=== PATIENT | female | born 1960 | race Two or more races ===

== ENCOUNTER 2020-08-26 19:12 | Emergency (ER) | payer OTHER, SELFPAY ==
--- NOTE | ~2020-08-26 | XR_ITS ---
EXAMINATION: XR SHOULDER, LEFT CLINICAL INFORMATION: Increasing shoulder pain with history of arthritis COMPARISON: Left shoulder radiographs 04/29/2013 TECHNIQUE: Three views of the left shoulder. FINDINGS: Again seen are degenerative changes present with subchondral cyst and sclerosis around the greater tuberosity. Findings are not significantly different when compared to the 2013 study. No tendinous calcification is seen. No fractures are seen. The glenohumeral joint appears unremarkable. XR/XR shoulder LT min 2V IMPRESSION: No acute abnormality. Findings are unchanged when compared to the 2013 study described above.
[2020-08-26 19:32] VITALS: BP 158/74; PULSE 76; RESP 16; TEMP 36.8; O2SAT 95; BMI 42.3
[2020-08-26] MEDS: Ketorolac Tromethamine 15 MG/ML VIAL IM (21:24)
[2020-08-26] MEDS: Acetaminophen 325 MG TABLET 975 MG PO (21:25)
--- NOTE | 2020-08-26 21:28 | ED_ITS ---
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 Although patient states that she is unable to lift her arm she was noted to be able to perform this function by both nursing staff on documentation as well observed by myself. She denies any numbness/tingling/weakness into the distal extremity. Otherwise, she denies any shortness of breath, trauma, or chest pain/palpitations. Related Data Home Medications Medication Instructions Recorded Confirmed albuterol sulfate 90 mcg/actuation 2 puff PO Q6H PRN 03/27/20 03/27/20 aerosol inhaler cholecalciferol (vitamin D3) 50 50 mcg PO DAILY 03/27/20 03/27/20 mcg (2,000 unit) tablet ibuprofen 800 mg tablet mg PO 03/27/20 03/27/20 Previous Rx's Medication Instructions Recorded fluoxetine 40 mg capsule 40 mg PO DAILY 90 Days #90 cap 03/08/20 hydroxyzine HCl 25 mg tablet 25 mg PO Q8H PRN 30 Days #90 tab 03/30/20 lisinopril 10 mg tablet 10 mg PO DAILY #90 tab 04/02/20 trazodone 150 mg tablet 300 mg PO DAILY #180 tab 04/29/20 naproxen 500 mg tablet 500 mg PO BID PRN 30 Days #60 tab 06/20/20 omeprazole 40 mg capsule,delayed 40 mg PO DAILY #30 cap 07/04/20 release hydroxyzine HCl 25 mg PO TID PRN 2 Days #6 tab 08/26/20 Allergies Allergy/AdvReac Type Severity Reaction Status Date / Time No Known Allergies Allergy Mild NKA Verified 03/27/20 17:37 Review of Systems Review of Systems: Pertinent positives and negatives as stated in HPI 10 point review of systems is otherwise negative. PMFSH Past Medical History Source: nursing notes reviewed Medical History Depression Essential hypertension GERD (gastroesophageal reflux disease) Hypovitaminosis D Insomnia Mild asthma Surgical History History of tubal ligation Family History Family History Father Kidney failure, acute Asthma Mother Heart disease Cancer Sister Kidney disease Brother Kidney failure, acute Son Bipolar 1 disorder Family/Other FH: mental illness Social History Social History Alcohol intake: never Smoking Status: Never smoker Smoked in Last 30 Days: No Use of substances other than those prescribed or required for medical reasons: No Advance Directives: No Advance Directives Information Provided: Yes Physical Exam Vital Signs: Vital Signs: Last Vital Signs Temp 98.2 F 08/26/20 19:32 Pulse 76 08/26/20 19:32 Resp 16 08/26/20 19:32 BP 158/74 H 08/26/20 19:32 Pulse Ox 95 08/26/20 19:32 Body Mass Index 42.3 VITAL SIGNS: Reviewed. GENERAL: Well developed, well nourished, in no acute distress. HEAD: Normocephalic/atraumatic OROPHARYNX: no oral lesions noted, posterior pharynx clear NECK: Supple, no adenopathy LUNGS: Normal breath sounds. No adventitious sounds or accessory muscle use. SpO2<95> CARDIOVASCULAR: Regular rate and rhythm without noted murmurs ABDOMEN: Soft, non-tender, non-distended with bowel sounds. No rigidity. No guarding. 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 Course Course Course Narrative: This is a 59-year-old female with history and clinical presentation consistent with acute on chronic exacerbation of underlying left shoulder arthritis, no evidence to suggest cardiopulmonary etiologies or infection. X-ray negative for acute findings other than degenerative changes and physical exam is otherwise benign. Patient received combination analgesics with good results on re-evaluation and she was discharged in stable condition with instructions to follow-up with her primary care provider. Discharge Plan Discharge Clinical Impression: Acute pain of left shoulder Patient Disposition: Home, Self-Care Instructions: Arthralgia (ED), Shoulder Pain (ED) Additional Instructions: 1. Please resume all home medications as prescribed. 2. Tylenol 1000 mg, orally, every 6 hours as needed for pain control. Do not exceed 4000 mg within 24 hours. 3. Please follow-up with your primary care provider in the next 2-3 days for re- evaluation. Do not hesitate to return to the emergency department for any acute worsening of symptoms. Prescriptions: New hydroxyzine HCl 25 mg tablet 25 mg PO TID PRN (Reason: itching) 2 Days Qty: 6 RF: 0 No Action fluoxetine 40 mg capsule 40 mg PO DAILY 90 Days Qty: 90 RF: 3 hydroxyzine HCl 25 mg tablet 25 mg PO Q8H PRN (Reason: itching) 30 Days Qty: 90 RF: 6 lisinopril 10 mg tablet 10 mg PO DAILY Qty: 90 RF: 2 trazodone 150 mg tablet 300 mg PO DAILY Qty: 180 RF: 1 naproxen 500 mg tablet 500 mg PO BID PRN (Reason: pain) 30 Days Qty: 60 RF: 2 omeprazole 40 mg capsule,delayed release(DR/EC) 40 mg PO DAILY Qty: 30 RF: 11 ibuprofen 800 mg tablet PO RF: 0 cholecalciferol (vitamin D3) 50 mcg (2,000 unit) tablet 50 mcg PO DAILY RF: 0 albuterol sulfate 90 mcg/actuation HFA aerosol inhaler 2 puff PO Q6H PRNRF: 0 Referrals: Selene Kirkland MD [Primary Care Provider] - 2 days (Re-evaluation of left shoulder pain)
== END 2020-08-26 22:05 | disposition home or self-care (01) ==
PROVIDERS: Emergency Provider Student in an Organized Health Care Education/Training Program; PCP Internal Medicine
DX: M25.512 Pain in left shoulder (principal); Z79.899 Other long term (current) drug therapy
CPT/HCPCS: 73030; 96372; 99284; J1885

== ENCOUNTER 2020-09-18 19:42 | Inpatient (IN) | payer OTHER, SELFPAY ==
--- NOTE | ~2020-09-18 | XR_ITS ---
EXAMINATION: XR CHEST CLINICAL INFORMATION: Shortness of breath. Evaluate for pneumonia. COMPARISON: 05/05/2018 TECHNIQUE: Frontal view of the chest was obtained. FINDINGS: Multifocal airspace opacities extensively throughout bilateral lung. Possible small left pleural effusion. No pulmonary edema. No pneumothorax. XR/XR chest 1V IMPRESSION: Multifocal airspace opacities extensively throughout bilateral hemithoraces, suspicious for multifocal pneumonia. Recommendation is for a follow up chest series to be obtained following treatment and/or resolution of symptoms to assure resolution of this appearance.
--- NOTE | ~2020-09-18 | XR_ITS ---
EXAMINATION: XR CHEST CLINICAL INFORMATION: Right IJ placement COMPARISON: 09/26/2020 TECHNIQUE: Frontal view of the chest was obtained. FINDINGS: Right internal jugular central venous catheter terminates over the right atrium. This is approximately 4 cm beyond the cavoatrial junction. Cardiac leads overlie the chest. Lung volumes are low. Multifocal airspace opacities are seen throughout both lungs. No pleural effusion or pneumothorax. The cardiomediastinal silhouette is unchanged. XR/XR chest 1V IMPRESSION: Right internal jugular central venous catheter terminates over the right atrium, approximately 4 cm beyond the cavoatrial junction. Diffuse bilateral airspace opacities are again noted.
--- NOTE | ~2020-09-18 | XR_ITS ---
EXAMINATION: XR CHEST CLINICAL INFORMATION: Hypoxic respiratory failure COMPARISON: Chest 09/28/2020 TECHNIQUE: Frontal view of the chest was obtained. FINDINGS: The lungs are hypoexpanded with bilateral airspace opacities. No consolidation. No pleural effusion. Heart size and pulmonary vascularity is normal. There is a right central catheter with its tip in the right atrium. No gross bony abnormality seen. XR/XR chest 1V IMPRESSION: Diffuse bilateral patchy airspace opacities, stable. Right central catheter is stable.
--- NOTE | ~2020-09-18 | XR_ITS ---
EXAMINATION: XR CHEST CLINICAL INFORMATION: Follow-up pneumonia COMPARISON: Previous chest x-ray 09/18/2020 TECHNIQUE: Frontal view of the chest was obtained. FINDINGS: The cardiac and mediastinal contours are normal. The lung volumes are low. There is bilateral airspace disease suggestive of a bilateral multilobar pneumonia. This does not appear appreciably changed from 09/18/2020 exam. There is no pleural effusion or pneumothorax. There are degenerative changes of the spine. XR/XR chest 1V IMPRESSION: No significant change in bilateral airspace disease suggestive of pneumonia.
[2020-09-18 20:03] VITALS: BP 139/74; PULSE 101; RESP 22; TEMP 37.3; O2SAT 70; BMI 37.8
[2020-09-18 20:24] VITALS: BP 132/81; PULSE 89; RESP 20; TEMP 36.3
--- NOTE | 2020-09-18 20:28 | ECG_ITS ---
Test Reason : DYSPNEA Blood Pressure : / mmHG Vent. Rate : 089 BPM Atrial Rate : 089 BPM P-R Int : 142 ms QRS Dur : 086 ms QT Int : 396 ms P-R-T Axes : 057 010 057 degrees QTc Int : 481 ms Normal sinus rhythm Minimal voltage criteria for LVH, may be normal variant Prolonged QT Abnormal ECG When compared to the previous EKG of No significant changes seen Referred By: Samantha Soto Electronically Signed By:Jace Guzmán
[2020-09-18] MEDS: Albuterol Sulfate (0.083%) 2.5 MG/3 ML VIAL.NEB 5 MG INHALE (20:35)
--- NOTE | 2020-09-18 20:35 | ED.SOB ---
HPI - SOB/Dyspnea General Chief Complaint: Dyspnea Stated Complaint: DIFF BREATHING Time Seen by Provider: 09/18/20 20:28 Source: patient Mode of arrival: ambulatory Limitations: no limitations History of Present Illness HPI Narrative: 59 yo female with asthma, HTN, depression here with 1 week of fatigue, weakness, dyspnea not responding to home nebs, no exposures to COVID and did NOT receive her vaccines yet, found to be in 70s on RA on arrival up to 90s with NRB MD elicited complaint: shortness of breath and cough Pertinent past history: asthma Onset (ago): week(s) (1) Timing: constant Severity: severe Exacerbating factors: exertion, movement and coughing Relieving factors: oxygen, rest and bronchodilators Known history of: asthma Associated symptoms: fever, cough, wheezing and sputum production Treatment prior to arrival: none Related Data Home Medications Medication Instructions Recorded Confirmed albuterol sulfate 90 mcg/actuation 2 puff PO Q6H PRN 03/27/20 03/27/20 aerosol inhaler cholecalciferol (vitamin D3) 50 50 mcg PO DAILY 03/27/20 03/27/20 mcg (2,000 unit) tablet ibuprofen 800 mg tablet mg PO 03/27/20 03/27/20 Previous Rx's Medication Instructions Recorded fluoxetine 40 mg capsule 40 mg PO DAILY 90 Days #90 cap 03/08/20 hydroxyzine HCl 25 mg tablet 25 mg PO Q8H PRN 30 Days #90 tab 03/30/20 lisinopril 10 mg tablet 10 mg PO DAILY #90 tab 04/02/20 trazodone 150 mg tablet 300 mg PO DAILY #180 tab 04/29/20 naproxen 500 mg tablet 500 mg PO BID PRN 30 Days #60 tab 06/20/20 omeprazole 40 mg capsule,delayed 40 mg PO DAILY #30 cap 07/04/20 release hydroxyzine HCl 25 mg PO TID PRN 2 Days #6 tab 08/26/20 Allergies Allergy/AdvReac Type Severity Reaction Status Date / Time No Known Allergies Allergy Mild NKA Verified 09/18/20 20:07 Review of Systems Review of Systems: Constitutional : pos Fever, pos Chills ENT/Mouth : No Hoarseness, No sore throat, No Rhinorrhea Eyes: No Redness, No Discharge, No Vision Changes Cardiovascular : No Chest Pain, positive SOB, positive Dyspnea on Exertion, No Edema Respiratory : positive Cough, No Sputum, positive Wheezing, Gastrointestinal : No Nausea, No Vomiting, No Diarrhea, No abdominal Pain Genitourinary : No Dysuria, No Hematuria Musculoskeletal : No joint pain, No Myalgias Skin : No rash Neuro : pos Weakness, No Numbness, No Headache Psych : No anxiety, depression Heme/Lymph: No Bruising, No Bleeding Endocrine : No Polyuria, No Polydipsia All other systems reviewed and are negative [facility] Past Medical History Attestation statement: The following information was validated with the patient. Medical History Depression Essential hypertension GERD (gastroesophageal reflux disease) Hypovitaminosis D Insomnia Mild asthma Surgical History History of tubal ligation Family History Family History Father Kidney failure, acute Asthma Mother Heart disease Cancer Sister Kidney disease Brother Kidney failure, acute Son Bipolar 1 disorder Family/Other FH: mental illness Social History Social History Alcohol intake: never Smoking Status: Never smoker Advance Directives: No Advance Directives Information Provided: Yes Physical Exam Vital Signs: Vital Signs: Last Vital Signs Temp 97.4 F 09/18/20 20:24 Pulse 91 09/18/20 21:04 Resp 20 09/18/20 21:04 BP 112/82 09/18/20 21:04 Pulse Ox 97 09/18/20 21:04 Body Mass Index 37.8 Appearance: Alert. Oriented X3. Mild acute distress. Eyes: Pupils equal, round and reactive to light. ENT: Pharynx normal. Neck: Normal inspection. Neck supple. CVS: Normal heart rate and rhythm. Pulses normal. Respiratory: Mild respiratory distress. Breath sounds rhonchi with rales noted at bases Abdomen: Soft and nontender. Skin: Skin warm and dry. Normal skin color. Normal skin turgor. Extremities: No lower extremity edema. No calf ttp Neuro: Oriented X 3. No motor deficit. No sensory deficit. Course Course Course Narrative: presentation, xray, labs seem consistent wtih COVID - swab negative, will add on ceftriaxone and azithromycin will admit for further management MDM - SOB/Dyspnea MDM Narrative Medical decision making narrative: 59 yo female with asthma here with 1 week of viral like illness no CP found to be hypoxic at this time labs, xray, cultures, COVID swab, IV dexamethasone, 5mg neb of albuterol, anticipate admission for further workup and management Lab Data Result diagrams: 09/18/20 21:03 09/18/20 21:03 Labs: Lab Results 09/18/20 09/18/20 09/18/20 Range/Units 21:03 21:03 21:03 WBC 5.5 (4.8-10.8) X10*3/uL RBC 4.43 (4.20-5.50) X10*6/uL Hgb 12.5 (12.0-16.0) g/dl Hct 37.5 (37-47) % MCV 84.7 (80-98) fL MCH 28.2 (27.0-33.0) pg MCHC 33.3 (31.0-35.0) g/dl RDW 13.0 (11.0-16.0) % Plt Count 302 (160-400) X10*3/uL MPV 9.9 (9.4-12.3) fL Immature Gran % (Auto) 0.4 (0.0-0.4) % Neut % (Auto) 78.3 H (45-73) % Lymph % (Auto) 12.2 L (20-40) % [place] % (Auto) 8.5 (2-11) % Eos % (Auto) 0.2 (0-4) % Baso % (Auto) 0.4 (0-2) % Lymph # (Auto) 0.7 L (1.2-4.9) X10*3/uL [place] # (Auto) 0.5 (0.1-1.2) X10*3/uL Eos # (Auto) 0.0 (0.0-0.4) X10*3/uL Baso # (Auto) 0.0 (0.0-0.2) X10*3/uL Abs Immat Gran (auto) 0.02 (0.00-0.03) X10*3/uL Absolute Neuts (auto) 4.3 (2.0-8.3) X10*3/uL Absolute Nucleated RBC 0.000 (0.0-0.012) X10*3/uL Nucleated RBC % (auto) 0.0 (0.0-0.2) /100WBC Smear Tech's Comments VERIFIED PT 14.1 H (10.8-13.0) SEC INR 1.2 H (0.9-1.1) D-Dimer 512 NG/ML Sodium 139 (135-145) mmol/L Potassium 3.7 (3.3-5.1) mmol/L Chloride 100 (96-108) mmol/L Carbon Dioxide 30 H (22-29) mmol/L Anion Gap 13 (12-20) BUN 9 (9-16) mg/dL Creatinine 0.69 (0.5-1.4) mg/dL Estim Creat Clear Calc 91.1 Estimated GFR > 60 Random Glucose 140 H (60-115) mg/dL Lactic Acid (0.5-2.0) mmol/L Calcium 8.9 (8.4-10.2) mg/dL Magnesium 1.9 (1.6-2.6) mg/dL Ferritin 376 H (10-250) ng/mL Total Bilirubin 1.1 H (0.0-1.0) mg/dL Direct Bilirubin 0.5 (0.0-0.5) mg/dL AST 21 (5-31) U/L ALT 17 (0-31) U/L Alkaline Phosphatase 57 (39-117) U/L Lactate Dehydrogenase 348 H (122-220) U/L Total Creatine Kinase 34 (26-140) U/L Troponin I High Sens (<3.5-17.0) ng/L C-Reactive Protein 20.98 H (< or = 0.50) mg/dL B-Natriuretic Peptide (<100) pg/mL Total Protein 6.7 (6.5-8.0) g/dL Albumin 3.5 (3.5-5.0) g/dL Procalcitonin ng/mL Urine Color Urine Appearance Urine pH (5.0-8.0) Ur Specific [place] (1.005-1.025) Urine Protein (NEG-TRACE) MG/DL Urine Glucose (UA) (NEG) MG/DL Urine Ketones (NEG) MG/DL Urine Blood (NEG) Urine Nitrite (NEG) Ur Leukocyte Esterase (NEG) Urine RBC (0) /HPF Urine WBC (0-4) /HPF Ur Squamous Epith Cells /LPF Urine Bacteria /LPF Coronavirus (PCR) (Negative) COVID-19 (JAMAR) (Negative) COVID-19 Clin Com Influenza Type A (PCR) (Negative) Influenza Type B (PCR) (Negative) RSV RNA Qual (PCR) (Negative) 09/18/20 09/18/20 09/18/20 Range/Units 21:03 21:03 21:03 WBC (4.8-10.8) X10*3/uL RBC (4.20-5.50) X10*6/uL Hgb (12.0-16.0) g/dl Hct (37-47) % MCV (80-98) fL MCH (27.0-33.0) pg MCHC (31.0-35.0) g/dl RDW (11.0-16.0) % Plt Count (160-400) X10*3/uL MPV (9.4-12.3) fL Immature Gran % (Auto) (0.0-0.4) % Neut % (Auto) (45-73) % Lymph % (Auto) (20-40) % [place] % (Auto) (2-11) % Eos % (Auto) (0-4) % Baso % (Auto) (0-2) % Lymph # (Auto) (1.2-4.9) X10*3/uL [place] # (Auto) (0.1-1.2) X10*3/uL Eos # (Auto) (0.0-0.4) X10*3/uL Baso # (Auto) (0.0-0.2) X10*3/uL Abs Immat Gran (auto) (0.00-0.03) X10*3/uL Absolute Neuts (auto) (2.0-8.3) X10*3/uL Absolute Nucleated RBC (0.0-0.012) X10*3/uL Nucleated RBC % (auto) (0.0-0.2) /100WBC Smear Tech's Comments PT (10.8-13.0) SEC INR (0.9-1.1) D-Dimer NG/ML Sodium (135-145) mmol/L Potassium (3.3-5.1) mmol/L Chloride (96-108) mmol/L Carbon Dioxide (22-29) mmol/L Anion Gap (12-20) BUN (9-16) mg/dL Creatinine (0.5-1.4) mg/dL Estim Creat Clear Calc Estimated GFR Random Glucose (60-115) mg/dL Lactic Acid 0.9 (0.5-2.0) mmol/L Calcium (8.4-10.2) mg/dL Magnesium (1.6-2.6) mg/dL Ferritin (10-250) ng/mL Total Bilirubin (0.0-1.0) mg/dL Direct Bilirubin (0.0-0.5) mg/dL AST (5-31) U/L ALT (0-31) U/L Alkaline Phosphatase (39-117) U/L Lactate Dehydrogenase (122-220) U/L Total Creatine Kinase (26-140) U/L Troponin I High Sens < 3.5 (<3.5-17.0) ng/L C-Reactive Protein (< or = 0.50) mg/dL B-Natriuretic Peptide 11 (<100) pg/mL Total Protein (6.5-8.0) g/dL Albumin (3.5-5.0) g/dL Procalcitonin 0.06 ng/mL Urine Color Urine Appearance Urine pH (5.0-8.0) Ur Specific [place] (1.005-1.025) Urine Protein (NEG-TRACE) MG/DL Urine Glucose (UA) (NEG) MG/DL Urine Ketones (NEG) MG/DL Urine Blood (NEG) Urine Nitrite (NEG) Ur Leukocyte Esterase (NEG) Urine RBC (0) /HPF Urine WBC (0-4) /HPF Ur Squamous Epith Cells /LPF Urine Bacteria /LPF Coronavirus (PCR) (Negative) COVID-19 (JAMAR) (Negative) COVID-19 Clin Com Influenza Type A (PCR) (Negative) Influenza Type B (PCR) (Negative) RSV RNA Qual (PCR) (Negative) 09/18/20 09/18/20 09/18/20 Range/Units 21:03 22:27 22:32 WBC (4.8-10.8) X10*3/uL RBC (4.20-5.50) X10*6/uL Hgb (12.0-16.0) g/dl Hct (37-47) % MCV (80-98) fL MCH (27.0-33.0) pg MCHC (31.0-35.0) g/dl RDW (11.0-16.0) % Plt Count (160-400) X10*3/uL MPV (9.4-12.3) fL Immature Gran % (Auto) (0.0-0.4) % Neut % (Auto) (45-73) % Lymph % (Auto) (20-40) % [place] % (Auto) (2-11) % Eos % (Auto) (0-4) % Baso % (Auto) (0-2) % Lymph # (Auto) (1.2-4.9) X10*3/uL [place] # (Auto) (0.1-1.2) X10*3/uL Eos # (Auto) (0.0-0.4) X10*3/uL Baso # (Auto) (0.0-0.2) X10*3/uL Abs Immat Gran (auto) (0.00-0.03) X10*3/uL Absolute Neuts (auto) (2.0-8.3) X10*3/uL Absolute Nucleated RBC (0.0-0.012) X10*3/uL Nucleated RBC % (auto) (0.0-0.2) /100WBC Smear Tech's Comments PT (10.8-13.0) SEC INR (0.9-1.1) D-Dimer NG/ML Sodium (135-145) mmol/L Potassium (3.3-5.1) mmol/L Chloride (96-108) mmol/L Carbon Dioxide (22-29) mmol/L Anion Gap (12-20) BUN (9-16) mg/dL Creatinine (0.5-1.4) mg/dL Estim Creat Clear Calc Estimated GFR Random Glucose (60-115) mg/dL Lactic Acid (0.5-2.0) mmol/L Calcium (8.4-10.2) mg/dL Magnesium (1.6-2.6) mg/dL Ferritin (10-250) ng/mL Total Bilirubin (0.0-1.0) mg/dL Direct Bilirubin (0.0-0.5) mg/dL AST (5-31) U/L ALT (0-31) U/L Alkaline Phosphatase (39-117) U/L Lactate Dehydrogenase (122-220) U/L Total Creatine Kinase (26-140) U/L Troponin I High Sens (<3.5-17.0) ng/L C-Reactive Protein (< or = 0.50) mg/dL B-Natriuretic Peptide (<100) pg/mL Total Protein (6.5-8.0) g/dL Albumin (3.5-5.0) g/dL Procalcitonin ng/mL Urine Color YELLOW Urine Appearance CLEAR Urine pH 7.0 (5.0-8.0) Ur Specific [place] 1.020 (1.005-1.025) Urine Protein 2+ H (NEG-TRACE) MG/DL Urine Glucose (UA) NEG (NEG) MG/DL Urine Ketones NEG (NEG) MG/DL Urine Blood NEG (NEG) Urine Nitrite NEG (NEG) Ur Leukocyte Esterase NEG (NEG) Urine RBC 0 (0) /HPF Urine WBC 0 (0-4) /HPF Ur Squamous Epith Cells 3+ /LPF Urine Bacteria NONE /LPF Coronavirus (PCR) NEGATIVE (Negative) COVID-19 (JAMAR) Negative (Negative) COVID-19 Clin Com See Note Influenza Type A (PCR) NEGATIVE (Negative) Influenza Type B (PCR) NEGATIVE (Negative) RSV RNA Qual (PCR) NEGATIVE (Negative) ECG Data Attestation: I personally reviewed and interpreted this ECG as follows: ECG interpretation date: 09/18/20 ECG interpretation time: 22:25 Interpretation: Rate: 82 Rhythm: NSR [place]: normal, LVH Normal P waves. Normal JOSE. Normal QRS complex. ST T wave : no BELLA, normal qTC: prolonged prior studies: no acute ischemia The study has been interpreted contemporaneously by me. . Critical Care Time Critical Care Time Critical Care Time: Yes Total Critical Care Time: 30 Attestation: 5mg neb, NRB O2 supplementation I attest to this time spent taking care of the patient Discharge Plan Discharge Clinical Impression: Hypoxia, Multifocal pneumonia Asthma with exacerbation Qualifiers: Asthma severity: mild Asthma persistence: persistent Qualified Code(s): J45.31 - Mild persistent asthma with (acute) exacerbation Patient Disposition: Admitted As Inpatient
[2020-09-18 20:46] VITALS: PULSE 97; O2SAT 88
[2020-09-18 21:04] VITALS: BP 112/82; PULSE 91; RESP 20; O2SAT 97
[2020-09-18] MEDS: dexAMETHasone sod phosphate 4 MG/ML VIAL 6 MG IVPUSH (21:13)
[2020-09-18 21:17] LABS: Basophils Percent Auto 0.4 % (0-2); Eosinophils Percent Auto 0.2 % (0-4); Hematocrit 37.5 % (37-47); Hemoglobin 12.5 g/dl (12.0-16.0); Imm Gran Abs Auto 0.02 X10*3/uL (0.00-0.03); Imm Gran Pct Auto 0.4 % (0.0-0.4); Lymphocytes Absolute Auto 0.7 X10*3/uL (1.2-4.9); Lymphocytes Percent Auto 12.2 % (20-40); MANUAL DIFF FLAG SCAN; Mean Corpuscular HGB Conc 33.3 g/dl (31.0-35.0); Mean Corpuscular Hemoglobin 28.2 pg (27.0-33.0); Mean Corpuscular Volume 84.7 fL (80-98); Mean Platelet Volume 9.9 fL (9.4-12.3); Monocytes Absolute Auto 0.5 X10*3/uL (0.1-1.2); Monocytes Percent Auto 8.5 % (2-11); Neutrophils Absolute Auto 4.3 X10*3/uL (2.0-8.3); Neutrophils Percent Auto 78.3 % (45-73); Platelet Count 302 X10*3/uL (160-400); Red Blood Count 4.43 X10*6/uL (4.20-5.50); SCAN SMEAR FLAG 1; White Blood Count 5.5 X10*3/uL (4.8-10.8)
[2020-09-18 21:25] LABS: INTERNATIONAL NORM RATIO 1.2 (0.9-1.1); Prothrombin Time 14.1 SEC (10.8-13.0)
[2020-09-18 21:29] LABS: D Dimer 512 NG/ML
[2020-09-18 21:35] LABS: SLIDE REVIEW VERIFIED
[2020-09-18 21:37] LABS: Lactic Acid 0.9 mmol/L (0.5-2.0)
[2020-09-18 21:47] LABS: B Type Natriuretic Peptide 11 pg/mL (<100); Troponin-I High Sensitivity < 3.5 ng/L (<3.5-17.0)
[2020-09-18 21:53] LABS: Alanine Aminotransferase 17 U/L (0-31); Albumin Level 3.5 g/dL (3.5-5.0); Alkaline Phosphatase 57 U/L (39-117); Anion Gap 13 (12-20); Aspartate Amino Transferase 21 U/L (5-31); Bilirubin Direct 0.5 mg/dL (0.0-0.5); Bilirubin Total 1.1 mg/dL (0.0-1.0); Blood Urea Nitrogen 9 mg/dL (9-16); C Reactive Protein 20.98 mg/dL (< or = 0.50); Calcium 8.9 mg/dL (8.4-10.2); Carbon Dioxide 30 mmol/L (22-29); Chloride 100 mmol/L (96-108); Creatinine Clr Calc Pharmacy 91.1; Estimated Glomerular Filt Rate > 60; Glucose Random 140 mg/dL (60-115); Magnesium 1.9 mg/dL (1.6-2.6); Potassium 3.7 mmol/L (3.3-5.1); Sodium 139 mmol/L (135-145); Total Protein 6.7 g/dL (6.5-8.0)
[2020-09-18 21:54] LABS: Influenza A PCR NEGATIVE (Negative); Influenza B PCR NEGATIVE (Negative); Resp Syncy Virus RNA Qual PCR NEGATIVE (Negative); SARS COV2 PCR INHOUSE NEGATIVE (Negative)
[2020-09-18 21:58] LABS: Procalcitonin 0.06 ng/mL
[2020-09-18 22:00] LABS: Lactate Dehydrogenase 348 U/L (122-220)
[2020-09-18 22:01] LABS: Ferritin 376 ng/mL (10-250)
[2020-09-18 22:40] LABS: Glucose Urine UA NEG (NEG); Leukocyte Esterase Urine NEG (NEG); Nitrite Urine NEG (NEG); Urine Blood NEG (NEG); Urine Ketones NEG (NEG); Urine Protein 2+ MG/DL (NEG-TRACE)
[2020-09-18 22:41] LABS: Appearance Urine CLEAR; Color Urine YELLOW
[2020-09-18 22:49] LABS: RBC Urine 0 /HPF (0); Squamous Epithelial Cell Urine 3+ /LPF; WBC Urine 0 /HPF (0-4)
[2020-09-18] MEDS: cefTRIAXone sodium 1 GM in 0.9 % Sodium Chloride 50 ML IV (22:52)
[2020-09-18] MEDS: Acetaminophen 325 MG TABLET 650 MG PO (22:52)
[2020-09-18 22:58] LABS: COVID-19 Test Negative (Negative)
--- NOTE | 2020-09-18 23:38 | P.HPHOSP_ITS ---
History of Present Illness Date of Service: 09/18/20 Chief Complaint: Shortness of breath 59-year-old female with past medical history of asthma, hypertension, GERD, depression, who presents to the hospital with complaints of shortness of breath cough, fever, chills as well as nausea and vomiting. Patient reports that her symptoms started one week ago, worsened by the day, denies any recent sick contacts or travel. Patient reports her cough is productive of white sputum. Had a fever last night does not know how high, denies any chest pain, no palpitations, no abdominal pain, no diarrhea constipation, no urinary symptoms and no lower extremity edema. On arrival to the ED patient was found to be hypoxic at 70% on room air, currently on non-rebreather satting 96%. Other labs are significant for PT of 14, INR of 1.2, ferritin 376, LDH of 348, trop negative, CRP of 20.98, BNP 11, procalcitonin of 0.06, urine negative, COVID-19 x2 negative, influenza A/B and RSV negative. Chest x-ray shows multifocal airspace opacities extensively throughout bilateral juany thoracis. Suspicious for multifocal pneumonia. Patient will be admitted for further management Review of Systems Review of Systems: Yes all other systems are reviewed and are negative [facility] Medical History Depression Essential hypertension GERD (gastroesophageal reflux disease) Hypovitaminosis D Insomnia Mild asthma Family History Father Kidney failure, acute Asthma Mother Heart disease Cancer Sister Kidney disease Brother Kidney failure, acute Son Bipolar 1 disorder Family/Other FH: mental illness Family history: reviewed and not pertinent Surgical History History of tubal ligation Social History Alcohol intake: never Smoking Status: Never smoker Advance Directives: No Advance Directives Information Provided: Yes Meds Allergies Allergy/AdvReac Type Severity Reaction Status Date / Time No Known Allergies Allergy Mild NKA Verified 09/18/20 20:07 Active Medications: Current Medications Generic Name Dose Route Start Last Admin Trade Name Freq PRN Reason Stop Dose Admin Azithromycin 500 mg/ Sodium 250 mls @ 125 mls/hr 09/18/20 21:59 Chloride IV 09/18/20 23:58 ONCE ONE Home Medications Medication Instructions Recorded Confirmed Last Taken Type albuterol sulfate 90 mcg/actuation 2 puff PO Q6H PRN 03/27/20 03/27/20 09/18/20 09:00 History aerosol inhaler cholecalciferol (vitamin D3) 50 50 mcg PO DAILY 03/27/20 03/27/20 09/18/20 09:00 History mcg (2,000 unit) tablet ibuprofen 800 mg tablet mg PO 03/27/20 03/27/20 09/18/20 09:00 History Physical Exam Vital Signs and Narrative: Vital Signs: Last Vital Signs Temp 97.4 F 09/18/20 20:24 Pulse 91 09/18/20 21:04 Resp 20 09/18/20 21:04 BP 112/82 09/18/20 21:04 Pulse Ox 97 09/18/20 21:04 Body Mass Index 37.8 Const: General: cooperative and no acute distress Orientation/consciousness: patient oriented x3 Eyes: General: appearance normal, both eyes and all related structures Resp: Effort & Inspection: normal respiratory effort and able to speak in complete sentences Cardio: Rate: regular rate Rhythm: regular rhythm GI: Palpation (GI): Soft to palpation Auscultation: normal bowel sounds Skin: General skin exam: no rashes or lesions noted Neuro: General: patient oriented x3 Cognition (Neuro): normal cognition Extrem: General: Yes normal to inspection and Yes no pedal edema Results Labs CBC and Chem 7: 09/19/20 04:18 09/19/20 04:18 Labs: Laboratory Results - last 24 hr 09/18/20 09/18/20 09/18/20 21:03 21:03 21:03 MCV 84.7 MCH 28.2 MCHC 33.3 RDW 13.0 Plt Count 302 MPV 9.9 Immature Gran % (Auto) 0.4 Neut % (Auto) 78.3 H Lymph % (Auto) 12.2 L [place] % (Auto) 8.5 Eos % (Auto) 0.2 Baso % (Auto) 0.4 Lymph # (Auto) 0.7 L [place] # (Auto) 0.5 Eos # (Auto) 0.0 Baso # (Auto) 0.0 Abs Immat Gran (auto) 0.02 Absolute Neuts (auto) 4.3 Absolute Nucleated RBC 0.000 Nucleated RBC % (auto) 0.0 Smear Tech's Comments VERIFIED PT 14.1 H INR 1.2 H D-Dimer 512 Anion Gap 13 Estim Creat Clear Calc 91.1 Estimated GFR > 60 Random Glucose 140 H Lactic Acid Calcium 8.9 Magnesium 1.9 Ferritin 376 H Total Bilirubin 1.1 H Direct Bilirubin 0.5 AST 21 ALT 17 Alkaline Phosphatase 57 Lactate Dehydrogenase 348 H Total Creatine Kinase 34 Troponin I High Sens C-Reactive Protein 20.98 H B-Natriuretic Peptide Total Protein 6.7 Albumin 3.5 Procalcitonin Urine Color Urine Appearance Urine pH Ur Specific [place] Urine Protein Urine Glucose (UA) Urine Ketones Urine Blood Urine Nitrite Ur Leukocyte Esterase Urine RBC Urine WBC Ur Squamous Epith Cells Urine Bacteria Coronavirus (PCR) COVID-19 (JAMAR) COVID-19 Clin Com Influenza Type A (PCR) Influenza Type B (PCR) RSV RNA Qual (PCR) 09/18/20 09/18/20 09/18/20 21:03 21:03 21:03 MCV MCH MCHC RDW Plt Count MPV Immature Gran % (Auto) Neut % (Auto) Lymph % (Auto) [place] % (Auto) Eos % (Auto) Baso % (Auto) Lymph # (Auto) [place] # (Auto) Eos # (Auto) Baso # (Auto) Abs Immat Gran (auto) Absolute Neuts (auto) Absolute Nucleated RBC Nucleated RBC % (auto) Smear Tech's Comments PT INR D-Dimer Anion Gap Estim Creat Clear Calc Estimated GFR Random Glucose Lactic Acid 0.9 Calcium Magnesium Ferritin Total Bilirubin Direct Bilirubin AST ALT Alkaline Phosphatase Lactate Dehydrogenase Total Creatine Kinase Troponin I High Sens < 3.5 C-Reactive Protein B-Natriuretic Peptide 11 Total Protein Albumin Procalcitonin 0.06 Urine Color Urine Appearance Urine pH Ur Specific [place] Urine Protein Urine Glucose (UA) Urine Ketones Urine Blood Urine Nitrite Ur Leukocyte Esterase Urine RBC Urine WBC Ur Squamous Epith Cells Urine Bacteria Coronavirus (PCR) COVID-19 (JAMAR) COVID-19 Clin Com Influenza Type A (PCR) Influenza Type B (PCR) RSV RNA Qual (PCR) 09/18/20 09/18/20 09/18/20 21:03 22:27 22:32 MCV MCH MCHC RDW Plt Count MPV Immature Gran % (Auto) Neut % (Auto) Lymph % (Auto) [place] % (Auto) Eos % (Auto) Baso % (Auto) Lymph # (Auto) [place] # (Auto) Eos # (Auto) Baso # (Auto) Abs Immat Gran (auto) Absolute Neuts (auto) Absolute Nucleated RBC Nucleated RBC % (auto) Smear Tech's Comments PT INR D-Dimer Anion Gap Estim Creat Clear Calc Estimated GFR Random Glucose Lactic Acid Calcium Magnesium Ferritin Total Bilirubin Direct Bilirubin AST ALT Alkaline Phosphatase Lactate Dehydrogenase Total Creatine Kinase Troponin I High Sens C-Reactive Protein B-Natriuretic Peptide Total Protein Albumin Procalcitonin Urine Color YELLOW Urine Appearance CLEAR Urine pH 7.0 Ur Specific [place] 1.020 Urine Protein 2+ H Urine Glucose (UA) NEG Urine Ketones NEG Urine Blood NEG Urine Nitrite NEG Ur Leukocyte Esterase NEG Urine RBC 0 Urine WBC 0 Ur Squamous Epith Cells 3+ Urine Bacteria NONE Coronavirus (PCR) NEGATIVE COVID-19 (JAMAR) Negative COVID-19 Clin Com See Note Influenza Type A (PCR) NEGATIVE Influenza Type B (PCR) NEGATIVE RSV RNA Qual (PCR) NEGATIVE Imaging Radiologist's Impressions: Impressions Chest X-Ray 09/18/20 20:28 IMPRESSION: Multifocal airspace opacities extensively throughout bilateral hemithoraces, suspicious for multifocal pneumonia. Recommendation is for a follow up chest series to be obtained following treatment and/or resolution of symptoms to assure resolution of this appearance. Assessment and Plan (1) Asthma with exacerbation: Qualifiers: Asthma persistence: persistent Asthma severity: mild Qualified Code(s ): J45.31 - Mild persistent asthma with (acute) exacerbation Status: Acute (2) Acute respiratory failure with hypoxia: Status: Acute (3) Multifocal pneumonia: Status: Acute 59-year-old female past medical history of asthma presents to the hospital with shortness of breath. # acute hypoxic respiratory failure - secondary to multifocal pneumonia, COVID-19 and Na and PCR negative although chest x-ray showing multifocal infiltrates - currently requiring non-rebreather satting in the mid 90s - procalcitonin 0.06 - will start patient on IV antibiotics - follow blood cultures - monitor respiratory status # multifocal pneumonia - COVID-19 negative - Possible bacterial infection although procalcitonin low - will start on IV antibiotics - follow blood cultures # asthma exacerbation - will start on IV Decadron, DuoNeb p.r.n. and scheduled # hypertension - continue home medications DVT prophylaxis: Heparin subQ
[2020-09-19] VITALS (13 sets, daily range): BP systolic 115–142; BP diastolic 58–96; PULSE 66–86; RESP 16–24; TEMP 36.6–36.7; O2SAT 89–97
[2020-09-19] MEDS: Azithromycin 500 MG in 0.9 % Sodium Chloride 250 ML 125 MG IV (00:11)
[2020-09-19] MEDS: 0.9 % Sodium Chloride Flush 3 ML SYRINGE IVFLUSH ×3 (03:41→16:18)
[2020-09-19 05:00] LABS: Basophils Percent Auto 0.2 % (0-2); Hematocrit 37.5 % (37-47); Hemoglobin 12.3 g/dl (12.0-16.0); Imm Gran Abs Auto 0.03 X10*3/uL (0.00-0.03); Imm Gran Pct Auto 0.7 % (0.0-0.4); Lymphocytes Absolute Auto 0.6 X10*3/uL (1.2-4.9); Lymphocytes Percent Auto 12.6 % (20-40); MANUAL DIFF FLAG SCAN; Mean Corpuscular HGB Conc 32.8 g/dl (31.0-35.0); Mean Corpuscular Volume 85.2 fL (80-98); Mean Platelet Volume 10.1 fL (9.4-12.3); Monocytes Absolute Auto 0.1 X10*3/uL (0.1-1.2); Monocytes Percent Auto 2.6 % (2-11); Neutrophils Absolute Auto 3.9 X10*3/uL (2.0-8.3); Neutrophils Percent Auto 83.9 % (45-73); Platelet Count 333 X10*3/uL (160-400); Red Cell Distribution Width 12.9 % (11.0-16.0); SCAN SMEAR FLAG 1; White Blood Count 4.6 X10*3/uL (4.8-10.8)
[2020-09-19 05:31] LABS: Sodium 142 mmol/L (135-145)
[2020-09-19 05:32] LABS: Anion Gap 17 (12-20); Blood Urea Nitrogen 10 mg/dL (9-16); Carbon Dioxide 28 mmol/L (22-29); Chloride 102 mmol/L (96-108); Creatinine Clr Calc Pharmacy 83.8; Estimated Glomerular Filt Rate > 60; Glucose Random 160 mg/dL (60-115); Potassium 4.6 mmol/L (3.3-5.1)
[2020-09-19] MEDS: Heparin Sodium,Porcine 5,000 UNIT/ML VIAL 5000 UNIT SUBCUT ×2 (05:56→14:47)
[2020-09-19] MEDS: dexAMETHasone sod phosphate 4 MG/ML VIAL 6 MG IVPUSH (08:20)
--- NOTE | 2020-09-19 08:37 | PC.NURSE ---
Pt alert and oriented, skin pink, warm, dry. LS crackles in RUL, wheezing LLL. Pt unable to tolerate 9L non-rebreather O2 sat dropped to 88-90%. Pt remains on 15L non-rebreather. Normal sinus on monitor. Awaiting bed assignment.
--- NOTE | 2020-09-19 10:00 | PC.NURSE ---
Pt placed on high flow, tolerating well. 92%. NAD, awaiting bed assgn. RR normal, normal effort
--- NOTE | 2020-09-19 10:01 | HO.PM.IMPN ---
Subjective Subjective Date of Service: 09/19/20 Interval History: sob Cardiovascular Cardiovascular: Reports no additional cardiovascular complaints Gastrointestinal Gastrointestinal: Reports no additional gastrointestinal complaints Physical Exam Vital Signs: Vital Signs: Last Vital Signs Temp 97.4 F 09/18/20 20:24 Pulse 77 09/19/20 08:27 Resp 20 09/19/20 09:38 BP 132/77 09/19/20 08:27 Pulse Ox 95 09/19/20 08:27 Body Mass Index 37.8 General: AO X 3, short of breath, tachypneic, accessory muscles, diaphoretic Resp: rhonchi CVS: S1,S2,RRR GI: soft, non tender, non distended Neuro: motor grossly intact Psych: appropriate affect Objective Data Current Medications Generic Name Dose Route Start Last Admin Trade Name Freq PRN Reason Stop Dose Admin Acetaminophen 650 mg 09/19/20 03:11 Acetaminophen 325 Mg Tablet PO Q6H PRN Pain, Mild (Pain Scale 1-3) Albuterol/Ipratropium 3 ml 09/19/20 08:00 09/19/20 08:03 Albuterol/Iprat 2.5/0.5mg 3 Ml Ampul.Neb INHALE Not Given RQ4H WHILE AWAKE KERLINE Albuterol/Ipratropium 3 ml 09/19/20 03:11 Albuterol/Iprat 2.5/0.5mg 3 Ml Ampul.Neb INHALE RQ4H PRN Shortness of Breath/Wheezing Dexamethasone Sodium Phosphate 6 mg 09/19/20 09:00 09/19/20 08:20 Dexamethasone Sod Phosphate 4 Mg/Ml Vial IVPUSH 6 mg DAILY KERLINE Administration Docusate Sodium 100 mg 09/19/20 03:11 Docusate Sodium 100 Mg Capsule PO DAILY PRN Constipation Heparin Sodium (Porcine) 5,000 unit 09/19/20 03:11 09/19/20 05:56 Heparin Sodium,Porcine 5,000 Unit/Ml Vial SUBCUT 5,000 unit Q12H KERLINE Administration Ceftriaxone Sodium 1 gm/ 50 mls @ 100 mls/hr 09/19/20 22:00 Sodium Chloride IV Q24H KERLINE Azithromycin 500 mg/ Sodium 250 mls @ 125 mls/hr 09/19/20 21:00 Chloride IV Q24H KERLINE Ondansetron HCl 4 mg 09/19/20 03:11 Ondansetron Hcl 4 Mg/2 Ml Vial IVPUSH Q8H PRN Nausea and Vomiting Pharmacy Consult 1 each 09/19/20 09:20 Consult Rx Perform Med Rec MISCELLANE ONCE PRN Consult order Sodium Chloride 3 ml 09/19/20 03:11 09/19/20 08:34 0.9 % Sodium Chloride Flush 3 Ml Syringe IVFLUSH 3 ml QSHIFT KERLINE Administration Labs CBC & Chem 7: 09/19/20 04:18 09/19/20 04:18 Assessment and Plan (1) Acute respiratory failure with hypoxia: Status: Acute Assessment and Plan: 59-year-old female past medical history of asthma presents to the hospital with shortness of breath. acute hypoxic respiratory failure complicated by asthma exacerbation Multifocal pneumonia on chest x-ray COVID has been negative, flu negative RSV 9 Questionable bacterial pneumonia Continue IV antibiotics Check respiratory viral panel Follow-up blood cultures ID evaluation IV steroids DuoNebs HTN lisinpril
[2020-09-19 10:23] LABS: Adenovirus PCR Not Detected (Not Detect.); Bordetella parapertussis PCR Not Detected (Not Detect.); Bordetella pertussis PCR Not Detected (Not Detect.); Chlamydia pneumoniae PCR Not Detected (Not Detect.); Coronavirus 229E PCR Not Detected (Not Detect.); Coronavirus HKU1 PCR Not Detected (Not Detect.); Coronavirus NL63 PCR Not Detected (Not Detect.); Coronavirus OC43 PCR Not Detected (Not Detect.); Human metapneumovirus PCR Not Detected (Not Detect.); Influenza A PCR Not Detected (Not Detect.); Influenza B PCR Not Detected (Not Detect.); Mycoplasma pneumoniae PCR Not Detected (Not Detect.); Parainfluenza 1 PCR Not Detected (Not Detect.); Parainfluenza 2 PCR Not Detected (Not Detect.); Parainfluenza 3 PCR Not Detected (Not Detect.); Parainfluenza 4 PCR Not Detected (Not Detect.); RSV PCR Not Detected (Not Detect.); Rhino/Enterovirus PCR Not Detected (Not Detect.)
--- NOTE | 2020-09-19 10:56 | PC.NURSE ---
pt ambulatory stand pivot to bedside commode for bm , denies dyspnea. has dry nonproductive cough. rr remains 19-22 throughout transition. 95% on highflow NC
[2020-09-19] MEDS: FLUoxetine HCl 20 MG CAPSULE 40 MG PO (11:42)
[2020-09-19] MEDS: traZODone HCL 50 MG TABLET 300 MG PO (11:42)
[2020-09-19] MEDS: Omeprazole 40 MG CAPSULE.DR PO (11:42)
[2020-09-19] MEDS: lisinopriL 10 MG TABLET PO (11:43)
[2020-09-19 11:55] LABS: SARS-CoV-2 PCR Detected (Not Detect.)
--- NOTE | 2020-09-19 13:57 | MHC.CM.PN ---
Attempted to meet with patient in regards to discharge planning. Nursing care currently being provided. Attempted to reach patient's daughter Lisa via telephone at [phone]. Left message requesting return telephone call. Continue to monitor for d/c needs.
--- NOTE | 2020-09-19 14:57 | PC.NURSE ---
Pt on high flow o2 sat down to 88%, Pt switched over to non-rebreather O2 sat 95%. Alert and oriented.o respiratory distress, speaking in full sentences.
--- NOTE | 2020-09-19 16:17 | MHC.CM.PN ---
Attempted to meet with patient in regards to discharge planning. Patient is currently on Bipap. Spoke with patient's daughter, Lisa via telephone at [phone]. Patient was living alone, until about 5 months ago when she moved in with her daughter. Patient uses a cane or walks independently and has a nebulizer. Patient had no services prior to coming to the hospital. PCP verified. Daughter does not believe patient has a HCP. T/W explained patient is positive for SARS. Also explained patient is requiring a higher level of oxygen at this time. Lisa verbalizes understanding. Unsure if patient will need to have home oxygen eval prior to discharging home. Continue to monitor for d/c needs.
--- NOTE | 2020-09-19 19:44 | PC.NURSE ---
PT ALERT AND SITTING UP IN STRETCHER WITH HIGH AYO AND NRB. PT ON MONITOR IN NAD. WITH ASSISTANCE PT UP TO COMMODE WITHOUT DIFF. PT AWAITING FOR ROOM ASSIGNMENT. WILL CONTINUE TO MONITOR PT.
--- NOTE | 2020-09-19 22:17 | MHC.CM.PN ---
CM met with pt with guard sergeant. Pt [place] speaking. Does speak some Icelandic. Explained HCP. Pt wishes to complete a HCP and would like her daughter, Lisa Monique to be her proxy. Explained that she needs to discuss her wishes for medical decisions with her daughter. HCP completed. Uploaded into [employer] and [employer]. CM to follow for d/c needs.
--- NOTE | 2020-09-19 22:27 | PC.NURSE ---
pt sleeping, wakes to voice. pt in nad. pt awaiting for room assignment.,
[2020-09-20] VITALS (15 sets, daily range): BP systolic 122–163; BP diastolic 54–95; PULSE 55–82; RESP 16–92; TEMP 36–36.1; O2SAT 22–98
[2020-09-20] MEDS: 0.9 % Sodium Chloride Flush 3 ML SYRINGE IVFLUSH ×3 (02:21→23:06)
[2020-09-20 05:01] LABS: MANUAL DIFF FLAG NO
[2020-09-20 05:07] LABS: Basophils Percent Auto 0.1 % (0-2); Hematocrit 37.4 % (37-47); Hemoglobin 12.1 g/dl (12.0-16.0); Imm Gran Abs Auto 0.06 X10*3/uL (0.00-0.03); Imm Gran Pct Auto 0.7 % (0.0-0.4); Lymphocytes Absolute Auto 1.1 X10*3/uL (1.2-4.9); Lymphocytes Percent Auto 13.1 % (20-40); Mean Corpuscular HGB Conc 32.4 g/dl (31.0-35.0); Mean Corpuscular Hemoglobin 27.6 pg (27.0-33.0); Mean Corpuscular Volume 85.2 fL (80-98); Mean Platelet Volume 9.8 fL (9.4-12.3); Monocytes Absolute Auto 0.8 X10*3/uL (0.1-1.2); Monocytes Percent Auto 9.1 % (2-11); Neutrophils Absolute Auto 6.7 X10*3/uL (2.0-8.3); Platelet Count 454 X10*3/uL (160-400); Red Blood Count 4.39 X10*6/uL (4.20-5.50); Red Cell Distribution Width 12.8 % (11.0-16.0); White Blood Count 8.7 X10*3/uL (4.8-10.8)
[2020-09-20 05:18] LABS: D Dimer 381 NG/ML
[2020-09-20 05:51] LABS: Anion Gap 12 (12-20); Blood Urea Nitrogen 17 mg/dL (9-16); C Reactive Protein 9.36 mg/dL (< or = 0.50); Calcium 9.4 mg/dL (8.4-10.2); Carbon Dioxide 29 mmol/L (22-29); Chloride 102 mmol/L (96-108); Creatinine Clr Calc Pharmacy 82.7; Estimated Glomerular Filt Rate > 60; Glucose Fasting 128 mg/dL (60-99); Potassium 3.9 mmol/L (3.3-5.1); Sodium 139 mmol/L (135-145)
[2020-09-20 06:02] LABS: Lactate Dehydrogenase 277 U/L (122-220)
[2020-09-20] MEDS: lisinopriL 10 MG TABLET PO (08:44)
[2020-09-20] MEDS: FLUoxetine HCl 20 MG CAPSULE 40 MG PO (08:44)
[2020-09-20] MEDS: traZODone HCL 50 MG TABLET 300 MG PO (08:45)
[2020-09-20] MEDS: dexAMETHasone sod phosphate 4 MG/ML VIAL 6 MG IVPUSH (08:50)
[2020-09-20] MEDS: Omeprazole 40 MG CAPSULE.DR PO (08:51)
--- NOTE | 2020-09-20 11:28 | PC.NURSE ---
INTRODUCED SELF TO PT, CURRENTLY ON HI AYO AND NRB SPO2 94%. UNABLE TO TOLERATE REMOVAL OF NRB. HOSPITALIST AT BEDSIDE. LS DIM THROUGHOUT.
--- NOTE | 2020-09-20 12:20 | PC.NURSE ---
PT NO LONGER PRONED, TOLERATING WELL, RT AT BEDSIDE
--- NOTE | 2020-09-20 15:15 | PC.NURSE ---
REPORT GIVEN TO [facility] RN
--- NOTE | 2020-09-20 15:29 | HO.PM.IMPN ---
Subjective Subjective Date of Service: 09/20/20 Interval History: the patient was seen and evaluated this morning Laying in bed, feels tired and short of breath On non-rebreather and high-flow oxygen up to the max Denies any fever, chills or chest pain h No reported other overnight events. Systemic review: No fever, chills but has generalized weakness No chest pain, palpitation Complaining shortness of breath or coughing No abdominal pain, nausea or vomiting No urinary symptoms No any rash or wounds Physical Exam Vital Signs: Vital Signs: Last Vital Signs Temp 97 F 09/20/20 10:33 Pulse 55 09/20/20 15:00 Resp 20 09/20/20 15:00 BP 122/54 L 09/20/20 15:00 Pulse Ox 98 09/20/20 13:00 Body Mass Index 37.8 Const: Other: Constitutional : Alert, oriented, not in distress Neck : Normal inspection, Supple Cardiovascular : RRR, S1 S2, no lower extremity edema Respiratory : Decreased bilateral air entry, no crackles, wheezes or rhonchi, on high-flow a non-rebreather oxygen Gastrointestinal: soft, lax, Normal bowel sounds, Non tender Skin : Warm/Dry, No rash Neurological : Alert & oriented x3, No focal deficit Objective Data Current Medications Generic Name Dose Route Start Last Admin Trade Name Lewisq PRN Reason Stop Dose Admin Acetaminophen 650 mg 09/19/20 03:11 Acetaminophen 325 Mg Tablet PO Q6H PRN Pain, Mild (Pain Scale 1-3) Albuterol/Ipratropium 3 ml 09/19/20 08:00 09/20/20 15:10 Albuterol/Iprat 2.5/0.5mg 3 Ml Ampul.Neb INHALE Not Given RQ4H WHILE AWAKE KERLINE Albuterol/Ipratropium 3 ml 09/19/20 03:11 Albuterol/Iprat 2.5/0.5mg 3 Ml Ampul.Neb INHALE RQ4H PRN Shortness of Breath/Wheezing Dexamethasone Sodium Phosphate 6 mg 09/19/20 09:00 09/20/20 08:50 Dexamethasone Sod Phosphate 4 Mg/Ml Vial IVPUSH 6 mg DAILY KERLINE Administration Docusate Sodium 100 mg 09/19/20 03:11 Docusate Sodium 100 Mg Capsule PO DAILY PRN Constipation Fluoxetine HCl 40 mg 09/19/20 10:15 09/20/20 08:44 Fluoxetine Hcl 20 Mg Capsule PO 40 mg DAILY KERLINE Administration Heparin Sodium (Porcine) 5,000 unit 09/19/20 03:11 09/20/20 06:10 Heparin Sodium,Porcine 5,000 Unit/Ml Vial SUBCUT Not Given Q12H KERLINE Remdesivir 200 mg/ Sodium 210 mls @ 105 mls/hr 09/20/20 17:00 Chloride IV 09/20/20 18:59 ONCE ONE Remdesivir 100 mg/ Sodium 230 mls @ 115 mls/hr 09/21/20 17:00 Chloride IV 09/24/20 18:59 Q24H KERLINE Lisinopril 10 mg 09/19/20 11:00 09/20/20 08:44 Lisinopril 10 Mg Tablet PO 10 mg DAILY [facility] Administration Protocol Omeprazole 40 mg 09/19/20 10:15 09/20/20 08:51 Omeprazole 40 Mg Capsule.Dr PO 40 mg DAILY KERLINE Administration Ondansetron HCl 4 mg 09/19/20 03:11 Ondansetron Hcl 4 Mg/2 Ml Vial IVPUSH Q8H PRN Nausea and Vomiting Pharmacy Consult 1 each 09/19/20 09:20 Consult Rx Perform Med Rec MISCELLANE ONCE PRN Consult order Sodium Chloride 3 ml 09/19/20 03:11 09/20/20 08:53 0.9 % Sodium Chloride Flush 3 Ml Syringe IVFLUSH 3 ml QSHIFT KERLINE Administration Trazodone HCl 300 mg 09/19/20 10:15 09/20/20 08:45 Trazodone Hcl 50 Mg Tablet PO 300 mg DAILY KERLINE Administration Labs CBC & Chem 7: 09/20/20 04:53 09/20/20 04:53 Microbiology Microbiology Results: Microbiology 09/18/20 21:03 Blood - Venous Blood Culture - Preliminary No growth after 24 hours. 09/18/20 21:03 Blood - Venous Blood Culture - Preliminary No growth after 24 hours. Assessment and Plan (1) Acute respiratory failure with hypoxia: Status: Acute Assessment and Plan: 59-year-old female past medical history of asthma presents to the hospital with shortness of breath. acute hypoxic respiratory failure due to COVID-19 infection Increased oxygen requirement to NRB and the high-flow ID evaluation for remdesivir IV steroids Wean O2 down as tolerated Will try proning Asthma exacerbation Pending blood cultures DC IV antibiotics Bronchodilators ATC and p.r.n. HTN lisinpril DVT PPX Heparin
[2020-09-20] MEDS: Heparin Sodium,Porcine 5,000 UNIT/ML VIAL 5000 UNIT SUBCUT (16:27)
[2020-09-20] MEDS: Remdesivir 200 MG in 0.9 % Sodium Chloride 210 ML 105 MG IV (16:30)
[2020-09-20] MEDS: Acetaminophen 325 MG TABLET 650 MG PO (22:55)
[2020-09-21] VITALS (16 sets, daily range): BP systolic 124–152; BP diastolic 58–77; PULSE 58–87; RESP 18–22; TEMP 35.8–37; O2SAT 86–96
[2020-09-21] MEDS: Heparin Sodium,Porcine 5,000 UNIT/ML VIAL 5000 UNIT SUBCUT ×2 (03:56→16:28)
[2020-09-21 06:58] LABS: Hematocrit 38.2 % (37-47); Hemoglobin 12.2 g/dl (12.0-16.0); Mean Corpuscular HGB Conc 31.9 g/dl (31.0-35.0); Mean Corpuscular Hemoglobin 27.6 pg (27.0-33.0); Mean Corpuscular Volume 86.4 fL (80-98); Mean Platelet Volume 10.1 fL (9.4-12.3); Platelet Count 488 X10*3/uL (160-400); Red Blood Count 4.42 X10*6/uL (4.20-5.50); Red Cell Distribution Width 12.8 % (11.0-16.0); White Blood Count 7.6 X10*3/uL (4.8-10.8)
[2020-09-21 07:17] LABS: Anion Gap 13 (12-20); Blood Urea Nitrogen 20 mg/dL (9-16); Calcium 9.2 mg/dL (8.4-10.2); Carbon Dioxide 30 mmol/L (22-29); Chloride 102 mmol/L (96-108); Creatinine Clr Calc Pharmacy 89.8; Estimated Glomerular Filt Rate > 60; Glucose Random 82 mg/dL (60-115); Potassium 4.1 mmol/L (3.3-5.1); Sodium 141 mmol/L (135-145)
[2020-09-21] MEDS: Albuterol Sulfate 90 MCG 8 GM INHALER 2 PUFF INHALE (07:21)
[2020-09-21] MEDS: Albuterol Sulfate 90 MCG 8 GM INHALER 4 PUFF INHALE ×2 (07:26→20:28)
[2020-09-21] MEDS: traZODone HCL 50 MG TABLET 300 MG PO (08:37)
[2020-09-21] MEDS: lisinopriL 10 MG TABLET PO (08:38)
[2020-09-21] MEDS: Omeprazole 40 MG CAPSULE.DR PO (08:38)
[2020-09-21] MEDS: FLUoxetine HCl 20 MG CAPSULE 40 MG PO (08:38)
[2020-09-21] MEDS: 0.9 % Sodium Chloride Flush 3 ML SYRINGE IVFLUSH ×2 (08:38→16:28)
[2020-09-21] MEDS: dexAMETHasone sod phosphate 4 MG/ML VIAL 6 MG IVPUSH (08:38)
--- NOTE | 2020-09-21 09:00 | PC.NURSE ---
Dr Swain notified of aptients sat 84-86 % on NRB and 55L 100% high flow. Patient palced in prone position and sat increased to 94%. patient agreeable to stay in this position for as long as possible
--- NOTE | 2020-09-21 12:53 | PC.NURSE ---
pt tolerating being in prone position for a second time this shift. o2 sats 97% 100%60Lhigh flow and NRB.
[2020-09-21 15:36] LABS: ABG Base Excess 5.7 mmol/L; ABG HCO3 31 mmol/L (22-26); ABG pCO2 47 mmHg (32-45); ABG pCO2 TC 45 mmHg (32-45); ABG pH 7.42 (7.35-7.45); ABG pH TC 7.43 (7.35-7.45); ABG pO2 86 mmHg (83-108); ABG pO2 TC 81 (83-108)
--- NOTE | 2020-09-21 15:36 | HO.PM.IMPN ---
Subjective Subjective Date of Service: 09/21/20 Interval History: the patient was seen and evaluated this morning Laying in bed, feels tired and short of breath On non-rebreather and high-flow oxygen up to the max, oxygen saturation improved with moaning Denies any fever, chills or chest pain h No reported other overnight events. Systemic review: No fever, chills but has generalized weakness No chest pain, palpitation Complaining shortness of breath or coughing No abdominal pain, nausea or vomiting No urinary symptoms No any rash or wounds Physical Exam Vital Signs: Vital Signs: Last Vital Signs Temp 96.8 F 09/21/20 15:11 Pulse 65 09/21/20 15:11 Resp 20 09/21/20 15:11 BP 126/60 09/21/20 15:11 Pulse Ox 92 09/21/20 15:11 Body Mass Index 37.8 Const: Other: Constitutional : Alert, oriented, not in distress Neck : Normal inspection, Supple Cardiovascular : RRR, S1 S2, no lower extremity edema Respiratory : Decreased bilateral air entry, no crackles, wheezes or rhonchi, on high-flow a non-rebreather oxygen Gastrointestinal: soft, lax, Normal bowel sounds, Non tender Skin : Warm/Dry, No rash Neurological : Alert & oriented x3, No focal deficit Objective Data Current Medications Generic Name Dose Route Start Last Admin Trade Name Freq PRN Reason Stop Dose Admin Acetaminophen 650 mg 09/19/20 03:11 09/20/20 22:55 Acetaminophen 325 Mg Tablet PO 650 mg Q6H PRN Administration Pain, Mild (Pain Scale 1-3) Albuterol Sulfate 4 puff 09/20/20 16:00 09/21/20 12:10 Albuterol Sulfate 90 Mcg 8 Gm Inhaler INHALE Not Given RQ4H WHILE AWAKE KERLINE Albuterol Sulfate 2 puff 09/20/20 15:43 09/21/20 07:21 Albuterol Sulfate 90 Mcg 8 Gm Inhaler INHALE 2 puff RQ4H PRN Administration Wheezing Dexamethasone Sodium Phosphate 6 mg 09/19/20 09:00 09/21/20 08:38 Dexamethasone Sod Phosphate 4 Mg/Ml Vial IVPUSH 6 mg DAILY KERLINE Administration Docusate Sodium 100 mg 09/19/20 03:11 Docusate Sodium 100 Mg Capsule PO DAILY PRN Constipation Fluoxetine HCl 40 mg 09/19/20 10:15 09/21/20 08:38 Fluoxetine Hcl 20 Mg Capsule PO 40 mg DAILY KERLINE Administration Heparin Sodium (Porcine) 5,000 unit 09/19/20 03:11 09/21/20 03:56 Heparin Sodium,Porcine 5,000 Unit/Ml Vial SUBCUT 5,000 unit Q12H KERLINE Administration Remdesivir 100 mg/ Sodium 230 mls @ 115 mls/hr 09/21/20 17:00 Chloride IV 09/24/20 18:59 Q24H KERLINE Lisinopril 10 mg 09/19/20 11:00 09/21/20 08:38 Lisinopril 10 Mg Tablet PO 10 mg DAILY KERLINE Administration Protocol Naproxen 500 mg 09/20/20 15:47 Naproxen 500 Mg Tablet PO BID PRN pain Omeprazole 40 mg 09/19/20 10:15 09/21/20 08:38 Omeprazole 40 Mg Capsule.Dr PO 40 mg DAILY KERLINE Administration Ondansetron HCl 4 mg 09/19/20 03:11 Ondansetron Hcl 4 Mg/2 Ml Vial IVPUSH Q8H PRN Nausea and Vomiting Pharmacy Consult 1 each 09/19/20 09:20 Consult Rx Perform Med Rec MISCELLANE ONCE PRN Consult order Sodium Chloride 3 ml 09/19/20 03:11 09/21/20 08:38 0.9 % Sodium Chloride Flush 3 Ml Syringe IVFLUSH 3 ml QSHIFT KERLINE Administration Trazodone HCl 300 mg 09/19/20 10:15 09/21/20 08:37 Trazodone Hcl 50 Mg Tablet PO 300 mg DAILY KERLINE Administration Labs CBC & Chem 7: 09/21/20 06:03 09/21/20 06:03 Microbiology Microbiology Results: Microbiology 09/18/20 21:03 Blood - Venous Blood Culture - Preliminary No growth after 48 hours. 09/18/20 21:03 Blood - Venous Blood Culture - Preliminary No growth after 48 hours. Assessment and Plan (1) Acute respiratory failure with hypoxia: Status: Acute Assessment and Plan: 59-year-old female past medical history of asthma presents to the hospital with shortness of breath. acute hypoxic respiratory failure due to COVID-19 infection Increased oxygen requirement to NRB and the high-flow to the max Oxygen saturation improved with proning to 90s, still drops to 80s upon sitting up as she cannot tolerate proning too long Started on remdesivir D2 IV steroids D3/10 Wean O2 down as tolerated To check ABG Pulmonary after evaluation, possible need to ICU transfer Asthma exacerbation Pending blood cultures DC IV antibiotics Bronchodilators ATC and p.r.n. HTN lisinpril DVT PPX Heparin
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
[2020-09-21] MEDS: Remdesivir 100 MG in 0.9 % Sodium Chloride 230 ML 115 MG IV (16:28)
[2020-09-22] VITALS (15 sets, daily range): BP systolic 112–137; BP diastolic 60–75; PULSE 64–82; RESP 18–24; TEMP 35.6–37.6; O2SAT 88–98
[2020-09-22] MEDS: traZODone HCL 50 MG TABLET 300 MG PO ×2 (00:48→21:01)
[2020-09-22] MEDS: 0.9 % Sodium Chloride Flush 3 ML SYRINGE IVFLUSH ×3 (00:52→17:07)
[2020-09-22 07:03] LABS: Hematocrit 37.7 % (37-47); Hemoglobin 12.3 g/dl (12.0-16.0); Mean Corpuscular HGB Conc 32.6 g/dl (31.0-35.0); Mean Corpuscular Hemoglobin 27.8 pg (27.0-33.0); Mean Corpuscular Volume 85.3 fL (80-98); Mean Platelet Volume 9.9 fL (9.4-12.3); Platelet Count 480 X10*3/uL (160-400); Red Blood Count 4.42 X10*6/uL (4.20-5.50); Red Cell Distribution Width 12.8 % (11.0-16.0); White Blood Count 8.6 X10*3/uL (4.8-10.8)
[2020-09-22 07:11] LABS: Anion Gap 15 (12-20); Blood Urea Nitrogen 16 mg/dL (9-16); C Reactive Protein 5.18 mg/dL (< or = 0.50); Calcium 9.1 mg/dL (8.4-10.2); Carbon Dioxide 25 mmol/L (22-29); Chloride 103 mmol/L (96-108); Creatinine Clr Calc Pharmacy 96.7; Estimated Glomerular Filt Rate > 60; Glucose Random 79 mg/dL (60-115); Lactate Dehydrogenase 299 U/L (122-220); Potassium 3.8 mmol/L (3.3-5.1); Sodium 139 mmol/L (135-145)
[2020-09-22 07:33] LABS: D Dimer 234 NG/ML
[2020-09-22] MEDS: Albuterol Sulfate 90 MCG 8 GM INHALER 2 PUFF INHALE ×2 (08:00→13:05)
[2020-09-22] MEDS: dexAMETHasone sod phosphate 4 MG/ML VIAL 6 MG IVPUSH (08:19)
[2020-09-22] MEDS: FLUoxetine HCl 20 MG CAPSULE 40 MG PO (08:19)
[2020-09-22] MEDS: Albuterol Sulfate 90 MCG 8 GM INHALER 4 PUFF INHALE ×2 (08:20→20:51)
[2020-09-22] MEDS: lisinopriL 10 MG TABLET PO (08:20)
[2020-09-22] MEDS: Omeprazole 40 MG CAPSULE.DR PO (08:20)
--- NOTE | 2020-09-22 11:08 | MHC.CM.PN ---
Per ROUNDS discussion, Patient is not yet medically cleared for dc (IV Remdesivir, IV Decadron, High Flow O2). Home is the goal for dc and CM will follow for possible need to adjust the dc plan.
[2020-09-22] MEDS: Heparin Sodium,Porcine 5,000 UNIT/ML VIAL 5000 UNIT SUBCUT (17:06)
--- NOTE | 2020-09-22 17:10 | HO.PM.IMPN ---
Subjective Subjective Date of Service: 09/22/20 Interval History: the patient was seen and evaluated this morning Laying in bed, feels tired and short of breath On non-rebreather and high-flow oxygen, oxygen saturation improved with proning Denies any fever, chills or chest pain No reported other overnight events. Systemic review: No fever, chills but has generalized weakness No chest pain, palpitation Complaining shortness of breath or coughing No abdominal pain, nausea or vomiting No urinary symptoms No any rash or wounds Physical Exam Vital Signs: Vital Signs: Last Vital Signs Temp 96.0 F L 09/22/20 15:15 Pulse 65 09/22/20 15:15 Resp 20 09/22/20 15:58 BP 112/63 09/22/20 15:15 Pulse Ox 94 09/22/20 15:15 Oxygen Flow Rate 15 09/21/20 12:08 Body Mass Index 37.8 Const: Other: Constitutional : Alert, oriented, not in distress Neck : Normal inspection, Supple Cardiovascular : RRR, S1 S2, no lower extremity edema Respiratory : Decreased bilateral air entry, no crackles, wheezes or rhonchi, on high-flow a non-rebreather oxygen Gastrointestinal: soft, lax, Normal bowel sounds, Non tender Skin : Warm/Dry, No rash Neurological : Alert & oriented x3, No focal deficit Objective Data Current Medications Generic Name Dose Route Start Last Admin Trade Name Freq PRN Reason Stop Dose Admin Acetaminophen 650 mg 09/19/20 03:11 09/20/20 22:55 Acetaminophen 325 Mg Tablet PO 650 mg Q6H PRN Administration Pain, Mild (Pain Scale 1-3) Albuterol Sulfate 4 puff 09/20/20 16:00 09/22/20 16:00 Albuterol Sulfate 90 Mcg 8 Gm Inhaler INHALE Not Given RQ4H WHILE AWAKE KERLINE Albuterol Sulfate 2 puff 09/20/20 15:43 09/22/20 13:05 Albuterol Sulfate 90 Mcg 8 Gm Inhaler INHALE 2 puff RQ4H PRN Administration Wheezing Dexamethasone Sodium Phosphate 6 mg 09/19/20 09:00 09/22/20 08:19 Dexamethasone Sod Phosphate 4 Mg/Ml Vial IVPUSH 6 mg DAILY KERLINE Administration Docusate Sodium 100 mg 09/19/20 03:11 Docusate Sodium 100 Mg Capsule PO DAILY PRN Constipation Fluoxetine HCl 40 mg 09/19/20 10:15 09/22/20 08:19 Fluoxetine Hcl 20 Mg Capsule PO 40 mg DAILY KERLINE Administration Heparin Sodium (Porcine) 5,000 unit 09/19/20 03:11 09/22/20 17:06 Heparin Sodium,Porcine 5,000 Unit/Ml Vial SUBCUT 5,000 unit Q12H KERLINE Administration Remdesivir 100 mg/ Sodium 230 mls @ 115 mls/hr 09/21/20 17:00 09/21/20 18:50 Chloride IV 09/24/20 18:59 Infused Q24H KERLINE Infusion Lisinopril 10 mg 09/19/20 11:00 09/22/20 08:20 Lisinopril 10 Mg Tablet PO 10 mg DAILY KERLINE Administration Protocol Naproxen 500 mg 09/20/20 15:47 Naproxen 500 Mg Tablet PO BID PRN pain Omeprazole 40 mg 09/19/20 10:15 09/22/20 08:20 Omeprazole 40 Mg Capsule.Dr PO 40 mg DAILY KERLINE Administration Ondansetron HCl 4 mg 09/19/20 03:11 Ondansetron Hcl 4 Mg/2 Ml Vial IVPUSH Q8H PRN Nausea and Vomiting Pharmacy Consult 1 each 09/19/20 09:20 Consult Rx Perform Med Rec MISCELLANE ONCE PRN Consult order Sodium Chloride 3 ml 09/19/20 03:11 09/22/20 17:07 0.9 % Sodium Chloride Flush 3 Ml Syringe IVFLUSH 3 ml QSHIFT KERLINE Administration Trazodone HCl 300 mg 09/21/20 23:55 09/22/20 00:48 Trazodone Hcl 50 Mg Tablet PO 300 mg BEDTIME KERLINE Administration Labs CBC & Chem 7: 09/22/20 05:44 09/22/20 05:44 Microbiology Microbiology Results: Microbiology 09/18/20 21:03 Blood - Venous Blood Culture - Preliminary No growth after 48 hours. 09/18/20 21:03 Blood - Venous Blood Culture - Preliminary No growth after 48 hours. Assessment and Plan (1) Acute respiratory failure with hypoxia: Status: Acute Assessment and Plan: 59-year-old female past medical history of asthma presents to the hospital with shortness of breath. acute hypoxic respiratory failure due to COVID-19 infection Increased oxygen requirement to NRB and the high-flow Improves with prone position In mild respiratory distress Started on remdesivir D3 IV steroids D4/10 Wean O2 down as tolerated Acceptable ABG Pulmonary after evaluation, possible need to ICU transfer Asthma exacerbation Pending blood cultures DC IV antibiotics Bronchodilators ATC and p.r.n. HTN lisinpril DVT PPX Heparin
[2020-09-22] MEDS: Remdesivir 100 MG in 0.9 % Sodium Chloride 230 ML 115 MG IV (18:32)
[2020-09-23] VITALS (12 sets, daily range): BP systolic 102–135; BP diastolic 53–72; PULSE 69–84; RESP 18–24; TEMP 36.2–36.7; O2SAT 87–95
[2020-09-23] MEDS: 0.9 % Sodium Chloride Flush 3 ML SYRINGE IVFLUSH ×3 (00:08→17:15)
[2020-09-23] MEDS: Heparin Sodium,Porcine 5,000 UNIT/ML VIAL 5000 UNIT SUBCUT ×2 (02:52→16:27)
[2020-09-23 06:55] LABS: Hematocrit 38.6 % (37-47); Hemoglobin 12.7 g/dl (12.0-16.0); Mean Corpuscular HGB Conc 32.9 g/dl (31.0-35.0); Mean Corpuscular Hemoglobin 27.9 pg (27.0-33.0); Mean Corpuscular Volume 84.6 fL (80-98); Mean Platelet Volume 9.8 fL (9.4-12.3); Platelet Count 524 X10*3/uL (160-400); Red Blood Count 4.56 X10*6/uL (4.20-5.50); Red Cell Distribution Width 12.9 % (11.0-16.0); White Blood Count 10.6 X10*3/uL (4.8-10.8)
[2020-09-23 07:04] LABS: Anion Gap 14 (12-20); Blood Urea Nitrogen 14 mg/dL (9-16); C Reactive Protein 10.12 mg/dL (< or = 0.50); Calcium 9.3 mg/dL (8.4-10.2); Carbon Dioxide 30 mmol/L (22-29); Chloride 99 mmol/L (96-108); Creatinine Clr Calc Pharmacy 96.7; Estimated Glomerular Filt Rate > 60; Glucose Random 84 mg/dL (60-115); Lactate Dehydrogenase 254 U/L (122-220); Potassium 4.1 mmol/L (3.3-5.1); Sodium 139 mmol/L (135-145)
[2020-09-23 07:05] LABS: B Type Natriuretic Peptide 15 pg/mL (<100)
[2020-09-23] MEDS: dexAMETHasone sod phosphate 4 MG/ML VIAL 6 MG IVPUSH (09:15)
[2020-09-23] MEDS: lisinopriL 10 MG TABLET PO (09:16)
[2020-09-23] MEDS: Omeprazole 40 MG CAPSULE.DR PO (09:16)
[2020-09-23] MEDS: FLUoxetine HCl 20 MG CAPSULE 40 MG PO (09:17)
--- NOTE | 2020-09-23 14:43 | HO.PM.IMPN ---
Subjective Subjective Date of Service: 09/23/20 Interval History: the patient was seen and evaluated this morning Laying in bed, feels tired and short of breath On non-rebreather and high-flow oxygen, oxygen saturation improved with proning but she does not feel comfortable with that position Reporting eating well No reported other overnight events. Systemic review: No fever, chills but has generalized weakness No chest pain, palpitation Complaining shortness of breath or coughing No abdominal pain, nausea or vomiting No urinary symptoms No any rash or wounds Physical Exam Vital Signs: Vital Signs: Last Vital Signs Temp 98.0 F 09/23/20 11:58 Pulse 82 09/23/20 11:58 Resp 24 H 09/23/20 11:58 BP 102/53 L 09/23/20 11:58 Pulse Ox 88 L 09/23/20 11:58 Oxygen Flow Rate 15 09/21/20 12:08 Body Mass Index 37.8 Const: Other: Constitutional : Alert, oriented, not in distress Neck : Normal inspection, Supple Cardiovascular : RRR, S1 S2, no lower extremity edema Respiratory : Decreased bilateral air entry, no crackles, wheezes or rhonchi, on high-flow a non-rebreather oxygen Gastrointestinal: soft, lax, Normal bowel sounds, Non tender Skin : Warm/Dry, No rash Neurological : Alert & oriented x3, No focal deficit Objective Data Current Medications Generic Name Dose Route Start Last Admin Trade Name Freq PRN Reason Stop Dose Admin Acetaminophen 650 mg 09/19/20 03:11 09/20/20 22:55 Acetaminophen 325 Mg Tablet PO 650 mg Q6H PRN Administration Pain, Mild (Pain Scale 1-3) Albuterol Sulfate 4 puff 09/20/20 16:00 09/23/20 11:18 Albuterol Sulfate 90 Mcg 8 Gm Inhaler INHALE Not Given RQ4H WHILE AWAKE KERLINE Albuterol Sulfate 2 puff 09/20/20 15:43 09/22/20 13:05 Albuterol Sulfate 90 Mcg 8 Gm Inhaler INHALE 2 puff RQ4H PRN Administration Wheezing Dexamethasone Sodium Phosphate 6 mg 09/19/20 09:00 09/23/20 09:15 Dexamethasone Sod Phosphate 4 Mg/Ml Vial IVPUSH 6 mg DAILY KERLINE Administration Docusate Sodium 100 mg 09/19/20 03:11 Docusate Sodium 100 Mg Capsule PO DAILY PRN Constipation Fluoxetine HCl 40 mg 09/19/20 10:15 09/23/20 09:17 Fluoxetine Hcl 20 Mg Capsule PO 40 mg DAILY KERLINE Administration Heparin Sodium (Porcine) 5,000 unit 09/19/20 03:11 09/23/20 02:52 Heparin Sodium,Porcine 5,000 Unit/Ml Vial SUBCUT 5,000 unit Q12H KERLINE Administration Remdesivir 100 mg/ Sodium 230 mls @ 115 mls/hr 09/21/20 17:00 09/22/20 20:52 Chloride IV 09/24/20 18:59 Infused Q24H KERLINE Infusion Lisinopril 10 mg 09/19/20 11:00 09/23/20 09:16 Lisinopril 10 Mg Tablet PO 10 mg DAILY KERLINE Administration Protocol Naproxen 500 mg 09/20/20 15:47 Naproxen 500 Mg Tablet PO BID PRN pain Omeprazole 40 mg 09/19/20 10:15 09/23/20 09:16 Omeprazole 40 Mg Capsule.Dr PO 40 mg DAILY KERLINE Administration Ondansetron HCl 4 mg 09/19/20 03:11 Ondansetron Hcl 4 Mg/2 Ml Vial IVPUSH Q8H PRN Nausea and Vomiting Pharmacy Consult 1 each 09/19/20 09:20 Consult Rx Perform Med Rec MISCELLANE ONCE PRN Consult order Sodium Chloride 3 ml 09/19/20 03:11 09/23/20 09:17 0.9 % Sodium Chloride Flush 3 Ml Syringe IVFLUSH 3 ml QSHIFT KERLINE Administration Trazodone HCl 300 mg 09/21/20 23:55 09/22/20 21:01 Trazodone Hcl 50 Mg Tablet PO 300 mg BEDTIME KERLINE Administration Labs CBC & Chem 7: 09/23/20 05:58 09/23/20 05:58 Microbiology Microbiology Results: Microbiology 09/18/20 21:03 Blood - Venous Blood Culture - Preliminary No growth after 48 hours. 09/18/20 21:03 Blood - Venous Blood Culture - Preliminary No growth after 48 hours. Assessment and Plan (1) Acute respiratory failure with hypoxia: Status: Acute Assessment and Plan: 59-year-old female past medical history of asthma presents to the hospital with shortness of breath. acute hypoxic respiratory failure due to COVID-19 infection At this point she is on stable oxygen requirement to NRB and the high-flow Improves with prone position In mild respiratory distress Started on remdesivir D4 IV steroids D5/10 Wean O2 down as tolerated Acceptable ABG Pulmonary after evaluation, possible need to ICU transfer Asthma exacerbation DC IV antibiotics Bronchodilators ATC and p.r.n. HTN lisinpril DVT PPX Heparin
[2020-09-23] MEDS: Remdesivir 100 MG in 0.9 % Sodium Chloride 230 ML 115 MG IV (17:15)
[2020-09-23] MEDS: Albuterol Sulfate 90 MCG 8 GM INHALER 2 PUFF INHALE (20:04)
[2020-09-23] MEDS: traZODone HCL 50 MG TABLET 300 MG PO (20:51)
[2020-09-23] MEDS: Acetaminophen 325 MG TABLET 650 MG PO (21:04)
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
[2020-09-24] VITALS (15 sets, daily range): BP systolic 103–126; BP diastolic 51–78; PULSE 64–93; RESP 18–35; TEMP 35.6–36.7; O2SAT 88–97
[2020-09-24] MEDS: 0.9 % Sodium Chloride Flush 3 ML SYRINGE IVFLUSH ×3 (00:04→15:00)
[2020-09-24] MEDS: Heparin Sodium,Porcine 5,000 UNIT/ML VIAL 5000 UNIT SUBCUT ×2 (02:56→15:00)
[2020-09-24 08:49] LABS: ABG Refer to POC result
[2020-09-24 08:50] LABS: ABG Base Excess 6.4 mmol/L; ABG HCO3 30 mmol/L (22-26); ABG pCO2 41 mmHg (32-45); ABG pCO2 TC 42 mmHg (32-45); ABG pH 7.47 (7.35-7.45); ABG pH TC 7.46 (7.35-7.45); ABG pO2 65 mmHg (83-108); ABG pO2 TC 66 (83-108)
[2020-09-24] MEDS: dexAMETHasone sod phosphate 4 MG/ML VIAL 6 MG IVPUSH (09:19)
[2020-09-24] MEDS: Omeprazole 40 MG CAPSULE.DR PO (09:19)
[2020-09-24] MEDS: lisinopriL 10 MG TABLET PO (09:19)
[2020-09-24] MEDS: FLUoxetine HCl 20 MG CAPSULE 40 MG PO (09:19)
--- NOTE | 2020-09-24 14:57 | HO.PM.IMPN ---
Subjective Subjective Date of Service: 09/24/20 Interval History: the patient was seen and evaluated this morning Laying in bed, feels tired and short of breath but overall stable with oxygen requirements On non-rebreather and high-flow oxygen, oxygen saturation improved with proning but she does not feel comfortable with that position Reporting eating well No reported other overnight events. Systemic review: No fever, chills but has generalized weakness No chest pain, palpitation Complaining shortness of breath or coughing No abdominal pain, nausea or vomiting No urinary symptoms No any rash or wounds Physical Exam Vital Signs: Vital Signs: Last Vital Signs Temp 96.0 F L 09/24/20 11:08 Pulse 77 09/24/20 11:08 Resp 35 H 09/24/20 11:08 BP 107/59 L 09/24/20 11:08 Pulse Ox 89 L 09/24/20 11:08 Oxygen Flow Rate 15 09/21/20 12:08 Body Mass Index 37.8 Const: Other: Constitutional : Alert, oriented, not in distress Neck : Normal inspection, Supple Cardiovascular : RRR, S1 S2, no lower extremity edema Respiratory : Decreased bilateral air entry, no crackles, wheezes or rhonchi, on high-flow a non-rebreather oxygen Gastrointestinal: soft, lax, Normal bowel sounds, Non tender Skin : Warm/Dry, No rash Neurological : Alert & oriented x3, No focal deficit Objective Data Current Medications Generic Name Dose Route Start Last Admin Trade Name Freq PRN Reason Stop Dose Admin Acetaminophen 650 mg 09/19/20 03:11 09/23/20 21:04 Acetaminophen 325 Mg Tablet PO 650 mg Q6H PRN Administration Pain, Mild (Pain Scale 1-3) Albuterol Sulfate 4 puff 09/20/20 16:00 09/24/20 11:06 Albuterol Sulfate 90 Mcg 8 Gm Inhaler INHALE Not Given RQ4H WHILE AWAKE KERLINE Albuterol Sulfate 2 puff 09/20/20 15:43 09/23/20 20:04 Albuterol Sulfate 90 Mcg 8 Gm Inhaler INHALE 2 puff RQ4H PRN Administration Wheezing Dexamethasone Sodium Phosphate 6 mg 09/19/20 09:00 09/24/20 09:19 Dexamethasone Sod Phosphate 4 Mg/Ml Vial IVPUSH 6 mg DAILY KERLINE Administration Docusate Sodium 100 mg 09/19/20 03:11 Docusate Sodium 100 Mg Capsule PO DAILY PRN Constipation Fluoxetine HCl 40 mg 09/19/20 10:15 09/24/20 09:19 Fluoxetine Hcl 20 Mg Capsule PO 40 mg DAILY KERLINE Administration Heparin Sodium (Porcine) 5,000 unit 09/19/20 03:11 09/24/20 02:56 Heparin Sodium,Porcine 5,000 Unit/Ml Vial SUBCUT 5,000 unit Q12H KERLINE Administration Remdesivir 100 mg/ Sodium 230 mls @ 115 mls/hr 09/21/20 17:00 09/23/20 19:28 Chloride IV 09/24/20 18:59 Infused Q24H KERLINE Infusion Lisinopril 10 mg 09/19/20 11:00 09/24/20 09:19 Lisinopril 10 Mg Tablet PO 10 mg DAILY [facility] Administration Protocol Naproxen 500 mg 09/20/20 15:47 Naproxen 500 Mg Tablet PO BID PRN pain Omeprazole 40 mg 09/19/20 10:15 09/24/20 09:19 Omeprazole 40 Mg Capsule.Dr PO 40 mg DAILY KERLINE Administration Ondansetron HCl 4 mg 09/19/20 03:11 Ondansetron Hcl 4 Mg/2 Ml Vial IVPUSH Q8H PRN Nausea and Vomiting Pharmacy Consult 1 each 09/19/20 09:20 Consult Rx Perform Med Rec MISCELLANE ONCE PRN Consult order Sodium Chloride 3 ml 09/19/20 03:11 09/24/20 09:19 0.9 % Sodium Chloride Flush 3 Ml Syringe IVFLUSH 3 ml QSHIFT KERLINE Administration Trazodone HCl 300 mg 09/21/20 23:55 09/23/20 20:51 Trazodone Hcl 50 Mg Tablet PO 300 mg BEDTIME KERLINE Administration Labs CBC & Chem 7: 09/23/20 05:58 09/23/20 05:58 Microbiology Microbiology Results: Microbiology 09/18/20 21:03 Blood - Venous Blood Culture - Final No growth after 5 days. 09/18/20 21:03 Blood - Venous Blood Culture - Final No growth after 5 days. Assessment and Plan (1) Acute respiratory failure with hypoxia: Status: Acute Assessment and Plan: 59-year-old female past medical history of asthma presents to the hospital with shortness of breath. acute hypoxic respiratory failure due to COVID-19 infection At this point she is on stable oxygen requirement to NRB and the high-flow Improves with prone position In mild respiratory distress Started on remdesivir D5 IV steroids D6/10 Wean O2 down as tolerated Repeated ABG this morning showing hypoxia but otherwise compensated Pulmonary after evaluation, possible need to ICU transfer Asthma exacerbation DC IV antibiotics Bronchodilators ATC and p.r.n. HTN lisinpril DVT PPX Heparin
--- NOTE | 2020-09-24 15:41 | PC.NURSE ---
Patients oxygen saturation 92% on 55L High Flow and 100% on NRB. Patient placed in prone position. Oxygen saturation increased to 97%. Patient tolerated prone position for a total of five minutes. Patient has no complaints at this time.
[2020-09-24] MEDS: Remdesivir 100 MG in 0.9 % Sodium Chloride 230 ML 115 MG IV (17:18)
[2020-09-24] MEDS: traZODone HCL 50 MG TABLET 300 MG PO (20:54)
[2020-09-25] VITALS (15 sets, daily range): BP systolic 106–129; BP diastolic 53–74; PULSE 63–87; RESP 18–36; TEMP 36.4–37; O2SAT 90–97
[2020-09-25] MEDS: 0.9 % Sodium Chloride Flush 3 ML SYRINGE IVFLUSH ×4 (00:14→22:12)
[2020-09-25] MEDS: Heparin Sodium,Porcine 5,000 UNIT/ML VIAL 5000 UNIT SUBCUT ×2 (03:02→14:51)
[2020-09-25 07:28] LABS: Anion Gap 16 (12-20); Blood Urea Nitrogen 16 mg/dL (9-16); Calcium 9.2 mg/dL (8.4-10.2); Carbon Dioxide 24 mmol/L (22-29); Chloride 100 mmol/L (96-108); Creatinine Clr Calc Pharmacy 99.8; Estimated Glomerular Filt Rate > 60; Glucose Random 102 mg/dL (60-115); Potassium 3.8 mmol/L (3.3-5.1); Sodium 136 mmol/L (135-145)
[2020-09-25] MEDS: Albuterol Sulfate 90 MCG 8 GM INHALER 4 PUFF INHALE ×2 (08:53→11:15)
[2020-09-25] MEDS: dexAMETHasone sod phosphate 4 MG/ML VIAL 6 MG IVPUSH (09:36)
[2020-09-25] MEDS: FLUoxetine HCl 20 MG CAPSULE 40 MG PO (09:36)
[2020-09-25] MEDS: lisinopriL 10 MG TABLET PO (09:36)
[2020-09-25] MEDS: Omeprazole 40 MG CAPSULE.DR PO (09:36)
--- NOTE | 2020-09-25 11:38 | MHC.CM.PN ---
Per ROUNDS discussion, Patient is not yet medically cleared for dc (IV Decadron, High flow O2 and NRB).Home is the goal for dc and CM will continue to follow for possible need to adjust the dc plan.
--- NOTE | 2020-09-25 14:06 | HO.PM.IMPN ---
Subjective Subjective Date of Service: 09/25/20 Interval History: the patient was seen and evaluated this morning Laying in bed, feels tired and short of breath but overall stable with oxygen requirements maxed out on high-flow and non-rebreather mask oxygen saturation improves with proning but she does not feel comfortable with that position Reporting eating well No reported other overnight events. Systemic review: No fever, chills but has generalized weakness No chest pain, palpitation Complaining shortness of breath or coughing No abdominal pain, nausea or vomiting No urinary symptoms No any rash or wounds Physical Exam Vital Signs: Vital Signs: Last Vital Signs Temp 98 F 09/25/20 10:59 Pulse 85 09/25/20 11:17 Resp 20 09/25/20 11:16 BP 125/68 09/25/20 10:59 Pulse Ox 92 09/25/20 10:59 Oxygen Flow Rate 15 09/21/20 12:08 Body Mass Index 37.8 Const: Other: Constitutional : Alert, oriented, not in distress Neck : Normal inspection, Supple Cardiovascular : RRR, S1 S2, no lower extremity edema Respiratory : Decreased bilateral air entry, no crackles, wheezes or rhonchi, on high-flow a non-rebreather oxygen Gastrointestinal: soft, lax, Normal bowel sounds, Non tender Skin : Warm/Dry, No rash Neurological : Alert & oriented x3, No focal deficit Objective Data Current Medications Generic Name Dose Route Start Last Admin Trade Name Freq PRN Reason Stop Dose Admin Acetaminophen 650 mg 09/19/20 03:11 09/23/20 21:04 Acetaminophen 325 Mg Tablet PO 650 mg Q6H PRN Administration Pain, Mild (Pain Scale 1-3) Albuterol Sulfate 4 puff 09/20/20 16:00 09/25/20 11:15 Albuterol Sulfate 90 Mcg 8 Gm Inhaler INHALE 4 puff RQ4H WHILE AWAKE KERLINE Administration Albuterol Sulfate 2 puff 09/20/20 15:43 09/23/20 20:04 Albuterol Sulfate 90 Mcg 8 Gm Inhaler INHALE 2 puff RQ4H PRN Administration Wheezing Dexamethasone Sodium Phosphate 6 mg 09/19/20 09:00 09/25/20 09:36 Dexamethasone Sod Phosphate 4 Mg/Ml Vial IVPUSH 6 mg DAILY KERLINE Administration Docusate Sodium 100 mg 09/19/20 03:11 Docusate Sodium 100 Mg Capsule PO DAILY PRN Constipation Fluoxetine HCl 40 mg 09/19/20 10:15 09/25/20 09:36 Fluoxetine Hcl 20 Mg Capsule PO 40 mg DAILY KERLINE Administration Heparin Sodium (Porcine) 5,000 unit 09/19/20 03:11 09/25/20 03:02 Heparin Sodium,Porcine 5,000 Unit/Ml Vial SUBCUT 5,000 unit Q12H KERLINE Administration Lisinopril 10 mg 09/19/20 11:00 09/25/20 09:36 Lisinopril 10 Mg Tablet PO 10 mg DAILY KERLINE Administration Protocol Naproxen 500 mg 09/20/20 15:47 Naproxen 500 Mg Tablet PO BID PRN pain Omeprazole 40 mg 09/19/20 10:15 09/25/20 09:36 Omeprazole 40 Mg Capsule.Dr PO 40 mg DAILY KERLINE Administration Ondansetron HCl 4 mg 09/19/20 03:11 Ondansetron Hcl 4 Mg/2 Ml Vial IVPUSH Q8H PRN Nausea and Vomiting Pharmacy Consult 1 each 09/19/20 09:20 Consult Rx Perform Med Rec MISCELLANE ONCE PRN Consult order Sodium Chloride 3 ml 09/19/20 03:11 09/25/20 09:36 0.9 % Sodium Chloride Flush 3 Ml Syringe IVFLUSH 3 ml QSHIFT KERLINE Administration Trazodone HCl 300 mg 09/21/20 23:55 09/24/20 20:54 Trazodone Hcl 50 Mg Tablet PO 300 mg BEDTIME KERLINE Administration Labs CBC & Chem 7: 09/23/20 05:58 09/25/20 06:12 Microbiology Microbiology Results: Microbiology 09/18/20 21:03 Blood - Venous Blood Culture - Final No growth after 5 days. 09/18/20 21:03 Blood - Venous Blood Culture - Final No growth after 5 days. Assessment and Plan (1) Acute respiratory failure with hypoxia: Status: Acute Assessment and Plan: 59-year-old female past medical history of asthma presents to the hospital with shortness of breath. acute hypoxic respiratory failure due to COVID-19 infection At this point she is on stable oxygen requirement to NRB and the high-flow Improves with prone position In mild respiratory distress Started on remdesivir D5 IV steroids D7/10 Wean O2 down as tolerated Repeated ABG this morning showing hypoxia but otherwise compensated Pulmonary evaluated the patient Asthma exacerbation DC IV antibiotics Bronchodilators ATC and p.r.n. HTN lisinpril DVT PPX Heparin
[2020-09-25] MEDS: traZODone HCL 50 MG TABLET 300 MG PO (22:11)
[2020-09-26] VITALS (11 sets, daily range): BP systolic 101–133; BP diastolic 52–69; PULSE 80–107; RESP 19–24; TEMP 35.7–36.6; O2SAT 88–93
[2020-09-26] MEDS: Heparin Sodium,Porcine 5,000 UNIT/ML VIAL 5000 UNIT SUBCUT ×2 (03:55→15:20)
[2020-09-26 06:17] LABS: Hematocrit 38.7 % (37-47); Hemoglobin 12.4 g/dl (12.0-16.0); Mean Corpuscular Hemoglobin 27.4 pg (27.0-33.0); Mean Corpuscular Volume 85.4 fL (80-98); Mean Platelet Volume 10.2 fL (9.4-12.3); Platelet Count 540 X10*3/uL (160-400); Red Blood Count 4.53 X10*6/uL (4.20-5.50); Red Cell Distribution Width 13.1 % (11.0-16.0); White Blood Count 15.3 X10*3/uL (4.8-10.8)
[2020-09-26 06:51] LABS: Anion Gap 15 (12-20); Blood Urea Nitrogen 17 mg/dL (9-16); C Reactive Protein 23.44 mg/dL (< or = 0.50); Calcium 9.3 mg/dL (8.4-10.2); Carbon Dioxide 28 mmol/L (22-29); Chloride 97 mmol/L (96-108); Creatinine Clr Calc Pharmacy 91.1; Estimated Glomerular Filt Rate > 60; Glucose Random 93 mg/dL (60-115); Potassium 4.7 mmol/L (3.3-5.1); Sodium 135 mmol/L (135-145)
[2020-09-26] MEDS: Albuterol Sulfate 90 MCG 8 GM INHALER 4 PUFF INHALE ×3 (08:16→20:11)
[2020-09-26] MEDS: dexAMETHasone sod phosphate 4 MG/ML VIAL 6 MG IVPUSH (08:45)
[2020-09-26] MEDS: FLUoxetine HCl 20 MG CAPSULE 40 MG PO (08:45)
[2020-09-26] MEDS: lisinopriL 10 MG TABLET PO (08:45)
[2020-09-26] MEDS: Omeprazole 40 MG CAPSULE.DR PO (08:45)
[2020-09-26 08:54] LABS: Lactate Dehydrogenase 327 U/L (122-220)
--- NOTE | 2020-09-26 09:47 | P.PNPL_ITS ---
Subjective Subjective Date of Service: 09/26/20 Principal diagnosis: COVID-19 PNEUMONIA/ARDS Interval history: PULMONARY CONSULT THIS 59 YEARS OLD FEMALE HAS BEEN ADMITTED TO THE HOSPITAL SINCE WITH 1 WEEKS HISTORY OF COUGH SHORTNESS OF BREATH LOW-GRADE FEVER SOME CHILLS. ON PRESENTATION TO THE EMERGENCY ROOM SHE HAD O2 SAT OF 70% ON ROOM AIR AND REQUIRED NON-REBREATHER MASK. CHEST X-RAY ON ADMISSION REVEALED TO BILATERAL MULTIFOCAL OPACITIES, CONSISTENT WITH COVID PNEUMONIA RESPIRATORY PANEL FOR VIRAL INFECTIONS WAS NEGATIVE. INITIAL SCREENING FOR COVID NEGATIVE BUT PCR TEST CAME BACK POSITIVE. PATIENT HAS BEEN TREATED FOR ACTIVE COVID INFECTION WITH THE DEXAMETHASONE AND REMDESIVIR PROTOCOL. SHE IS STILL REQUIRING OXYGEN BY HIGH-FLOW AND NON REBREATHER MASK. PRONE POSITIONING HAS BEEN TRIED WHICH IMPROVES HER OXYGENATION BUT SHE DOES NOT TOLERATE THAT POSITION. PAST MEDICAL HISTORY: INCLUDES TO BRONCHIAL ASTHMA, HYPERTENSION, GERD SYMPTO MS, DEPRESSION AND BIPOLAR DISORDER. PATIENT DENIES SMOKING, ALCOHOL ABUSE OR USE OF ANY ILLICIT DRUGS. Objective Data Labs CBC & Chem 7: 09/26/20 05:51 09/26/20 05:51 Labs: Laboratory Results - last 24 hr 09/26/20 09/26/20 05:51 05:51 WBC 15.3 H RBC 4.53 Hgb 12.4 Hct 38.7 MCV 85.4 MCH 27.4 MCHC 32.0 RDW 13.1 Plt Count 540 H MPV 10.2 Absolute Nucleated RBC 0.000 Nucleated RBC % (auto) 0.0 Sodium 135 Potassium 4.7 D Chloride 97 Carbon Dioxide 28 Anion Gap 15 BUN 17 H Creatinine 0.69 Estim Creat Clear Calc 91.1 Estimated GFR > 60 Random Glucose 93 Calcium 9.3 Lactate Dehydrogenase 327 H C-Reactive Protein 23.44 H Microbiology Microbiology Results: Microbiology 09/18/20 21:03 Blood - Venous Blood Culture - Final No growth after 5 days. 09/18/20 21:03 Blood - Venous Blood Culture - Final No growth after 5 days. Review of Systems Review of Systems Yes all other systems are reviewed and are negative and Unobtainable due to mental status (PATIENT IS NOT ABLE TO CONVERSE MUCH.) Physical Exam Vital Signs: Vital Signs: Last Vital Signs Temp 97.0 F 09/26/20 07:20 Pulse 88 09/26/20 08:45 Resp 22 H 09/26/20 08:21 BP 133/62 09/26/20 08:45 Pulse Ox 91 L 09/26/20 07:20 Oxygen Flow Rate 15 09/21/20 12:08 Body Mass Index 37.8 Const: Other: Sick looking, moderately short of breath, on high-flow O2 and non-rebreather mask. General: alert and awake HENMT: Other: Could not examine. Eyes: General: appearance normal, both eyes and all related structures Neck: Neck: Yes normal visual inspection, Yes no lymphadenopathy and Yes no JVD Chest: Other: Chest wall is thick, percussion note not perceptible. Resp: Other: Breath sounds are distant, inspiratory crepitations heard over both lower lobes. No wheezes Cardio: Other: PMI is not palpable heart sounds are distant, no murmurs or gallops GI: Other: Had abdomen is obese and protuberant but soft and nontender Back/Spine/Pelvis: Other: Could not examine Assessment and Plan Assessment and plan (1) Acute respiratory distress syndrome (ARDS) due to COVID-19 virus: Problem details: Continued respiratory distress, secondary to COVID-19 infection. Requires high flow O2 and non-rebreather mask. At this point I think we should continue with the same, oxygenation is controlled and stable at this time. If she starts getting any worse then we will need to provide noninvasive ventilatory support, with 100% O2, and she will require transfer to intensive care unit. Status: Acute (2) Multifocal pneumonia: Problem details: Patient has active bilateral COVID-19 in pneumonia . Continue to treat with dexamethasone and REM test where protocol. Repeat chest x-ray for follow-up progress. Status: Acute Time Spent With Patient Time: Total time spent is greater than 50% in coordination of care (as documented) at patient's floor/unit and/or counseling patient: Time with patient: Greater than 35 minutes
[2020-09-26] MEDS: 0.9 % Sodium Chloride Flush 3 ML SYRINGE IVFLUSH ×3 (11:34→20:11)
--- NOTE | 2020-09-26 13:43 | HO.PM.IMPN ---
Subjective Subjective Date of Service: 09/26/20 Interval History: the patient was seen and evaluated this morning Laying in bed, feels tired and short of breath but overall stable with oxygen requirements maxed out on high-flow and non-rebreather mask oxygen saturation improves with proning but she does not feel comfortable with that position Reporting eating well No reported other overnight events. Systemic review: No fever, chills but has generalized weakness No chest pain, palpitation Complaining shortness of breath or coughing No abdominal pain, nausea or vomiting No urinary symptoms No any rash or wounds Physical Exam Vital Signs: Vital Signs: Last Vital Signs Temp 97.2 F 09/26/20 11:30 Pulse 88 09/26/20 11:30 Resp 24 H 09/26/20 11:41 BP 108/63 09/26/20 11:30 Pulse Ox 90 L 09/26/20 11:30 Oxygen Flow Rate 15 09/21/20 12:08 Body Mass Index 37.8 Const: Other: Constitutional : Alert, oriented, not in distress Neck : Normal inspection, Supple Cardiovascular : RRR, S1 S2, no lower extremity edema Respiratory : Decreased bilateral air entry, no crackles, wheezes or rhonchi, in mild respiratory distress, on high-flow a non-rebreather oxygen Gastrointestinal: soft, lax, Normal bowel sounds, Non tender Skin : Warm/Dry, No rash Neurological : Alert & oriented x3, No focal deficit Objective Data Current Medications Generic Name Dose Route Start Last Admin Trade Name Freq PRN Reason Stop Dose Admin Acetaminophen 650 mg 09/19/20 03:11 09/23/20 21:04 Acetaminophen 325 Mg Tablet PO 650 mg Q6H PRN Administration Pain, Mild (Pain Scale 1-3) Albuterol Sulfate 4 puff 09/20/20 16:00 09/26/20 11:39 Albuterol Sulfate 90 Mcg 8 Gm Inhaler INHALE 4 puff RQ4H WHILE AWAKE KERLINE Administration Albuterol Sulfate 2 puff 09/20/20 15:43 09/23/20 20:04 Albuterol Sulfate 90 Mcg 8 Gm Inhaler INHALE 2 puff RQ4H PRN Administration Wheezing Dexamethasone Sodium Phosphate 6 mg 09/19/20 09:00 09/26/20 08:45 Dexamethasone Sod Phosphate 4 Mg/Ml Vial IVPUSH 6 mg DAILY KERLINE Administration Docusate Sodium 100 mg 09/19/20 03:11 Docusate Sodium 100 Mg Capsule PO DAILY PRN Constipation Fluoxetine HCl 40 mg 09/19/20 10:15 09/26/20 08:45 Fluoxetine Hcl 20 Mg Capsule PO 40 mg DAILY KERLINE Administration Heparin Sodium (Porcine) 5,000 unit 09/19/20 03:11 09/26/20 03:55 Heparin Sodium,Porcine 5,000 Unit/Ml Vial SUBCUT 5,000 unit Q12H KERLINE Administration Lisinopril 10 mg 09/19/20 11:00 09/26/20 08:45 Lisinopril 10 Mg Tablet PO 10 mg DAILY KERLINE Administration Protocol Naproxen 500 mg 09/20/20 15:47 Naproxen 500 Mg Tablet PO BID PRN pain Omeprazole 40 mg 09/19/20 10:15 09/26/20 08:45 Omeprazole 40 Mg Capsule.Dr PO 40 mg DAILY KERLINE Administration Ondansetron HCl 4 mg 09/19/20 03:11 Ondansetron Hcl 4 Mg/2 Ml Vial IVPUSH Q8H PRN Nausea and Vomiting Pharmacy Consult 1 each 09/19/20 09:20 Consult Rx Perform Med Rec MISCELLANE ONCE PRN Consult order Sodium Chloride 3 ml 09/19/20 03:11 09/26/20 11:34 0.9 % Sodium Chloride Flush 3 Ml Syringe IVFLUSH 3 ml QSHIFT KERLINE Administration Trazodone HCl 300 mg 09/21/20 23:55 09/25/20 22:11 Trazodone Hcl 50 Mg Tablet PO 300 mg BEDTIME KERLINE Administration Labs CBC & Chem 7: 09/26/20 05:51 09/26/20 05:51 Microbiology Microbiology Results: Microbiology 09/18/20 21:03 Blood - Venous Blood Culture - Final No growth after 5 days. 09/18/20 21:03 Blood - Venous Blood Culture - Final No growth after 5 days. Assessment and Plan (1) Acute respiratory failure with hypoxia: Status: Acute Assessment and Plan: 59-year-old female past medical history of asthma presents to the hospital with shortness of breath. acute hypoxic respiratory failure due to COVID-19 infection At this point she is on stable oxygen requirement to NRB and the high-flow Improves with prone position In mild respiratory distress Repeated chest x-ray showing no significant changes, stable disease Finished remdesivir D5 IV steroids D8/10 Wean O2 down as tolerated Pulmonary input appreciated, if worsens consider noninvasive ventilation and ICU transfer Leukocytosis Likely secondary to steroids continue to monitor Asthma exacerbation DC IV antibiotics Bronchodilators ATC and p.r.n. HTN lisinpril DVT PPX Heparin
[2020-09-26] MEDS: Albuterol Sulfate 90 MCG 8 GM INHALER 2 PUFF INHALE (16:46)
--- NOTE | 2020-09-26 19:45 | PC.NURSE ---
Patient regular O2 saturation is 88%, this nurse asked TEST BORE HELPER to set alarm to go off when at 85% or lower. This nurse will keep a close eye on patient.
[2020-09-26] MEDS: traZODone HCL 50 MG TABLET 300 MG PO (20:11)
[2020-09-27] VITALS (19 sets, daily range): BP systolic 96–135; BP diastolic 52–74; PULSE 67–104; RESP 18–31; TEMP 36.1–37.1; O2SAT 85–97
[2020-09-27] MEDS: Heparin Sodium,Porcine 5,000 UNIT/ML VIAL 5000 UNIT SUBCUT ×2 (02:49→16:03)
[2020-09-27 06:51] LABS: Anion Gap 15 (12-20); Blood Urea Nitrogen 17 mg/dL (9-16); Calcium 8.7 mg/dL (8.4-10.2); Carbon Dioxide 23 mmol/L (22-29); Chloride 99 mmol/L (96-108); Creatinine Clr Calc Pharmacy 95.3; Estimated Glomerular Filt Rate > 60; Glucose Random 97 mg/dL (60-115); Potassium 4.2 mmol/L (3.3-5.1); Sodium 133 mmol/L (135-145)
[2020-09-27] MEDS: FLUoxetine HCl 20 MG CAPSULE 40 MG PO (08:18)
[2020-09-27] MEDS: dexAMETHasone sod phosphate 4 MG/ML VIAL 6 MG IVPUSH (08:18)
[2020-09-27] MEDS: Omeprazole 40 MG CAPSULE.DR PO (08:18)
[2020-09-27] MEDS: Dextrose 5 % and 0.9 % NaCl 1,000 ML 75 ML IVCONT (09:24)
[2020-09-27] MEDS: 0.9 % Sodium Chloride Flush 3 ML SYRINGE IVFLUSH (09:24)
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
--- NOTE | 2020-09-27 13:02 | PM.EVENT ---
Event Note Date of Service: 09/27/20 Event Note: I went up to IMC to see the patient again. Breathing is maybe a little slower, RR high 30's-40. Sat now up to 93% on the 100% HFNC plus NRBFM. (Again, the NRBFM is half off her face, not sure how much it's contributing to her oxygenation.) OK to stay on IMC for now.
[2020-09-27] MEDS: Cholecalciferol (Vitamin D3) 25 MCG TABLET PO (13:11)
[2020-09-27] MEDS: methylPREDNISolone Sod Succ 125 MG/2 ML VIAL 80 MG IVPUSH (13:11)
[2020-09-27] MEDS: Ascorbic Acid 500 MG TABLET 1000 MG PO (13:11)
--- NOTE | 2020-09-27 13:14 | MHC.CM.PN ---
DP Female 59 DX Covid + Per MD rounds Pt may transfer to ICU today. The discharge plan was home no services. When Pt improves, a P.T. eval will be ordered. The eval will assist with Dispo. DP pending PT eval STR vs HOME with services. CM will follow.
--- NOTE | 2020-09-27 14:47 | HO.PM.IMPN ---
Subjective Subjective Date of Service: 09/27/20 Interval History: the patient was seen and evaluated this morning Laying in bed, looks more withdrawn and tired as it is the 5th day with oxygen requirements maxed out on high-flow and non-rebreather mask oxygen saturation improves with proning but she does not feel comfortable with that position all the time Decreased oral intake to almost 30% of the meals Looks weaker today No reported other overnight events. Systemic review: No fever, chills but has generalized weakness No chest pain, palpitation Complaining shortness of breath or coughing No abdominal pain, nausea or vomiting No urinary symptoms No any rash or wounds Physical Exam Vital Signs: Vital Signs: Last Vital Signs Temp 97.6 F 09/27/20 11:22 Pulse 93 09/27/20 11:22 Resp 18 09/27/20 11:22 BP 103/53 L 09/27/20 11:22 Pulse Ox 92 09/27/20 11:22 Oxygen Flow Rate 15 09/21/20 12:08 Body Mass Index 37.8 Const: Other: Constitutional : Alert, oriented, not in distress Neck : Normal inspection, Supple Cardiovascular : RRR, S1 S2, no lower extremity edema Respiratory : Decreased bilateral air entry, no crackles, wheezes or rhonchi, in mild respiratory distress, on high-flow and non-rebreather oxygen Gastrointestinal: soft, lax, Normal bowel sounds, Non tender Skin : Warm/Dry, No rash Neurological : Alert & oriented x3, No focal deficit Objective Data Current Medications Generic Name Dose Route Start Last Admin Trade Name Freq PRN Reason Stop Dose Admin Acetaminophen 650 mg 09/19/20 03:11 09/23/20 21:04 Acetaminophen 325 Mg Tablet PO 650 mg Q6H PRN Administration Pain, Mild (Pain Scale 1-3) Albuterol Sulfate 4 puff 09/20/20 16:00 09/27/20 11:08 Albuterol Sulfate 90 Mcg 8 Gm Inhaler INHALE Not Given RQ4H WHILE AWAKE KERLINE Albuterol Sulfate 2 puff 09/20/20 15:43 09/26/20 16:46 Albuterol Sulfate 90 Mcg 8 Gm Inhaler INHALE 2 puff RQ4H PRN Administration Wheezing Ascorbic Acid 1,000 mg 09/27/20 11:50 09/27/20 13:11 Ascorbic Acid 500 Mg Tablet PO 1,000 mg DAILY KERLINE Administration Dexamethasone Sodium Phosphate 6 mg 09/19/20 09:00 09/27/20 08:18 Dexamethasone Sod Phosphate 4 Mg/Ml Vial IVPUSH 6 mg DAILY KERLINE Administration Fluoxetine HCl 40 mg 09/19/20 10:15 09/27/20 08:18 Fluoxetine Hcl 20 Mg Capsule PO 40 mg DAILY KERLINE Administration Heparin Sodium (Porcine) 5,000 unit 09/19/20 03:11 09/27/20 02:49 Heparin Sodium,Porcine 5,000 Unit/Ml Vial SUBCUT 5,000 unit Q12H KERLINE Administration Dextrose/Sodium Chloride 1,000 mls @ 75 mls/hr 09/27/20 08:30 09/27/20 12:26 D5ns IVCONT 09/27/20 21:49 75 mls/hr .[id number] KERLINE Infusion Lisinopril 10 mg 09/19/20 11:00 09/27/20 08:24 Lisinopril 10 Mg Tablet PO Not Given DAILY [facility] Protocol Methylprednisolone Sodium Succinate 80 mg 09/27/20 12:00 09/27/20 13:11 Methylprednisolone Sod Succ 125 Mg/2 Ml Vial IVPUSH 80 mg Q12H KERLINE Administration Naproxen 500 mg 09/20/20 15:47 Naproxen 500 Mg Tablet PO BID PRN pain Omeprazole 40 mg 09/19/20 10:15 09/27/20 08:18 Omeprazole 40 Mg Capsule.Dr PO 40 mg DAILY KERLINE Administration Ondansetron HCl 4 mg 09/19/20 03:11 Ondansetron Hcl 4 Mg/2 Ml Vial IVPUSH Q8H PRN Nausea and Vomiting Pharmacy Consult 1 each 09/19/20 09:20 Consult Rx Perform Med Rec MISCELLANE ONCE PRN Consult order Sodium Chloride 3 ml 09/19/20 03:11 09/27/20 09:24 0.9 % Sodium Chloride Flush 3 Ml Syringe IVFLUSH 3 ml QSHIFT KERLINE Administration Trazodone HCl 300 mg 09/21/20 23:55 09/26/20 20:11 Trazodone Hcl 50 Mg Tablet PO 300 mg BEDTIME KERLINE Administration Vitamin D 25 mcg 09/27/20 11:55 09/27/20 13:11 Cholecalciferol (Vitamin D3) 25 Mcg Tablet PO 25 mcg DAILY KERLINE Administration Labs CBC & Chem 7: 09/26/20 05:51 09/27/20 05:34 Microbiology Microbiology Results: Microbiology 09/18/20 21:03 Blood - Venous Blood Culture - Final No growth after 5 days. 09/18/20 21:03 Blood - Venous Blood Culture - Final No growth after 5 days. Assessment and Plan (1) Acute respiratory failure with hypoxia: Status: Acute Assessment and Plan: 59-year-old female past medical history of asthma presents to the hospital with shortness of breath. acute hypoxic respiratory failure due to COVID-19 infection At this point she is on stable oxygen requirement to NRB and the high-flow Improves with prone position In mild respiratory distress but increased weakness and lethargy Repeated chest x-ray showing no significant changes, stable disease Infection markers LDH and CRP increasing Finished remdesivir D5 IV steroids D9/10 Change from dexamethasone to Solu-Medrol 80 b.i.d. To add vitamin-C and vitamin-D Pulmonary input appreciated, if worsens consider noninvasive ventilation and ICU transfer Discussed with director foundation, appreciate input, change steroids and will continue to monitor for need of ICU transfer Hyponatremia Secondary to decreased oral intake To start gentle hydration for decreased p.o. intake and to prevent further hyponatremia To give total of 1 L only Leukocytosis Likely secondary to steroids continue to monitor Asthma exacerbation DC IV antibiotics Bronchodilators ATC and p.r.n. HTN lisinpril DVT PPX Heparin
[2020-09-27] MEDS: Albuterol Sulfate 90 MCG 8 GM INHALER 4 PUFF INHALE (19:13)
--- NOTE | 2020-09-27 21:51 | MHC.PIE ---
late entry- 1900 P -during report, pt noted at rest to desat to 78% on 100% NRB and 55L & good respiratory pleth on monitor & oxygen in place upon entry to room pt tired, responds to verbal stim RR 20. I - placed pt on L side & call to [place], kashif ruvalcaba & Dr. Sales e - R.T. over & mdi inhaler given by R.T. sat improved to 89%. Orders received for transfer to ICU rm 262 for advanced care. Son phoned in and updated regarding pt's impending transfer. Pt updated on transfer to ICU and educated that care plan would be reviewed in ICU. Kashif Guevara RN, R.T., gifty RN and TEAM PRIMARY CARE PHYSICIAN transfered pt on portable o2 high flow & NRB. Transfer occurred in bed without incident & transferred to ICU bed in rm 262 after report given to Mayelin RODRIGUES. personal belongings also transferred, including cell phone and clothing. pt with eyes open alert upon transfer..
[2020-09-27] MEDS: HYDROmorphone HCl 0.5 MG/0.5 ML SYRINGE IVPUSH (22:15)
[2020-09-27 22:23] LABS: ABG Base Excess 5.8 mmol/L; ABG HCO3 31 mmol/L (22-26); ABG pCO2 50 mmHg (32-45); ABG pCO2 TC 49 mmHg (32-45); ABG pH TC 7.41 (7.35-7.45); ABG pO2 63 mmHg (83-108); ABG pO2 TC 60 (83-108)
[2020-09-27 23:16] LABS: ABG Refer to POC result
[2020-09-28] VITALS (33 sets, daily range): BP systolic 104–140; BP diastolic 53–82; PULSE 56–84; RESP 12–38; TEMP 35.9–36.4; O2SAT 89–97
[2020-09-28] MEDS: methylPREDNISolone Sod Succ 125 MG/2 ML VIAL 80 MG IVPUSH ×2 (00:02→11:13)
[2020-09-28] MEDS: 0.9 % Sodium Chloride Flush 3 ML SYRINGE IVFLUSH ×3 (00:02→16:13)
--- NOTE | 2020-09-28 01:39 | P.PCNCC_ITS ---
Procedures Central Line Placement A quick time-out was made for clarification and proper patient identification, patient was positioned, landmarks were identified, US used to locate a large compressible IJ. The right neck was widely prepped and draped in a full sterile fashion. Ultrasound was used to locate again the right IJ, the vein was cannul ated on the 1st pass with an 18 gauge thin needle, dark nonpulsatile blood return was obtained. The wire was threaded, a small incision was made at its base and dilator inserted. A triple-lumen central venous catheter was advanced into the vein up to the hub without problems, wired was removed. Ports had good blood return and flushed x3. The catheter was secured with 3 sutures at 3 sites, a Biopatch and dry sterile dressing were applied.Post procedure chest x- ray showed the line to be in good position without pneumothorax. No bleeding or complications noted.: Consent for Procedure: Elective - informed consent obtained Time out performed: Yes Sterile Technique Used: Yes Patient placed on monitor/pulse ox: Yes MD prep: mask, gown and gloves Central line prep: Chlorhexidine scrub Local anesthesia used: lidocaine 1% Ultrasound used for placement: Yes Central line lumen inserted: triple Post procedure: sutured in place, good blood return, all ports aspirated, flushed, capped and sterile dressing applied Post procedure x-ray: tip of catheter in good position and no pneumothorax seen Patient tolerated procedure: well Complications: none
[2020-09-28] MEDS: Heparin Sodium,Porcine 5,000 UNIT/ML VIAL 5000 UNIT SUBCUT (04:20)
[2020-09-28 05:35] LABS: VBG Base Excess 7.1 mmol/L; VBG HCO3 33 mmol/L (22-26); VBG pCO2 54 mmHg; VBG pH 7.39 (7.32-7.43); VBG pO2 49 mmHg
[2020-09-28 05:46] LABS: Hematocrit 35.3 % (37-47); Hemoglobin 11.4 g/dl (12.0-16.0); Mean Corpuscular HGB Conc 32.3 g/dl (31.0-35.0); Mean Corpuscular Hemoglobin 27.7 pg (27.0-33.0); Mean Corpuscular Volume 85.9 fL (80-98); Mean Platelet Volume 10.2 fL (9.4-12.3); Platelet Count 467 X10*3/uL (160-400); Red Blood Count 4.11 X10*6/uL (4.20-5.50); Red Cell Distribution Width 13.2 % (11.0-16.0)
[2020-09-28 05:56] LABS: D Dimer 997 NG/ML
[2020-09-28 06:25] LABS: Venous Blood Gas Refer to POC result
[2020-09-28 06:29] LABS: Anion Gap 9 (12-20); Blood Urea Nitrogen 18 mg/dL (9-16); C Reactive Protein 26.64 mg/dL (< or = 0.50); Calcium 9.3 mg/dL (8.4-10.2); Carbon Dioxide 29 mmol/L (22-29); Chloride 103 mmol/L (96-108); Creatinine Clr Calc Pharmacy 101.4; Estimated Glomerular Filt Rate > 60; Glucose Random 173 mg/dL (60-115); Potassium 4.4 mmol/L (3.3-5.1); Sodium 137 mmol/L (135-145)
[2020-09-28] MEDS: FLUoxetine HCl 20 MG CAPSULE 40 MG PO (07:00)
[2020-09-28] MEDS: Omeprazole 40 MG CAPSULE.DR PO (07:39)
[2020-09-28] MEDS: Ascorbic Acid 500 MG TABLET 1000 MG PO ×3 (07:40→21:25)
[2020-09-28] MEDS: lisinopriL 10 MG TABLET PO (07:40)
[2020-09-28] MEDS: Cholecalciferol (Vitamin D3) 25 MCG TABLET PO (07:42)
[2020-09-28 09:38] LABS: Lactate Dehydrogenase 277 U/L (122-220)
--- NOTE | 2020-09-28 09:54 | PM.CCPN ---
Subjective Subjective Date of Service: 09/28/20 Interval History: Mrs.Moreno Vigil was transferred down to ICU last night with hypoxemic respiratory failure 2? COVID pneumonia. The patient is a 59 yo F with PMHx of obesity, asthma, hypertension, GERD, and depression. She presented ambulatory to the hospital on September 18 with 1 week symptoms including fatigue, weakness, dyspnea, cough, and fever, and nausea and vomiting. SpO2 on presentation was 70% on room air, which mira to 96% on a NRBFM. Chest x-ray was classic for bilateral COVID pneumonia. Two initial COVID tests were negative in the ED. She was admitted to the hospital and treated with antibiotics, Decadron, and steroids. A follow-up full respiratory panel PCR the next day came back positive for COVID-19. Abx were discontinued and she continued tx with decadron. By 09/19, she was on HFNC plus NRBFM. She was given a five-day course of remdesivir, She?s been followed by pulmonary and ID. Up until yesterday, she was Sat?ing in the low 90?s on the HFNC plus NRBFM. According to the vital signs documentation in [facility], she?d never been significantly tachypneic. I was asked to see her yesterday bec of a drop in her SpO2 into the 80?s. On my exam, the patient was sleeping. She was tachypneic, with a RR in the 40 range, but looked quite comfortable, with no increased work of breathing, other than that attributable to her respiratory rate. No accessory muscle use. She was wearing the high-flow nasal cannula 60 L/100%, plus the non-rebreather face mask was about half on (it doesn?t fit well on top of the HFNC frame), with the flow turned to full flush. Sat was 86%. She denied any difficulty. I saw her later in the afternoon and Sat was 93%. But at 7pm last night, the Sat dropped into the 70?s, without real change in WOB. We transferred her to ICU and put her on BiPAP. We also placed a CVL. This morning she?s fully A&O and very pleasant. I explained the seriousness of the situation. She?s breathing easy on BiPAP 14/5/100%. I upped her EPAP to 10. On that setting, RR is 35, Vt 330cc, Ve 10.5L, SpO2 92%. Central venous blood gas this morning showed a pCO2 of 54. HR 60?s, BP 120/60. She has been afebrile throughout her hospitalization here. No jugular venous distention with the head of the bed at about 30 degrees. Chest is clear to auscultation, with a normal expiratory phase. Heart rate and rhythm are regular, with normal-sounding S1 and S2, with no murmur or gallops. The abdomen is benign. She has very slight pretibial edema. LABORATORY DATA: Below. Notably, white count bumped yesterday and today to the 14-15 range. BUN and creatinine are 18/0.6. D-dimer is bumped to 997, ferritin is up to 824, CRP is up to 26. IMAGING: I reviewed her chest x-rays. They are, indeed, classic for COVID pneumonia. The 2nd film on September 26 looks worse and more confluent than the film on September 18. The chest x-ray from this morning's central venous line looks worse than the film from September 26. IMPRESSION: 1. Underlying obesity, asthma, and hypertension. 2. Bilateral COVID pneumonia. The patient had been on Decadron, and has received a full course of remdesivir. We changed her yesterday to Solumedrol 80 mg bid. Today, I added the full [facility]IL COVID protocol, including ivermectin x 2 doses. 3. ARDS. 4. Acute hypoxemic respiratory failure. 2? to above. Prognosis is guarded. Right now, she?s not a candidate for ECMO, but she might very well come to be. Critical care time: 70 min. Physical Exam Vital Signs: Vital Signs: Last Vital Signs Temp 97.4 F 09/28/20 05:04 Pulse 66 09/28/20 08:47 Resp 20 09/28/20 08:47 BP 138/76 09/28/20 08:47 Pulse Ox 92 09/28/20 08:47 Oxygen Flow Rate 15 09/21/20 12:08 Body Mass Index 37.8 Objective Data Labs CBC & Chem 7: 09/28/20 05:26 09/28/20 05:26 Labs: Laboratory Results - last 24 hr 04/09/28/20 09/28/20 22:17 05:26 05:26 WBC 14.0 H RBC 4.11 L Hgb 11.4 L Hct 35.3 L MCV 85.9 MCH 27.7 MCHC 32.3 RDW 13.2 Plt Count 467 H MPV 10.2 Absolute Nucleated RBC 0.000 Nucleated RBC % (auto) 0.0 D-Dimer O2 Saturation 89.0 ABG pH at Pt Temp 7.40 ABG pH (Temp Correct) 7.41 ABG pCO2 at Pt Temp 50 H ABG pCO2 (Temp Corrct 49 H ABG pO2 at Pt Temp 63 L ABG pO2 (Temp Correct 60 L ABG HCO3 31 H ABG Base Excess (Actual) 5.8 VBG pH VBG pCO2 VBG pO2 VBG HCO3 VBG O2 Saturation VBG Base Excess Sodium 137 Potassium 4.4 Chloride 103 Carbon Dioxide 29 Anion Gap 9 L BUN 18 H Creatinine 0.62 Estim Creat Clear Calc 101.4 Estimated GFR > 60 Random Glucose 173 H D Calcium 9.3 D Lactate Dehydrogenase 277 H C-Reactive Protein 26.64 H 09/28/20 09/28/20 05:26 05:30 WBC RBC Hgb Hct MCV MCH MCHC RDW Plt Count MPV Absolute Nucleated RBC Nucleated RBC % (auto) D-Dimer 997 O2 Saturation ABG pH at Pt Temp ABG pH (Temp Correct) ABG pCO2 at Pt Temp ABG pCO2 (Temp Corrct ABG pO2 at Pt Temp ABG pO2 (Temp Correct ABG HCO3 ABG Base Excess (Actual) VBG pH 7.39 VBG pCO2 54 VBG pO2 49 VBG HCO3 33 H VBG O2 Saturation 77.0 VBG Base Excess 7.1 Sodium Potassium Chloride Carbon Dioxide Anion Gap BUN Creatinine Estim Creat Clear Calc Estimated GFR Random Glucose Calcium Lactate Dehydrogenase C-Reactive Protein Microbiology Microbiology Results: Microbiology 09/18/20 21:03 Blood - Venous Blood Culture - Final No growth after 5 days. 09/18/20 21:03 Blood - Venous Blood Culture - Final No growth after 5 days. Critical Care Time Critical Care Time (minutes): 60
[2020-09-28 10:05] LABS: Ferritin 824 ng/mL (10-250)
[2020-09-28] MEDS: Zinc Sulfate 220 MG CAPSULE PO (11:12)
[2020-09-28] MEDS: Furosemide 20 MG/2 ML VIAL IVPUSH (11:12)
[2020-09-28] MEDS: Famotidine/PF 20 MG/2 ML VIAL 40 MG IVPUSH ×2 (11:20→21:26)
[2020-09-28] MEDS: Aspirin 81 MG TAB.CHEW PO (11:20)
[2020-09-28] MEDS: Enoxaparin Sodium 40 MG/0.4 ML SYRINGE SUBCUT (11:21)
[2020-09-28] MEDS: Thiamine HCL 200 MG in 0.9 % Sodium Chloride 100 ML 204 MG IV ×2 (11:49→21:29)
[2020-09-28] MEDS: Furosemide 200 MG in 0.9 % Sodium Chloride 80 ML IVCONT (11:51)
--- NOTE | 2020-09-28 12:24 | PC.NURSE ---
trying to take patient off of Bipap for a bit. Successful proning with High flow and NRB. 93% o2 sat at present. Attempted just the high flow without NRB and patient wa unable to maintain sats above 85% at this time. high flow and NRB remain on. Stemp aware
--- NOTE | 2020-09-28 14:16 | MHC.CM.PN ---
Pt transferred to ICU d/t worsening respiratory function: considering transfer to [facility] for ECMO but no plans have been arranged at this time. Call placed to pt's dtr/HCP iLsa to update her on pt's status. Original d/c plan was for a return to home with Lisa - no services anticipated. CM to follow.
[2020-09-28] MEDS: HYDROmorphone HCl 0.5 MG/0.5 ML SYRINGE IVPUSH (19:49)
[2020-09-28] MEDS: traZODone HCL 50 MG TABLET 300 MG PO (21:25)
[2020-09-28] MEDS: Atorvastatin Calcium 80 MG TABLET PO (21:25)
[2020-09-28] MEDS: Melatonin 3 MG TABLET 6 MG PO (21:25)
--- NOTE | 2020-09-28 23:01 | PC.NURSE ---
PT ALERT AND ORIENTED X3. DENIES PAIN. ON O2 HIGH FLOW NASAL CANULLA AT 60L AND 100% WITH NRB MASK OVER THAT. INITIALLY AT 1900, O2 SATS WERE 88-90. PT REPOSITIONED, ENCOURAGED TO C&DB AND THEN GIVEN DILAUDID 0.5 MG IV. O2 SAT IMPROVED ABOVE 90% TO 93-95%. LUNGS DIM THROUGHT. MONITOR SHOWS NSR, HR 60'S. BP STABLE. ON LASIX AT 2 MG/HR. PUREWICK IN PLACE COLLECTING EFFECTIVELY COLLECTING URINE.
[2020-09-29] VITALS (33 sets, daily range): BP systolic 91–132; BP diastolic 43–69; PULSE 53–97; RESP 14–37; TEMP 35.9–38.1; O2SAT 86–98; BMI 33.3
[2020-09-29] MEDS: methylPREDNISolone Sod Succ 125 MG/2 ML VIAL 80 MG IVPUSH ×3 (00:02→23:19)
[2020-09-29] MEDS: 0.9 % Sodium Chloride Flush 3 ML SYRINGE IVFLUSH ×3 (00:02→15:43)
[2020-09-29] MEDS: Ascorbic Acid 500 MG TABLET 1000 MG PO ×4 (03:18→23:19)
[2020-09-29 05:39] LABS: VBG Base Excess 7.6 mmol/L; VBG HCO3 32 mmol/L (22-26); VBG pCO2 44 mmHg; VBG pH 7.46 (7.32-7.43); VBG pO2 89 mmHg
[2020-09-29 05:50] LABS: MANUAL DIFF FLAG NO
[2020-09-29 05:55] LABS: Basophils Percent Auto 0.1 % (0-2); Hematocrit 36.9 % (37-47); Hemoglobin 11.8 g/dl (12.0-16.0); Imm Gran Abs Auto 0.23 X10*3/uL (0.00-0.03); Imm Gran Pct Auto 1.4 % (0.0-0.4); Lymphocytes Absolute Auto 1.1 X10*3/uL (1.2-4.9); Lymphocytes Percent Auto 6.3 % (20-40); Mean Corpuscular Hemoglobin 27.4 pg (27.0-33.0); Mean Corpuscular Volume 85.8 fL (80-98); Mean Platelet Volume 10.5 fL (9.4-12.3); Monocytes Absolute Auto 0.6 X10*3/uL (0.1-1.2); Monocytes Percent Auto 3.3 % (2-11); Neutrophils Percent Auto 88.9 % (45-73); Platelet Count 486 X10*3/uL (160-400); Red Cell Distribution Width 13.2 % (11.0-16.0); White Blood Count 16.9 X10*3/uL (4.8-10.8)
[2020-09-29 05:56] LABS: Venous Blood Gas Refer to POC result
[2020-09-29 06:21] LABS: Alanine Aminotransferase 34 U/L (0-31); Albumin Level 2.9 g/dL (3.5-5.0); Alkaline Phosphatase 76 U/L (39-117); Anion Gap 14 (12-20); Aspartate Amino Transferase 29 U/L (5-31); Bilirubin Total 0.6 mg/dL (0.0-1.0); Blood Urea Nitrogen 23 mg/dL (9-16); Calcium 9.2 mg/dL (8.4-10.2); Carbon Dioxide 27 mmol/L (22-29); Chloride 99 mmol/L (96-108); Creatinine Clr Calc Pharmacy 81.5; Estimated Glomerular Filt Rate > 60; Glucose Random 157 mg/dL (60-115); Potassium 4.4 mmol/L (3.3-5.1); Sodium 136 mmol/L (135-145); Total Protein 6.3 g/dL (6.5-8.0)
--- NOTE | 2020-09-29 06:34 | PC.NURSE ---
SLEPT FAIRLY WELL.MAINTAINED ON HI AYO 60L/100% AND NRB 100% UNTIL 2 AM.SATS STAYING AT 84-85%.TRANSITIONED TO BIPAP 15/03/100% PER BEV ROJAS.MAINTAINING SATS 94-95%.LISY WELL.LUNGS DIM.DENIES PAIN.MONITOR SR,HR 60'S.
[2020-09-29] MEDS: Aspirin 81 MG TAB.CHEW PO (08:34)
[2020-09-29] MEDS: FLUoxetine HCl 20 MG CAPSULE 40 MG PO (08:35)
[2020-09-29] MEDS: Cholecalciferol (Vitamin D3) 25 MCG TABLET 50 MCG PO (08:35)
[2020-09-29] MEDS: lisinopriL 10 MG TABLET PO (08:36)
[2020-09-29] MEDS: Zinc Sulfate 220 MG CAPSULE PO (08:36)
[2020-09-29] MEDS: Famotidine/PF 20 MG/2 ML VIAL 40 MG IVPUSH (08:37)
[2020-09-29] MEDS: Thiamine HCL 200 MG in 0.9 % Sodium Chloride 100 ML IV ×2 (08:43→23:18)
[2020-09-29] MEDS: acetaZOLAMIDE sodium 500 MG VIAL 250 MG IVPUSH ×3 (08:51→19:33)
--- NOTE | 2020-09-29 08:57 | P.PNCC_ITS ---
Subjective Subjective Date of Service: 09/29/20 Interval History: Mrs.Moreno Vigil was transferred down to ICU on September 27 with hypoxemic respiratory failure 2? COVID pneumonia. The patient is a 59 yo F with PMHx of obesity, asthma, hypertension, GERD, and depression. She presented ambulatory to the hospital on September 18 with 1 week symptoms including fatigue, weakness, dyspnea, cough, and fever, and nausea and vomiting. SpO2 on presentation was 70% on room air, which mira to 96% on a NRBFM. Chest x-ray was classic for bilateral COVID pneumonia. Two initial COVID tests were negative in the ED. She was admitted to the hospital and treated with antibiotics, Decadron, and steroids. A follow-up full respiratory panel PCR the next day came back positive for COVID-19. Abx were discontinued and she continued tx with decadron. By 09/19, she was on HFNC plus NRBFM. She was given a five-day course of remdesivir, She?s been followed by pulmonary and ID. Up until 09/27, she was Sat?ing in the low 90?s on the HFNC plus NRBFM. According to the vital signs documentation in [facility], she?d never been significantly tachypneic. I was asked to see her on 09/27 bec of a drop in her SpO2 into the 80?s. On my exam, the patient was sleeping. She was tachypneic, with a RR in the 40 range, but looked quite comfortable, with no increased work of breathing, other than that attributable to her respiratory rate. No accessory muscle use. She was wearing the high-flow nasal cannula 60 L/100%, plus the non-rebreather face mask was about half on (it doesn?t fit well on top of the HFNC frame), with the flow turned to full flush. Sat was 86%. She denied any difficulties. I saw her later that afternoon and Sat was 93%. Her steroids were increased to Solumedrol 80 mg bid. That evening, her Sat dropped into the 70?s, abeit without change in WOB. She was transferred to ICU and put on BiPAP. A CVL was placed. The next morning on BiPAP 14/5/100%, sat was low 90?s w Ve 10-11L. We upped her EPAP to 10cm and started her on the full EVMS COVID protocol, including iverm ectin, along with a Lasix drip. Over the day yesterday, her RR came down into the teens! We had her lying on her side, and she was able to come off BiPAP onto only the HFNC. This morning she looks great, and is more animated. She says she feels good. She talks easily. Sitting up in bed, breathing easy on HFNC 60L/100%, with Sat 86-91%. RR is 18. HR 61, BP 112/57. She has been afebrile for her entire hospital stay. No JVD. Normal expiratory phase. LABORATORY DATA: Below. Notably, white count up to 16 today. BUN and creatinine up slightly on the Lasix drip. IMPRESSION: 1. Underlying obesity, asthma, and hypertension. 2. Bilateral COVID pneumonia. She was initially treated with decadron and remdesivir. In the ICU, we upped her treatment to the full EVMS protocol, including ivermectin. For whatever reason, since then she?s had a dramatic improvement in her clinical condition. 3. ARDS. Her last CXR looks horrible. 4. Acute hypoxemic respiratory failure. 2? to above. 5. ID: Leukocytosis likely 2? steroids. I see no indication for abx (yet). 6. Metabolic alkalosis. 2? diuresis. Started Diamox. Prognosis is guarded, but looking up. Time: [id number] Physical Exam Vital Signs: Vital Signs: Last Vital Signs Temp 97.4 F 09/29/20 04:00 Pulse 56 09/29/20 08:36 Resp 19 09/29/20 08:03 BP 112/57 L 09/29/20 08:36 Pulse Ox 93 09/29/20 06:00 Oxygen Flow Rate 15 09/21/20 12:08 Body Mass Index 33.3 Objective Data Labs CBC & Chem 7: 09/29/20 05:32 09/29/20 05:32 Labs: Laboratory Results - last 24 hr 09/28/20 09/28/20 09/29/20 05:26 05:26 05:32 WBC 16.9 H RBC 4.30 Hgb 11.8 L Hct 36.9 L MCV 85.8 MCH 27.4 MCHC 32.0 RDW 13.2 Plt Count 486 H MPV 10.5 Immature Gran % (Auto) 1.4 H Neut % (Auto) 88.9 H Lymph % (Auto) 6.3 L [place] % (Auto) 3.3 Eos % (Auto) 0.0 Baso % (Auto) 0.1 Lymph # (Auto) 1.1 L [place] # (Auto) 0.6 Eos # (Auto) 0.0 Baso # (Auto) 0.0 Abs Immat Gran (auto) 0.23 H Absolute Neuts (auto) 15.0 H Absolute Nucleated RBC 0.000 Nucleated RBC % (auto) 0.0 VBG pH VBG pCO2 VBG pO2 VBG HCO3 VBG O2 Saturation VBG Base Excess Sodium Potassium Chloride Carbon Dioxide Anion Gap BUN Creatinine Estim Creat Clear Calc Estimated GFR Random Glucose Calcium Ferritin 824 H Total Bilirubin AST ALT Alkaline Phosphatase Lactate Dehydrogenase 277 H Total Protein Albumin 09/29/20 09/29/20 05:32 05:32 WBC RBC Hgb Hct MCV MCH MCHC RDW Plt Count MPV Immature Gran % (Auto) Neut % (Auto) Lymph % (Auto) [place] % (Auto) Eos % (Auto) Baso % (Auto) Lymph # (Auto) [place] # (Auto) Eos # (Auto) Baso # (Auto) Abs Immat Gran (auto) Absolute Neuts (auto) Absolute Nucleated RBC Nucleated RBC % (auto) VBG pH 7.46 H VBG pCO2 44 VBG pO2 89 VBG HCO3 32 H VBG O2 Saturation 96.0 VBG Base Excess 7.6 Sodium 136 Potassium 4.4 Chloride 99 Carbon Dioxide 27 Anion Gap 14 BUN 23 H Creatinine 0.72 Estim Creat Clear Calc 81.5 Estimated GFR > 60 Random Glucose 157 H Calcium 9.2 Ferritin Total Bilirubin 0.6 AST 29 ALT 34 H Alkaline Phosphatase 76 D Lactate Dehydrogenase Total Protein 6.3 L Albumin 2.9 L Microbiology Microbiology Results: Microbiology 09/18/20 21:03 Blood - Venous Blood Culture - Final No growth after 5 days. 09/18/20 21:03 Blood - Venous Blood Culture - Final No growth after 5 days.
[2020-09-29 09:07] LABS: Magnesium 2.2 mg/dL (1.6-2.6); Phosphorus 3.9 mg/dL (2.7-4.5)
[2020-09-29] MEDS: Enoxaparin Sodium 40 MG/0.4 ML SYRINGE SUBCUT (11:51)
--- NOTE | 2020-09-29 14:46 | MHC.CM.PN ---
Pt continues care in ICU but is fortunately making upward progress. She is now on Hi Flow O2 and is more alert and conversant. Original d/c plans are for a return to home with her dtr Lisa - RICARDO will follow for changes - pt may require skilled RN visits and/or home O2.
[2020-09-29] MEDS: Melatonin 3 MG TABLET 6 MG PO (19:33)
[2020-09-29] MEDS: traZODone HCL 50 MG TABLET 300 MG PO (19:34)
[2020-09-30] VITALS (25 sets, daily range): BP systolic 88–146; BP diastolic 49–79; PULSE 53–78; RESP 13–29; TEMP 36–36.8; O2SAT 87–97
[2020-09-30] MEDS: 0.9 % Sodium Chloride Flush 3 ML SYRINGE IVFLUSH ×4 (01:30→21:01)
[2020-09-30] MEDS: Ascorbic Acid 500 MG TABLET 1000 MG PO ×4 (03:46→22:31)
[2020-09-30] MEDS: acetaZOLAMIDE sodium 500 MG VIAL 250 MG IVPUSH ×2 (03:46→09:12)
[2020-09-30 05:27] LABS: VBG HCO3 30 mmol/L (22-26); VBG pCO2 49 mmHg; VBG pH 7.38 (7.32-7.43); VBG pO2 44 mmHg
[2020-09-30 05:40] LABS: MANUAL DIFF FLAG NO
[2020-09-30 05:43] LABS: Basophils Percent Auto 0.1 % (0-2); Hematocrit 38.7 % (37-47); Hemoglobin 12.2 g/dl (12.0-16.0); Imm Gran Abs Auto 0.21 X10*3/uL (0.00-0.03); Imm Gran Pct Auto 1.4 % (0.0-0.4); Lymphocytes Absolute Auto 0.8 X10*3/uL (1.2-4.9); Lymphocytes Percent Auto 5.3 % (20-40); Mean Corpuscular HGB Conc 31.5 g/dl (31.0-35.0); Mean Corpuscular Hemoglobin 27.8 pg (27.0-33.0); Mean Corpuscular Volume 88.2 fL (80-98); Mean Platelet Volume 10.6 fL (9.4-12.3); Monocytes Absolute Auto 0.5 X10*3/uL (0.1-1.2); Monocytes Percent Auto 3.7 % (2-11); Neutrophils Absolute Auto 13.2 X10*3/uL (2.0-8.3); Neutrophils Percent Auto 89.5 % (45-73); Platelet Count 472 X10*3/uL (160-400); Red Blood Count 4.39 X10*6/uL (4.20-5.50); Red Cell Distribution Width 13.2 % (11.0-16.0); White Blood Count 14.7 X10*3/uL (4.8-10.8)
[2020-09-30 05:50] LABS: Venous Blood Gas Refer to POC result
[2020-09-30 05:55] LABS: D Dimer 848 NG/ML
[2020-09-30 06:13] LABS: Alanine Aminotransferase 39 U/L (0-31); Alkaline Phosphatase 68 U/L (39-117); Anion Gap 12 (12-20); Aspartate Amino Transferase 26 U/L (5-31); Bilirubin Total 0.5 mg/dL (0.0-1.0); Blood Urea Nitrogen 25 mg/dL (9-16); C Reactive Protein 4.96 mg/dL (< or = 0.50); Calcium 9.4 mg/dL (8.4-10.2); Carbon Dioxide 26 mmol/L (22-29); Chloride 102 mmol/L (96-108); Creatinine Clr Calc Pharmacy 78.3; Estimated Glomerular Filt Rate > 60; Glucose Random 194 mg/dL (60-115); Magnesium 2.4 mg/dL (1.6-2.6); Phosphorus 3.9 mg/dL (2.7-4.5); Potassium 4.1 mmol/L (3.3-5.1); Sodium 136 mmol/L (135-145); Total Protein 6.3 g/dL (6.5-8.0)
[2020-09-30 06:34] LABS: Ferritin 473 ng/mL (10-250)
[2020-09-30] MEDS: Zinc Sulfate 220 MG CAPSULE PO (09:13)
[2020-09-30] MEDS: FLUoxetine HCl 20 MG CAPSULE 40 MG PO (09:13)
[2020-09-30] MEDS: Cholecalciferol (Vitamin D3) 25 MCG TABLET 50 MCG PO (09:13)
[2020-09-30] MEDS: Aspirin 81 MG TAB.CHEW PO (09:14)
[2020-09-30] MEDS: Thiamine HCL 200 MG in 0.9 % Sodium Chloride 100 ML IV ×2 (09:14→22:31)
--- NOTE | 2020-09-30 10:06 | P.PNCC_ITS ---
Subjective Subjective Date of Service: 09/30/20 Interval History: Mrs.Moreno Vigil was transferred to ICU on September 27 with hypoxemic respiratory failure 2? COVID pneumonia. The patient is a 59 yo F with PMHx of obesity, asthma, hypertension, GERD, and depression. She presented ambulatory to the hospital on September 18 with 1 week symptoms including fatigue, weakness, dyspnea, cough, and fever, and nausea and vomiting. SpO2 on presentation was 70% on room air, which mira to 96% on a NRBFM. Chest x-ray was classic for bilateral COVID pneumonia. Two initial COVID tests were negative in the ED. She was admitted to the hospital and treated with antibiotics, Decadron, and steroids. A follow-up full respiratory panel PCR the next day came back positive for COVID-19. Abx were discontinued and she continued tx with decadron. By 09/19, she was on HFNC plus NRBFM. She was given a five-day course of remdesivir, Up until 09/27, she was Sat?ing in the low 90?s on the HFNC plus NRBFM. She was followed by pulmonary and ID. On September 27, her Sat dropped into the 80s and then 70?s, and she was tachypneic into the 40?s. She was transferred to ICU for BiPAP. A CVL was placed and we put her on the full EVMS protocol, including ivermectin. She improved rapidly. Hasn?t really needed BiPAP since that first night, and her resp rate has come down such that she?s in the teens for a good part of the day yesterday and today. She still requires the 100% HFNC, with or without NRBFM or venti mask. She also has a dramatic improvement in her Sat, up to 99%, when she lies on her side or prones. She looks good this morning, fully animated, working on her cell phone. On the 100% HFNC plus 55% venti mask, Sat is low 90?s. Without the venti mask she drops into the low-mid 80?s. She?s eating breakfast. Breathing easy with no WOB. RR is 18-22. CVBG this morning shows 7.38/49/ +4. Heart rate 77, blood pressure is 110/56. She has been afebrile for her entire hospital stay except for a single temperature 100.6 degrees last night. Currently afebrile. No JVD. Normal expiratory phase. No significant edema. LABORATORY DATA: Below. Notably, white count down slightly, BUN and creatinine steady, D-dimer and ferritin levels down slightly, CRP way down. IMPRESSION: 1. Underlying obesity, asthma, and hypertension. 2. Bilateral COVID pneumonia. She was initially treated with decadron and remdesivir. In the ICU, we upped her treatment to the full EVMS protocol, including ivermectin. For whatever reason, since then she?s had a dramatic improvement in her clinical condition. Oxygenation is slightly improved, ventilation is significantly improved. CRP is way down today. 3. ARDS. Her last CXR looks horrible. 4. Acute hypoxemic respiratory failure. 2? to above. 5. ID: Leukocytosis likely 2? steroids. I see no indication for abx at this time. 6. Metabolic alkalosis. 2? diuresis. Improved. Stop the Diamox. Prognosis is guarded, but looking up. Stable for transfer to [facility]. I will sign out to hospitalists. Time: [id number] Physical Exam Vital Signs: Vital Signs: Last Vital Signs Temp 97.1 F 09/30/20 08:00 Pulse 60 09/30/20 09:00 Resp 14 09/30/20 09:00 BP 98/65 09/30/20 09:00 Pulse Ox 91 L 09/30/20 09:00 Oxygen Flow Rate 15 09/21/20 12:08 Body Mass Index 33.3 Objective Data Labs CBC & Chem 7: 09/30/20 05:20 09/30/20 05:20 Labs: Laboratory Results - last 24 hr 09/30/20 09/30/20 09/30/20 05:20 05:20 05:20 WBC 14.7 H RBC 4.39 Hgb 12.2 Hct 38.7 MCV 88.2 MCH 27.8 MCHC 31.5 RDW 13.2 Plt Count 472 H MPV 10.6 Immature Gran % (Auto) 1.4 H Neut % (Auto) 89.5 H Lymph % (Auto) 5.3 L [place] % (Auto) 3.7 Eos % (Auto) 0.0 Baso % (Auto) 0.1 Lymph # (Auto) 0.8 L [place] # (Auto) 0.5 Eos # (Auto) 0.0 Baso # (Auto) 0.0 Abs Immat Gran (auto) 0.21 H Absolute Neuts (auto) 13.2 H Absolute Nucleated RBC 0.000 Nucleated RBC % (auto) 0.0 D-Dimer 848 VBG pH VBG pCO2 VBG pO2 VBG HCO3 VBG O2 Saturation VBG Base Excess Sodium 136 Potassium 4.1 Chloride 102 Carbon Dioxide 26 Anion Gap 12 BUN 25 H Creatinine 0.75 Estim Creat Clear Calc 78.3 Estimated GFR > 60 Random Glucose 194 H Calcium 9.4 Phosphorus 3.9 Magnesium 2.4 Ferritin Total Bilirubin 0.5 AST 26 ALT 39 H Alkaline Phosphatase 68 C-Reactive Protein 4.96 H Total Protein 6.3 L Albumin 3.0 L 09/30/20 09/30/20 05:20 05:22 WBC RBC Hgb Hct MCV MCH MCHC RDW Plt Count MPV Immature Gran % (Auto) Neut % (Auto) Lymph % (Auto) [place] % (Auto) Eos % (Auto) Baso % (Auto) Lymph # (Auto) [place] # (Auto) Eos # (Auto) Baso # (Auto) Abs Immat Gran (auto) Absolute Neuts (auto) Absolute Nucleated RBC Nucleated RBC % (auto) D-Dimer VBG pH 7.38 VBG pCO2 49 VBG pO2 44 VBG HCO3 30 H VBG O2 Saturation 72.0 VBG Base Excess 4.0 Sodium Potassium Chloride Carbon Dioxide Anion Gap BUN Creatinine Estim Creat Clear Calc Estimated GFR Random Glucose Calcium Phosphorus Magnesium Ferritin 473 H Total Bilirubin AST ALT Alkaline Phosphatase C-Reactive Protein Total Protein Albumin Microbiology Microbiology Results: Microbiology 09/18/20 21:03 Blood - Venous Blood Culture - Final No growth after 5 days. 09/18/20 21:03 Blood - Venous Blood Culture - Final No growth after 5 days.
[2020-09-30] MEDS: Enoxaparin Sodium 40 MG/0.4 ML SYRINGE SUBCUT (11:28)
[2020-09-30] MEDS: methylPREDNISolone Sod Succ 125 MG/2 ML VIAL 80 MG IVPUSH ×2 (11:28→23:10)
--- NOTE | 2020-09-30 14:33 | PC.NURSE ---
Pt A&Ox3, denies pain, on highflow FiO2 100% and venti mask FiO2 55%, SaO2 90-94%, when venti mask is off, SaO2 will drop to 82%, pt states breathing feels improved compared to yesterday. Is able to eat 20% of breakfast/lunch with alternating on/off venti mask with highflow continuously on. Given 250mg diamox IV, output 475ml this shift through purewick. RR 18, lungs short inspiratory phase with exp wheeze bilat lower lobes. Pt able to turn repo self. Bed locked and in lowest position, call ramos in reach.
[2020-09-30] MEDS: Melatonin 3 MG TABLET 6 MG PO (21:01)
[2020-09-30] MEDS: traZODone HCL 50 MG TABLET 300 MG PO (21:01)
[2020-10-01] VITALS (12 sets, daily range): BP systolic 102–134; BP diastolic 63–83; PULSE 60–79; RESP 18–22; TEMP 35.6–37.1; O2SAT 89–96
[2020-10-01] MEDS: Ascorbic Acid 500 MG TABLET 1000 MG PO ×3 (04:43→20:27)
[2020-10-01] MEDS: Zinc Sulfate 220 MG CAPSULE PO (08:38)
[2020-10-01] MEDS: Cholecalciferol (Vitamin D3) 25 MCG TABLET 50 MCG PO (08:38)
[2020-10-01] MEDS: Aspirin 81 MG TAB.CHEW PO (08:38)
[2020-10-01] MEDS: FLUoxetine HCl 20 MG CAPSULE 40 MG PO (08:38)
[2020-10-01] MEDS: 0.9 % Sodium Chloride Flush 3 ML SYRINGE IVFLUSH ×3 (08:38→20:24)
[2020-10-01] MEDS: lisinopriL 10 MG TABLET PO (08:46)
--- NOTE | 2020-10-01 09:18 | HO.PM.IMPN ---
Subjective Subjective Date of Service: 10/01/20 Interval History: feeling better Cardiovascular Cardiovascular: Reports no additional cardiovascular complaints Gastrointestinal Gastrointestinal: Reports no additional gastrointestinal complaints Physical Exam Vital Signs: Vital Signs: Last Vital Signs Temp 98.7 F 10/01/20 07:48 Pulse 63 10/01/20 07:48 Resp 20 10/01/20 08:04 BP 134/83 10/01/20 08:46 Pulse Ox 96 10/01/20 07:48 Oxygen Flow Rate 15 09/21/20 12:08 Body Mass Index 33.3 General: AO X 3, no acute distress Resp: crackles CVS: S1,S2,RRR GI: soft, non tender, non distended Neuro: motor grossly intact Psych: appropriate affect Objective Data Current Medications Generic Name Dose Route Start Last Admin Trade Name Freq PRN Reason Stop Dose Admin Ascorbic Acid 1,000 mg 09/28/20 10:30 10/01/20 04:43 Ascorbic Acid 500 Mg Tablet PO 1,000 mg Q6H KERLINE Administration Aspirin 81 mg 09/28/20 10:30 10/01/20 08:38 Aspirin 81 Mg Tab.Chew PO 81 mg DAILY KERLINE Administration Enoxaparin Sodium 40 mg 09/28/20 12:00 09/30/20 11:28 Enoxaparin Sodium 40 Mg/0.4 Ml Syringe SUBCUT 40 mg Q24H KERLINE Administration Fluoxetine HCl 40 mg 09/19/20 10:15 10/01/20 08:38 Fluoxetine Hcl 20 Mg Capsule PO 40 mg DAILY KERLINE Administration Hydromorphone HCl 0.5 mg 09/27/20 22:10 09/28/20 19:49 Hydromorphone Hcl 0.5 Mg/0.5 Ml Syringe IVPUSH 0.5 mg Q2H PRN Administration distress Thiamine HCl 200 mg/ Sodium 102 mls @ 204 mls/hr 09/28/20 10:30 09/30/20 23:17 Chloride IV Infused Q12H KERLINE Infusion Lisinopril 10 mg 09/19/20 11:00 10/01/20 08:46 Lisinopril 10 Mg Tablet PO 10 mg DAILY KERLINE Administration Protocol Melatonin 6 mg 09/28/20 21:00 09/30/20 21:01 Melatonin 3 Mg Tablet PO 6 mg BEDTIME KERLINE Administration Methylprednisolone Sodium Succinate 80 mg 09/27/20 12:00 09/30/20 23:10 Methylprednisolone Sod Succ 125 Mg/2 Ml Vial IVPUSH 80 mg Q12H KERLINE Administration Multivitamins 1 tab 09/28/20 10:30 10/01/20 08:38 B-Complex With Vitamin C Tablet PO 1 tab DAILY KERLINE Administration Ondansetron HCl 4 mg 09/19/20 03:11 Ondansetron Hcl 4 Mg/2 Ml Vial IVPUSH Q8H PRN Nausea and Vomiting Pharmacy Consult 1 each 09/19/20 09:20 Consult Rx Perform Med Rec MISCELLANE ONCE PRN Consult order Sodium Chloride 3 ml 09/19/20 03:11 10/01/20 08:38 0.9 % Sodium Chloride Flush 3 Ml Syringe IVFLUSH 3 ml QSHIFT KERLINE Administration Trazodone HCl 300 mg 09/21/20 23:55 09/30/20 21:01 Trazodone Hcl 50 Mg Tablet PO 300 mg BEDTIME KERLINE Administration Vitamin D 50 mcg 09/29/20 09:00 10/01/20 08:38 Cholecalciferol (Vitamin D3) 25 Mcg Tablet PO 50 mcg DAILY KERLINE Administration Zinc Sulfate 220 mg 09/28/20 10:30 10/01/20 08:38 Zinc Sulfate 220 Mg Capsule PO 220 mg DAILY KERLINE Administration Labs CBC & Chem 7: 09/30/20 05:20 09/30/20 05:20 Microbiology Microbiology Results: Microbiology 09/18/20 21:03 Blood - Venous Blood Culture - Final No growth after 5 days. 09/18/20 21:03 Blood - Venous Blood Culture - Final No growth after 5 days. Assessment and Plan (1) Acute respiratory distress syndrome (ARDS) due to COVID-19 virus: Problem details: Continued respiratory distress, secondary to COVID-19 infection. Requires high flow O2 and non-rebreather mask. At this point I think we should continue with the same, oxygenation is controlled and stable at this time. If she starts getting any worse then we will need to provide noninvasive ventilatory support, with 100% O2, and she will require transfer to intensive care unit. Status: Acute Assessment and Plan: 59-year-old female past medical history of asthma presented to the hospital with shortness of breath. found to have covid 19, course complicated by ARDS requiring ICU transfer for BIPAP. patient then slowly improved, on 09/30/2020 was comfortable on high flow and venti and downgraded to medical floor acute hypoxic respiratory failure due to covid 19 complicated by asthma exacerbation improving wean o2 as tolerated continue solumedrol HTN lisinpril
[2020-10-01] MEDS: Thiamine HCL 200 MG in 0.9 % Sodium Chloride 100 ML IV ×2 (11:35→20:24)
[2020-10-01] MEDS: methylPREDNISolone Sod Succ 125 MG/2 ML VIAL 80 MG IVPUSH ×2 (12:24→20:23)
[2020-10-01] MEDS: Enoxaparin Sodium 40 MG/0.4 ML SYRINGE SUBCUT (12:24)
[2020-10-01] MEDS: traZODone HCL 50 MG TABLET 300 MG PO (20:22)
[2020-10-01] MEDS: Melatonin 3 MG TABLET 6 MG PO (20:26)
[2020-10-02] VITALS (13 sets, daily range): BP systolic 109–132; BP diastolic 53–81; PULSE 52–97; RESP 18–20; TEMP 36.1–37.1; O2SAT 88–98; BMI 36.8
[2020-10-02] MEDS: Ascorbic Acid 500 MG TABLET 1000 MG PO ×4 (03:52→19:54)
--- NOTE | 2020-10-02 08:55 | HO.PM.IMPN ---
Subjective Subjective Date of Service: 10/02/20 Interval History: continues to feel better Cardiovascular Cardiovascular: Reports no additional cardiovascular complaints Gastrointestinal Gastrointestinal: Reports no additional gastrointestinal complaints Physical Exam Vital Signs: Vital Signs: Last Vital Signs Temp 97.8 F 10/02/20 07:50 Pulse 73 10/02/20 07:50 Resp 20 10/02/20 07:50 BP 113/55 L 10/02/20 07:50 Pulse Ox 88 L 10/02/20 07:50 Oxygen Flow Rate 15 09/21/20 12:08 Body Mass Index 36.8 General: AO X 3, no acute distress Resp: crackles CVS: S1,S2,RRR GI: soft, non tender, non distended Neuro: motor grossly intact Psych: appropriate affect Objective Data Current Medications Generic Name Dose Route Start Last Admin Trade Name Freq PRN Reason Stop Dose Admin Ascorbic Acid 1,000 mg 09/28/20 10:30 10/02/20 03:52 Ascorbic Acid 500 Mg Tablet PO 1,000 mg Q6H KERLINE Administration Aspirin 81 mg 09/28/20 10:30 10/01/20 08:38 Aspirin 81 Mg Tab.Chew PO 81 mg DAILY KERLINE Administration Enoxaparin Sodium 40 mg 09/28/20 12:00 10/01/20 12:24 Enoxaparin Sodium 40 Mg/0.4 Ml Syringe SUBCUT 40 mg Q24H KERLINE Administration Fluoxetine HCl 40 mg 09/19/20 10:15 10/01/20 08:38 Fluoxetine Hcl 20 Mg Capsule PO 40 mg DAILY KERLINE Administration Thiamine HCl 200 mg/ Sodium 102 mls @ 204 mls/hr 09/28/20 10:30 10/01/20 20:57 Chloride IV Infused Q12H KERLINE Infusion Lisinopril 10 mg 09/19/20 11:00 10/01/20 08:46 Lisinopril 10 Mg Tablet PO 10 mg DAILY KERLINE Administration Protocol Melatonin 6 mg 09/28/20 21:00 10/01/20 20:26 Melatonin 3 Mg Tablet PO 6 mg BEDTIME KERLINE Administration Methylprednisolone Sodium Succinate 80 mg 09/27/20 12:00 10/01/20 20:23 Methylprednisolone Sod Succ 125 Mg/2 Ml Vial IVPUSH 80 mg Q12H KERLINE Administration Multivitamins 1 tab 09/28/20 10:30 10/01/20 08:38 B-Complex With Vitamin C Tablet PO 1 tab DAILY KERLINE Administration Ondansetron HCl 4 mg 09/19/20 03:11 Ondansetron Hcl 4 Mg/2 Ml Vial IVPUSH Q8H PRN Nausea and Vomiting Pharmacy Consult 1 each 09/19/20 09:20 Consult Rx Perform Med Rec MISCELLANE ONCE PRN Consult order Sodium Chloride 3 ml 09/19/20 03:11 10/01/20 20:24 0.9 % Sodium Chloride Flush 3 Ml Syringe IVFLUSH 3 ml QSHIFT KERLINE Administration Trazodone HCl 300 mg 09/21/20 23:55 10/01/20 20:22 Trazodone Hcl 50 Mg Tablet PO 300 mg BEDTIME KERLINE Administration Vitamin D 50 mcg 09/29/20 09:00 10/01/20 08:38 Cholecalciferol (Vitamin D3) 25 Mcg Tablet PO 50 mcg DAILY KERLINE Administration Zinc Sulfate 220 mg 09/28/20 10:30 10/01/20 08:38 Zinc Sulfate 220 Mg Capsule PO 220 mg DAILY KERLINE Administration Labs CBC & Chem 7: 09/30/20 05:20 09/30/20 05:20 Microbiology Microbiology Results: Microbiology 09/18/20 21:03 Blood - Venous Blood Culture - Final No growth after 5 days. 09/18/20 21:03 Blood - Venous Blood Culture - Final No growth after 5 days. Assessment and Plan (1) Acute respiratory distress syndrome (ARDS) due to COVID-19 virus: Problem details: Continued respiratory distress, secondary to COVID-19 infection. Requires high flow O2 and non-rebreather mask. At this point I think we should continue with the same, oxygenation is controlled and stable at this time. If she starts getting any worse then we will need to provide noninvasive ventilatory support, with 100% O2, and she will require transfer to intensive care unit. Status: Acute Assessment and Plan: 59-year-old female past medical history of asthma presented to the hospital with shortness of breath. found to have covid 19, course complicated by ARDS requiring ICU transfer for BIPAP. patient then slowly improved, on 09/30/2020 was comfortable on high flow and venti and downgraded to medical floor acute hypoxic respiratory failure due to covid 19 complicated by asthma exacerbation continues to require high levels of o2, but is feeling better and inflammatory markers decreasing wean o2 as tolerated continue solumedrol HTN lisinopril
[2020-10-02] MEDS: Aspirin 81 MG TAB.CHEW PO (09:33)
[2020-10-02] MEDS: Zinc Sulfate 220 MG CAPSULE PO (09:33)
[2020-10-02] MEDS: lisinopriL 10 MG TABLET PO (09:33)
[2020-10-02] MEDS: FLUoxetine HCl 20 MG CAPSULE 40 MG PO (09:33)
[2020-10-02] MEDS: Thiamine HCL 200 MG in 0.9 % Sodium Chloride 100 ML 204 MG IV (09:39)
[2020-10-02] MEDS: 0.9 % Sodium Chloride Flush 3 ML SYRINGE IVFLUSH ×3 (09:43→19:55)
[2020-10-02] MEDS: Cholecalciferol (Vitamin D3) 25 MCG TABLET 50 MCG PO (09:43)
[2020-10-02] MEDS: methylPREDNISolone Sod Succ 125 MG/2 ML VIAL 80 MG IVPUSH ×2 (12:34→19:52)
[2020-10-02] MEDS: Enoxaparin Sodium 40 MG/0.4 ML SYRINGE SUBCUT (12:34)
--- NOTE | 2020-10-02 13:25 | MHC.CM.PN ---
DP Female 59 DX Covid+ DP will be determined by the Pts recovery. AT admit DP was home no services family transport. CM will follow to assess for a change in DC needs.
[2020-10-02] MEDS: traZODone HCL 50 MG TABLET 300 MG PO (19:52)
[2020-10-02] MEDS: Melatonin 3 MG TABLET 6 MG PO (19:53)
[2020-10-02] MEDS: Thiamine HCL 200 MG in 0.9 % Sodium Chloride 100 ML IV (19:56)
[2020-10-03] VITALS (13 sets, daily range): BP systolic 101–122; BP diastolic 58–77; PULSE 54–96; RESP 18–22; TEMP 36–36.8; O2SAT 90–97
[2020-10-03] MEDS: Ascorbic Acid 500 MG TABLET 1000 MG PO ×4 (02:56→21:16)
[2020-10-03 05:45] LABS: MANUAL DIFF FLAG NO
[2020-10-03 05:53] LABS: Basophils Percent Auto 0.1 % (0-2); Hematocrit 38.9 % (37-47); Imm Gran Abs Auto 0.32 X10*3/uL (0.00-0.03); Lymphocytes Absolute Auto 1.4 X10*3/uL (1.2-4.9); Lymphocytes Percent Auto 9.2 % (20-40); Mean Corpuscular HGB Conc 33.4 g/dl (31.0-35.0); Mean Corpuscular Hemoglobin 28.4 pg (27.0-33.0); Mean Corpuscular Volume 84.9 fL (80-98); Mean Platelet Volume 10.6 fL (9.4-12.3); Monocytes Absolute Auto 0.7 X10*3/uL (0.1-1.2); Monocytes Percent Auto 4.2 % (2-11); Neutrophils Absolute Auto 13.2 X10*3/uL (2.0-8.3); Neutrophils Percent Auto 84.5 % (45-73); Platelet Count 405 X10*3/uL (160-400); Red Blood Count 4.58 X10*6/uL (4.20-5.50); Red Cell Distribution Width 13.1 % (11.0-16.0); White Blood Count 15.7 X10*3/uL (4.8-10.8)
[2020-10-03 05:59] LABS: D Dimer 531 NG/ML
[2020-10-03 06:31] LABS: Anion Gap 11 (12-20); Blood Urea Nitrogen 19 mg/dL (9-16); C Reactive Protein 1.03 mg/dL (< or = 0.50); Calcium 9.5 mg/dL (8.4-10.2); Carbon Dioxide 31 mmol/L (22-29); Chloride 99 mmol/L (96-108); Creatinine Clr Calc Pharmacy 101.5; Estimated Glomerular Filt Rate > 60; Glucose Fasting 142 mg/dL (60-99); Lactate Dehydrogenase 239 U/L (122-220); Potassium 4.3 mmol/L (3.3-5.1); Sodium 137 mmol/L (135-145)
[2020-10-03] MEDS: Zinc Sulfate 220 MG CAPSULE PO (07:38)
[2020-10-03] MEDS: FLUoxetine HCl 20 MG CAPSULE 40 MG PO (07:38)
[2020-10-03] MEDS: Cholecalciferol (Vitamin D3) 25 MCG TABLET 50 MCG PO (07:38)
[2020-10-03] MEDS: Aspirin 81 MG TAB.CHEW PO (07:39)
[2020-10-03] MEDS: 0.9 % Sodium Chloride Flush 3 ML SYRINGE IVFLUSH ×3 (07:39→21:16)
[2020-10-03] MEDS: lisinopriL 10 MG TABLET PO (07:40)
[2020-10-03] MEDS: Thiamine HCL 200 MG in 0.9 % Sodium Chloride 100 ML 204 MG IV ×2 (10:28→21:13)
[2020-10-03] MEDS: methylPREDNISolone Sod Succ 125 MG/2 ML VIAL 80 MG IVPUSH ×2 (12:27→23:52)
[2020-10-03] MEDS: Enoxaparin Sodium 40 MG/0.4 ML SYRINGE SUBCUT (12:28)
--- NOTE | 2020-10-03 13:59 | HO.PM.IMPN ---
Subjective Subjective Date of Service: 10/03/20 Interval History: improved Cardiovascular Cardiovascular: Reports no additional cardiovascular complaints Genitourinary Genitourinary: Reports no additional female genitourinary complaints Physical Exam Vital Signs: Vital Signs: Last Vital Signs Temp 97.2 F 10/03/20 11:07 Pulse 72 10/03/20 11:07 Resp 18 10/03/20 11:13 BP 101/69 10/03/20 11:07 Pulse Ox 96 10/03/20 11:07 Oxygen Flow Rate 15 09/21/20 12:08 Body Mass Index 36.8 General: AO X 3, no acute distress Resp: crackles CVS: S1,S2,RRR GI: soft, non tender, non distended Neuro: motor grossly intact Psych: appropriate affect Objective Data Current Medications Generic Name Dose Route Start Last Admin Trade Name Freq PRN Reason Stop Dose Admin Ascorbic Acid 1,000 mg 09/28/20 10:30 10/03/20 10:28 Ascorbic Acid 500 Mg Tablet PO 1,000 mg Q6H KERLINE Administration Aspirin 81 mg 09/28/20 10:30 10/03/20 07:39 Aspirin 81 Mg Tab.Chew PO 81 mg DAILY KERLINE Administration Enoxaparin Sodium 40 mg 09/28/20 12:00 10/03/20 12:28 Enoxaparin Sodium 40 Mg/0.4 Ml Syringe SUBCUT 40 mg Q24H KERLINE Administration Fluoxetine HCl 40 mg 09/19/20 10:15 10/03/20 07:38 Fluoxetine Hcl 20 Mg Capsule PO 40 mg DAILY KERLINE Administration Thiamine HCl 200 mg/ Sodium 102 mls @ 204 mls/hr 09/28/20 10:30 10/03/20 11:01 Chloride IV Infused Q12H KERLINE Infusion Lisinopril 10 mg 09/19/20 11:00 10/03/20 07:40 Lisinopril 10 Mg Tablet PO 10 mg DAILY KERLINE Administration Protocol Melatonin 6 mg 09/28/20 21:00 10/02/20 19:53 Melatonin 3 Mg Tablet PO 6 mg BEDTIME KERLINE Administration Methylprednisolone Sodium Succinate 80 mg 09/27/20 12:00 10/03/20 12:27 Methylprednisolone Sod Succ 125 Mg/2 Ml Vial IVPUSH 80 mg Q12H KERLINE Administration Multivitamins 1 tab 09/28/20 10:30 10/03/20 07:38 B-Complex With Vitamin C Tablet PO 1 tab DAILY KERLINE Administration Ondansetron HCl 4 mg 09/19/20 03:11 Ondansetron Hcl 4 Mg/2 Ml Vial IVPUSH Q8H PRN Nausea and Vomiting Pharmacy Consult 1 each 09/19/20 09:20 Consult Rx Perform Med Rec MISCELLANE ONCE PRN Consult order Sodium Chloride 3 ml 09/19/20 03:11 10/03/20 07:39 0.9 % Sodium Chloride Flush 3 Ml Syringe IVFLUSH 3 ml QSHIFT KERLINE Administration Trazodone HCl 300 mg 09/21/20 23:55 10/02/20 19:52 Trazodone Hcl 50 Mg Tablet PO 300 mg BEDTIME KERLINE Administration Vitamin D 50 mcg 09/29/20 09:00 10/03/20 07:38 Cholecalciferol (Vitamin D3) 25 Mcg Tablet PO 50 mcg DAILY KERLINE Administration Zinc Sulfate 220 mg 09/28/20 10:30 10/03/20 07:38 Zinc Sulfate 220 Mg Capsule PO 220 mg DAILY KERLINE Administration Labs CBC & Chem 7: 10/03/20 05:14 10/03/20 05:14 Microbiology Microbiology Results: Microbiology 09/18/20 21:03 Blood - Venous Blood Culture - Final No growth after 5 days. 09/18/20 21:03 Blood - Venous Blood Culture - Final No growth after 5 days. Assessment and Plan (1) Acute respiratory distress syndrome (ARDS) due to COVID-19 virus: Problem details: Continued respiratory distress, secondary to COVID-19 infection. Requires high flow O2 and non-rebreather mask. At this point I think we should continue with the same, oxygenation is controlled and stable at this time. If she starts getting any worse then we will need to provide noninvasive ventilatory support, with 100% O2, and she will require transfer to intensive care unit. Status: Acute Assessment and Plan: 59-year-old female past medical history of asthma presented to the hospital with shortness of breath. found to have covid 19, course complicated by ARDS requiring ICU transfer for BIPAP. patient then slowly improved, on 09/30/2020 was comfortable on high flow and venti and downgraded to medical floor acute hypoxic respiratory failure due to covid 19 complicated by asthma exacerbation continues to require high levels of o2, but is feeling better and inflammatory markers decreasing as is o2 requirements wean o2 as tolerated continue solumedrol HTN lisinopril
--- NOTE | 2020-10-03 18:40 | PC.NURSE ---
Patient weaned from 35L at 60% to 30L at 50%; unable to wean any further due to patient de-satting into the 80s. Patient not agreeable to sitting in the recliner. While transferring to [facility], patient de-sats into the 80s as well. Will pass to oncoming nurse to continue to wean as tolerated.
[2020-10-03] MEDS: traZODone HCL 50 MG TABLET 300 MG PO (21:16)
[2020-10-03] MEDS: Melatonin 3 MG TABLET 6 MG PO (21:16)
[2020-10-04] VITALS (12 sets, daily range): BP systolic 115–160; BP diastolic 65–84; PULSE 54–95; RESP 18–24; TEMP 35.9–36.6; O2SAT 90–97
[2020-10-04] MEDS: Ascorbic Acid 500 MG TABLET 1000 MG PO ×4 (04:00→22:13)
[2020-10-04] MEDS: 0.9 % Sodium Chloride Flush 3 ML SYRINGE IVFLUSH ×2 (08:54→15:24)
[2020-10-04] MEDS: lisinopriL 10 MG TABLET PO (08:54)
[2020-10-04] MEDS: FLUoxetine HCl 20 MG CAPSULE 40 MG PO (08:55)
[2020-10-04] MEDS: Zinc Sulfate 220 MG CAPSULE PO (08:55)
[2020-10-04] MEDS: Aspirin 81 MG TAB.CHEW PO (08:55)
[2020-10-04] MEDS: Cholecalciferol (Vitamin D3) 25 MCG TABLET 50 MCG PO (08:55)
[2020-10-04] MEDS: Thiamine HCL 200 MG in 0.9 % Sodium Chloride 100 ML 204 MG IV (11:25)
[2020-10-04] MEDS: Enoxaparin Sodium 40 MG/0.4 ML SYRINGE SUBCUT (11:25)
[2020-10-04] MEDS: methylPREDNISolone Sod Succ 125 MG/2 ML VIAL 80 MG IVPUSH (11:26)
--- NOTE | 2020-10-04 12:59 | HO.PM.IMPN ---
Subjective Subjective Date of Service: 10/04/20 Interval History: the patient was seen and evaluated this morning Laying in bed, looks more comfortable today on high flow oxygen with sats in 90s Denies any fever, chills or chest pain No reported other overnight events. Systemic review: No fever, chills but has generalized weakness No chest pain, palpitation Breathing has improved, no more coughing No abdominal pain, nausea or vomiting No urinary symptoms No any rash or wounds Physical Exam Vital Signs: Vital Signs: Last Vital Signs Temp 97.3 F 10/04/20 11:13 Pulse 66 10/04/20 11:13 Resp 20 10/04/20 11:13 BP 115/70 10/04/20 11:13 Pulse Ox 97 10/04/20 11:13 Oxygen Flow Rate 15 09/21/20 12:08 Body Mass Index 36.8 Const: Other: Constitutional : Alert, oriented, not in distress Neck : Normal inspection, Supple Cardiovascular : RRR, S1 S2, no lower extremity edema Respiratory : Decreased bilateral air entry, no crackles, wheezes or rhonchi, in mild respiratory distress, on high-flow oxygen with sats around 97 Gastrointestinal: soft, lax, Normal bowel sounds, Non tender Skin : Warm/Dry, No rash Neurological : Alert & oriented x3, No focal deficit Objective Data Current Medications Generic Name Dose Route Start Last Admin Trade Name Lewisq PRN Reason Stop Dose Admin Ascorbic Acid 1,000 mg 09/28/20 10:30 10/04/20 08:55 Ascorbic Acid 500 Mg Tablet PO 1,000 mg Q6H KERLINE Administration Aspirin 81 mg 09/28/20 10:30 10/04/20 08:55 Aspirin 81 Mg Tab.Chew PO 81 mg DAILY KERLINE Administration Enoxaparin Sodium 40 mg 09/28/20 12:00 10/04/20 11:25 Enoxaparin Sodium 40 Mg/0.4 Ml Syringe SUBCUT 40 mg Q24H KERLINE Administration Fluoxetine HCl 40 mg 09/19/20 10:15 10/04/20 08:55 Fluoxetine Hcl 20 Mg Capsule PO 40 mg DAILY KERLINE Administration Thiamine HCl 200 mg/ Sodium 102 mls @ 204 mls/hr 10/04/20 12:00 10/04/20 11:59 Chloride IV Infused Q12H KERLINE Infusion Lisinopril 10 mg 09/19/20 11:00 10/04/20 08:54 Lisinopril 10 Mg Tablet PO 10 mg DAILY KERLINE Administration Protocol Melatonin 6 mg 09/28/20 21:00 10/03/20 21:16 Melatonin 3 Mg Tablet PO 6 mg BEDTIME KERLINE Administration Methylprednisolone Sodium Succinate 80 mg 09/27/20 12:00 10/04/20 11:26 Methylprednisolone Sod Succ 125 Mg/2 Ml Vial IVPUSH 80 mg Q12H KERLINE Administration Multivitamins 1 tab 09/28/20 10:30 10/04/20 08:54 B-Complex With Vitamin C Tablet PO 1 tab DAILY KERLINE Administration Ondansetron HCl 4 mg 09/19/20 03:11 Ondansetron Hcl 4 Mg/2 Ml Vial IVPUSH Q8H PRN Nausea and Vomiting Pharmacy Consult 1 each 09/19/20 09:20 Consult Rx Perform Med Rec MISCELLANE ONCE PRN Consult order Sodium Chloride 3 ml 09/19/20 03:11 10/04/20 08:54 0.9 % Sodium Chloride Flush 3 Ml Syringe IVFLUSH 3 ml QSHIFT KERLINE Administration Trazodone HCl 300 mg 09/21/20 23:55 10/03/20 21:16 Trazodone Hcl 50 Mg Tablet PO 300 mg BEDTIME KERLINE Administration Vitamin D 50 mcg 09/29/20 09:00 10/04/20 08:55 Cholecalciferol (Vitamin D3) 25 Mcg Tablet PO 50 mcg DAILY KERLINE Administration Zinc Sulfate 220 mg 09/28/20 10:30 10/04/20 08:55 Zinc Sulfate 220 Mg Capsule PO 220 mg DAILY KERLINE Administration Labs CBC & Chem 7: 10/03/20 05:14 10/03/20 05:14 Microbiology Microbiology Results: Microbiology 09/18/20 21:03 Blood - Venous Blood Culture - Final No growth after 5 days. 09/18/20 21:03 Blood - Venous Blood Culture - Final No growth after 5 days. Assessment and Plan (1) Acute respiratory failure with hypoxia: Status: Acute (2) Acute respiratory distress syndrome (ARDS) due to COVID-19 virus: Status: Acute Assessment and Plan: 59-year-old female past medical history of asthma presented to the hospital with shortness of breath. found to have covid 19, course complicated by ARDS requiring ICU transfer for BIPAP. patient then slowly improved, on 09/30/2020 was comfortable on high flow and venti and downgraded to medical floor acute hypoxic respiratory failure due to covid 19 complicated by asthma exacerbation continues to require high levels of o2 feeling better and inflammatory markers decreasing as is o2 requirements wean o2 as tolerated continue solumedrol Continue Bit C, D3, Thamin and Zinc supplement HTN lisinopril DVT PPx Lovenox
--- NOTE | 2020-10-04 14:12 | MHC.CM.PN ---
Female 59 DX Covid+ DP to be determined by recovery. She has not been out of bed. She continues to require High Flow oxygen. Pt eval to be performed when Pt stable. CM will follow.
[2020-10-04] MEDS: traZODone HCL 50 MG TABLET 300 MG PO (20:18)
[2020-10-04] MEDS: Melatonin 3 MG TABLET 6 MG PO (20:18)
[2020-10-05] VITALS (10 sets, daily range): BP systolic 102–142; BP diastolic 58–73; PULSE 56–94; RESP 18–20; TEMP 35.8–36.6; O2SAT 92–96; BMI 35.9
[2020-10-05] MEDS: methylPREDNISolone Sod Succ 125 MG/2 ML VIAL 80 MG IVPUSH ×2 (00:06→11:11)
[2020-10-05] MEDS: 0.9 % Sodium Chloride Flush 3 ML SYRINGE IVFLUSH ×3 (00:06→16:51)
[2020-10-05] MEDS: Thiamine HCL 200 MG in 0.9 % Sodium Chloride 100 ML 204 MG IV ×2 (00:07→11:12)
[2020-10-05] MEDS: Ascorbic Acid 500 MG TABLET 1000 MG PO ×4 (03:41→21:59)
[2020-10-05 07:54] LABS: Hematocrit 38.8 % (37-47); Hemoglobin 12.8 g/dl (12.0-16.0); Mean Corpuscular Hemoglobin 28.1 pg (27.0-33.0); Mean Corpuscular Volume 85.1 fL (80-98); Mean Platelet Volume 10.5 fL (9.4-12.3); Platelet Count 368 X10*3/uL (160-400); Red Blood Count 4.56 X10*6/uL (4.20-5.50); Red Cell Distribution Width 13.3 % (11.0-16.0)
[2020-10-05 08:19] LABS: Anion Gap 12 (12-20); Blood Urea Nitrogen 18 mg/dL (9-16); Calcium 9.3 mg/dL (8.4-10.2); Carbon Dioxide 30 mmol/L (22-29); Chloride 97 mmol/L (96-108); Estimated Glomerular Filt Rate > 60; Glucose Random 234 mg/dL (60-115); Potassium 4.7 mmol/L (3.3-5.1); Sodium 134 mmol/L (135-145)
[2020-10-05] MEDS: FLUoxetine HCl 20 MG CAPSULE 40 MG PO (09:48)
[2020-10-05] MEDS: Aspirin 81 MG TAB.CHEW PO (09:48)
[2020-10-05] MEDS: Cholecalciferol (Vitamin D3) 25 MCG TABLET 50 MCG PO (09:48)
[2020-10-05] MEDS: lisinopriL 10 MG TABLET PO (09:50)
[2020-10-05] MEDS: Zinc Sulfate 220 MG CAPSULE PO (09:50)
[2020-10-05] MEDS: Enoxaparin Sodium 40 MG/0.4 ML SYRINGE SUBCUT (11:10)
--- NOTE | 2020-10-05 15:05 | HO.PM.IMPN ---
Subjective Subjective Date of Service: 10/05/20 Interval History: the patient was seen and evaluated this morning Laying in bed, looks more comfortable today on high flow oxygen with sats in 90s Eating drinking, has good spirit Denies any fever, chills or chest pain No reported other overnight events. Systemic review: No fever, chills but has generalized weakness No chest pain, palpitation Breathing has improved, no more coughing No abdominal pain, nausea or vomiting No urinary symptoms No any rash or wounds Physical Exam Vital Signs: Vital Signs: Last Vital Signs Temp 96.5 F L 10/05/20 11:17 Pulse 68 10/05/20 11:17 Resp 20 10/05/20 11:17 BP 115/73 10/05/20 11:17 Pulse Ox 94 10/05/20 11:17 Oxygen Flow Rate 15 09/21/20 12:08 Body Mass Index 35.9 Const: Other: Constitutional : Alert, oriented, not in distress Neck : Normal inspection, Supple Cardiovascular : RRR, S1 S2, no lower extremity edema Respiratory : Decreased bilateral air entry, no crackles, wheezes or rhonchi, in mild respiratory distress, on high-flow oxygen with sats around 97 Gastrointestinal: soft, lax, Normal bowel sounds, Non tender Skin : Warm/Dry, No rash Neurological : Alert & oriented x3, No focal deficit Objective Data Current Medications Generic Name Dose Route Start Last Admin Trade Name Freq PRN Reason Stop Dose Admin Ascorbic Acid 1,000 mg 09/28/20 10:30 10/05/20 09:48 Ascorbic Acid 500 Mg Tablet PO 1,000 mg Q6H KERLINE Administration Aspirin 81 mg 09/28/20 10:30 10/05/20 09:48 Aspirin 81 Mg Tab.Chew PO 81 mg DAILY KERLINE Administration Enoxaparin Sodium 40 mg 09/28/20 12:00 10/05/20 11:10 Enoxaparin Sodium 40 Mg/0.4 Ml Syringe SUBCUT 40 mg Q24H KERLINE Administration Fluoxetine HCl 40 mg 09/19/20 10:15 10/05/20 09:48 Fluoxetine Hcl 20 Mg Capsule PO 40 mg DAILY KERLINE Administration Thiamine HCl 200 mg/ Sodium 102 mls @ 204 mls/hr 10/04/20 12:00 10/05/20 11:48 Chloride IV Infused Q12H KERLINE Infusion Lisinopril 10 mg 09/19/20 11:00 10/05/20 09:50 Lisinopril 10 Mg Tablet PO 10 mg DAILY KERLINE Administration Protocol Melatonin 6 mg 09/28/20 21:00 10/04/20 20:18 Melatonin 3 Mg Tablet PO 6 mg BEDTIME KERLINE Administration Methylprednisolone Sodium Succinate 80 mg 09/27/20 12:00 10/05/20 11:11 Methylprednisolone Sod Succ 125 Mg/2 Ml Vial IVPUSH 80 mg Q12H KERLINE Administration Multivitamins 1 tab 09/28/20 10:30 10/05/20 09:50 B-Complex With Vitamin C Tablet PO 1 tab DAILY KERLINE Administration Ondansetron HCl 4 mg 09/19/20 03:11 Ondansetron Hcl 4 Mg/2 Ml Vial IVPUSH Q8H PRN Nausea and Vomiting Pharmacy Consult 1 each 09/19/20 09:20 Consult Rx Perform Med Rec MISCELLANE ONCE PRN Consult order Sodium Chloride 3 ml 09/19/20 03:11 10/05/20 09:50 0.9 % Sodium Chloride Flush 3 Ml Syringe IVFLUSH 3 ml QSHIFT KERLINE Administration Trazodone HCl 300 mg 09/21/20 23:55 10/04/20 20:18 Trazodone Hcl 50 Mg Tablet PO 300 mg BEDTIME KERLINE Administration Vitamin D 50 mcg 09/29/20 09:00 10/05/20 09:48 Cholecalciferol (Vitamin D3) 25 Mcg Tablet PO 50 mcg DAILY KERLINE Administration Zinc Sulfate 220 mg 09/28/20 10:30 10/05/20 09:50 Zinc Sulfate 220 Mg Capsule PO 220 mg DAILY KERLINE Administration Labs CBC & Chem 7: 10/05/20 07:18 10/05/20 07:18 Microbiology Microbiology Results: Microbiology 09/18/20 21:03 Blood - Venous Blood Culture - Final No growth after 5 days. 09/18/20 21:03 Blood - Venous Blood Culture - Final No growth after 5 days. Assessment and Plan (1) Acute respiratory failure with hypoxia: Status: Acute (2) Acute respiratory distress syndrome (ARDS) due to COVID-19 virus: Status: Acute Assessment and Plan: 59-year-old female past medical history of asthma presented to the hospital with shortness of breath. found to have covid 19, course complicated by ARDS requiring ICU transfer for BIPAP. patient then slowly improved, on 09/30/2020 was comfortable on high flow and venti and downgraded to medical floor acute hypoxic respiratory failure due to covid 19 complicated by asthma exacerbation continues to require high levels of o2 feeling better and inflammatory markers decreasing as is o2 requirements wean o2 as tolerated Decrease the dose of solumedrol, to wean steroids Continue Bit C, D3, Thamin and Zinc supplement HTN lisinopril DVT PPx Lovenox
[2020-10-05] MEDS: methylPREDNISolone Sod Succ 40 MG/ML VIAL IVPUSH (16:50)
[2020-10-05] MEDS: Melatonin 3 MG TABLET 6 MG PO (21:59)
[2020-10-05] MEDS: traZODone HCL 50 MG TABLET 300 MG PO (21:59)
[2020-10-06] VITALS (7 sets, daily range): BP systolic 92–138; BP diastolic 52–72; PULSE 56–75; RESP 18–20; TEMP 36.1–36.6; O2SAT 92–99
[2020-10-06] MEDS: Thiamine HCL 200 MG in 0.9 % Sodium Chloride 100 ML 204 MG IV ×2 (00:23→11:16)
[2020-10-06] MEDS: 0.9 % Sodium Chloride Flush 3 ML SYRINGE IVFLUSH ×4 (00:24→21:36)
[2020-10-06] MEDS: methylPREDNISolone Sod Succ 40 MG/ML VIAL IVPUSH ×2 (04:12→14:51)
[2020-10-06] MEDS: Ascorbic Acid 500 MG TABLET 1000 MG PO ×4 (04:13→21:36)
[2020-10-06 06:10] LABS: Hematocrit 38.5 % (37-47); Hemoglobin 12.6 g/dl (12.0-16.0); Mean Corpuscular HGB Conc 32.7 g/dl (31.0-35.0); Mean Corpuscular Hemoglobin 27.6 pg (27.0-33.0); Mean Corpuscular Volume 84.4 fL (80-98); Mean Platelet Volume 10.7 fL (9.4-12.3); Platelet Count 354 X10*3/uL (160-400); Red Blood Count 4.56 X10*6/uL (4.20-5.50); Red Cell Distribution Width 13.3 % (11.0-16.0); White Blood Count 13.3 X10*3/uL (4.8-10.8)
[2020-10-06 06:33] LABS: Anion Gap 12 (12-20); Blood Urea Nitrogen 21 mg/dL (9-16); Calcium 9.6 mg/dL (8.4-10.2); Carbon Dioxide 29 mmol/L (22-29); Chloride 99 mmol/L (96-108); Creatinine Clr Calc Pharmacy 92.6; Estimated Glomerular Filt Rate > 60; Glucose Random 169 mg/dL (60-115); Potassium 4.6 mmol/L (3.3-5.1); Sodium 135 mmol/L (135-145)
[2020-10-06] MEDS: Aspirin 81 MG TAB.CHEW PO (07:55)
[2020-10-06] MEDS: Zinc Sulfate 220 MG CAPSULE PO (07:55)
[2020-10-06] MEDS: lisinopriL 10 MG TABLET PO (07:55)
[2020-10-06] MEDS: Cholecalciferol (Vitamin D3) 25 MCG TABLET 50 MCG PO (07:55)
[2020-10-06] MEDS: FLUoxetine HCl 20 MG CAPSULE 40 MG PO (07:55)
[2020-10-06] MEDS: Enoxaparin Sodium 40 MG/0.4 ML SYRINGE SUBCUT (11:15)
--- NOTE | 2020-10-06 11:29 | MHC.CM.PN ---
Per ROUNDS discussion, Patient is not yet medically cleared for dc (IV Solu Medrol, IV Thiamine, High Flow O2). Home is the goal for dc and CM will continue to follow for possible need to adjust the dc plan.
--- NOTE | 2020-10-06 12:46 | PC.NURSE ---
1245 TLC removed without diff. Tip intact. Xerofoam dsg C&D
--- NOTE | 2020-10-06 15:16 | HO.PM.IMPN ---
Subjective Subjective Date of Service: 10/06/20 Interval History: the patient was seen and evaluated this morning Laying in bed, looks more comfortable today on 7 L nasal cannula with sats in 90s Eating drinking, has good spirit Denies any fever, chills or chest pain No reported other overnight events. Systemic review: No fever, chills but has generalized weakness No chest pain, palpitation Breathing has improved, no more coughing No abdominal pain, nausea or vomiting No urinary symptoms No any rash or wounds Physical Exam Vital Signs: Vital Signs: Last Vital Signs Temp 97 F 10/06/20 11:23 Pulse 68 10/06/20 11:23 Resp 18 10/06/20 11:23 BP 103/63 10/06/20 11:23 Pulse Ox 93 10/06/20 11:23 Oxygen Flow Rate 15 09/21/20 12:08 Body Mass Index 35.9 Const: Other: Constitutional : Alert, oriented, not in distress Neck : Normal inspection, Supple Cardiovascular : RRR, S1 S2, no lower extremity edema Respiratory : Decreased bilateral air entry, no crackles, wheezes or rhonchi, in mild respiratory distress, on nasal cannula Gastrointestinal: soft, lax, Normal bowel sounds, Non tender Skin : Warm/Dry, No rash Neurological : Alert & oriented x3, No focal deficit Objective Data Current Medications Generic Name Dose Route Start Last Admin Trade Name Lewisq PRN Reason Stop Dose Admin Ascorbic Acid 1,000 mg 09/28/20 10:30 10/06/20 10:39 Ascorbic Acid 500 Mg Tablet PO 1,000 mg Q6H KERLINE Administration Aspirin 81 mg 09/28/20 10:30 10/06/20 07:55 Aspirin 81 Mg Tab.Chew PO 81 mg DAILY KERLINE Administration Enoxaparin Sodium 40 mg 09/28/20 12:00 10/06/20 11:15 Enoxaparin Sodium 40 Mg/0.4 Ml Syringe SUBCUT 40 mg Q24H KERLINE Administration Fluoxetine HCl 40 mg 09/19/20 10:15 10/06/20 07:55 Fluoxetine Hcl 20 Mg Capsule PO 40 mg DAILY KERLINE Administration Thiamine HCl 200 mg/ Sodium 102 mls @ 204 mls/hr 10/04/20 12:00 10/06/20 13:07 Chloride IV Infused Q12H KERLINE Infusion Lisinopril 10 mg 09/19/20 11:00 10/06/20 07:55 Lisinopril 10 Mg Tablet PO 10 mg DAILY KERLINE Administration Protocol Melatonin 6 mg 09/28/20 21:00 10/05/20 21:59 Melatonin 3 Mg Tablet PO 6 mg BEDTIME KERLINE Administration Methylprednisolone Sodium Succinate 40 mg 10/05/20 15:15 10/06/20 14:51 Methylprednisolone Sod Succ 40 Mg/Ml Vial IVPUSH 40 mg Q12H KERLINE Administration Multivitamins 1 tab 09/28/20 10:30 10/06/20 07:56 B-Complex With Vitamin C Tablet PO 1 tab DAILY KERLINE Administration Ondansetron HCl 4 mg 09/19/20 03:11 Ondansetron Hcl 4 Mg/2 Ml Vial IVPUSH Q8H PRN Nausea and Vomiting Pharmacy Consult 1 each 09/19/20 09:20 Consult Rx Perform Med Rec MISCELLANE ONCE PRN Consult order Sodium Chloride 3 ml 09/19/20 03:11 10/06/20 07:56 0.9 % Sodium Chloride Flush 3 Ml Syringe IVFLUSH 3 ml QSHIFT KERLINE Administration Trazodone HCl 300 mg 09/21/20 23:55 10/05/20 21:59 Trazodone Hcl 50 Mg Tablet PO 300 mg BEDTIME KERLINE Administration Vitamin D 50 mcg 09/29/20 09:00 10/06/20 07:55 Cholecalciferol (Vitamin D3) 25 Mcg Tablet PO 50 mcg DAILY KERLINE Administration Zinc Sulfate 220 mg 09/28/20 10:30 10/06/20 07:55 Zinc Sulfate 220 Mg Capsule PO 220 mg DAILY KERLINE Administration Labs CBC & Chem 7: 10/06/20 05:39 10/06/20 05:39 Microbiology Microbiology Results: Microbiology 09/18/20 21:03 Blood - Venous Blood Culture - Final No growth after 5 days. 09/18/20 21:03 Blood - Venous Blood Culture - Final No growth after 5 days. Assessment and Plan (1) Acute respiratory failure with hypoxia: Status: Acute (2) Acute respiratory distress syndrome (ARDS) due to COVID-19 virus: Status: Acute Assessment and Plan: 59-year-old female past medical history of asthma presented to the hospital with shortness of breath. found to have covid 19, course complicated by ARDS requiring ICU transfer for BIPAP. patient then slowly improved, on 09/30/2020 was comfortable on high flow and venti and downgraded to medical floor acute hypoxic respiratory failure due to covid 19 complicated by asthma exacerbation Weaned down to 7 L of oxygen feeling better and inflammatory markers decreasing as is o2 requirements wean o2 as tolerated Decrease the dose of solumedrol, to wean steroids Continue Bit C, D3, Thamin and Zinc supplement HTN lisinopril DVT PPx Lovenox
[2020-10-06] MEDS: Melatonin 3 MG TABLET 6 MG PO (21:35)
[2020-10-06] MEDS: traZODone HCL 50 MG TABLET 300 MG PO (21:36)
[2020-10-07] MEDS: Ascorbic Acid 500 MG TABLET 1000 MG PO ×4 (03:14→20:13)
[2020-10-07 03:44] VITALS: BP 117/63; PULSE 68; RESP 17; TEMP 36.2; O2SAT 93
[2020-10-07 07:15] VITALS: BP 96/60; PULSE 70; RESP 20; TEMP 36; O2SAT 98
[2020-10-07] MEDS: Zinc Sulfate 220 MG CAPSULE PO (09:38)
[2020-10-07] MEDS: Cholecalciferol (Vitamin D3) 25 MCG TABLET 50 MCG PO (09:38)
[2020-10-07] MEDS: 0.9 % Sodium Chloride Flush 3 ML SYRINGE IVFLUSH ×3 (09:38→20:14)
[2020-10-07] MEDS: FLUoxetine HCl 20 MG CAPSULE 40 MG PO (09:38)
[2020-10-07] MEDS: predniSONE 20 MG TABLET 40 MG PO (09:39)
[2020-10-07] MEDS: lisinopriL 10 MG TABLET PO (09:39)
[2020-10-07] MEDS: Aspirin 81 MG TAB.CHEW PO (09:39)
[2020-10-07] MEDS: Thiamine HCL 100 MG TABLET PO (09:39)
[2020-10-07 11:16] VITALS: BP 111/58; PULSE 87; RESP 20; TEMP 36.1; O2SAT 94
[2020-10-07] MEDS: Enoxaparin Sodium 40 MG/0.4 ML SYRINGE SUBCUT (13:08)
--- NOTE | 2020-10-07 14:10 | P.PNIM_ITS ---
Subjective Subjective Date of Service: 10/07/20 Interval History: the patient was seen and evaluated this morning Laying in bed, looks more comfortable today on 7 L nasal cannula with sats in 90s Oxygen saturation dropped with ambulation to 80s requiring around 8 L to bring her back to 90 Denies any fever, chills or chest pain No reported other overnight events. Systemic review: No fever, chills but has generalized weakness No chest pain, palpitation Breathing has improved, no more coughing No abdominal pain, nausea or vomiting No urinary symptoms No any rash or wounds Physical Exam Vital Signs: Vital Signs: Last Vital Signs Temp 96.9 F 10/07/20 11:16 Pulse 87 10/07/20 11:16 Resp 20 10/07/20 11:16 BP 111/58 L 10/07/20 11:16 Pulse Ox 94 10/07/20 11:16 Oxygen Flow Rate 15 09/21/20 12:08 Body Mass Index 35.9 Const: Other: Constitutional : Alert, oriented, not in distress Neck : Normal inspection, Supple Cardiovascular : RRR, S1 S2, no lower extremity edema Respiratory : Decreased bilateral air entry, no crackles, wheezes or rhonchi, in mild respiratory distress, on nasal cannula Gastrointestinal: soft, lax, Normal bowel sounds, Non tender Skin : Warm/Dry, No rash Neurological : Alert & oriented x3, No focal deficit Objective Data Current Medications Generic Name Dose Route Start Last Admin Trade Name Freq PRN Reason Stop Dose Admin Ascorbic Acid 1,000 mg 09/28/20 10:30 10/07/20 09:39 Ascorbic Acid 500 Mg Tablet PO 1,000 mg Q6H KERLINE Administration Aspirin 81 mg 09/28/20 10:30 10/07/20 09:39 Aspirin 81 Mg Tab.Chew PO 81 mg DAILY KERLINE Administration Enoxaparin Sodium 40 mg 09/28/20 12:00 10/07/20 13:08 Enoxaparin Sodium 40 Mg/0.4 Ml Syringe SUBCUT 40 mg Q24H KERLINE Administration Fluoxetine HCl 40 mg 09/19/20 10:15 10/07/20 09:38 Fluoxetine Hcl 20 Mg Capsule PO 40 mg DAILY KERLINE Administration Lisinopril 10 mg 09/19/20 11:00 10/07/20 09:39 Lisinopril 10 Mg Tablet PO 10 mg DAILY KERLINE Administration Protocol Melatonin 6 mg 09/28/20 21:00 10/06/20 21:35 Melatonin 3 Mg Tablet PO 6 mg BEDTIME KERLINE Administration Multivitamins 1 tab 09/28/20 10:30 10/07/20 09:38 B-Complex With Vitamin C Tablet PO 1 tab DAILY KERLINE Administration Ondansetron HCl 4 mg 09/19/20 03:11 Ondansetron Hcl 4 Mg/2 Ml Vial IVPUSH Q8H PRN Nausea and Vomiting Pharmacy Consult 1 each 09/19/20 09:20 Consult Rx Perform Med Rec MISCELLANE ONCE PRN Consult order Prednisone 40 mg 10/07/20 09:00 10/07/20 09:39 Prednisone 20 Mg Tablet PO 40 mg DAILY KERLINE Administration Sodium Chloride 3 ml 09/19/20 03:11 10/07/20 09:38 0.9 % Sodium Chloride Flush 3 Ml Syringe IVFLUSH 3 ml QSHIFT KERLINE Administration Thiamine HCl 100 mg 10/07/20 09:00 10/07/20 09:39 Thiamine Hcl 100 Mg Tablet PO 100 mg DAILY KERLINE Administration Trazodone HCl 300 mg 09/21/20 23:55 10/06/20 21:36 Trazodone Hcl 50 Mg Tablet PO 300 mg BEDTIME KERLINE Administration Vitamin D 50 mcg 09/29/20 09:00 10/07/20 09:38 Cholecalciferol (Vitamin D3) 25 Mcg Tablet PO 50 mcg DAILY EKRLINE Administration Zinc Sulfate 220 mg 09/28/20 10:30 10/07/20 09:38 Zinc Sulfate 220 Mg Capsule PO 220 mg DAILY KERLINE Administration Labs CBC & Chem 7: 10/06/20 05:39 10/06/20 05:39 Microbiology Microbiology Results: Microbiology 09/18/20 21:03 Blood - Venous Blood Culture - Final No growth after 5 days. 09/18/20 21:03 Blood - Venous Blood Culture - Final No growth after 5 days. Assessment and Plan (1) Acute respiratory failure with hypoxia: Status: Acute (2) Acute respiratory distress syndrome (ARDS) due to COVID-19 virus: Status: Acute Assessment and Plan: 59-year-old female past medical history of asthma presented to the hospital with shortness of breath. found to have covid 19, course complicated by ARDS requiri ng ICU transfer for BIPAP. patient then slowly improved, on 09/30/2020 was comfortable on high flow and venti and downgraded to medical floor acute hypoxic respiratory failure due to covid 19 complicated by asthma exacerbation Weaned down to 7 L of oxygen, Home oxygen test was done, O2 levels dropped to 80s with ambulation wean o2 as tolerated Decrease the dose of solumedrol, to wean steroids Continue Bit C, D3, Thamin and Zinc supplement HTN lisinopril DVT PPx Lovenox
[2020-10-07 15:18] VITALS: BP 92/45; PULSE 82; RESP 20; TEMP 36; O2SAT 95
[2020-10-07 19:11] VITALS: BP 106/49; PULSE 80; RESP 20; TEMP 36; O2SAT 96
[2020-10-07] MEDS: traZODone HCL 50 MG TABLET 300 MG PO (20:12)
[2020-10-07] MEDS: Melatonin 3 MG TABLET 6 MG PO (20:13)
[2020-10-07 22:45] VITALS: O2SAT 87
[2020-10-08] VITALS (10 sets, daily range): BP systolic 90–145; BP diastolic 50–70; PULSE 63–128; RESP 18–20; TEMP 35.8–36.9; O2SAT 88–99; BMI 35.4
[2020-10-08] MEDS: Ascorbic Acid 500 MG TABLET 1000 MG PO ×4 (03:42→20:37)
[2020-10-08] MEDS: Thiamine HCL 100 MG TABLET PO (07:30)
[2020-10-08] MEDS: Cholecalciferol (Vitamin D3) 25 MCG TABLET 50 MCG PO (07:30)
[2020-10-08] MEDS: FLUoxetine HCl 20 MG CAPSULE 40 MG PO (07:30)
[2020-10-08] MEDS: predniSONE 20 MG TABLET 40 MG PO (07:30)
[2020-10-08] MEDS: Aspirin 81 MG TAB.CHEW PO (07:31)
[2020-10-08] MEDS: 0.9 % Sodium Chloride Flush 3 ML SYRINGE IVFLUSH ×3 (07:32→20:39)
[2020-10-08] MEDS: Zinc Sulfate 220 MG CAPSULE PO (07:58)
[2020-10-08] MEDS: lisinopriL 10 MG TABLET PO (08:29)
[2020-10-08] MEDS: Enoxaparin Sodium 40 MG/0.4 ML SYRINGE SUBCUT (11:05)
--- NOTE | 2020-10-08 13:01 | PC.NURSE ---
Oxygen Sat Assessment pt ambulated in the hallway connected to 8L of O2 which was nicely tolerated, was then decreased to 6L O2 which allowed saturation to drop to 93%, remained stable. pt was tested on 4L 0f O2 which rapidly declined to 87%, was put back on 6L which remained stable. During disconnection pt briefly dropped to 87% but bounce back quickly during reconnection. Pt was assessed for any dizziness or related feelings during walk; pt denied the above and stated that I feel great, no dizziness or anything . was made aware.
--- NOTE | 2020-10-08 15:00 | HO.PM.IMPN ---
Subjective Subjective Date of Service: 10/08/20 Interval History: the patient was seen and evaluated this morning Laying in bed, looks more comfortable today on 3 L nasal cannula with sats in 90s Oxygen saturation dropped with ambulation to 80s requiring around 8 L to bring her back to 90 in 15 minutes Denies any fever, chills or chest pain No reported other overnight events. Systemic review: No fever, chills but has generalized weakness No chest pain, palpitation Breathing has improved, no more coughing No abdominal pain, nausea or vomiting No urinary symptoms No any rash or wounds Physical Exam Vital Signs: Vital Signs: Last Vital Signs Temp 96.8 F 10/08/20 11:05 Pulse 80 10/08/20 11:05 Resp 20 10/08/20 11:05 BP 122/68 10/08/20 11:05 Pulse Ox 95 10/08/20 11:05 Oxygen Flow Rate 15 09/21/20 12:08 Body Mass Index 35.4 Const: Other: Constitutional : Alert, oriented, not in distress Neck : Normal inspection, Supple Cardiovascular : RRR, S1 S2, no lower extremity edema Respiratory : Decreased bilateral air entry, no crackles, wheezes or rhonchi, in mild respiratory distress, on nasal cannula Gastrointestinal: soft, lax, Normal bowel sounds, Non tender Skin : Warm/Dry, No rash Neurological : Alert & oriented x3, No focal deficit Objective Data Current Medications Generic Name Dose Route Start Last Admin Trade Name Freq PRN Reason Stop Dose Admin Ascorbic Acid 1,000 mg 09/28/20 10:30 10/08/20 09:43 Ascorbic Acid 500 Mg Tablet PO 1,000 mg Q6H KERLINE Administration Aspirin 81 mg 09/28/20 10:30 10/08/20 07:31 Aspirin 81 Mg Tab.Chew PO 81 mg DAILY KERLINE Administration Enoxaparin Sodium 40 mg 09/28/20 12:00 10/08/20 11:05 Enoxaparin Sodium 40 Mg/0.4 Ml Syringe SUBCUT 40 mg Q24H KERLINE Administration Fluoxetine HCl 40 mg 09/19/20 10:15 10/08/20 07:30 Fluoxetine Hcl 20 Mg Capsule PO 40 mg DAILY KERLINE Administration Lisinopril 10 mg 09/19/20 11:00 10/08/20 08:29 Lisinopril 10 Mg Tablet PO 10 mg DAILY KERLINE Administration Protocol Melatonin 6 mg 09/28/20 21:00 10/07/20 20:13 Melatonin 3 Mg Tablet PO 6 mg BEDTIME KERLINE Administration Multivitamins 1 tab 09/28/20 10:30 10/08/20 07:30 B-Complex With Vitamin C Tablet PO 1 tab DAILY KERLINE Administration Ondansetron HCl 4 mg 09/19/20 03:11 Ondansetron Hcl 4 Mg/2 Ml Vial IVPUSH Q8H PRN Nausea and Vomiting Pharmacy Consult 1 each 09/19/20 09:20 Consult Rx Perform Med Rec MISCELLANE ONCE PRN Consult order Prednisone 40 mg 10/07/20 09:00 10/08/20 07:30 Prednisone 20 Mg Tablet PO 40 mg DAILY KERLINE Administration Sodium Chloride 3 ml 09/19/20 03:11 10/08/20 07:32 0.9 % Sodium Chloride Flush 3 Ml Syringe IVFLUSH 3 ml QSHIFT KERLINE Administration Thiamine HCl 100 mg 10/07/20 09:00 10/08/20 07:30 Thiamine Hcl 100 Mg Tablet PO 100 mg DAILY KERLINE Administration Trazodone HCl 300 mg 09/21/20 23:55 10/07/20 20:12 Trazodone Hcl 50 Mg Tablet PO 300 mg BEDTIME KERLINE Administration Vitamin D 50 mcg 09/29/20 09:00 10/08/20 07:30 Cholecalciferol (Vitamin D3) 25 Mcg Tablet PO 50 mcg DAILY KERLINE Administration Zinc Sulfate 220 mg 09/28/20 10:30 10/08/20 07:58 Zinc Sulfate 220 Mg Capsule PO 220 mg DAILY KERLINE Administration Labs CBC & Chem 7: 10/06/20 05:39 10/06/20 05:39 Microbiology Microbiology Results: Microbiology 09/18/20 21:03 Blood - Venous Blood Culture - Final No growth after 5 days. 09/18/20 21:03 Blood - Venous Blood Culture - Final No growth after 5 days. Assessment and Plan (1) Acute respiratory failure with hypoxia: Status: Acute (2) Acute respiratory distress syndrome (ARDS) due to COVID-19 virus: Status: Acute Assessment and Plan: 59-year-old female past medical history of asthma presented to the hospital with shortness of breath. found to have covid 19, course complicated by ARDS requiring ICU transfer for BIPAP. patient then slowly improved, on 09/30/2020 was comfortable on high flow and venti and downgraded to medical floor acute hypoxic respiratory failure due to covid 19 complicated by asthma exacerbation Weaned down to 3 L of oxygen, Home oxygen test was done, O2 levels dropped to 80s with ambulation requiring 8 L and 50 minutes to bring her back to 90s wean o2 as tolerated Changed to prednisone Continue Bit C, D3, Thamin and Zinc supplement HTN lisinopril DVT PPx Lovenox
[2020-10-08] MEDS: Melatonin 3 MG TABLET 6 MG PO (20:36)
[2020-10-08] MEDS: traZODone HCL 50 MG TABLET 300 MG PO (20:37)
[2020-10-09 03:13] VITALS: BP 103/51; PULSE 57; RESP 18; TEMP 36.8; O2SAT 98
[2020-10-09] MEDS: Ascorbic Acid 500 MG TABLET 1000 MG PO ×2 (04:27→09:55)
[2020-10-09 07:04] VITALS: BP 92/58; PULSE 64; RESP 20; TEMP 35.5; O2SAT 95
[2020-10-09] MEDS: 0.9 % Sodium Chloride Flush 3 ML SYRINGE IVFLUSH (09:55)
[2020-10-09] MEDS: Cholecalciferol (Vitamin D3) 25 MCG TABLET 50 MCG PO (09:55)
[2020-10-09] MEDS: FLUoxetine HCl 20 MG CAPSULE 40 MG PO (09:56)
[2020-10-09] MEDS: Aspirin 81 MG TAB.CHEW PO (09:56)
[2020-10-09] MEDS: Zinc Sulfate 220 MG CAPSULE PO (09:56)
[2020-10-09] MEDS: Thiamine HCL 100 MG TABLET PO (09:56)
[2020-10-09] MEDS: predniSONE 10 MG TABLET 30 MG PO (09:56)
[2020-10-09 11:08] VITALS: BP 112/61; PULSE 62; RESP 18; TEMP 35.5; O2SAT 98
[2020-10-09 11:10] VITALS: BP 112/61
--- NOTE | 2020-10-09 11:12 | P.DS_ITS ---
DS: Providers Provider Date of Service: 10/09/20 Date of admission: 09/18/20 23:37 Primary care physician: Selene Hernández MD Consults: 09/19/20 08:17 Consult to Infectious Diseases Routine Consulting Provider: Cassie Hillman Reason for consultation: multifocal pneumonia 09/21/20 08:27 Consult to Pulmonology Routine Consulting Provider: Keaton Reardon Reason for consultation: Covid19 w Hypoxia on HF+NRB for eval and rec. 09/26/20 08:28 Consult to Pulmonology Routine Consulting Provider: Dex Fowler Reason for consultation: Covid19 w high o2 demands for your kind eval. 09/27/20 07:46 Consult to Critical Care Routine Consulting Provider: Paxton Khan Reason for consultation: Maxed O2 requirement w frequent desate and increase weakness DS: Diagnosis Discharge Diagnosis (1) Acute respiratory failure with hypoxia: Status: Acute (2) Acute respiratory distress syndrome (ARDS) due to COVID-19 virus: Status: Acute (3) Asthma with exacerbation: Status: Acute (4) Hypoxia: Status: Acute (5) Multifocal pneumonia: Status: Acute DS: Medications Discharge Medications Home Medications: Home Medications Medication Instructions Recorded Confirmed albuterol sulfate 90 mcg/actuation 2 puff PO Q6H PRN 03/27/20 09/19/20 aerosol inhaler cholecalciferol (vitamin D3) 50 50 mcg PO DAILY 03/27/20 09/19/20 mcg (2,000 unit) tablet ibuprofen 800 mg tablet 800 mg PO DAILY 03/27/20 09/19/20 Previous Rx's Medication Instructions Recorded fluoxetine 40 mg capsule 40 mg PO DAILY 90 Days #90 cap 03/08/20 hydroxyzine HCl 25 mg tablet 25 mg PO Q8H PRN 30 Days #90 tab 03/30/20 lisinopril 10 mg tablet 10 mg PO DAILY #90 tab 04/02/20 trazodone 150 mg tablet 300 mg PO DAILY #180 tab 04/29/20 naproxen 500 mg tablet 500 mg PO BID PRN 30 Days #60 tab 06/20/20 omeprazole 40 mg capsule,delayed 40 mg PO DAILY #30 cap 07/04/20 release aspirin 81 mg PO DAILY #30 tab 10/09/20 prednisone See Taper PO DAILY #12 tab 10/09/20 DS: Summary Hospital Course Hospital Course: Admission note HPI 59-year-old female with past medical history of asthma, hypertension, GERD, depression, who presents to the hospital with complaints of shortness of breath cough, fever, chills as well as nausea and vomiting. Patient reports that her symptoms started one week ago, worsened by the day, denies any recent sick contacts or travel. Patient reports her cough is productive of white sputum. Had a fever last night does not know how high, denies any chest pain, no palpitations, no abdominal pain, no diarrhea constipation, no urinary symptoms and no lower extremity edema. On arrival to the ED patient was found to be hypoxic at 70% on room air, curren tly on non-rebreather satting 96%. Other labs are significant for PT of 14, INR of 1.2, ferritin 376, LDH of 348, trop negative, CRP of 20.98, BNP 11, procalcitonin of 0.06, urine negative, COVID-19 x2 negative, influenza A/B and RSV negative. Chest x-ray shows multifocal airspace opacities extensively throughout bilateral juany thoracis. Suspicious for multifocal pneumonia. Patient will be admitted for further management Hospital course The patient has a prolonged hospital stay, for full details please returned to EMR. , 59 years old lady with history of asthma presented to the hospital with shortness of breath on 09/18/2020. Found to COVID-19 infection with associated acute hypoxic respiratory failure requiring high oxygen requirement since the beginning with non-rebreather and high-flow oxygen at the same time. She was evaluated by infectious disease specialist and started on IV remdesivir along with IV dexamethasone. Her condition remained overall stable increased weakness. Transferred to ICU on 09/28/2020 with addition of Ivermectin and changing steroid type. The patient started to improve in the unit and was transferred back to the medical floor which she continued to require both non- rebreather and high-flow oxygen. Started to wean down the oxygen until today as she is on 3 L at rest. She was able to ambulate this morning with the nurses on room air with drop of her saturation to 87%. Plan to discharge her home to continue tapering steroid therapy. Time Spent with Patient Time attestation: Total time spent providing and/or coordinating discharge services: Discharge coordination time: Greater than 30 minutes Physical Exam Vital Signs: Vital Signs: Last Vital Signs Temp 96 F L 10/09/20 11:08 Pulse 62 10/09/20 11:08 Resp 18 10/09/20 11:08 BP 112/61 10/09/20 11:10 Pulse Ox 98 10/09/20 11:08 Oxygen Flow Rate 15 09/21/20 12:08 Body Mass Index 35.4 Const: Other: Constitutional : Alert, oriented, not in distress Neck : Normal inspection, Supple Cardiovascular : RRR, S1 S2, no lower extremity edema Respiratory : Good bilateral air entry, no crackles, wheezes or rhonchi Gastrointestinal: soft, lax, Normal bowel sounds, Non tender Skin : Warm/Dry, No rash Neurological : Alert & oriented x3, No focal deficit Discharge Plan Discharge Patient Disposition: Home Health Service Discharge Diagnosis: Covid19 infection Referrals: Selene Kirkland MD [Primary Care Provider] - 1 Week Discharge Medications: New aspirin 81 mg Tablet,Chewable 81 mg PO DAILY Qty: 30 RF: 0 prednisone 10 mg tablet See Taper mg PO DAILY Qty: 12 RF: 0 Continued fluoxetine 40 mg capsule 40 mg PO DAILY 90 Days Qty: 90 RF: 3 hydroxyzine HCl 25 mg tablet 25 mg PO Q8H PRN (Reason: itching) 30 Days Qty: 90 RF: 6 lisinopril 10 mg tablet 10 mg PO DAILY Qty: 90 RF: 2 trazodone 150 mg tablet 300 mg PO DAILY Qty: 180 RF: 1 naproxen 500 mg tablet 500 mg PO BID PRN (Reason: pain) 30 Days Qty: 60 RF: 2 omeprazole 40 mg capsule,delayed release(DR/EC) 40 mg PO DAILY Qty: 30 RF: 11 ibuprofen 800 mg tablet 800 mg PO DAILY RF: 0 cholecalciferol (vitamin D3) 50 mcg (2,000 unit) tablet 50 mcg PO DAILY RF: 0 albuterol sulfate 90 mcg/actuation HFA aerosol inhaler 2 puff PO Q6H PRN (Reason: Dyspnea) RF: 0 Discharge Orders: Discharge Order (Routine); Ordered 10/09/20 Ordered By: Natasha Chan Diet: advance to usual diet Activity on Discharge: As tolerated Stand Alone Forms: Patient Portal Discharge page Care Plan Goals: Read below Health Concerns: Read below Plan of Treatment: You were admitted to the hospital for treatment of COVID-19 infection. Your oxygen supplement were significantly high as you were treated with steroids, antiviral medication, vitamin supplements. You were monitored in the ICU unit for few days. Your oxygen requirement start to wean down and you were evaluated for home oxygen therapy. To be followed by visiting nurses to assess the need of oxygen supplement. Assessment: continue with baby aspirin and to follow-up with her primary care Continue prednisone as prescribed Continue to use the incentive spirometry at home
--- NOTE | 2020-10-09 11:46 | MHC.CM.PN ---
DP FEMALE 59 DX COVID. Patient will discharge today to home. New oxygen and new HVNA ordered. Patient has arranged for her Dtr to provide transportation to home.
[2020-10-09] MEDS: Enoxaparin Sodium 40 MG/0.4 ML SYRINGE SUBCUT (11:51)
[2020-10-09 12:00] VITALS: O2SAT 84; O2SAT 97
== END 2020-10-09 15:55 | disposition home health service (06) | DRG 137 ==
LOC: HO.ED 23:07 → HO.EDOVER 23:53 → HO.IMC 09-20 14:56 → HO.ICU 09-27 19:28 → HO.IMC 09-30 18:01
PROVIDERS: Anesthesiology; Internal Medicine; Nurse Practitioner Family; Physician Assistant Medical; Admitting Provider Internal Medicine; Emergency Provider Emergency Medicine; PCP Internal Medicine; Visit Provider Student in an Organized Health Care Education/Training Program
DX: U07.1 COVID-19 (principal); J12.82 Pneumonia due to coronavirus disease 2019; J80 Acute respiratory distress syndrome; J45.31 Mild persistent asthma with (acute) exacerbation; Z99.81 Dependence on supplemental oxygen; E87.1 Hypo-osmolality and hyponatremia; K21.9 Gastro-esophageal reflux disease without esophagitis; Z68.35 Body mass index [BMI] 35.0-35.9, adult; D72.829 Elevated white blood cell count, unspecified; E66.9 Obesity, unspecified; F32.9 Major depressive disorder, single episode, unspecified; I10 Essential (primary) hypertension; Z86.16 Personal history of COVID-19; Z79.1 Long term (current) use of non-steroidal anti-inflammatories (NSAID); Z79.82 Long term (current) use of aspirin; Z79.899 Other long term (current) drug therapy
CPT/HCPCS: 0241U; 36415; 36600; 71045; 80048; 80053; 80076; 81001; 82550; 82728; 83605; 83615; 83735; 83880; 84100; 84145; 84484; 85025; 85027; 85379; 85610; 86140; 87040; 87633; 87635; 93005; 94640; 94660; 94799; 96365; 96366; 96368; 97162; 99285; 99291; J0456; J0696; J1100; J1170; J1650; J1940; J2920; J2930; J3411; J3490

== ENCOUNTER 2020-11-03 13:24 | Outpatient (REF) | payer OTHER, SELFPAY ==
--- NOTE | 2020-11-06 12:39 | MHC.AU.AHA ---
Adult Audiological Evaluation Date of Visit: 11/03/20 Reason for Appointment: History of hearing loss. Patient suspects there has been a decrease in hearing. Patient was hospitalized from 09/18/2020-10/09/2020 for COVID-19 and associated hypoxic respiratory failure and pneumonia. The hospitalization included a brief stay in the ICU. Since discharge, patient is now oxygen dependent. Patient reports it is uncertain how long she will need oxygen support, but that her team is hopeful it will not be permanent. Previous Hearing Test Results: At this clinic on 12/16/2018- Mild sloping to moderately-severe, rising to mild and sloping to moderate sensorineural hearing loss bilaterally. Ear History: Ear Deformity: None Reported Recent Ear Drainage: None Reported Recent Ear Pain: None Reported Recent Ear Infections: None Reported Ear Infections in Childhood: None Reported History of Ear Wax Buildup: None Reported Previous Ear Surgery: None Reported History of occupational noise exposure?: Yes History: No Medical History: Medical History: Oxygen-dependent since COVID-19 infection in August 2018. Hypertension, GERD, Asthma Hearing Instrument History- Right Ear: Business Mgr: Siemens Model: Pure CESAR Dispensed By: Clinic in [place] (Name not specified) Date of Fitting: Per [facility] history, 03/18/2016 Hearing Instrument History- Left Ear: Business Mgr: Siemens Model: Pure CESAR Dispensed By: [facility] in [place] (Name not specified) Date of Fitting: Per [facility] history, 03/18/2016 Otoscopy: Right Ear: Unremarkable Left Ear: Unremarkable Tympanometry: Tympanometry performed due to: To assess integrity of the middle ear system Right Ear: Normal Middle Ear System (Type A) Left Ear: Normal Middle Ear System (Type A) Hearing Evaluation: Transducer(s) Used: Insert Earphones Method: Conventional Audiometry Stimuli Used: Pure Tones Right Ear: Description of Hearing: Moderate sloping to severe, rising to moderate, and sloping to severe sensorineural hearing loss Left Ear: Description of Hearing: Moderate sloping to severe, rising to moderate, and sloping to severe sensorineural hearing loss Speech Recognition Threshold (SRT): Method Used: Recorded Lists Stimuli Used: Spondee Words Right Ear: 50 dBHL Left Ear: 45 dBHL Word Discrimination: Method: Recorded Lists Word Lists Used: NU-6 Right Ear: 96% at 80 dBHL Left Ear: 96% at 80 dBHL Most Comfortable Level (MCL): Right Ear: 80 dBHL Left Ear: 80 dBHL Comparison: Compared to the most recent evaluation: Thresholds have decreased bilaterally. Interpretation of Results: Patient's hearing has decreased since 2019, by an average of 10-15 dB worse overall. With her current hearing levels, it is expected that she would have significant difficulty following along in conversation without amplification. Recommendations: Audiological re-evaluation in one year. Patient's current Siemens hearing aids are not meeting her needs. Hearing aid options were discussed. An in-the-ear style would be preferable now that the patient is oxygen dependent, as she would likely have difficulty wearing her current hearing aids on the back of ears along with the oxygen tubing. A prior authorization will be submitted to her insurance to request new hearing aids given the decrease in her hearing, as well as the need to change styles due to her newly oxygen-dependent status. Diagnosis: Primary Diagnosis: H90.3 Bilateral Sensorineural Hearing Loss Services Performed: Comprehensive Audiological Evaluation (CPT 18506), Tympanometry (CPT 39052) Signature: Provider: Sanju Mota, [facility]
--- NOTE | 2020-11-06 12:40 | MHC.AU.HFU ---
Hearing Instrument Note- Binaural Date of Visit: 11/03/20 Right Ear: Director Traffic And Planning: Siemens Model: Pure CESAR Dispensed By: [facility] in [place] (Name not specified) [facility]: [facility]2016 Left Ear: Director Traffic And Planning: Siemens Model: Pure CEASR Dispensed By: [facility] in [place] (Name not specified) Date of Fitting: Per [facility] history, 03/18/2016 Follow-Up Summary: Patient was seen for audiological re-evaluation post-COVID 19 infection that required lengthy hospitalization (see separate report for details). Patient is now oxygen dependent. Her hearing has also decreased overall by an average of 10-15 dB. Her current hearing aids (Siemens Pure RICs, obtained in 03/2016) go behind her ears, which would interfere with the oxygen tubing. We also do not have the capability of reprogramming them to reflect her decreased hearing levels. An in-the-ear style would be preferable. Impressions were taken bilaterally without incident. Recommendations: A prior authorization will be submitted to her insurance to request new hearing aids given the decrease in her hearing, as well as the need to change styles due to her newly oxygen-dependent status. Diagnosis Code(s): Primary Diagnosis: H90.3 Bilateral Sensorineural Hearing Loss Signature: Provider: Sanju Mota, [facility]
--- NOTE | 2020-11-06 12:41 | MHC.AU.MED ---
Medical Clearance for Hearing Instrumentation Date: 11/06/20 Patient Name: Lisa Vigil Date of : 1960 Primary Care Provider: Referring Provider: Selene Hernández MD We have seen your patient on 11/03/20 and have determined that they are a candidate for amplification (See accompanying report). Specifically, they would benefit from: Hearing aid use in both ears There is a statute that addresses Medical Evaluation Requirements prior to fitting a patient with a hearing aid. According to [place] statute 265 CMR:6.03(1), (a) General. Except as provided in 265 CMR 6.03(1)(b), a manager java shall not sell a hearing aid unless the prospective user has presented to the manager java a written statement signed by a licensed physician that states that the patient's hearing loss has been medically evaluated and the patient may be considered a candidate for a hearing aid. The medical evaluation must have taken place within the preceding six months. Please note: Due to the [place] Statute referenced above, we cannot accept a signature other than that of a licensed physician. SENIOR TAX ACCOUNTANT and PA signatures cannot be accepted. I am in agreement with the above recommendation. There is no medical contraindication for hearing instrumentation. Physician Signature Date Physician Name (Printed)
== END 2020-11-03 13:25 | disposition home or self-care (01) ==
LOC: HO.SH 13:24
PROVIDERS: Visit Provider Internal Medicine
DX: H91.90 Unspecified hearing loss, unspecified ear (principal)
CPT/HCPCS: 92557; 92567; V5275

== ENCOUNTER → 2020-11-30 11:10 | Outpatient (BNVA) | payer OTHER, SELFPAY | PROVIDERS: PCP Internal Medicine; Visit Provider Internal Medicine Pulmonary Disease | DX: J96.11 Chronic respiratory failure with hypoxia (principal); J45.909 Unspecified asthma, uncomplicated; B94.8 Sequelae of other specified infectious and parasitic diseases; Z99.81 Dependence on supplemental oxygen | CPT/HCPCS: 99202; 99212 ==

== ENCOUNTER 2020-12-13 15:15 | Outpatient (REF) | payer OTHER, SELFPAY ==
--- NOTE | 2020-12-15 08:23 | MHC.AU.HFA ---
Hearing Instrument Fitting- Adult- Binaural Date of Visit: 12/13/20 Hearing Instruments Dispensed: Right Ear: Sales Exhibitor: Phonak Model: Virto M70-312 Serial Number: [id number] Repair Warranty: 12/20/2023 Loss and Damage Warranty: 12/20/2023 Service Plan: 12/13/2021 Battery Size: 312 Color: Le Shell, Le Faceplate Chemist Organic: SP Type of Wax Guard: CeruStop Left Ear: Sales Exhibitor: Phonak Model: Virto M70-312 Serial Number: [id number] Repair Warranty: 12/20/2023 Loss and Damage Warranty: 12/20/2023 Service Plan: 12/13/2021 Battery Size: 312 Color: Le Shell, Le Faceplate Chemist Organic: SP Type of Wax Guard: CeruStop Summary of Fitting: Feedback manager of financial was run. Verifit performed and levels adjusted to better reach targets. Patient was pleased with the sound of the instruments. She reports she could hear clearly and comfortably. Button is set for volume control (right Up, left Down). Hearing aid care and maintenance were discussed and practiced. Patient does not want the hearing aids paired to her phone at this time. Recommendations: Patient will call if follow-up is needed. Diagnosis Code(s): Primary Diagnosis: H90.3 Bilateral Sensorineural Hearing Loss Signature: Provider: Sanju Mota, [facility]
== END 2020-12-13 15:16 | disposition home or self-care (01) ==
LOC: HO.HAP 15:15
PROVIDERS: Visit Provider Internal Medicine
DX: Z46.1 Encounter for fitting and adjustment of hearing aid (principal); H90.3 Sensorineural hearing loss, bilateral
CPT/HCPCS: V5011; V5020; V5160; V5260; V5266

== ENCOUNTER 2020-12-14 14:10 | Outpatient (REF) | payer OTHER, SELFPAY ==
--- NOTE | 2020-12-14 17:32 | PFT_ITS ---
FLOWS: FEV1 of 51% of predicted at 1.12 L. FVC 41% of predicted at 1.15 L. FEV1 to FVC ratio of 0.97. No bronchodilator response. LUNG VOLUMES: Total lung capacity 68% of predicted at 3.07 L. Residual volume 83% of predicted at 1.48 L. Slow vital capacity 59% of predicted at 1.59 L. Expiratory reserve volume 36% of predicted at 0.27 L. Diffusion capacity is moderately decreased, diffusion capacity adjust to normal after correction for alveolar ventilation. IMPRESSION: Moderate restrictive ventilatory defect with no bronchodilator response. Decreased expiratory reserve volume suggests extrathoracic restriction likely secondary to abdominal obesity. Keaton Reardon MD AP/MODL / [id number]
== END 2020-12-14 14:11 | disposition home or self-care (01) ==
LOC: HO.RESP 14:10
PROVIDERS: PCP Internal Medicine; Visit Provider Internal Medicine Pulmonary Disease
DX: J45.909 Unspecified asthma, uncomplicated (principal)
CPT/HCPCS: 94060; 94727; 94729

== ENCOUNTER 2021-01-31 13:21 | Outpatient (REF) | payer OTHER, SELFPAY ==
[2021-01-31 13:49] LABS: MANUAL DIFF FLAG NO
[2021-01-31 14:12] LABS: Basophils Percent Auto 0.6 % (0-2); Eosinophils Absolute Auto 0.1 X10*3/uL (0.0-0.4); Eosinophils Percent Auto 1.9 % (0-4); Hematocrit 40.1 % (37-47); Hemoglobin 12.9 g/dl (12.0-16.0); Imm Gran Abs Auto 0.02 X10*3/uL (0.00-0.03); Imm Gran Pct Auto 0.3 % (0.0-0.4); Lymphocytes Absolute Auto 2.7 X10*3/uL (1.2-4.9); Lymphocytes Percent Auto 41.8 % (20-40); Mean Corpuscular HGB Conc 32.2 g/dl (31.0-35.0); Mean Corpuscular Hemoglobin 27.6 pg (27.0-33.0); Mean Corpuscular Volume 85.7 fL (80-98); Mean Platelet Volume 9.9 fL (9.4-12.3); Monocytes Absolute Auto 0.4 X10*3/uL (0.1-1.2); Monocytes Percent Auto 6.6 % (2-11); Neutrophils Absolute Auto 3.1 X10*3/uL (2.0-8.3); Neutrophils Percent Auto 48.8 % (45-73); Platelet Count 291 X10*3/uL (160-400); Red Blood Count 4.68 X10*6/uL (4.20-5.50); White Blood Count 6.3 X10*3/uL (4.8-10.8)
[2021-01-31 14:47] LABS: Alanine Aminotransferase 10 U/L (0-31); Albumin Level 4.1 g/dL (3.5-5.0); Alkaline Phosphatase 45 U/L (39-117); Anion Gap 12 (12-20); Aspartate Amino Transferase 14 U/L (5-31); Bilirubin Total 0.2 mg/dL (0.0-1.0); Blood Urea Nitrogen 14 mg/dL (9-16); Calcium 10.3 mg/dL (8.4-10.2); Carbon Dioxide 30 mmol/L (22-29); Chloride 103 mmol/L (96-108); Cholesterol 240 mg/dL; Estimated Glomerular Filt Rate > 60; Glucose Fasting 93 mg/dL (60-99); HDL Cholesterol 67 mg/dL; LDL Cholesterol Calculated 153 mg/dl; Potassium 4.6 mmol/L (3.3-5.1); Sodium 140 mmol/L (135-145); Total Protein 6.6 g/dL (6.5-8.0); Triglycerides 104 mg/dL
[2021-02-05 04:41] LABS: Vitamin D 25-OH, D2 <4 ng/mL; Vitamin D 25-OH, D3 33 ng/mL; Vitamin D 25-OH, Total 33 ng/mL (30-100)
== END 2021-01-31 13:22 | disposition home or self-care (01) ==
LOC: HO.LAB 13:21
PROVIDERS: PCP Internal Medicine; Visit Provider Internal Medicine
DX: D64.9 Anemia, unspecified (principal); E78.5 Hyperlipidemia, unspecified; E55.9 Vitamin D deficiency, unspecified; K21.9 Gastro-esophageal reflux disease without esophagitis; B94.8 Sequelae of other specified infectious and parasitic diseases; R06.00 Dyspnea, unspecified
CPT/HCPCS: 36415; 80053; 80061; 82306; 85025; 99212

== ENCOUNTER → 2021-03-06 14:53 | Outpatient (REF) | payer OTHER, SELFPAY ==
--- NOTE | 2021-03-06 14:56 | CA_ITS ---
Transthoracic Echocardiogram Amended Patient (Last, First, Middle): Lisa Sales D Gender: Female Date of : 1960 Age: 60 Procedure Date: 03/06/2021 Procedure Type: Transthoracic Echocardiogram Location: OP Height: 154.94 cm Weight: 86.18 kg BSA: 1.85 m2 Heart Rate: bpm BP: 135 / 80 mmHg Production Engineer: Referring MD: Keaton Reardon MD Symptoms: R06.00 - Dyspnea, unspecified Study Quality: Fair ECG Rhythm: Sinus Conclusions: - The left ventricular systolic function is normal. The visually estimated ejection fraction is between 55-60%. - Suspect inferior wall motion abnormality. - There is mildly decreased right ventricular systolic function. TAPSE 1.69cm. - There is mild calcification of the aortic valve. - There is mild mitral annular calcification. - The pulmonary artery systolic pressure is normal. - Consider repeating with contrast. Findings Left Ventricle Normal left ventricular cavity size. There is normal left ventricular wall thickness. The left ventricular systolic function is normal. The visually estimated ejection fraction is between 55-60%. E/E prime ratio is between 8 and 15 consistent with indeterminate filling pressures. Evidence suggests grade I (mild) diastolic dysfunction. Suspect inferior wall motion abnormality. Right Ventricle Normal right ventricular cavity size. There is mildly decreased right ventricular systolic function. TAPSE 1.69cm. Atria Both atria are normal in size. Aortic Valve There is a normal trileaflet aortic valve. There is mild calcification of the aortic valve. There is no aortic valve stenosis. There is no aortic valve regurgitation. Mitral Valve There is mild mitral annular calcification. There is trace mitral valve regurgitation. There is no mitral valve stenosis. Pulmonic Valve The pulmonic valve was not well visualized. Tricuspid Valve Normal tricuspid valve structure. There is trace tricuspid valve regurgitation. The pulmonary artery systolic pressure is normal. Great Vessels The aortic annulus, sinuses of valsalva, and asc aorta are normal in size. Venous The inferior vena cava is normal in size and collapses greater than 50% with inspiration. Pericardium/Pleural There is no evidence of pericardial effusion. Prior Study Comparison No prior study available for comparison. Measurements 2D Linear Measurements IVSd: 0.89 0.6-0.9/0.6-1.0 cm LVIDd: 5.08 3.9-5.3/4.2-5.9 cm LVIDd Index: 2.75 2.4-3.2/2.2-3.1 cm/m2 LVIDs: 3.62 2.0-3.6 cm LVPWd: 0.80 0.7-1.1 cm Ao Root: 3.00 2.1-3.5 cm LA Diam: 3.80 2.7-3.8/3.0-4.0 cm LAIDs Index: 2.05 1.5-2.3 cm/m2 LV Mass: 186.36 67-162/88-224 g LV Mass Index: 100.74 43-95/49-115 g/m2 LVOT Diam: 2.00 3.0+(-)1.3 cm Mitral Valve MV Pk E: 0.86 MV PK A: 1.02 MV Decel Time: 208.00 E/A: 0.80 E'Lateral: 7.29 E'Medial: 5.00 E/E' Med: 17.20 E/E' Lat: 11.80 PHT: 61.00 MVA PHT: 3.61 Decel Stafford: 4.15 Aortic Valve AoV Pk Trace: 1.58 AoV Mn Trace: 1.19 AoV VTI: 0.32 AoV Pk Grad: 10.00 Aov Mn Grad: 6.00 BECKY Cont.VTI: 2.54 LVOT LVOT Pk Trace: 1.09 LVOT Mn Trace: 0.77 LVOT VTI: 0.26 LVOT Pk Grad: 5.00 LVOT Mn Grad: 3.00 LVOT Diam: 2.00 LVOT Area: 3.14 Diastolic Function MV Pk E: 0.86 MV Pk A: 1.02 E/A: 0.80 E'Medial: 5.00 E/E' Med: 17.20 E' Laterial: 7.29 E/E' Lat: 11.80 Tricuspid Valve TR Pk Trace: 0.99 TR Pk Grad: 4.00 Great Vessels Aorta Ao Root-2D: 3.00 2.0-3.7 cm Ao Asc: 3.40 2.1-3.4 cm Updated in Other Vendor System with Status of Final Jeff Mojica MD electronically signed on 03/06/2021 5:01:59 PM with status of Final
== END ==
LOC: HO.CARD 14:53
PROVIDERS: PCP Internal Medicine; Visit Provider Internal Medicine Pulmonary Disease
DX: R06.00 Dyspnea, unspecified (principal)
CPT/HCPCS: 93306

== ENCOUNTER → 2021-03-16 10:59 | Outpatient (BNVA) | payer OTHER, SELFPAY | PROVIDERS: PCP Internal Medicine; Visit Provider Internal Medicine Pulmonary Disease | DX: J45.909 Unspecified asthma, uncomplicated (principal); R06.00 Dyspnea, unspecified; B94.8 Sequelae of other specified infectious and parasitic diseases | CPT/HCPCS: 99212 ==

== ENCOUNTER 2021-09-04 20:28 | Emergency (ER) | payer MEDICAID, SELFPAY ==
[2021-09-04 20:42] VITALS: BP 185/94; PULSE 81; RESP 24; TEMP 36.6; O2SAT 97; BMI 38.3
--- NOTE | 2021-09-04 21:28 | ED.PSYCH ---
HPI - Psych General Chief Complaint: Psychiatric Symptoms Stated Complaint: trouble breathing, body aches and depression Time Seen by Provider: 09/04/21 21:27 Source: patient and family History of Present Illness HPI Narrative: Patient history of depression used to live in [place] does not have her medication for last 1 month feeling more depressed and suicidal crying while examining tearful says she wants to does not do any plan feel more depressed because her son diagnosed with cancer and her grandson was killed last year Related Data Home Medications Medication Instructions Recorded Confirmed amitriptyline 25 mg tablet 1 tab PO BEDTIME 09/04/21 09/04/21 docusate calcium 240 mg capsule 1 cap PO BID 09/04/21 09/04/21 furosemide 20 mg tablet 1 tab PO DAILY 09/04/21 09/04/21 lisinopril 10 mg tablet 1 tab PO DAILY 09/04/21 09/04/21 melatonin 3 mg tablet 1 tab PO BEDTIME 09/04/21 09/04/21 naproxen 500 mg tablet 1 tab PO BID PRN 09/04/21 09/04/21 omeprazole 40 mg capsule,delayed 1 cap PO QAM 09/04/21 09/04/21 release Previous Rx's Medication Instructions Recorded nebulizers (AeroEclipse II #1 ea 11/22/20 Nebulizer) Allergies Allergy/AdvReac Type Severity Reaction Status Date / Time No Known Allergies Allergy Mild NKA Verified 03/16/21 11:03 Review of Systems Review of Systems: Yes all other systems are reviewed and are negative PMFSH Past Medical History Medical History Deformity of left forearm, excluding fingers Depression Essential hypertension GERD (gastroesophageal reflux disease) Hearing loss History of respiratory failure Hypovitaminosis D Insomnia Mass Mild asthma 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 Surgical History History of tubal ligation Family History Family History Father Kidney failure, acute Asthma Mother Heart disease Cancer Sister Kidney disease Brother Kidney failure, acute Son Bipolar 1 disorder Mental health disorder Family/Other FH: mental illness Social History Social History Household Members: Children Housing: House Do you presently have visiting nurse or other home services: No Alcohol intake: never Patient Tobacco Use Status: Never used Tobacco e-Cigarette/Vaping Use: Never Used Second Hand Smoke Exposure: Yes Advance Directives: No Advance Directives Information Provided: Yes Patient : No service: No Current occupational status: disabled Physical Exam Vital Signs: Vital Signs: Last Vital Signs Temp 97.8 F 09/04/21 23:25 Pulse 76 09/04/21 23:25 Resp 19 09/04/21 23:25 BP 184/97 H 09/04/21 23:25 Pulse Ox 96 09/04/21 23:25 BMI result Body Mass Index 38.3 Appearance: Alert. Oriented X3. No acute distress. Eyes: PERRLA, No Nystagmus ENT: Pharynx normal. Oral Mucosa moist Neck: Normal inspection. Neck supple. CVS: Normal heart rate and rhythm. Pulses normal. Respiratory: No respiratory distress. Equal air entry bilateral, no wheezing/rales/rhonchi Abdomen: Soft and nontender. Bowel sounds are present, no mass palpable, no CVA tenderness Skin: Skin warm and dry. Normal skin color. Normal skin turgor. Extremities: No lower extremity edema. No calf tenderness psych; depressed tearful SI with no plan, no hallucination or delusion Neuro: Oriented X 3. No motor deficit. No sensory deficit.No cerebellar signs , cranial nerves II-XII intact MDM - Psych MDM Narrative Medical decision making narrative: Patient has significant depression with suicidal ideation medically cleared for crisis evaluation Lab Data Attestation: I reviewed the patient's lab results. Result diagrams: 09/04/21 21:55 09/04/21 21:55 Labs: Lab Results 09/04/21 09/04/21 09/04/21 Range/Units 21:55 21:55 21:55 WBC 6.8 (4.8-10.8) X10*3/uL RBC 4.49 (4.20-5.50) X10*6/uL Hgb 13.1 (12.0-16.0) g/dl Hct 38.6 (37.0-47.0) % MCV 86.0 (80.0-98.0) fL MCH 29.2 (27.0-33.0) pg MCHC 33.9 (31.0-35.0) g/dl RDW 13.1 (11.0-16.0) % Plt Count 312 (160-400) X10*3/uL MPV 10.0 (9.4-12.3) fL Immature Gran % (Auto) 0.4 (0.0-0.4) % Neut % (Auto) 34.3 L (45-73) % Lymph % (Auto) 57.5 H (20-40) % Andrew % (Auto) 7.1 (2-11) % Eos % (Auto) 0.4 (0-4) % Baso % (Auto) 0.3 (0-2) % Lymph # (Auto) 3.9 (1.2-4.9) X10*3/uL Andrew # (Auto) 0.5 (0.1-1.2) X10*3/uL Eos # (Auto) 0.0 (0.0-0.4) X10*3/uL Baso # (Auto) 0.0 (0.0-0.2) X10*3/uL Abs Immat Gran (auto) 0.03 (0.00-0.03) X10*3/uL Absolute Neuts (auto) 2.3 (2.0-8.3) x10*3/uL Absolute Nucleated RBC 0.000 (0.0-0.012) X10*3/uL Nucleated RBC % (auto) 0.0 (0.0-0.2) /100WBC Smear Tech's Comments VERIFIED Sodium 141 (135-145) mmol/L Potassium 3.7 (3.3-5.1) mmol/L Chloride 102 (96-108) mmol/L Carbon Dioxide 30 H (22-29) mmol/L Anion Gap 13 (12-20) BUN 12 (9-16) mg/dL Creatinine 0.75 (0.5-1.4) mg/dL Estim Creat Clear Calc 83.5 Estimated GFR > 60 Random Glucose 112 (60-115) mg/dL Calcium 9.7 (8.4-10.2) mg/dL Total Bilirubin 0.3 (0.0-1.0) mg/dL AST 18 (5-31) U/L ALT 19 (0-31) U/L Alkaline Phosphatase 51 (39-117) U/L Total Protein 7.0 (6.5-8.0) g/dL Albumin 4.2 (3.5-5.0) g/dL Urine Color Urine Appearance Urine pH (5.0-8.0) Ur Specific [place] (1.005-1.025) Urine Protein (NEG-TRACE) MG/DL Urine Glucose (UA) (NEG) MG/DL Urine Ketones (NEG) MG/DL Urine Blood (NEG) Urine Nitrite (NEG) Ur Leukocyte Esterase (NEG) Urine RBC (0) /HPF Urine WBC (0-4) /HPF Ur Squamous Epith Cells /LPF Urine Bacteria /LPF Urine Mucus /LPF Urine Opiates Screen (Not Detect) Urine Fentanyl Screen (Not Detect) Ur Barbiturates Screen (Not Detect) Ur Phencyclidine Scrn (Not Detect) Ur Amphetamines Screen (Not Detect) U Benzodiazepines Scrn (Not Detect) Urine Cocaine Screen (Not Detect) U Marijuana (THC) Screen (Not Detect) COVID-19 (JAMAR) Negative (Negative) COVID-19 Clin Com See Note 09/04/21 09/04/21 Range/Units 21:55 23:45 WBC (4.8-10.8) X10*3/uL RBC (4.20-5.50) X10*6/uL Hgb (12.0-16.0) g/dl Hct (37.0-47.0) % MCV (80.0-98.0) fL MCH (27.0-33.0) pg MCHC (31.0-35.0) g/dl RDW (11.0-16.0) % Plt Count (160-400) X10*3/uL MPV (9.4-12.3) fL Immature Gran % (Auto) (0.0-0.4) % Neut % (Auto) (45-73) % Lymph % (Auto) (20-40) % Andrew % (Auto) (2-11) % Eos % (Auto) (0-4) % Baso % (Auto) (0-2) % Lymph # (Auto) (1.2-4.9) X10*3/uL Andrew # (Auto) (0.1-1.2) X10*3/uL Eos # (Auto) (0.0-0.4) X10*3/uL Baso # (Auto) (0.0-0.2) X10*3/uL Abs Immat Gran (auto) (0.00-0.03) X10*3/uL Absolute Neuts (auto) (2.0-8.3) x10*3/uL Absolute Nucleated RBC (0.0-0.012) X10*3/uL Nucleated RBC % (auto) (0.0-0.2) /100WBC Smear Tech's Comments Sodium (135-145) mmol/L Potassium (3.3-5.1) mmol/L Chloride (96-108) mmol/L Carbon Dioxide (22-29) mmol/L Anion Gap (12-20) BUN (9-16) mg/dL Creatinine (0.5-1.4) mg/dL Estim Creat Clear Calc Estimated GFR Random Glucose (60-115) mg/dL Calcium (8.4-10.2) mg/dL Total Bilirubin (0.0-1.0) mg/dL AST (5-31) U/L ALT (0-31) U/L Alkaline Phosphatase (39-117) U/L Total Protein (6.5-8.0) g/dL Albumin (3.5-5.0) g/dL Urine Color YELLOW Urine Appearance CLEAR Urine pH 6.5 (5.0-8.0) Ur Specific [place] 1.015 (1.005-1.025) Urine Protein 1+ H (NEG-TRACE) MG/DL Urine Glucose (UA) NEG (NEG) MG/DL Urine Ketones NEG (NEG) MG/DL Urine Blood NEG (NEG) Urine Nitrite NEG (NEG) Ur Leukocyte Esterase NEG (NEG) Urine RBC 0-2 (0) /HPF Urine WBC 0 (0-4) /HPF Ur Squamous Epith Cells 3+ /LPF Urine Bacteria NONE /LPF Urine Mucus 1+ /LPF Urine Opiates Screen Not Detected (Not Detect) Urine Fentanyl Screen Not Detected (Not Detect) Ur Barbiturates Screen Not Detected (Not Detect) Ur Phencyclidine Scrn Not Detected (Not Detect) Ur Amphetamines Screen Not Detected (Not Detect) U Benzodiazepines Scrn Not Detected (Not Detect) Urine Cocaine Screen Not Detected (Not Detect) U Marijuana (THC) Screen Not Detected (Not Detect) COVID-19 (JAMAR) (Negative) COVID-19 Clin Com ECG Data Attestation: I personally reviewed and interpreted this ECG as follows: Interpretation: Normal sinus rhythm heart rate 66 beats per minute normal intervals normal axis normal QT interval no acute ST wave changes no acute ischemia Discharge Plan Discharge Clinical Impression: Depression, Suicidal ideation Patient Disposition: Still a Patient Prescriptions: No Action (DME) AeroEclipse II Nebulizer Misc See Rx Instructions .ROUTE .MEDSUPPLY Qty: 1 0RF Rx Instructions: As directed docusate calcium 240 mg capsule 1 cap PO BID 0RF amitriptyline 25 mg tablet 1 tab PO BEDTIME 0RF lisinopril 10 mg tablet 1 tab PO DAILY 0RF furosemide 20 mg tablet 1 tab PO DAILY 0RF naproxen 500 mg tablet 1 tab PO BID PRN (Reason: pain) 0RF melatonin 3 mg tablet 1 tab PO BEDTIME 0RF omeprazole 40 mg capsule,delayed release(DR/EC) 1 cap PO QAM 0RF
--- NOTE | 2021-09-04 21:35 | ECG_ITS ---
Test Reason : CHEST PAIN Blood Pressure : / mmHG Vent. Rate : 066 BPM Atrial Rate : 066 BPM P-R Int : 152 ms QRS Dur : 092 ms QT Int : 414 ms P-R-T Axes : 092 019 045 degrees QTc Int : 434 ms Normal sinus rhythm Normal ECG When compared with ECG of 18-SEP-2020 21:45, QT has shortened Referred By: Eric Sandhu Electronically Signed By:NANCY WALLIS MD
[2021-09-04] MEDS: lisinopriL 10 MG TABLET PO (21:44)
[2021-09-04] MEDS: hydrOXYzine HCL 25 MG TABLET PO (21:44)
[2021-09-04 22:04] LABS: Basophils Percent Auto 0.3 % (0-2); Eosinophils Percent Auto 0.4 % (0-4); Hematocrit 38.6 % (37.0-47.0); Hemoglobin 13.1 g/dl (12.0-16.0); Imm Gran Abs Auto 0.03 X10*3/uL (0.00-0.03); Imm Gran Pct Auto 0.4 % (0.0-0.4); Lymphocytes Absolute Auto 3.9 X10*3/uL (1.2-4.9); Lymphocytes Percent Auto 57.5 % (20-40); MANUAL DIFF FLAG SCAN; Mean Corpuscular HGB Conc 33.9 g/dl (31.0-35.0); Mean Corpuscular Hemoglobin 29.2 pg (27.0-33.0); Monocytes Absolute Auto 0.5 X10*3/uL (0.1-1.2); Monocytes Percent Auto 7.1 % (2-11); Neutrophils Absolute Auto 2.3 x10*3/uL (2.0-8.3); Neutrophils Percent Auto 34.3 % (45-73); Platelet Count 312 X10*3/uL (160-400); Red Blood Count 4.49 X10*6/uL (4.20-5.50); Red Cell Distribution Width 13.1 % (11.0-16.0); SCAN SMEAR FLAG 1; White Blood Count 6.8 X10*3/uL (4.8-10.8)
[2021-09-04 22:06] LABS: Appearance Urine CLEAR; Color Urine YELLOW; Glucose Urine UA NEG (NEG); Leukocyte Esterase Urine NEG (NEG); Nitrite Urine NEG (NEG); PH 6.5 (5.0-8.0); Specific Gravity - Urine 1.015 (1.005-1.025); UACC Culture Trigger NO; Urine Blood NEG (NEG); Urine Ketones NEG (NEG); Urine Protein 1+ MG/DL (NEG-TRACE)
[2021-09-04 22:12] VITALS: BP 187/91; PULSE 67; RESP 20; TEMP 36.6; O2SAT 97
[2021-09-04 22:15] LABS: Mucus Urine 1+ /LPF; RBC Urine 0-2 /HPF (0); Squamous Epithelial Cell Urine 3+ /LPF; WBC Urine 0 /HPF (0-4)
[2021-09-04 22:21] LABS: Alanine Aminotransferase 19 U/L (0-31); Albumin Level 4.2 g/dL (3.5-5.0); Alkaline Phosphatase 51 U/L (39-117); Anion Gap 13 (12-20); Aspartate Amino Transferase 18 U/L (5-31); Bilirubin Total 0.3 mg/dL (0.0-1.0); Blood Urea Nitrogen 12 mg/dL (9-16); COVID-19 Test Negative (Negative); Calcium 9.7 mg/dL (8.4-10.2); Carbon Dioxide 30 mmol/L (22-29); Chloride 102 mmol/L (96-108); Creatinine Clr Calc Pharmacy 83.5; Estimated Glomerular Filt Rate > 60; Glucose Random 112 mg/dL (60-115); IDNOW Serial# 55D5AD1C; Potassium 3.7 mmol/L (3.3-5.1); Sodium 141 mmol/L (135-145)
[2021-09-04 22:25] LABS: SLIDE REVIEW VERIFIED
[2021-09-04 23:25] VITALS: BP 184/97; PULSE 76; RESP 19; TEMP 36.6; O2SAT 96
[2021-09-05 00:12] LABS: Amphetamine Screen Urine Not Detected (Not Detect); Barbiturates, Urine Not Detected (Not Detect); Benzodiazepines Screen Urine Not Detected (Not Detect); Cannabinoid Screen Urine Not Detected (Not Detect); Cocaine Screen Urine Not Detected (Not Detect); Fentanyl, urine Not Detected (Not Detect); Opiate Screen Urine Not Detected (Not Detect); Phencyclidine Screen Urine Not Detected (Not Detect)
--- NOTE | 2021-09-05 06:45 | PC.NURSE ---
Patient slept through the night, no distress observed/reported, Awaiting BHN evaluation, VSS, behavior appropriate, will continue to monitor.
--- NOTE | 2021-09-05 07:02 | PC.NURSE ---
Report received. PT currently resting, denies complaints, in no apparent distress. PT is waiting to be seen by N.
[2021-09-05] MEDS: Omeprazole 40 MG CAPSULE.DR PO (09:58)
[2021-09-05] MEDS: lisinopriL 10 MG TABLET PO (09:58)
[2021-09-05] MEDS: Furosemide 20 MG TABLET PO (09:58)
[2021-09-05 10:38] VITALS: BP 156/80; PULSE 75; TEMP 36.8
--- NOTE | 2021-09-05 16:05 | MHC.CARE ---
Pt is a 60 y/o , [place] speaking, female who is previously unknown to the CARE Team.? Yesterday, pt self-presented to the ED with a complaint of depression, SI, and being off her medications for approximately one month.? Pt reports having moved to [place] from [place] as her son recently received a diagnosis of Kidney disease. Pt reports her family is in this area.? Since her move to this area, pt has been off her medications as her provider is in [place].? Pt has been medically cleared and is being assessed by the CARE Team to determine appropriate treatment recommendations. Pt reports no hx of inpt hospitalizations, purposeful medication noncompliance, substance use, or suicide attempts.? Pt is alert and oriented x4 and is assessed in her room in the behavioral health pod of the ED. ?Pt is neat and well groomed, dressed in Hospital attire, and appears her stated age. She is engaged in the assessment and is help seeking though she does express a desire to be discharged.? Her eye contact and speech are unremarkable.? She reports fair sleep, stating her blood pressure feels high because she has been off her medications and this has caused sleep interruptions. She reports a good appetite.? She is tearful at times, specifically when speaking about the loss of her grandson last March who was shot and killed in [place] at the age of 18, and her son?s recent kidney disease dx. ?She demonstrates a full range of affect.? She reports her mood as ?sad? and ?depressed? citing the loss of the grandson, her son?s dx, and her being off her medications as the reasons.? Pt denies SI, HI, , and self-harm urges.? She stated that last night she ?said something dumb?, referring to her statements regarding not wanting to live.? Plan is for pt to be discharged home to follow up with her provider in [place] who does do telehealth appointments.? The goal is to get a prescription sent to her pharmacy in this area.? ED provider will provide a ?Bridge? prescription to carry pt over until her telehealth and PHP appointment.? CARE Team will refer pt to [facility] and PHP.? Pt is in agreement with this plan.? This disposition was discussed with and agreed upon by [employer] Operator of Behavior Health Pablito Salguero, ED provider Isaias Soto, and pt?s nurse RN Sabrina.
== END 2021-09-05 15:58 | disposition home or self-care (01) ==
PROVIDERS: Emergency Provider Internal Medicine
DX: F32.A Depression, unspecified (principal); R45.851 Suicidal ideations; Z20.822 Contact with and (suspected) exposure to COVID-19; Z99.81 Dependence on supplemental oxygen; Z79.899 Other long term (current) drug therapy
CPT/HCPCS: 80053; 80307; 81001; 85025; 87635; 93005; 99285

== ENCOUNTER 2021-10-16 13:28 | Outpatient (REF) | payer OTHER, SELFPAY ==
[2021-10-16 14:57] LABS: TSH reflex Free T4 2.85 uIU/mL (0.32-4.0); Vitamin D 25-OH Total 19.6 ng/mL (>30)
== END 2021-10-16 13:29 | disposition home or self-care (01) ==
LOC: HO.LAB 13:28
PROVIDERS: Absent Provider Nurse Practitioner Family; PCP Internal Medicine; Visit Provider Internal Medicine Pulmonary Disease
DX: Z13.29 Encounter for screening for other suspected endocrine disorder (principal); F32.9 Major depressive disorder, single episode, unspecified; J45.909 Unspecified asthma, uncomplicated; R06.00 Dyspnea, unspecified
CPT/HCPCS: 36415; 82306; 84443; 99212

== ENCOUNTER → 2022-01-17 14:03 | Outpatient (BNVA) | payer OTHER, SELFPAY | PROVIDERS: PCP Internal Medicine; Visit Provider Nurse Practitioner | DX: Z01.818 Encounter for other preprocedural examination (principal); Z55.0 Illiteracy and low-level literacy; J96.11 Chronic respiratory failure with hypoxia; Z99.81 Dependence on supplemental oxygen | CPT/HCPCS: 99202; 99212 ==

== ENCOUNTER → 2022-02-22 13:22 | Outpatient (BNVA) | payer OTHER, SELFPAY | PROVIDERS: PCP Internal Medicine; Visit Provider Internal Medicine Pulmonary Disease | DX: I10 Essential (primary) hypertension (principal); J45.909 Unspecified asthma, uncomplicated; R06.00 Dyspnea, unspecified; R60.0 Localized edema | CPT/HCPCS: 99212 ==

== ENCOUNTER → 2022-07-26 15:40 | Outpatient (BNVA) | payer OTHER, SELFPAY | PROVIDERS: PCP Internal Medicine; Visit Provider Nurse Practitioner | DX: Z71.2 Person consulting for explanation of examination or test findings (principal) | CPT/HCPCS: 99212 ==

== ENCOUNTER 2022-08-05 15:44 | Outpatient (REF) | payer OTHER, SELFPAY ==
--- NOTE | ~2022-08-05 | US_ITS ---
EXAMINATION: US SOFT TISSUE EXTREMITY, NONVASCULAR CLINICAL INFORMATION: 61-year-old female with localized swelling/mass lateral left wrist. COMPARISON: None TECHNIQUE: Real-time linear imaging of the left wrist is targeted to the area of clinical concern, lateral aspect. Grayscale imaging and color Doppler are performed. Comparison imaging of the contralateral right wrist is also performed. FINDINGS: The submitted images demonstrate a nonspecific isoechoic soft tissue mass in the area of clinical concern lateral aspect left wrist with overall dimensions approximately 3.2 cm in length by 2.2 x 2.0 cm. There is no skin thickening or edema tracking in soft tissue planes. No cystic lesion is demonstrated. There is no hyperemia. US/US extremity nonvascular IMPRESSION: -Nonspecific soft tissue mass in area of clinical concern lateral left wrist measuring 2.2 x 2.0 x 3.2 cm in length. Lesion may be further characterized with MRI without and with gadolinium contrast.
== END 2022-08-05 15:45 | disposition home or self-care (01) ==
LOC: HO.US 15:44
PROVIDERS: PCP Internal Medicine; Visit Provider Nurse Practitioner Family
DX: R22.32 Localized swelling, mass and lump, left upper limb (principal)
CPT/HCPCS: 76882

== ENCOUNTER → 2022-09-10 11:18 | Outpatient (BNVA) | payer OTHER, SELFPAY | PROVIDERS: PCP Internal Medicine; Referring Provider Nurse Practitioner Family; Visit Provider Surgery | DX: R22.32 Localized swelling, mass and lump, left upper limb (principal) | CPT/HCPCS: 99202 ==

== ENCOUNTER 2022-10-04 19:18 | Emergency (ER) | payer OTHER, SELFPAY ==
--- NOTE | 2022-10-04 19:20 | ED_ITS ---
HPI - General Adult General Chief complaint: General Medical Stated complaint: body aches Time Seen by Provider: 10/04/22 21:27 Related Data Home Medications Medication Instructions Recorded Confirmed docusate calcium 240 mg capsule 1 cap PO BID 09/04/21 09/12/22 melatonin 3 mg tablet 1 tab PO BEDTIME 09/04/21 09/12/22 diclofenac sodium 1 % topical gel 4 g topical 01/17/22 09/12/22 diclofenac potassium 50 mg tablet 50 mg PO BID PRN pain 09/10/22 09/12/22 Previous Rx's Medication Instructions Recorded nebulizers (AeroEclipse II #1 ea 11/22/20 Nebulizer) budesonide-formoterol HFA 160 2 puff inhalation BID 30 days #1 ea 10/16/21 mcg-4.5 mcg/actuation aerosol inhaler (Symbicort) cholecalciferol (vitamin D3) 50 50 mcg PO DAILY #90 tabs 10/16/21 mcg (2,000 unit) tablet furosemide 20 mg tablet 20 mg PO DAILY 30 days #30 tabs 02/22/22 omeprazole 40 mg capsule,delayed 40 mg PO DAILY #90 caps 06/11/22 release acetaminophen 500 mg tablet 1,000 mg PO Q6H PRN fever or pain 07/17/22 30 days #240 tabs albuterol sulfate 1.25 mg/3 mL 1.25 mg (3 mL) inhalation Q4-6H 07/17/22 solution for nebulization PRN shortness of breath or wheezing #75 mL albuterol sulfate 90 mcg/actuation 2 puff inhalation Q4-6H PRN 09/21/22 aerosol inhaler (Ventolin HFA) shortness of breath or wheezing #18 ea amitriptyline 25 mg tablet 25 mg PO BEDTIME #30 tabs 09/26/22 lisinopril 10 mg tablet 10 mg PO DAILY #90 tabs 09/27/22 hydroxyzine HCl 25 mg tablet 25 mg PO Q8H PRN anxiety #30 tabs 10/03/22 zolpidem 5 mg tablet 5 mg PO BEDTIME PRN sleep 30 days 10/03/22 #30 tabs Allergies Allergy/AdvReac Type Severity Reaction Status Date / Time No Known Allergies Allergy Mild NKA Verified 09/10/22 11:36 [facility] Past Medical History Medical History Deformity of left forearm, excluding fingers Depression Essential hypertension GERD (gastroesophageal reflux disease) Hearing loss History of respiratory failure Hypovitaminosis D Insomnia Mass Mild asthma Oxygen dependent [id number] condition Surgical History History of tubal ligation Family History Family History Father Kidney failure, acute Asthma Mother Heart disease Cancer Sister Kidney disease Brother Kidney failure, acute Son Bipolar 1 disorder Mental health disorder Family/Other FH: mental illness Social History Social History Household Members: Children Housing: House Do you presently have visiting nurse or other home services: No Alcohol intake: never Patient Tobacco Use Status: Never used Tobacco e-Cigarette/Vaping Use: Never Used Second Hand Smoke Exposure: Yes Use of substances other than those prescribed or required for medical reasons: No Advance Directives: No Advance Directives Information Provided: No service: No Current occupational status: disabled Cognitive needs: Yes Hearing needs: No Vision needs: Yes Physical Exam ED Vital Signs: Vital Signs - 24 hr 10/04/22 19:21 Temperature 97.4 F Pulse Rate 98 Respiratory Rate 20 Blood Pressure 147/89 H Pulse Oximetry 95 Oxygen Delivery Method Room Air BMI result Body Mass Index 42.4 Course Course Course Narrative: RME - 61 yo female with history of depression, HTN, asthma, GERD, obesity, arthr itis who presents to the ER from home c/o 5 days of diffuse body/joint aches and pains, not feeling well. Pain is reported 10/10 in the arms, knees and groin. No N/V/D, abdominal pain, chest pain, fever or chills. No known sick contacts. Went to Urgent Care on 09/29 for the same and was prescribed a medication she cannot recall the name of, completed them. Plan: basic labs, UA, viral swabs Reevaluation(s) Reevaluation #1: patient eloped from the emergency room prior to full evaluation and treatment. Medications Administered Discontinued Medications Generic Name Dose Route Start Last Admin Trade Name Freq PRN Reason Stop Dose Admin Acetaminophen 975 mg 10/04/22 19:23 10/04/22 20:47 Acetaminophen 325 Mg Tablet PO 10/04/22 19:24 975 mg ONCE ONE Administration Medical Decision Making Lab Data 10/04/22 19:38 10/04/22 19:38 Labs: Lab Results 10/04/22 10/04/22 10/04/22 Range/Units 19:38 19:38 19:38 WBC 6.2 (4.8-10.8) X10*3/uL RBC 4.62 (4.20-5.50) X10*6/uL Hgb 13.4 (12.0-16.0) g/dl Hct 40.6 (37.0-47.0) % MCV 87.9 (80.0-98.0) fL MCH 29.0 (27.0-33.0) pg MCHC 33.0 (31.0-35.0) g/dl RDW 13.3 (11.0-16.0) % Plt Count 269 (160-400) X10*3/uL MPV 10.3 (9.4-12.3) fL Immature Gran % (Auto) 0.2 (0.0-0.4) % Neut % (Auto) 44.5 L (45-73) % Lymph % (Auto) 45.9 H (20-40) % Mingo % (Auto) 6.6 (2-11) % Eos % (Auto) 1.8 (0-4) % Baso % (Auto) 1.0 (0-2) % Lymph # (Auto) 2.8 (1.2-4.9) X10*3/uL Mingo # (Auto) 0.4 (0.1-1.2) X10*3/uL Eos # (Auto) 0.1 (0.0-0.4) X10*3/uL Baso # (Auto) 0.1 (0.0-0.2) X10*3/uL Abs Immat Gran (auto) 0.01 (0.00-0.03) X10*3/uL Absolute Neuts (auto) 2.8 (2.0-8.3) x10*3/uL Absolute Nucleated RBC 0.000 (0.0-0.012) X10*3/uL Nucleated RBC % (auto) 0.0 (0.0-0.2) /100WBC Sodium 138 (135-145) mmol/L Potassium 4.0 (3.3-5.1) mmol/L Chloride 105 (96-108) mmol/L Carbon Dioxide 29 (22-29) mmol/L Anion Gap 8 L (12-20) BUN 11 (9-16) mg/dL Creatinine 0.77 (0.5-1.4) mg/dL Estim Creat Clear Calc 81.8 Estimated GFR > 60 Random Glucose 100 (60-115) mg/dL Calcium 9.6 (8.4-10.2) mg/dL Magnesium 2.2 (1.6-2.6) mg/dL Total Bilirubin 0.5 (0.0-1.0) mg/dL Direct Bilirubin 0.2 (0.0-0.5) mg/dL AST 53 H (5-31) U/L ALT 59 H (0-31) U/L Alkaline Phosphatase 81 (39-117) U/L Total Creatine Kinase 66 (26-140) U/L Total Protein 6.9 (6.5-8.0) g/dL Albumin 4.1 (3.5-5.0) g/dL COVID-19 (JAMAR) (Negative) COVID-19 Clin Com Influenza Type A (AIDEN) Cancelled Influenza Type A (PCR) (Negative) Influenza Type B (AIDEN) Cancelled Influenza Type B (PCR) (Negative) Influenza A & B Note Cancelled RSV RNA Qual (PCR) (Negative) SARS-CoV-2 RNA (RT-PCR) (Negative) 10/04/22 10/04/22 Range/Units 19:38 19:38 WBC (4.8-10.8) X10*3/uL RBC (4.20-5.50) X10*6/uL Hgb (12.0-16.0) g/dl Hct (37.0-47.0) % MCV (80.0-98.0) fL MCH (27.0-33.0) pg MCHC (31.0-35.0) g/dl RDW (11.0-16.0) % Plt Count (160-400) X10*3/uL MPV (9.4-12.3) fL Immature Gran % (Auto) (0.0-0.4) % Neut % (Auto) (45-73) % Lymph % (Auto) (20-40) % [place] % (Auto) (2-11) % Eos % (Auto) (0-4) % Baso % (Auto) (0-2) % Lymph # (Auto) (1.2-4.9) X10*3/uL Mingo # (Auto) (0.1-1.2) X10*3/uL Eos # (Auto) (0.0-0.4) X10*3/uL Baso # (Auto) (0.0-0.2) X10*3/uL Abs Immat Gran (auto) (0.00-0.03) X10*3/uL Absolute Neuts (auto) (2.0-8.3) x10*3/uL Absolute Nucleated RBC (0.0-0.012) X10*3/uL Nucleated RBC % (auto) (0.0-0.2) /100WBC Sodium (135-145) mmol/L Potassium (3.3-5.1) mmol/L Chloride (96-108) mmol/L Carbon Dioxide (22-29) mmol/L Anion Gap (12-20) BUN (9-16) mg/dL Creatinine (0.5-1.4) mg/dL Estim Creat Clear Calc Estimated GFR Random Glucose (60-115) mg/dL Calcium (8.4-10.2) mg/dL Magnesium (1.6-2.6) mg/dL Total Bilirubin (0.0-1.0) mg/dL Direct Bilirubin (0.0-0.5) mg/dL AST (5-31) U/L ALT (0-31) U/L Alkaline Phosphatase (39-117) U/L Total Creatine Kinase (26-140) U/L Total Protein (6.5-8.0) g/dL Albumin (3.5-5.0) g/dL COVID-19 (JAMAR) Negative (Negative) COVID-19 Clin Com See Note Influenza Type A (AIDEN) Influenza Type A (PCR) NEGATIVE (Negative) Influenza Type B (AIDEN) Influenza Type B (PCR) NEGATIVE (Negative) Influenza A & B Note RSV RNA Qual (PCR) NEGATIVE (Negative) SARS-CoV-2 RNA (RT-PCR) NEGATIVE (Negative) Discharge Plan Discharge Clinical Impression: Body aches Patient Disposition: Elopement Prescriptions: No Action (DME) AeroEclipse II Nebulizer Misc See Rx Instructions .ROUTE .MEDSUPPLY Qty: 1 0RF Rx Instructions: As directed cholecalciferol (vitamin D3) 50 mcg (2,000 unit) tablet 50 mcg PO DAILY Qty: 90 0RF omeprazole 40 mg capsule,delayed release(DR/EC) 40 mg PO DAILY Qty: 90 1RF albuterol sulfate [Ventolin HFA] 90 mcg/actuation HFA aerosol inhaler 2 puff inhalation Q4-6H PRN (Reason: shortness of breath or wheezing) Qty: 18 0RF amitriptyline 25 mg tablet 25 mg PO BEDTIME Qty: 30 1RF lisinopril 10 mg tablet 10 mg PO DAILY Qty: 90 3RF hydroxyzine HCl 25 mg tablet 25 mg PO Q8H PRN (Reason: anxiety) Qty: 30 0RF zolpidem 5 mg tablet 5 mg PO BEDTIME PRN (Reason: sleep) 30 Days Qty: 30 0RF docusate calcium 240 mg capsule 1 cap PO BID melatonin 3 mg tablet 1 tab PO BEDTIME acetaminophen 500 mg tablet 1,000 mg PO Q6H PRN (Reason: fever or pain) 30 Days Qty: 240 0RF albuterol sulfate 1.25 mg/3 mL solution for nebulization 1.25 mg inhalation Q4-6H PRN (Reason: shortness of breath or wheezing) Qty: 75 0RF budesonide-formoterol [Symbicort] 160-4.5 mcg/actuation HFA aerosol inhaler 2 puff inhalation BID 30 Days Qty: 1 6RF diclofenac potassium 50 mg tablet 50 mg PO BID PRN (Reason: pain) diclofenac sodium 1 % gel 4 g topical furosemide 20 mg tablet 20 mg PO DAILY 30 Days Qty: 30 6RF Interventions: ED Discharge Assessment Last Done: 10/04/22 21:50 Discharge Date/Time: 10/04/22 21:50
[2022-10-04 19:21] VITALS: BP 147/89; PULSE 98; RESP 20; TEMP 36.3; O2SAT 95; BMI 42.4
[2022-10-04 19:45] LABS: MANUAL DIFF FLAG NO
[2022-10-04 19:49] LABS: Basophils Absolute Auto 0.1 X10*3/uL (0.0-0.2); Eosinophils Absolute Auto 0.1 X10*3/uL (0.0-0.4); Eosinophils Percent Auto 1.8 % (0-4); Hematocrit 40.6 % (37.0-47.0); Hemoglobin 13.4 g/dl (12.0-16.0); Imm Gran Abs Auto 0.01 X10*3/uL (0.00-0.03); Imm Gran Pct Auto 0.2 % (0.0-0.4); Lymphocytes Absolute Auto 2.8 X10*3/uL (1.2-4.9); Lymphocytes Percent Auto 45.9 % (20-40); Mean Corpuscular Volume 87.9 fL (80.0-98.0); Mean Platelet Volume 10.3 fL (9.4-12.3); Monocytes Absolute Auto 0.4 X10*3/uL (0.1-1.2); Monocytes Percent Auto 6.6 % (2-11); Neutrophils Absolute Auto 2.8 x10*3/uL (2.0-8.3); Neutrophils Percent Auto 44.5 % (45-73); Platelet Count 269 X10*3/uL (160-400); Red Blood Count 4.62 X10*6/uL (4.20-5.50); Red Cell Distribution Width 13.3 % (11.0-16.0); White Blood Count 6.2 X10*3/uL (4.8-10.8)
[2022-10-04 20:04] LABS: COVID-19 Test Negative (Negative); IDNOW Serial# BCCEAD1C
[2022-10-04 20:24] LABS: Alanine Aminotransferase 59 U/L (0-31); Albumin Level 4.1 g/dL (3.5-5.0); Alkaline Phosphatase 81 U/L (39-117); Anion Gap 8 (12-20); Aspartate Amino Transferase 53 U/L (5-31); Bilirubin Total 0.5 mg/dL (0.0-1.0); Blood Urea Nitrogen 11 mg/dL (9-16); Calcium 9.6 mg/dL (8.4-10.2); Carbon Dioxide 29 mmol/L (22-29); Chloride 105 mmol/L (96-108); Creatinine Clr Calc Pharmacy 81.8; Estimated Glomerular Filt Rate > 60; Glucose Random 100 mg/dL (60-115); Magnesium 2.2 mg/dL (1.6-2.6); Sodium 138 mmol/L (135-145); Total Protein 6.9 g/dL (6.5-8.0)
[2022-10-04 20:29] LABS: Bilirubin Direct 0.2 mg/dL (0.0-0.5)
[2022-10-04 20:36] LABS: Influenza A PCR NEGATIVE (Negative); Influenza B PCR NEGATIVE (Negative); Resp Syncy Virus RNA Qual PCR NEGATIVE (Negative); SARS COV2 PCR INHOUSE NEGATIVE (Negative)
[2022-10-04] MEDS: Acetaminophen 325 MG TABLET 975 MG PO (20:47)
--- NOTE | 2022-10-04 20:49 | PC.NURSE ---
pt medicated per Mar, pt is resting in bed, will continue to monitor.
== END 2022-10-04 21:50 | disposition left against medical advice (07) ==
PROVIDERS: Physician Assistant; Emergency Provider Emergency Medicine Emergency Medical Services; PCP Internal Medicine
DX: M79.10 Myalgia, unspecified site (principal); Z20.822 Contact with and (suspected) exposure to COVID-19; Z20.828 Contact with and (suspected) exposure to other viral communicable diseases; Z79.899 Other long term (current) drug therapy
CPT/HCPCS: 0241U; 80048; 80076; 82550; 83735; 85025; 87635; 99283; 99284

== ENCOUNTER 2022-11-15 13:58 | Outpatient (REF) | payer OTHER, SELFPAY ==
--- NOTE | ~2022-11-15 | MR_ITS ---
EXAMINATION: MRI WRIST WITHOUT CONTRAST, LEFT CLINICAL INFORMATION: Mass left upper extremity. COMPARISON: MRI 09/04/2007. Ultrasound 08/05/2022. TECHNIQUE: MRI of the wrist without contrast is performed in a 1.5 Maile high-field scanner. 10 cc of Gadavist. FINDINGS: SOFT TISSUE/MUSCLE/TENDONS: Dorsal skin markers positioned along the dorsal/radial aspect of the distal forearm. In the area of clinical concern, is a mass in the deep subcutaneous tissues. This has signal consistent with fatty tissue, well-defined margins, thin capsule. No internal significant mass-like tissue is otherwise identified. No suspicious abnormal enhancement is seen. The deep surface abuts the underlying musculature. This measures 3.8 x 2.5 x 7.6 cm. This appears slightly larger in size as compared to the prior study. 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 The underlying musculature, and subjacent tendons appear unremarkable. The visualized tendons otherwise appear unremarkable. No appreciable tenosynovitis. BONE/JOINTS: Marrow signal in the distal radius, is within normal limits. No fracture. No suspicious marrow signal changes. Limited evaluation the wrist bones. There is a degenerative appearing cyst in the scaphoid. Small cystic focus palmar to the distal radius, measuring 5 mm transverse, could reflect a synovial recess or ganglion cyst. MEDIAN NERVE: Within normal limits. MR/MR wrist LT wo/w con IMPRESSION: 1. Mass in the deep soft tissues of the distal forearm, measuring 3.8 x 2.5 x 5 cm, has imaging characteristics consistent with a lipoma. No suspicious features or suspicious enhancement is seen. 2. Small 5 mm cystic focus palmar to the distal radius, could reflect a synovial recess or ganglion wrist cyst. 3. Additional findings and details as above.
== END 2022-11-15 13:59 | disposition home or self-care (01) ==
LOC: HO.MRI 13:58
PROVIDERS: PCP Internal Medicine; Visit Provider Surgery
DX: R22.32 Localized swelling, mass and lump, left upper limb (principal)
CPT/HCPCS: 73223; A9585

== ENCOUNTER → 2022-11-28 14:01 | Outpatient (BNVA) | payer OTHER, SELFPAY | PROVIDERS: PCP Internal Medicine; Visit Provider Surgery | DX: D17.22 Benign lipomatous neoplasm of skin and subcutaneous tissue of left arm (principal) | CPT/HCPCS: 99212 ==

== ENCOUNTER → 2023-01-02 15:30 | Outpatient (BNV) | payer OTHER, SELFPAY | PROVIDERS: PCP Internal Medicine; Visit Provider Radiology Diagnostic Radiology | DX: Z12.31 Encounter for screening mammogram for malignant neoplasm of breast (principal) | CPT/HCPCS: 77063; 77067 ==

== ENCOUNTER 2023-01-02 15:40 | Outpatient (REF) | payer OTHER, SELFPAY ==
--- NOTE | ~2023-01-02 | MM_ITS ---
EXAMINATION: MM SCREENING DIGITAL BREAST TOMOSYNTHESIS, BILATERAL CLINICAL INFORMATION: Screening. Asymptomatic. The lifetime risk of breast cancer based on the Tyrer-Cuzick Model is 5.4%. COMPARISON: Mammography: 10/21/2018, and dating back to 2012. TECHNIQUE: Digital breast tomosynthesis is performed in both the craniocaudal and mediolateral oblique views along with computer-aided detection (CAD). Synthesized 2D images are generated from the tomosynthesis. FINDINGS: The breasts are almost entirely fatty (ACR BI-RADS breast composition Category a). There are no suspicious masses, suspicious grouped calcifications, or areas of architectural distortion. The parenchymal pattern is stable from prior exams. There are benign vascular calcifications. MM/MM tomosynthesis screening BI IMPRESSION: No mammographic evidence of malignancy. ASSESSMENT: BI-RADS BI-RADS 1 - Negative RECOMMENDATION: Routine annual mammography screening. 1 year F/U This examination should not preclude the clinical evaluation of a suspicious palpable abnormality. This patient's information was entered into a reminder system with a target due date for their next mammogram.
== END 2023-01-02 15:41 | disposition home or self-care (01) ==
LOC: HO.MAMMO 15:40
PROVIDERS: PCP Internal Medicine; Visit Provider Nurse Practitioner Family
DX: Z12.31 Encounter for screening mammogram for malignant neoplasm of breast (principal)
CPT/HCPCS: 77063; 77067

== ENCOUNTER 2023-01-21 15:07 | Outpatient (AMB) | payer OTHER, SELFPAY ==
[2023-01-21 15:11] VITALS: BP 124/87; PULSE 88; O2SAT 95; BMI 41.8
--- NOTE | 2023-01-21 15:11 | A.OFFVIS_ITS ---
Intake Vital Signs 01/21/23 15:11 Height 5 ft Weight 213 lb 13.574 oz BMI 41.8 BP 124/87 Blood Pressure Location Rt brachial Position Sitting Pulse 88 Pulse Source Pulse Oximeter Pulse Oximetry (%) 95 Intake Visit Reasons: dyspnea Allergies No Known Allergies Allergy (Mild, Verified 11/29/22 09:25) NKA HPI dyspnea HPI Details 62-year-old lady, nonsmoker, with underlying history of asthma and COVID 19 requiring prolonged hospitalization in the August 2020, discharged on supplemental oxygen 3 L continuous flow.? She no longer uses supplemental oxygen.? Patient has ran out of Lasix and developed worsening lower extremity edema, orthopnea, and paroxysmal nocturnal dyspnea. She has been using Symbicort and albuterol MDI with reasonable control of her underlying asthma symptoms. Patient has also lost her CPAP machine and would like to restart his CPAP therapy. However, her sleep study is 4-5 years prior. [facility] Medical History Deformity of left forearm, excluding fingers Depression Essential hypertension GERD (gastroesophageal reflux disease) Hearing loss History of respiratory failure Hypovitaminosis D Insomnia Mass Mild asthma Oxygen dependent [id number] condition Surgical History History of tubal ligation Family History Father Kidney failure, acute Asthma Mother Heart disease Cancer Sister Kidney disease Brother Kidney failure, acute Son Bipolar 1 disorder Mental health disorder Family/Other FH: mental illness Social History (Reviewed 01/21/23 @ 15:16 by Pao Nieves [facility]) Household Members: Children Housing: House Do you presently have visiting nurse or other home services: No Alcohol intake: never Patient Tobacco Use Status: Never used Tobacco e-Cigarette/Vaping Use: Never Used Second Hand Smoke Exposure: Yes service: No Current occupational status: disabled Cognitive needs: Yes Hearing needs: No Vision needs: Yes Review of Systems Const Denies daytime sleepiness, Denies excessive sweating, Reports fatigue, Denies fever(s), Denies lethargy, Denies malaise, Denies night sweats, Reports snoring and Denies weight loss Eyes Denies blurry vision and Denies itchy eyes ENT Denies nasal congestion, Denies post nasal drip, Denies sinus pain, Denies sinus pressure and Denies other ( Thrush) Card Denies chest pain, Reports pedal edema, Denies dyspnea, Reports dyspnea on exertion, Reports orthopnea and Denies paroxysmal nocturnal dyspnea Resp Denies cough, Denies hemoptysis, Denies excessive phlegm production, Denies dyspnea, Reports dyspnea on exertion, Reports snoring and Denies wheezing GI Denies abdominal pain and Denies heartburn Musc Denies myalgias, Denies arthralgias and Denies joint swelling Skin/Breast Denies rash Neuro Denies memory loss and Denies seizure-like activity Psych Denies abnormal sleep pattern, Denies anxiety and Denies memory loss Endo Denies excessive sweating, Reports fatigue and Denies heat intolerance Roosevelt/Lymph Denies easy bruising Aller/Immun Denies itchy eyes, Denies seasonal rhinorrhea and Denies wheezing Physical Exam Vital Signs: Last Vital Signs Pulse 88 01/21/23 15:11 BP 124/87 01/21/23 15:11 Pulse Ox 95 01/21/23 15:11 BMI result Body Mass Index 41.8 Const General: no acute distress and alert Nutritional Appearance: obese Orientation/consciousness: Other orientation findings ( oriented) HEENT Head: Yes atraumatic Eyes General: appearance normal, both eyes and all related structures Sclerae: sclerae normal EOM: EOMs intact bilaterally Neck Neck: Yes supple Lymphatic: no lymphadenopathy noted Resp Effort & Inspection: normal respiratory effort and no use of accessory muscles Auscultation: clear to auscultation bilaterally Cardio Rate: regular rate Rhythm: regular rhythm Heart sounds: no gallops, no murmurs and no rubs Skin General skin exam: other ( warm) Extrem General: No clubbing, No cyanosis and No edema Assessment & Plan Assessment & Plan (1) Leg edema: Code(s): R60.0 - Localized edema Plan: Worsening leg edema in dyspnea on exertion after patient ran out of Lasix. Restart Lasix at 40 mg daily. (2) Asthma: Code(s): J45.909 - Unspecified asthma, uncomplicated Plan: Baseline controlled on Symbicort and albuterol MDI. Continue current regimen. (3) TALIB (obstructive sleep apnea): Code(s): G47.33 - Obstructive sleep apnea (adult) (pediatric) Plan: Unrestful sleep, snoring, daytime somnolence. Charlotte Sleepiness Scale score of 15. Will obtain home sleep study. Orders: Orders 2 RT home sleep study Today G47.33 - Obstructive sleep apnea (adult) (pediatric) Medications: New furosemide 40 mg PO DAILY 30 tabs 6RF 30 days Coding Level of Care Code Est Pt Level 4 (55998) Diagnoses Leg edema R60.0 Asthma J45.909 TALIB (obstructive sleep apnea) G47.33
== END 2023-01-21 15:27 | disposition home or self-care (01) ==
PROVIDERS: PCP Internal Medicine; Visit Provider Internal Medicine Pulmonary Disease
DX: R60.0 Localized edema (principal); J45.909 Unspecified asthma, uncomplicated; G47.33 Obstructive sleep apnea (adult) (pediatric)
CPT/HCPCS: 99214

== ENCOUNTER → 2023-01-21 15:07 | Outpatient (BNVA) | payer OTHER, SELFPAY | PROVIDERS: PCP Internal Medicine; Visit Provider Internal Medicine Pulmonary Disease | DX: R60.0 Localized edema (principal); J45.909 Unspecified asthma, uncomplicated; G47.33 Obstructive sleep apnea (adult) (pediatric) | CPT/HCPCS: 99212 ==

== ENCOUNTER 2023-03-04 10:00 | Outpatient (AMB) | payer OTHER, SELFPAY ==
--- NOTE | 2023-03-04 10:21 | MHC.PC.OV ---
Vital Signs 03/04/23 10:22 Height 5 ft Weight 205 lb BMI 40.0 BP 110/70 Blood Pressure Location Lt brachial Position Sitting Pulse 82 Pulse Source Pulse Oximeter Pulse Oximetry (%) 95 Oxygen Delivery Method Room Air Intake Visit Reasons: Trans care from Dr Ricks Intake Note: Pt is here today transfer care from Dr. Ricks: Pt c/o insomnia, says that the zolpidem isn't working Allergies No Known Allergies Allergy (Mild, Verified 06/23/23 15:24) NKA Medication List - Last Reconciled 03/04/23 by Mitzy Teague MD acetaminophen 1,000 mg (2 x 500 mg) PO Q6H PRN 30 days albuterol sulfate 1.25 mg (3 mL) inhalation Q4-6H PRN baclofen 10 mg PO BEDTIME PRN budesonide-formoterol 160-4.5 mcg/actuation (Symbicort) 2 puffs inhalation BID 30 days diclofenac sodium 1% 4 grams topical docusate calcium 1 cap PO BID furosemide 40 mg PO DAILY 30 days lisinopril 10 mg PO DAILY nebulizers (AeroEclipse II Nebulizer) As directed omeprazole 40 mg PO DAILY Ventolin HFA 90 mcg/actuation (albuterol sulfate) 2 puffs inhalation Q4-6H PRN 30 days NS Tobacco use date assessed: 03/04/23 Dental Screening Dental Screen Date: 03/04/23 Did you have a dental visit in the last 12 months?: Yes Did you have a dental problem in the last 6 months where you did not have access to dental care?: Yes Was dental information given to patient?: Patient has dentist HPI Trans care from Dr Ricks HPI Details 62-year-old male lady, 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 She has been prescribed zolpidem 5 mg which he takes as needed, but states that it has not been helping much. She does have obstructive sleep apnea , but lost her CPAP machine and would like to restart CPAP therapy. However, her sleep study is 4-5 years prior. [facility] Medical History (Updated 03/04/23 @ 11:16 by Mitzy Teague MD) Sleeping difficulty Generalized anxiety disorder with panic attacks Colon cancer screening History of respiratory failure [id number] condition Oxygen dependent Deformity of left forearm, excluding fingers Mass Hearing loss Hypovitaminosis D Insomnia GERD (gastroesophageal reflux disease) Mild asthma Essential hypertension Depression Surgical History History of tubal ligation Family History Father Kidney failure, acute Asthma Mother Heart disease Cancer Sister Kidney disease Brother Kidney failure, acute Son Bipolar 1 disorder Mental health disorder Family/Other FH: mental illness Social History Household Members: Children Housing: House Do you presently have visiting nurse or other home services: No Alcohol intake: never Patient Tobacco Use Status: Never used Tobacco e-Cigarette/Vaping Use: Never Used Second Hand Smoke Exposure: Yes service: No Current occupational status: disabled Cognitive needs: Yes Hearing needs: No Vision needs: Yes Questionnaire Thrive Questionnaire Date Thrive assessed: 11/29/22 AUDIT C Alcohol Use Questionnaire (AUDIT-C) 1. How often do you have a drink containing alcohol?: Never Total Score: 0 ANUSHKA-7 AMB Questionnaire ANUSHKA-7 Date ANUSHKA - 7 assessed: 11/29/22 Source: Developed by Drs. Breezy Haas, Radha Ernandez, Bobby Miller and colleagues, with an educational ernestina from [employer] ACT Questionnaire In the past 4 weeks, how much of the time did your asthma keep you from getting as much done at work, school or at home?: All of the time During the past 4 weeks, how often have you had shortness of breath?: More than once a day During the past 4 weeks, how often did your asthma symptoms wake you up at night or earlier than usual in the morning?: 2-3 nights a week During the past 4 weeks, how often have you had to use your rescue inhaler or nebulizer medication?: More than 3 times per day How would you rate your asthma control during the past 4 weeks?: Somewhat controlled Score: 8 Review of Systems Const Denies daytime sleepiness, Denies excessive sweating, Denies fatigue, Denies fever(s), Denies lethargy, Denies malaise, Denies night sweats, Denies snoring and Denies weight loss Eyes Denies blurry vision ENT Reports Normal hearing present, Denies nasal congestion, Denies post nasal drip, Denies sinus pain and Denies sinus pressure Card Denies chest pain, Reports pedal edema, Denies dyspnea, Reports dyspnea on exertion, Denies orthopnea and Denies paroxysmal nocturnal dyspnea Resp Denies cough, Denies hemoptysis, Denies excessive phlegm production, Denies dyspnea, Reports dyspnea on exertion, Denies snoring and Denies wheezing GI Denies abdominal pain and Denies heartburn Musc Denies myalgias, Denies arthralgias and Denies joint swelling Skin/Breast Denies rash Neuro Reports Normal hearing present, Denies memory loss and Denies seizure-like activity Psych Denies abnormal sleep pattern, Denies anxiety and Denies memory loss Endo Denies excessive sweating, Denies fatigue and Denies heat intolerance Roosevelt/Lymph Denies easy bruising Aller/Immun Denies seasonal rhinorrhea and Denies wheezing Physical exam (Primary Care) Vital Signs: Last Vital Signs Pulse 82 03/04/23 10:22 BP 110/70 03/04/23 10:22 Pulse Ox 95 03/04/23 10:22 Oxygen Delivery Method Room Air 03/04/23 10:22 BMI result Body Mass Index 40.0 Tobacco/Smoking Status: Tobacco use Status Tobacco use date assessed 03/04/23 03/04/23 10:27 Patient Tobacco Use Status Never used Tobacco 03/04/23 10:22 e-Cigarette/Vaping Use Never Used 03/04/23 10:22 Thrive Assessment: Date of Thrive Assessment Date Thrive assessed 11/29/22 03/04/23 10:22 Const General: comfortable, no acute distress and Physically active [facility] Head: Yes normocephalic and Yes atraumatic Ears: TM's normal bilaterally and EAC's normal General nose exam: Normal external nose present and No nasal discharge present Face and sinus: Yes face symmetric Mouth: Normal oral and palatal mucosa present, tongue normal, oropharynx normal and moist mucous membranes Eyes General: appearance normal, both eyes and all related structures Conjunctivae: conjunctivae normal Neck Neck: Yes full ROM, Yes no lymphadenopathy and Yes supple Chest Chest palpation & inspection: normal inspection of the chest Resp Effort & Inspection: normal respiratory effort Auscultation: clear to auscultation bilaterally, no crackles, no rhonchi and no wheezes Cardio Rate: regular rate Rhythm: regular rhythm Heart sounds: S1 normal heart sound present and S2 normal heart sound present Peripheral pulses: dorsalis pedis present GI Inspection: Yes normal to inspection General: Yes no CVA tenderness Back/Spine/Pelvis Back: no CVA tenderness Neuro Cranial nerves: Yes Normal hearing present Extrem General: No edema Office Procedures Flu Questionnaire Does the patient have a severe egg allergy?: No Does the patient have severe life threatening allergies?: No Does the patient have a fever or illness today?: No Has the patient ever had Guillain-Montague Syndrome?: No Has the patient ever had any past reaction to a flu shot?: No Immunizations flu vacc [id number] 6mos up(PF) 60 mcg(15 mcgx4)/0.5 mL IM syringe Performing Provider: Mitzy Teague MD Performing Location: [facility] Administered by: Rachel Crawford CMA on 03/04/23 10:47 Dose Route Admin Location Dispensed Lot Number Expiration Date NDC [employer] 0.5 mL IM Left Deltoid 0.5 mL [id number] 11/30/23 12991-424-74 [employer] VIS Given Date VIS Provided VIS Publication Date 03/04/23 Single Vaccine 21 Eligibility Eligibility Date Funding Source Not [facility] Eligible 03/04/23 Private Assessment and Plan Assessment & Plan (1) Generalized anxiety disorder with panic attacks: Code(s): F41.1 - Generalized anxiety disorder; F41.0 - Panic disorder [episodic paroxysmal anxiety] Plan: Will start on buspirone 5 mg per tablet 1 tablet twice a day and may take an extra dose Gina meal of the day as needed for acute anxiety/panic attacks. Will refer to counseling. Discussed other ways to relieve stress including : exercise or a massage, Get enough rest, Avoid alcohol, caffeine, nicotine, and illegal drugs which can increase your anxiety level and cause sleep problems. (2) Sleeping difficulty: Code(s): G47.9 - Sleep disorder, unspecified Plan: Likely stemming from her obstructive sleep apnea, Patient already being set up for sleep study by Dr. Reardon (3) TALIB (obstructive sleep apnea): Code(s): G47.33 - Obstructive sleep apnea (adult) (pediatric) Plan: Has appointment for home sleep study 03/11/2023 and follow-up with Dr. Reardon afterwards Orders: Orders Influenza [id number] Immunization 03/04/23 Z23 - Encounter for immunization Medications: New buspirone 5 mg PO TID 90 tabs 0RF F41.1 - Generalized anxiety disorder, F41.0 - Panic disorder [episodic paroxysmal anxiety] Coding Level of Care Code Est Pt Level 4 (50924) Diagnoses Generalized anxiety disorder with panic attacks F41.1; F41.0 Sleeping difficulty G47.9 TALIB (obstructive sleep apnea) G47.33
[2023-03-04 10:22] VITALS: BP 110/70; PULSE 82; O2SAT 95; BMI 40.0
== END 2023-03-04 11:17 | disposition home or self-care (01) ==
PROVIDERS: Visit Provider Internal Medicine
DX: Z23 Encounter for immunization (principal)
CPT/HCPCS: 90471; 90686; 99214

== ENCOUNTER → 2023-03-11 15:50 | Outpatient (REF) | payer OTHER, SELFPAY | LOC: HO.SL 15:50 | PROVIDERS: PCP Internal Medicine; Visit Provider Internal Medicine Pulmonary Disease | DX: G47.33 Obstructive sleep apnea (adult) (pediatric) (principal) | CPT/HCPCS: 95806 ==

== ENCOUNTER → 2023-03-11 15:57 | Outpatient (BNV) | payer OTHER, SELFPAY | PROVIDERS: PCP Internal Medicine; Visit Provider Internal Medicine | DX: G47.33 Obstructive sleep apnea (adult) (pediatric) (principal) | CPT/HCPCS: 95806 ==

== ENCOUNTER 2023-04-08 15:26 | Outpatient (AMB) | payer OTHER, SELFPAY ==
[2023-04-08 15:29] VITALS: BP 124/87; PULSE 88; O2SAT 97; BMI 40.3
--- NOTE | 2023-04-08 15:29 | MHC.OFFVIS ---
Intake Vital Signs 04/08/23 15:29 Height 5 ft Weight 206 lb 2.115 oz BMI 40.3 BP 124/87 Blood Pressure Location Rt brachial Position Sitting Pulse 88 Pulse Source Doppler Pulse Oximetry (%) 97 Oxygen Delivery Method Room Air Intake Visit Reasons: dyspnea Allergies No Known Allergies Allergy (Mild, Verified 04/08/23 15:34) NKA HPI dyspnea HPI Details 62-year-old lady, nonsmoker, with underlying history of asthma and COVID 19 requiring prolonged hospitalization in the August 2020, discharged on supplemental oxygen 3 L continuous flow.? She no longer uses supplemental oxygen.? At the last office visit she was restarted on Lasix with some, but incomplete improvement. She also received her CPAP machine to days prior and just started to use it. She denies recent exacerbations. [facility] Medical History (Updated 03/04/23 @ 11:16 by Mitzy Teague MD) Sleeping difficulty Generalized anxiety disorder with panic attacks Colon cancer screening History of respiratory failure [id number] condition Oxygen dependent Deformity of left forearm, excluding fingers Mass Hearing loss Hypovitaminosis D Insomnia GERD (gastroesophageal reflux disease) Mild asthma Essential hypertension Depression Surgical History History of tubal ligation Family History Father Kidney failure, acute Asthma Mother Heart disease Cancer Sister Kidney disease Brother Kidney failure, acute Son Bipolar 1 disorder Mental health disorder Family/Other FH: mental illness Social History Household Members: Children Housing: House Do you presently have visiting nurse or other home services: No Alcohol intake: never Patient Tobacco Use Status: Never used Tobacco e-Cigarette/Vaping Use: Never Used Second Hand Smoke Exposure: Yes service: No Current occupational status: disabled Cognitive needs: Yes Hearing needs: No Vision needs: Yes Review of Systems Const Denies daytime sleepiness, Denies excessive sweating, Denies fatigue, Denies fever(s), Denies lethargy, Denies malaise, Denies night sweats, Denies snoring and Denies weight loss Eyes Denies blurry vision and Denies itchy eyes ENT Denies nasal congestion, Denies post nasal drip, Denies sinus pain, Denies sinus pressure and Denies other ( Thrush) Card Denies chest pain, Reports pedal edema, Denies dyspnea, Reports dyspnea on exertion, Denies orthopnea and Denies paroxysmal nocturnal dyspnea Resp Denies cough, Denies hemoptysis, Denies excessive phlegm production, Denies dyspnea, Reports dyspnea on exertion, Denies snoring and Denies wheezing GI Denies abdominal pain and Denies heartburn Musc Denies myalgias, Denies arthralgias and Denies joint swelling Skin/Breast Denies rash Neuro Denies memory loss and Denies seizure-like activity Psych Denies abnormal sleep pattern, Denies anxiety and Denies memory loss Endo Denies excessive sweating, Denies fatigue and Denies heat intolerance Roosevelt/Lymph Denies easy bruising Aller/Immun Denies itchy eyes, Denies seasonal rhinorrhea and Denies wheezing Physical Exam Vital Signs: Last Vital Signs Pulse 88 04/08/23 15:29 BP 124/87 04/08/23 15:29 Pulse Ox 97 04/08/23 15:29 Oxygen Delivery Method Room Air 04/08/23 15:29 BMI result Body Mass Index 40.3 Const General: no acute distress and alert Nutritional Appearance: obese Orientation/consciousness: Other orientation findings ( oriented) HEENT Head: Yes atraumatic Eyes General: appearance normal, both eyes and all related structures Sclerae: sclerae normal EOM: EOMs intact bilaterally Neck Neck: Yes supple Lymphatic: no lymphadenopathy noted Resp Effort & Inspection: normal respiratory effort and no use of accessory muscles Auscultation: clear to auscultation bilaterally Cardio Rate: regular rate Rhythm: regular rhythm Heart sounds: no gallops, no murmurs and no rubs Skin General skin exam: other ( warm) Extrem General: No clubbing, No cyanosis and Yes edema (2+ bilateral) Assessment & Plan Assessment & Plan (1) TALIB (obstructive sleep apnea): Code(s): G47.33 - Obstructive sleep apnea (adult) (pediatric) Plan: Patient has just received her CPAP. Continue on CPAP therapy. (2) Leg edema: Code(s): R60.0 - Localized edema Plan: Some improvement on Lasix 40 mg daily. Patient was advised to limit her fluid intake to 2 L, if not improving, will up titrate Lasix at the next visit. (3) Mild asthma: Code(s): J45.909 - Unspecified asthma, uncomplicated Plan: Well controlled on current regimen of Symbicort and albuterol MDI. Continue current regimen. Coding Level of Care Code Est Pt Level 4 (12769) Diagnoses TALIB (obstructive sleep apnea) G47.33 Leg edema R60.0 Mild asthma J45.909
== END 2023-04-08 15:46 | disposition home or self-care (01) ==
PROVIDERS: PCP Internal Medicine; Visit Provider Internal Medicine Pulmonary Disease
DX: G47.33 Obstructive sleep apnea (adult) (pediatric) (principal); R60.0 Localized edema; J45.909 Unspecified asthma, uncomplicated
CPT/HCPCS: 99214

== ENCOUNTER → 2023-04-08 15:26 | Outpatient (BNVA) | payer OTHER, SELFPAY | PROVIDERS: PCP Internal Medicine; Visit Provider Internal Medicine Pulmonary Disease | DX: G47.33 Obstructive sleep apnea (adult) (pediatric) (principal); J45.909 Unspecified asthma, uncomplicated; R60.0 Localized edema | CPT/HCPCS: 99212 ==

== ENCOUNTER 2023-07-18 11:27 | Outpatient (AMB) | payer OTHER, SELFPAY ==
[2023-07-18 11:46] VITALS: BP 102/70; PULSE 89; O2SAT 95; BMI 39.8
--- NOTE | 2023-07-18 11:46 | A.OFFPC_ITS ---
Vital Signs 07/18/23 11:46 Height 5 ft Weight 204 lb BMI 39.8 BP 102/70 Blood Pressure Location Lt brachial Position Sitting Pulse 89 Pulse Source Pulse Oximeter Pulse Oximetry (%) 95 Oxygen Delivery Method Room Air Intake Visit Reasons: Followup sleep, meds Intake Note: Pt is here today discuss med for insomnia Allergies No Known Allergies Allergy (Mild, Verified 07/18/23 12:21) NKA Medication List - Last Reconciled 07/18/23 by Mitzy Teague MD acetaminophen 1,000 mg (2 x 500 mg) PO Q6H PRN 30 days albuterol sulfate 1.25 mg (3 mL) inhalation Q4-6H PRN baclofen 10 mg PO BEDTIME PRN budesonide-formoterol 160-4.5 mcg/actuation (Symbicort) 2 puffs inhalation BID 30 days buspirone 5 mg PO TID diclofenac sodium 1% 4 grams topical furosemide 40 mg PO DAILY 30 days lisinopril 10 mg PO DAILY nebulizers (AeroEclipse II Nebulizer) As directed omeprazole 40 mg PO DAILY Ventolin HFA 90 mcg/actuation (albuterol sulfate) 2 puffs inhalation Q4-6H PRN 30 days NS Tobacco use date assessed: 07/18/23 Dental Screening Dental Screen Date: 07/18/23 Did you have a dental visit in the last 12 months?: Yes Did you have a dental problem in the last 6 months where you did not have access to dental care?: No Was dental information given to patient?: Patient has dentist HPI Followup sleep, meds HPI Details 62-year-old lady here today for follow-u p on her anxiety and depression. She was started on buspirone 5 mg 1 tablet 3 times a day which she states has started helping with controlling her anxiety but still has problems shortness her min off when she is about to sleep at night. Patient's granddaughter who accompanies her today states that she constantly worries and does not want to go out of her house at all, even with doing grocery shopping. She was just started on a CPAP 2 weeks ago and has been using it regularly but has not been helping her sleep at night . She states that she usually would go to bed at 10:00 o'clock but does not get to sleep until 3 a.m. 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, excluding fingers Hearing loss Hypovitaminosis D Insomnia GERD (gastroesophageal reflux disease) Mild asthma Essential hypertension Surgical History History of tubal ligation Family History Father Kidney failure, acute Asthma Mother Heart disease Cancer Sister Kidney disease Brother Kidney failure, acute Son Bipolar 1 disorder Mental health disorder Family/Other FH: mental illness Social History Household Members: Children Housing: House Do you presently have visiting nurse or other home services: No Alcohol intake: never Patient Tobacco Use Status: Never used Tobacco e-Cigarette/Vaping Use: Never Used Second Hand Smoke Exposure: Yes service: No Current occupational status: disabled Cognitive needs: Yes Hearing needs: No Vision needs: Yes Questionnaire PHQ-9 Over the last 2 weeks, how often have you been bothered by any of the following problems? 1. Little interest or pleasure in doing things: more than half the days 2. Feeling down, depressed, or hopeless: more than half the days 3. Trouble falling or staying asleep, or sleeping too much: nearly every day 4. Feeling tired or having little energy: nearly every day 5. Poor appetite or overeating: not at all 6. Feeling bad about yourself - or that you are a failure or have let yourself or your family down: not at all 7. Trouble concentrating on things, such as reading the newspaper or watching television: several days 8. Moving or speaking so slowly that other people could have noticed. Or the opposite - being so fidgety or restless that you have been moving around a lot more than usual: not at all 9. Thoughts that you would be better off or of hurting yourself in some way: not at all Total score: 11 Depression Screening Interpretation: Positive Depression Screening Follow-up: Existing condition, In treatment and Community Mental Health Worker F/U (Still awaiting appointment for a therapist) Depression Screening Done: Yes Source: Developed by Drs. Breezy Haas, Radha Ernandez, Bboby Miller and colleagues, with an educational ernestina from [employer]. Thrive Questionnaire Date Thrive assessed: 11/29/22 I am a: Patient What is your living situation today?: I have a steady place to live Within the past 12 months, did the food you bought not last and you didn't have the money to get more?: Never true Within the past 12 months, did you worry whether your food would run out before you got money to buy more?: Never true Do you have trouble paying for medicines?: No Do you have trouble getting transportation to medical appointments?: No Do you have trouble paying your heating and electricity bill?: No Do you have trouble taking care of your child, family member or friend?: No Do you have trouble with day-to-day activities such as bathing, preparing meals, shopping, managing finances, etc.?: No Are you currently unemployed and looking for a job?: No Are you interested in more education?: No THRIVE Score: 0 AUDIT C Alcohol Use Questionnaire (AUDIT-C) 1. How often do you have a drink containing alcohol?: Monthly or less 2. How many drinks containing alcohol do you have on a typical day when you are drinking?: 1 or 2 3. How often do you have six or more drinks on one occasion?: Never Total Score: 1 ANUSHKA-7 AMB Questionnaire ANUSHKA-7 Date ANUSHKA - 7 assessed: 07/18/23 Feeling nervous, anxious, or on edge: 2 = More than half the days Not being able to stop or control worryin = Nearly every day Worrying too much about different things: 3 = Nearly every day Trouble relaxin = Nearly every day Being so restless that it is hard to sit still: 1 = Several days Becoming easily annoyed or irritable: 2 = More than half the days Feeling afraid as if something awful might happen: 3 = Nearly every day Total ANUSHKA-7 score (0-4 normal; 5-9 mild; 10-14 moderate; 15-21 severe): 17 Source: Developed by Radha Richmond.W. Awais, Bobby arana nd colleagues, with an educational ernestina from [employer]. ANUSHKA-7 Assessment Billing ANUSHKA-7 Assessment Tool: ANUSHKA-7 Assessment 59012 Review of Systems Const Denies fever(s), Denies malaise and Denies night sweats ENT Denies nasal congestion and Denies post nasal drip Card Denies chest pain, Denies dyspnea and Reports dyspnea on exertion Resp Denies cough, Denies hemoptysis, Denies excessive phlegm production, Denies dyspnea and Reports dyspnea on exertion GI Denies abdominal pain and Denies heartburn Musc Denies myalgias, Denies arthralgias and Denies joint swelling Neuro Denies memory loss and Denies seizure-like activity Psych Reports as per HPI and Denies memory loss Roosevelt/Lymph Reports no additional complaints Aller/Immun Reports no additional complaints Physical exam (Primary Care) Vital Signs: Last Vital Signs Pulse 89 07/18/23 11:46 BP 102/70 07/18/23 11:46 Pulse Ox 95 07/18/23 11:46 Oxygen Delivery Method Room Air 07/18/23 11:46 BMI result Body Mass Index 39.8 Tobacco/Smoking Status: Tobacco use Status Tobacco use date assessed 07/18/23 07/18/23 11:49 Patient Tobacco Use Status Never used Tobacco 07/18/23 11:49 e-Cigarette/Vaping Use Never Used 07/18/23 11:49 PHQ-9: PHQ-9 Score PHQ-9: Total score 13 07/18/23 12:45 Depression Screening Interpretation: Positive Depression Screening Follow-up: Existing condition, In treatment and Community Mental Health Worker F/U (Still awaiting appointment for a therapist) Thrive Assessment: Date of Thrive Assessment Date Thrive assessed 11/29/22 07/18/23 11:49 Const General: comfortable, no acute distress and Physically active Nutritional Appearance: obese Orientation/consciousness: patient oriented x3 HENMT Head: Yes normocephalic Face and sinus: Yes face symmetric Mouth: Normal oral and palatal mucosa present, tongue normal, oropharynx normal and moist mucous membranes Neck Neck: Yes full ROM, Yes no lymphadenopathy and Yes supple Resp Effort & Inspection: normal respiratory effort Auscultation: clear to auscultation bilaterally and no wheezes Cardio Rate: regular rate Rhythm: regular rhythm Heart sounds: S1 normal heart sound present and S2 normal heart sound present Peripheral pulses: dorsalis pedis present GI Inspection: Yes Abdominal panniculus present and Yes obesity Palpation (GI): Soft to palpation, nontender, no guarding and no masses Auscultation: normal bowel sounds Neuro General: patient oriented x3, gait normal, moves all extremities and no focal motor deficits Extrem General: No edema Psych Appearance: grossly normal and well kempt Mental Status: mental status grossly normal Speech and movement: Normal speech and movement present Affect: Anxious affect present Attitude: cooperative Thought process: Normal thought process present Thought content: Normal thought content present Assessment and Plan Assessment & Plan (1) Mixed anxiety and depressive disorder: Code(s): F41.8 - Other specified anxiety disorders Plan: Increased buspirone dose to 10 mg 1 tablet taken twice a day, and prescription also sent for hydroxyzine 10 mg per tablet to take 1 tablet at bedtime only as needed for acute anxiety attacks and difficulty sleeping. Referred for counseling, still waiting for appointment.. Discussed other ways to relieve stress including : exercise or a massage, Get enough rest, Avoid alcohol, caffeine, nicotine, and illegal drugs which can increase your anxiety level and cause sleep problems. Medications: New hydroxyzine HCl 10 mg PO BEDTIME PRN 30 tabs 1RF acute anxiety attack/ difficulty sleeping Changed From buspirone 5 mg PO TID 90 tabs 2RF F41.0 - Panic disorder [episodic paroxysmal anxiety], F41.1 - Generalized anxiety disorder To buspirone 10 mg PO BID 60 tabs 1RF F41.0 - Panic disorder [episodic paroxysmal anxiety], F41.1 - Generalized anxiety disorder Coding Level of Care Code Est Pt Level 3 (67886) Diagnoses Mixed anxiety and depressive disorder F41.8 Additional Codes ANUSHKA-7 Assessment Billing - ANUSHKA-7 Assessment Tool: ANUSHKA-7 Assessment 83090 ([id number])
== END 2023-07-18 12:47 | disposition home or self-care (01) ==
PROVIDERS: PCP Internal Medicine; Visit Provider Internal Medicine
DX: F41.8 Other specified anxiety disorders (principal)
CPT/HCPCS: 96127; 99213

== ENCOUNTER 2023-07-24 13:45 | Outpatient (AMB) | payer OTHER, SELFPAY ==
--- NOTE | 2023-07-24 13:50 | A.OFFVIS_ITS ---
Intake Vital Signs 07/24/23 13:52 Height 5 ft Weight 198 lb 6.656 oz BMI 38.7 BP 126/78 Blood Pressure Location Rt brachial Position Sitting Pulse 85 Pulse Source Doppler Pulse Oximetry (%) 96 Oxygen Delivery Method Room Air Intake Visit Reasons: dyspnea Allergies No Known Allergies Allergy (Mild, Verified 07/24/23 13:58) NKA HPI dyspnea HPI Details 62-year-old lady, nonsmoker, with underl natanael history of asthma and COV ID 19 requiring prolonged hospitalization in the August 2020, discharged on supplemental oxygen 3 L continuous flow.? She no longer uses supplemental oxygen.? After the last office visit patient has received her CPAP and started using it with some improvement in her TALIB symptoms. She also continues on Symbicort, albuterol MDI and nebs with reasonable control of her underlying asthma symptoms. Her Lasix was increased at the last office visit with only marginal improvement in her lower extremity edema and orthopnea. [facility] Medical History (Updated 07/24/23 @ 14:09 by Keaton Reardon MD) Mixed anxiety and depressive disorder Sleeping difficulty Generalized anxiety disorder with panic attacks Colon cancer screening History of respiratory failure [id number] condition Deformity of left forearm, excluding fingers Hearing loss Hypovitaminosis D Insomnia GERD (gastroesophageal reflux disease) Mild asthma Essential hypertension Surgical History History of tubal ligation Family History Father Kidney failure, acute Asthma Mother Heart disease Cancer Sister Kidney disease Brother Kidney failure, acute Son Bipolar 1 disorder Mental health disorder Family/Other FH: mental illness Social History Household Members: Children Housing: House Do you presently have visiting nurse or other home services: No Alcohol intake: never Patient Tobacco Use Status: Never used Tobacco e-Cigarette/Vaping Use: Never Used Second Hand Smoke Exposure: Yes service: No Current occupational status: disabled Cognitive needs: Yes Hearing needs: No Vision needs: Yes Review of Systems Const Denies daytime sleepiness, Denies excessive sweating, Denies fatigue, Denies fever(s), Denies lethargy, Denies malaise, Denies night sweats, Denies snoring and Denies weight loss Eyes Denies blurry vision and Denies itchy eyes ENT Denies nasal congestion, Denies post nasal drip, Denies sinus pain, Denies sinus pressure and Denies other ( Thrush) Card Denies chest pain, Reports pedal edema, Denies dyspnea, Reports dyspnea on exertion, Reports orthopnea and Denies paroxysmal nocturnal dyspnea Resp Denies cough, Denies hemoptysis, Denies excessive phlegm production, Denies dyspnea, Reports dyspnea on exertion, Denies snoring and Denies wheezing GI Denies abdominal pain and Denies heartburn Musc Denies myalgias, Denies arthralgias and Denies joint swelling Skin/Breast Denies rash Neuro Denies memory loss and Denies seizure-like activity Psych Denies abnormal sleep pattern, Denies anxiety and Denies memory loss Endo Denies excessive sweating, Denies fatigue and Denies heat intolerance Roosevelt/Lymph Denies easy bruising Aller/Immun Denies itchy eyes, Denies seasonal rhinorrhea and Denies wheezing Physical Exam Vital Signs: Last Vital Signs Pulse 85 07/24/23 13:52 BP 126/78 07/24/23 13:52 Pulse Ox 96 07/24/23 13:52 Oxygen Delivery Method Room Air 07/24/23 13:52 BMI result Body Mass Index 38.7 Const General: no acute distress and alert Nutritional Appearance: obese Orientation/consciousness: Other orientation findings ( oriented) HEENT Head: Yes atraumatic Eyes General: appearance normal, both eyes and all related structures Sclerae: sclerae normal EOM: EOMs intact bilaterally Neck Neck: Yes supple Lymphatic: no lymphadenopathy noted Resp Effort & Inspection: normal respiratory effort and no use of accessory muscles Auscultation: clear to auscultation bilaterally Cardio Rate: regular rate Rhythm: regular rhythm Heart sounds: no gallops, no murmurs and no rubs Skin General skin exam: other ( warm) Extrem General: No clubbing, No cyanosis and Yes edema (1+ bilateral) Assessment & Plan Assessment & Plan (1) TALIB (obstructive sleep apnea): Code(s): G47.33 - Obstructive sleep apnea (adult) (pediatric) Plan: Improving control on CPAP therapy. Continue CPAP therapy. (2) Orthopnea: Code(s): R06.01 - Orthopnea Plan: Suboptimal response to Lasix, will switch to Bumex 1 mg daily. (3) Mild asthma: Code(s): J45.909 - Unspecified asthma, uncomplicated Plan: Baseline well controlled on Symbicort, albuterol MDI/nebs. Continue current regimen. Coding Level of Care Code Est Pt Level 4 (68944) Diagnoses TALIB (obstructive sleep apnea) G47.33 Orthopnea R06.01 Mild asthma J45.909
[2023-07-24 13:52] VITALS: BP 126/78; PULSE 85; O2SAT 96; BMI 38.7
== END 2023-07-24 14:07 | disposition home or self-care (01) ==
PROVIDERS: PCP Internal Medicine; Visit Provider Internal Medicine Pulmonary Disease
DX: G47.33 Obstructive sleep apnea (adult) (pediatric) (principal); R06.01 Orthopnea; J45.909 Unspecified asthma, uncomplicated
CPT/HCPCS: 99214

== ENCOUNTER → 2023-07-24 13:45 | Outpatient (BNVA) | payer OTHER, SELFPAY | PROVIDERS: PCP Internal Medicine; Visit Provider Internal Medicine Pulmonary Disease | DX: G47.33 Obstructive sleep apnea (adult) (pediatric) (principal); J45.909 Unspecified asthma, uncomplicated; R06.01 Orthopnea | CPT/HCPCS: 99212 ==

== ENCOUNTER 2023-09-09 10:58 | Outpatient (REF) | payer OTHER, SELFPAY ==
[2023-09-09 14:09] LABS: Cholesterol 200 mg/dL (<200); HDL Cholesterol 68 mg/dL (>40); LDL Cholesterol Calculated 114 mg/dL (<100); Triglycerides 92 mg/dL (<150)
== END 2023-09-09 10:59 | disposition home or self-care (01) ==
LOC: HO.HMGCLDS 10:58
PROVIDERS: PCP Nurse Practitioner Family; Visit Provider Nurse Practitioner Family
DX: Z13.220 Encounter for screening for lipoid disorders (principal)
CPT/HCPCS: 36415; 80061

== ENCOUNTER 2023-09-11 09:06 | Outpatient (AMB) | payer OTHER, SELFPAY ==
[2023-09-11 09:45] VITALS: BP 110/76; PULSE 88; O2SAT 96; BMI 38.3
--- NOTE | 2023-09-11 09:45 | A.OFFPC_ITS ---
Vital Signs 09/11/23 09:45 Height 5 ft Weight 196 lb BMI 38.3 BP 110/76 Blood Pressure Location Lt brachial Position Sitting Pulse 88 Pulse Source Pulse Oximeter Pulse Oximetry (%) 96 Oxygen Delivery Method Room Air Intake Visit Reasons: f/u lipids Intake Note: Pt is here today for her lab results Allergies No Known Allergies Allergy (Mild, Verified 09/11/23 10:02) NKA Medication List - Last Reconciled 09/11/23 by Mitzy Teague MD acetaminophen 1,000 mg (2 x 500 mg) PO Q6H PRN 30 days albuterol sulfate 1.25 mg (3 mL) inhalation Q4-6H PRN baclofen 10 mg PO BEDTIME PRN budesonide-formoterol 160-4.5 mcg/actuation (Symbicort) 2 puffs inhalation BID 30 days bumetanide 1 mg PO DAILY buspirone 10 mg PO BID diclofenac sodium 1% 4 grams topical hydroxyzine HCl 10 mg PO BEDTIME PRN lisinopril 10 mg PO DAILY nebulizers (AeroEclipse II Nebulizer) As directed omeprazole 40 mg PO DAILY Ventolin HFA 90 mcg/actuation (albuterol sulfate) 2 puffs inhalation Q4-6H PRN 30 days NS Tobacco use date assessed: 09/11/23 Dental Screening Dental Screen Date: 09/11/23 Did you have a dental visit in the last 12 months?: Yes Did you have a dental problem in the last 6 months where you did not have access to dental care?: No Was dental information given to patient?: Patient has dentist HPI f/u lipids HPI Details 62-year-old lady with gastroesophageal r eflux disease currently on omeprazole 40 mg capsule daily. Patient states that she has been feeling better on medication, has not had any heartburn episodes, would like to see if she can go down her dose or take it only as needed.. Complains of a pruritic rash on abdomen and extremities, no relief with using [id number] calamine lotion or moisturizer. No history of any recent travel, no history of tick bites Had recent fasting labs done which showed lipids within normal [facility] Medical History (Updated 09/11/23 @ 10:15 by Mitzy Teague MD) Vitamin D deficiency Rash and nonspecific skin eruption Mixed anxiety and depressive disorder Sleeping difficulty Generalized anxiety disorder with panic attacks Colon cancer screening History of respiratory failure [id number] condition Deformity of left forearm, excluding fingers Hearing loss Hypovitaminosis D Insomnia GERD (gastroesophageal reflux disease) Mild asthma Essential hypertension Surgical History History of tubal ligation Family History Father Kidney failure, acute Asthma Mother Heart disease Cancer Sister Kidney disease Brother Kidney failure, acute Son Bipolar 1 disorder Mental health disorder Family/Other FH: mental illness Social History Household Members: Children Housing: House Do you presently have visiting nurse or other home services: No Alcohol intake: never Patient Tobacco Use Status: Never used Tobacco e-Cigarette/Vaping Use: Never Used Second Hand Smoke Exposure: Yes service: No Current occupational status: disabled Cognitive needs: Yes Hearing needs: No Vision needs: Yes Questionnaire Thrive Questionnaire Date Thrive assessed: 09/11/23 I am a: Patient What is your living situation today?: I have a steady place to live Within the past 12 months, did the food you bought not last and you didn't have the money to get more?: Never true Within the past 12 months, did you worry whether your food would run out before you got money to buy more?: Never true Do you have trouble paying for medicines?: No Do you have trouble getting transportation to medical appointments?: No Do you have trouble paying your heating and electricity bill?: No Do you have trouble taking care of your child, family member or friend?: No Do you have trouble with day-to-day activities such as bathing, preparing meals, shopping, managing finances, etc.?: No Are you currently unemployed and looking for a job?: No Are you interested in more education?: No THRIVE Score: 0 AUDIT C Alcohol Use Questionnaire (AUDIT-C) 1. How often do you have a drink containing alcohol?: Never Total Score: 0 ANUSHKA-7 AMB Questionnaire ANUSHKA-7 Date ANUSHKA - 7 assessed: 07/18/23 Source: Developed by Drs. Breezy Haas, Radha B.W. Bobby Ernandez and colleagues, with an educational ernestina from [employer]. Review of Systems Const All systems reviewed & are unremarkable except as noted in HPI and below Reports no additional complaints Physical exam (Primary Care) Vital Signs: Last Vital Signs Pulse 88 09/11/23 09:45 BP 110/76 09/11/23 09:45 Pulse Ox 96 09/11/23 09:45 Oxygen Delivery Method Room Air 09/11/23 09:45 BMI result Body Mass Index 38.3 Tobacco/Smoking Status: Tobacco use Status Tobacco use date assessed 09/11/23 09/11/23 09:54 Patient Tobacco Use Status Never used Tobacco 09/11/23 09:48 e-Cigarette/Vaping Use Never Used 09/11/23 09:48 Thrive Assessment: Date of Thrive Assessment Date Thrive assessed 09/11/23 09/11/23 09:56 Const Other: Alert oriented x3, no acute distress noted ambulatory normal gait Resp Auscultation: clear to auscultation bilaterally Cardio Other: S1-S2 present regular rate and rhythm GI Other: Normal bowel sounds, nontender to palpation, no mass palpated Skin Other: With edematous slightly raised patches trunk and extremities Results Reviewed Results Reviewed: Name: Lisa Sales Age/Sex: 62/F : 1960 Unit#: [id number] Attend Dr: Natasha Roque Re09/09/23 Status: DEP REF Location: [facility] Disch: SPEC : [id number] RHIANNA: 09/09/23 STATUS: COMP REQ : [id number] RECD: 09/09/23-[address]: Natasha Roque COMP: 09/09/23-1409 ENTERED: 09/09/23-[address]: ORDERED: Lipid Panel Test Result Flag Reference Triglyceride 92 <150 mg/dL Desirable Triglyceride: less than 150 mg/dL Borderline High Triglyceride 150-199 mg/dL High Triglyceride: 200-499 mg/dL Very High Triglyceride: greater than or equal to 5OO mg/dL Cholesterol 200 H <200 mg/dL Desirable Cholesterol: less than 200 mg/dL Borderline High Cholesterol: 200-239 mg/dL High Cholesterol: greater than 239 mg/dL LDL Calculated 114 H <100 mg/dL Desirable LDL: less than 100 mg/dL Near Optimal/Above Optimal LDL: 110-129 mg/dL Borderline High LDL: 130-159 mg/dL High LDL: 160-189 mg/dL Very High LDL: greater than or equal to 190 mg/dL HDL 68 >40 mg/dL Desirable HDL: greater than 40 mg/dL Note: This HDL assay may give artificially low results in patients with liver disease. Assessment and Plan Assessment & Plan (1) GERD (gastroesophageal reflux disease): Code(s): K21.9 - Gastro-esophageal reflux disease without esophagitis Qualifiers: Esophagitis presence: esophagitis presence not specified Qualified Code(s): K21.9 - Gastro-esophageal reflux disease without esophagitis Plan: Patient states that heartburn symptoms are controlled on omeprazole 40 mg taken daily, has been on the medication for years.. Would like to decrease her dose, prescription sent for 20 mg capsules to take 1 capsule once a day as needed for heartburn symptoms. Avoidance of food triggers for heartburn discussed with patient. Referred to GI Clinic for further evaluation (2) Rash: Code(s): R21 - Rash and other nonspecific skin eruption Plan: Prescription sent for clobetasol cream, apply to affected area sparingly no more than twice a day for 10 days. Referred to dermatology for further evaluation management (3) Vitamin D deficiency: Code(s): E55.9 - Vitamin D deficiency, unspecified Plan: As noted on last lab a year ago, her vitamin-D level was low, advised to take [id number] vitamin-D 3 at 2000 units daily Orders: Referrals Gastroenterology Referral K21.9 - Gastro-esophageal reflux disease without esophagitis Dermatology Referral R21 - Rash and other nonspecific skin eruption Medications: New clobetasol 0.05% 1 appl topical BID 10 days 30 grams 0RF R21 - Rash and other nonspecific skin eruption cholecalciferol (vitamin D3) 50 mcg PO DAILY 90 caps 1RF E55.9 - Vitamin D deficiency, unspecified Changed From omeprazole 40 mg PO DAILY 90 caps 1RF K21.9 - Gastro-esophageal reflux disease without esophagitis To omeprazole 20 mg PO DAILY 30 caps 1RF K21.9 - Gastro-esophageal reflux disease without esophagitis Coding Level of Care Code Est Pt Level 4 (65127) Diagnoses Gastroesophageal reflux disease, unspecified whether esophagitis present K21.9 Esophagitis presence: esophagitis presence not specified Rash R21 Vitamin D deficiency E55.9
== END 2023-09-11 11:58 | disposition home or self-care (01) ==
PROVIDERS: PCP Internal Medicine; Visit Provider Internal Medicine
DX: K21.9 Gastro-esophageal reflux disease without esophagitis (principal); R21 Rash and other nonspecific skin eruption; E55.9 Vitamin D deficiency, unspecified
CPT/HCPCS: 99214

== ENCOUNTER 2023-09-25 13:09 | Outpatient (AMB) | payer OTHER, SELFPAY ==
[2023-09-25 13:19] VITALS: BP 134/82; PULSE 76; O2SAT 96; BMI 38.5
--- NOTE | 2023-09-25 13:19 | A.OFFVIS_ITS ---
Vital Signs 09/25/23 13:19 Height 5 ft Weight 197 lb 5.019 oz BMI 38.5 BP 134/82 Blood Pressure Location Rt brachial Position Sitting Pulse 76 Pulse Source Doppler Pulse Oximetry (%) 96 Oxygen Delivery Method Room Air Intake Visit Reasons: dyspnea Allergies No Known Allergies Allergy (Mild, Verified 09/11/23 10:02) NKA HPI HPI dyspnea: Details: 62-year-old lady, nonsmoker, with underlying history of asthma and COVID 19 requiring prolonged hospitalization in the August 2020, discharged on [place] pplemental oxygen 3 L continuous flow.? She no longer uses supplemental oxygen.? She has been using CPAP with good control of her underlying obstructive sleep apnea. Patient also has been using Symbicort, albuterol MDI, and nebs with reasonable control of her asthma symptoms. Patient is continue to complain of dyspnea on exertion and lower extremity edema with only minimal improvement on Bumex therapy. [facility] Medical History (Updated 09/25/23 @ 13:44 by Keaton Reardon MD) Vitamin D deficiency Rash and nonspecific skin eruption Mixed anxiety and depressive disorder Sleeping difficulty Generalized anxiety disorder with panic attacks Colon cancer screening History of respiratory failure [id number] condition Deformity of left forearm, excluding fingers Hearing loss Hypovitaminosis D Insomnia GERD (gastroesophageal reflux disease) Mild asthma Essential hypertension Surgical History History of tubal ligation Family History Father Kidney failure, acute Asthma Mother Heart disease Cancer Sister Kidney disease Brother Kidney failure, acute Son Bipolar 1 disorder Mental health disorder Family/Other FH: mental illness Social History Household Members: Children Housing: House Do you presently have visiting nurse or other home services: No Alcohol intake: never Patient Tobacco Use Status: Never used Tobacco e-Cigarette/Vaping Use: Never Used Second Hand Smoke Exposure: Yes service: No Current occupational status: disabled Cognitive needs: Yes Hearing needs: No Vision needs: Yes Review of Systems Const Denies daytime sleepiness, Denies excessive sweating, Denies fatigue, Denies fever(s), Denies lethargy, Denies malaise, Denies night sweats, Denies snoring and Denies weight loss Eyes Denies blurry vision and Denies itchy eyes ENT Denies nasal congestion, Denies post nasal drip, Denies sinus pain, Denies sinus pressure and Denies other ( Thrush) Card Denies chest pain, Reports pedal edema, Denies dyspnea, Reports dyspnea on exertion, Reports orthopnea and Denies paroxysmal nocturnal dyspnea Resp Denies cough, Denies hemoptysis, Denies excessive phlegm production, Denies dyspnea, Reports dyspnea on exertion, Denies snoring and Denies wheezing GI Denies abdominal pain and Denies heartburn Musc Denies myalgias, Denies arthralgias and Denies joint swelling Skin/Breast Denies rash Neuro Denies memory loss and Denies seizure-like activity Psych Denies abnormal sleep pattern, Denies anxiety and Denies memory loss Endo Denies excessive sweating, Denies fatigue and Denies heat intolerance Roosevelt/Lymph Denies easy bruising Aller/Immun Denies itchy eyes, Denies seasonal rhinorrhea and Denies wheezing Physical Exam Vital Signs: Last Vital Signs Pulse 76 09/25/23 13:19 BP 134/82 09/25/23 13:19 Pulse Ox 96 09/25/23 13:19 Oxygen Delivery Method Room Air 09/25/23 13:19 BMI result Body Mass Index 38.5 Const General: no acute distress and alert Nutritional Appearance: obese Orientation/consciousness: Other orientation findings ( oriented) HEENT Head: Yes atraumatic Eyes General: appearance normal, both eyes and all related structures Sclerae: sclerae normal EOM: EOMs intact bilaterally Neck Neck: Yes supple Lymphatic: no lymphadenopathy noted Resp Effort & Inspection: normal respiratory effort and no use of accessory muscles Auscultation: clear to auscultation bilaterally Cardio Rate: regular rate Rhythm: regular rhythm Heart sounds: no gallops, no murmurs and no rubs Skin General skin exam: other ( warm) Extrem General: No clubbing, No cyanosis and Yes edema (1+ bilateral) Assessment & Plan Assessment & Plan (1) Dyspnea on exertion: Code(s): R06.09 - Other forms of dyspnea Category: Medical Plan: Appears to be multifactorial with contribution from pulmonary, cardiac, and deconditioning etiologies. Will obtain 2D echocardiogram to evaluate cardiac component. Continue Bumex 1 mg daily. (2) Mild asthma: Code(s): J45.909 - Unspecified asthma, uncomplicated Category: Medical Plan: Well controlled on Symbicort and albuterol MDI/nebs. Continue current regimen. Orders: Orders CA echo transthoracic complete Today R06.09 - Other forms of dyspnea Coding Level of Care Code Est Pt Level 4 (80304) Diagnoses Dyspnea on exertion R06.09 Mild asthma J45.909
== END 2023-09-25 13:43 | disposition home or self-care (01) ==
PROVIDERS: PCP Internal Medicine; Visit Provider Internal Medicine Pulmonary Disease
DX: R06.09 Other forms of dyspnea (principal); J45.909 Unspecified asthma, uncomplicated
CPT/HCPCS: 99214

== ENCOUNTER → 2023-09-25 13:09 | Outpatient (BNVA) | payer OTHER, SELFPAY | PROVIDERS: PCP Internal Medicine; Visit Provider Internal Medicine Pulmonary Disease | DX: R06.09 Other forms of dyspnea (principal); J45.909 Unspecified asthma, uncomplicated; Z79.899 Other long term (current) drug therapy | CPT/HCPCS: 99212 ==

== ENCOUNTER → 2023-11-05 10:55 | Outpatient (REF) | payer OTHER, SELFPAY ==
--- NOTE | 2023-11-05 10:58 | CA_ITS ---
Transthoracic Echocardiogram Patient (Last, First, Middle): Lisa Sales D Gender: Female Date of : 1960 Age: 62 Procedure Date: 11/05/2023 Procedure Type: Transthoracic Echocardiogram Location: OP Height: 154.94 cm Weight: 88.45 kg BSA: 1.87 m2 Heart Rate: bpm BP: 124 / 60 mmHg Bee Keeper: Referring MD: Keaton Reardon MD Safety Professional: Fredy Tierney MD Symptoms: R06.09 - Other forms of dyspnea Study Quality: Good ECG Rhythm: Sinus Conclusions: - 1. Normal LV ejection fraction 55-60% with impaired relaxation filling pattern 2. Moderately dilated left atrium 3. Normal cardiac valvular Dopplers 4. Normal RV systolic pressure 5. No gross pericardial effusion Findings Left Ventricle Normal left ventricular size, thickness, and systolic function. The visually estimated ejection fraction is between 55-60%. Spectral Doppler is indicative of an impaired relaxation filling pattern. E/E prime ratio is between 8 and 15 consistent with indeterminate filling pressures. Right Ventricle Normal right ventricular cavity size and systolic function. Atria The left atrium is moderately dilated. Interatrial shunt cannot be excluded. The right atrium is likely dilated. Aortic Valve Normal aortic valve structure and function. There is mild calcification of the aortic valve. There is no aortic valve stenosis. There is no aortic valve regurgitation. Mitral Valve There is mild posterior mitral leaflet thickening. There is mild mitral annular calcification. There is trace mitral valve regurgitation. There is no mitral valve stenosis. Pulmonic Valve The pulmonic valve is likely normal. Tricuspid Valve Normal tricuspid valve structure. There is trace tricuspid valve regurgitation. The right ventricular systolic pressure is normal. The right ventricular systolic pressure is 23 mmHg. Normal right atrial pressure. There is no evidence of pulmonary hypertension. Great Vessels The pulmonary artery was not well visualized. There is no dilatation of the ascending aorta measuring 3.20 cm. Venous The inferior vena cava is normal in size and collapses greater than 50% with inspiration. Pericardium/Pleural There is no evidence of pericardial effusion. Prior Study Comparison No significant change compared to prior study dated: 03/06/2021. RV systolic function appears normal on this study Measurements 2D Linear Measurements IVSd: 1.09 0.6-0.9/0.6-1.0 cm LVIDd: 4.33 3.9-5.3/4.2-5.9 cm LVIDd Index: 2.32 2.4-3.2/2.2-3.1 cm/m2 LVIDs: 2.88 2.0-3.6 cm LVPWd: 1.07 0.7-1.1 cm Ao Root: 2.90 2.1-3.5 cm LA Diam: 4.30 2.7-3.8/3.0-4.0 cm LAIDs Index: 2.30 1.5-2.3 cm/m2 LV Mass: 199.86 67-162/88-224 g LV Mass Index: 106.88 43-95/49-115 g/m2 LVOT Diam: 2.10 3.0+(-)1.3 cm 2D Systolic Function EF 4C: 57.20 >55% EF 2C: 58.10 >55% EF BiP: 59.10 >55% Mitral Valve MV Pk E: 1.18 MV PK A: 1.05 MV Decel Time: 145.00 E/A: 1.10 E'Lateral: 10.80 E'Medial: 6.74 E/E' Med: 17.50 E/E' Lat: 10.90 PHT: 43.00 MVA PHT: 5.12 Decel [place]: 8.14 Aortic Valve AoV Pk Trace: 1.78 AoV Mn Trace: 1.15 AoV VTI: 0.41 AoV Pk Grad: 13.00 Aov Mn Grad: 6.00 BECKY Cont.VTI: 2.16 LVOT LVOT Pk Trace: 1.07 LVOT Mn Trace: 0.72 LVOT VTI: 0.25 LVOT Pk Grad: 5.00 LVOT Mn Grad: 2.00 LVOT Diam: 2.10 LVOT Area: 3.46 Diastolic Function MV Pk E: 1.18 MV Pk A: 1.05 E/A: 1.10 E'Medial: 6.74 E/E' Med: 17.50 E' Laterial: 10.80 E/E' Lat: 10.90 Right Ventricle TAPSE (mm): 22.00 TVS' Trace: 12.00 Tricuspid Valve TR Pk Trace: 2.24 TR Pk Grad: 20.00 RA Press: 3.00 RVSP: 23.00 Great Vessels Aorta Ao Root-2D: 2.90 2.0-3.7 cm Ao Asc: 3.20 2.1-3.4 cm Pulmonary Valve PV Pk Trace: 1.10 Peak PV Grad: 5.00 Updated in Other Vendor System with Status of Final Fredy Tierney MD electronically signed on 11/05/2023 5:22:45 PM with status of Final
== END ==
LOC: HO.CARD 10:55
PROVIDERS: Visit Provider Internal Medicine Pulmonary Disease
DX: R06.00 Dyspnea, unspecified (principal)
CPT/HCPCS: 93306

== ENCOUNTER → 2023-11-05 10:58 | Outpatient (BNV) | payer OTHER, SELFPAY | PROVIDERS: Visit Provider Internal Medicine Cardiovascular Disease | DX: I35.8 Other nonrheumatic aortic valve disorders (principal); I34.81 Nonrheumatic mitral (valve) annulus calcification | CPT/HCPCS: 93306 ==

== ENCOUNTER 2023-11-06 14:31 | Outpatient (AMB) | payer OTHER, SELFPAY ==
[2023-11-06 14:34] VITALS: BP 134/72; PULSE 99; O2SAT 96; BMI 39.4
--- NOTE | 2023-11-06 14:34 | A.OFFVIS_ITS ---
Vital Signs 11/06/23 14:34 Height 5 ft Weight 202 lb BMI 39.4 BP 134/72 Blood Pressure Location Lt brachial Position Sitting Pulse 99 Pulse Source Doppler Pulse Oximetry (%) 96 Oxygen Delivery Method Room Air Intake Visit Reasons: Dyspnea Allergies No Known Allergies Allergy (Mild, Verified 11/06/23 14:38) NKA HPI HPI Dyspnea: Details: 62-year-old lady, nonsmoker, with underlying history of asthma and COVID 19 requiring prolonged hospitalization in the August 2020, discharged on supplementa l oxygen 3 L continuous flow.? She no longer uses supplemental oxygen.? She has been using CPAP with good control of her underlying obstructive sleep apnea. Patient also has been using Symbicort, albuterol MDI, and nebs with reasonable control of her asthma symptoms. Her lower extremity edema is controlled on current Bumex At 1 mg daily. She did complete her 2D echo that showed underlying diastolic dysfunction. [facility] Medical History (Updated 11/06/23 @ 14:56 by Keaton Reardon MD) Vitamin D deficiency Rash and nonspecific skin eruption Mixed anxiety and depressive disorder Sleeping difficulty Generalized anxiety disorder with panic attacks Colon cancer screening History of respiratory failure [id number] condition Deformity of left forearm, excluding fingers Hearing loss Hypovitaminosis D Insomnia GERD (gastroesophageal reflux disease) Mild asthma Essential hypertension Surgical History History of tubal ligation Family History Father Kidney failure, acute Asthma Mother Heart disease Cancer Sister Kidney disease Brother Kidney failure, acute Son Bipolar 1 disorder Mental health disorder Family/Other FH: mental illness Social History Household Members: Children Housing: House Do you presently have visiting nurse or other home services: No Alcohol intake: never Patient Tobacco Use Status: Never used Tobacco e-Cigarette/Vaping Use: Never Used Second Hand Smoke Exposure: Yes service: No Current occupational status: disabled Cognitive needs: Yes Hearing needs: No Vision needs: Yes Review of Systems Const Denies daytime sleepiness, Denies excessive sweating, Denies fatigue, Denies fever(s), Denies lethargy, Denies malaise, Denies night sweats, Denies snoring and Denies weight loss Eyes Denies blurry vision and Denies itchy eyes ENT Denies nasal congestion, Denies post nasal drip, Denies sinus pain, Denies sinus pressure and Denies other ( Thrush) Card Denies chest pain, Denies pedal edema, Denies dyspnea, Reports dyspnea on exertion, Denies orthopnea and Denies paroxysmal nocturnal dyspnea Resp Denies cough, Denies hemoptysis, Denies excessive phlegm production, Denies dyspnea, Reports dyspnea on exertion, Denies snoring and Denies wheezing GI Denies abdominal pain and Denies heartburn Musc Denies myalgias, Denies arthralgias and Denies joint swelling Skin/Breast Denies rash Neuro Denies memory loss and Denies seizure-like activity Psych Denies abnormal sleep pattern, Denies anxiety and Denies memory loss Endo Denies excessive sweating, Denies fatigue and Denies heat intolerance Roosevelt/Lymph Denies easy bruising Aller/Immun Denies itchy eyes, Denies seasonal rhinorrhea and Denies wheezing Physical Exam Vital Signs: Last Vital Signs Pulse 99 11/06/23 14:34 BP 134/72 11/06/23 14:34 Pulse Ox 96 11/06/23 14:34 Oxygen Delivery Method Room Air 11/06/23 14:34 BMI result Body Mass Index 39.4 Const General: no acute distress and alert Nutritional Appearance: obese Orientation/consciousness: Other orientation findings ( oriented) HEENT Head: Yes atraumatic Eyes General: appearance normal, both eyes and all related structures Sclerae: sclerae normal EOM: EOMs intact bilaterally Neck Neck: Yes supple Lymphatic: no lymphadenopathy noted Resp Effort & Inspection: normal respiratory effort and no use of accessory muscles Auscultation: clear to auscultation bilaterally Cardio Rate: regular rate Rhythm: regular rhythm Heart sounds: no gallops, no murmurs and no rubs Skin General skin exam: other ( warm) Extrem General: No clubbing, No cyanosis and No edema Assessment & Plan Assessment & Plan (1) Dyspnea on exertion: Code(s): R06.09 - Other forms of dyspnea Category: Medical Plan: multifactorial with contribution from underlying pulmonary, cardiac, and obesity / deconditioning etiologies. Results of 2D echocardiogram reviewed. Underlying diastolic dysfunction with left atrial enlargement and no evidence of AFib or significant mitral valve disease. Continue Bumex 1 mg daily. (2) Obesity: Code(s): E66.9 - Obesity, unspecified Category: Medical Plan: Patient has been advised on gradated exercise program. (3) Mild asthma: Code(s): J45.909 - Unspecified asthma, uncomplicated Category: Medical Plan: Well controlled on current regimen of Symbicort and albuterol MDI. Continue current regimen. Coding Level of Care Code Est Pt Level 4 (79113) Diagnoses Dyspnea on exertion R06.09 Obesity E66.9 Mild asthma J45.909
== END 2023-11-06 14:54 | disposition home or self-care (01) ==
PROVIDERS: PCP Internal Medicine; Visit Provider Internal Medicine Pulmonary Disease
DX: R06.09 Other forms of dyspnea (principal); E66.9 Obesity, unspecified; J45.909 Unspecified asthma, uncomplicated
CPT/HCPCS: 99214

== ENCOUNTER → 2023-11-06 14:31 | Outpatient (BNVA) | payer OTHER, SELFPAY | PROVIDERS: PCP Internal Medicine; Visit Provider Internal Medicine Pulmonary Disease | DX: R06.09 Other forms of dyspnea (principal); J45.909 Unspecified asthma, uncomplicated; E66.9 Obesity, unspecified | CPT/HCPCS: 99212 ==

== ENCOUNTER 2023-12-02 12:21 | Outpatient (AMB) | payer OTHER, SELFPAY ==
--- NOTE | 2023-12-02 12:33 | MHC.OFFVIS ---
Vital Signs 12/02/23 12:35 Height 5 ft Weight 205 lb 0.478 oz BMI 40.0 BP 141/66 H Blood Pressure Location Lt brachial Position Sitting Pulse 69 Intake Visit Reasons: Gastroesophageal reflux disease (GERD) Intake Note: Lisa presents in the office as a new patient for GERD. CC: She states that she is here today for acid reflux - she states omeprazole works but PCP did not want her to continue to give her to. She got OTC but it was not working like that. Claims Agent Right Of Way Required: No Allergies No Known Allergies Allergy (Mild, Verified 12/02/23 12:35) NKA HPI HPI Gastroesophageal reflux disease (GERD): Details: She is delighted to learn that the Cologuard test is negative. Given her severe comorbid respiratory disease, we will repeat this every 3 years and only consider the risk vs benefit of colonoscopy if the test is positive. I will put her on a 3 year recall list for this. ROV prn. COLOGUARD RESULTS negative TODAY'S VISIT Chinese #dtr translates per pt request It appears she is here for a new complaint of GERD. She is currently on omeprazole 20mg qd from her PCP. No abd pain, no N/V, no CIC. Will get DEXA to address any possible osteoporosis concerns although this is low if pat takes in enough ca+. Also barium swallow, EGD, HP stool. Renewing o2o 20mg qd. Given the fact that this is a very low dose in fact even available [id number] I think that generally long-term use in her case is reasonable to offset any possibility of esophageal cancer. ROV after visits. [facility] Medical History (Updated 12/02/23 @ 12:59 by MIKEY Mckay) Vitamin D deficiency Rash and nonspecific skin eruption Mixed anxiety and depressive disorder Sleeping difficulty Generalized anxiety disorder with panic attacks Colon cancer screening History of respiratory failure [id number] condition Deformity of left forearm, excluding fingers Hearing loss Hypovitaminosis D Insomnia GERD (gastroesophageal reflux disease) Mild asthma Essential hypertension Surgical History (Updated 12/02/23 @ 12:36 by GERRI Barahona) Hx of colonoscopy History of tubal ligation Family History Father Kidney failure, acute Asthma Mother Heart disease Cancer Sister Kidney disease Brother Kidney failure, acute Son Bipolar 1 disorder Mental health disorder Family/Other FH: mental illness Social History Household Members: Children Housing: House Do you presently have visiting nurse or other home services: No Alcohol intake: never Patient Tobacco Use Status: Never used Tobacco e-Cigarette/Vaping Use: Never Used Second Hand Smoke Exposure: Yes service: No Current occupational status: disabled Cognitive needs: Yes Hearing needs: No Vision needs: Yes Review of Systems Const Denies fatigue, Denies fever(s), Denies night sweats, Denies poor appetite and Denies weight loss ENT Reports Normal hearing present, Denies dental pain, Denies dysphagia, Denies hearing loss, Denies mouth pain, Denies odynophagia, Denies throat swelling, Denies tongue swelling and Reports other (Dentition adequate) Card Reports no additional complaints Resp Reports no additional complaints GI Details: Denies abdominal pain, Denies melena, Denies bloating, Denies hematochezia, Denies constipation, Denies GI cramping, Denies dysphagia, Denies excessive flatus, Denies early satiety, Reports heartburn, Denies diarrhea, Denies nausea, Denies odynophagia, Denies vomiting and Denies hematemesis Skin/Breast Denies pruritus, Denies lesions, Denies rash and Denies jaundice Neuro Reports Normal hearing present and Denies Abnormal speech present Endo Denies fatigue Aller/Immun Denies throat swelling and Denies tongue swelling Physical Exam Vital Signs: Last Vital Signs Pulse 69 12/02/23 12:35 BP 141/66 H 12/02/23 12:35 BMI result Body Mass Index 40.0 Const General: cooperative, no acute distress, well developed and well groomed Nutritional Appearance: well nourished and obese Orientation/consciousness: oriented to person, oriented to place and oriented to time Limitations: language barrier HEENT Head: Yes normocephalic and Yes atraumatic Eyes General: appearance normal, both eyes and all related structures Pupils: Equal, round and reactive pupils present Neck Neck: Yes normal visual inspection and Yes no lymphadenopathy Thyroid: Thyroid normal Resp Effort & Inspection: normal respiratory effort and able to speak in complete sentences Auscultation: clear to auscultation bilaterally Cardio Rate: regular rate Rhythm: regular rhythm Heart sounds: Normal, physiologic split S2 sound present Peripheral pulses: radial pulses present and posterior tibial pulses present GI Inspection: No distended, Yes Abdominal panniculus present and Yes obesity Palpation (GI): Soft to palpation, nontender, no guarding, not rigid and No hepatosplenomegaly present Percussion: Yes normal to percussion Auscultation: normal bowel sounds Rectal Exam - Female: deferred Skin General skin exam: no rashes or lesions noted, turgor normal, skin not dry, no jaundice, No spider nevi and no striae Rashes: no rashes Nails: normal Neuro General: oriented to person, oriented to place and oriented to time Cranial nerves: Yes Equal, round and reactive pupils present and Yes Normal hearing present Speech: No Abnormal speech present Extrem General: Yes normal to inspection, No clubbing, No cyanosis and No edema Psych Appearance: grossly normal and well kempt Mental Status: mental status grossly normal Speech and movement: Normal speech and movement present Affect: normal affect Attitude: cooperative Thought process: Normal thought process present and not confabulating Thought content: Normal thought content present Insight: Limited insight present (Psych) Judgement: Limited judgement present (Psych) Assessment & Plan Assessment & Plan (1) GERD (gastroesophageal reflux disease): Code(s): K21.9 - Gastro-esophageal reflux disease without esophagitis Category: Medical Qualifiers: Esophagitis presence: esophagitis presence not specified Qualified Code(s): K21.9 - Gastro-esophageal reflux disease without esophagitis (2) Osteoporosis screening: Code(s): Z13.820 - Encounter for screening for osteoporosis Category: Medical Plan Chinese #dtr translates per pt request It appears she is here for a new complaint of GERD. She is currently on omeprazole 20mg qd from her PCP. No abd pain, no N/V, no CIC. Will get DEXA to address any possible osteoporosis concerns although this is low if pat takes in enough ca+. Also barium swallow, EGD, HP stool. Renewing o2o 20mg qd. Given the fact that this is a very low dose in fact even available [id number] I think that generally long-term use in her case is reasonable to offset any possibility of esophageal cancer. ROV after visits. Orders: Orders [place] barium swallow 12/02/23 K21.9 - Gastro-esophageal reflux disease without esophagitis EGD with Berg - GI Use Only 12/02/23 K21.9 - Gastro-esophageal reflux disease without esophagitis H pylori Ag Stool 12/02/23 K21.9 - Gastro-esophageal reflux disease without esophagitis XR DEXA appendicular skeleton 12/02/23 Z13.820 - Encounter for screening for osteoporosis Medications: Refilled omeprazole 20 mg PO DAILY 30 caps 6RF K21.9 - Gastro-esophageal reflux disease without esophagitis Coding Level of Care Code New Pt Level 3 (41929) Diagnoses Gastroesophageal reflux disease, unspecified whether esophagitis present K21.9 Esophagitis presence: esophagitis presence not specified Osteoporosis screening Z13.820
[2023-12-02 12:35] VITALS: BP 141/66; PULSE 69; BMI 40.0
== END 2023-12-02 13:17 | disposition home or self-care (01) ==
PROVIDERS: PCP Internal Medicine; Visit Provider Nurse Practitioner
DX: K21.9 Gastro-esophageal reflux disease without esophagitis (principal)
CPT/HCPCS: 99214

== ENCOUNTER → 2023-12-02 12:21 | Outpatient (BNVA) | payer OTHER, SELFPAY | PROVIDERS: PCP Internal Medicine; Visit Provider Nurse Practitioner | DX: Z13.820 Encounter for screening for osteoporosis (principal); K21.9 Gastro-esophageal reflux disease without esophagitis | CPT/HCPCS: 99212 ==

== ENCOUNTER 2023-12-22 12:09 | Outpatient (AMB) | payer OTHER, SELFPAY ==
--- NOTE | 2023-12-22 12:13 | A.OFFPC_ITS ---
Vital Signs 12/22/23 12:14 Height 5 ft Weight 211 lb BMI 41.2 BP 122/70 Blood Pressure Location Rt brachial Position Sitting Pulse 93 Pulse Source Pulse Oximeter Pulse Oximetry (%) 95 Oxygen Delivery Method Room Air Intake Visit Reasons: PE Intake Note: Pt is here today for her PE: Last mammogram 01/02/23. Allergies No Known Allergies Allergy (Mild, Verified 12/22/23 12:15) NKA Medication List - Last Reconciled 12/22/23 by Mitzy Teague MD acetaminophen 1,000 mg (2 x 500 mg) PO Q6H PRN 30 days albuterol sulfate 1.25 mg (3 mL) inhalation Q4-6H PRN baclofen 10 mg PO BEDTIME PRN budesonide-formoterol 160-4.5 mcg/actuation (Symbicort) 2 puffs inhalation BID 30 days bumetanide 1 mg PO DAILY buspirone 10 mg PO BID cholecalciferol (vitamin D3) 50 mcg PO DAILY clobetasol 0.05% 1 appl topical BID 10 days diclofenac sodium 1% 4 grams topical furosemide 40 mg PO DAILY hydroxyzine HCl 10 mg PO BEDTIME PRN lisinopril 10 mg PO DAILY mirtazapine 15 mg PO BEDTIME nebulizers (AeroEclipse II Nebulizer) As directed omeprazole 20 mg PO DAILY Ventolin HFA 90 mcg/actuation (albuterol sulfate) 2 puffs inhalation Q4-6H PRN 30 days NS Tobacco use date assessed: 12/22/23 Dental Screening Dental Screen Date: 12/22/23 Did you have a dental visit in the last 12 months?: No Did you have a dental problem in the last 6 months where you did not have access to dental care?: No Was dental information given to patient?: Patient has dentist HPI PE HPI Details 63-year-old lady here today for physical exam. She is up-to-date with her screening mammogram, last done 01/02/2023. . She has an appointment to see [facility] in January for her routine Pap and pelvic exam. She had her colon cancer screening, did Cologuard test in 07/16/2022 which came back with negative findings. She has osteoarthritis in knees and left shoulder, receives cortisone injection given to her by Dr. Eliud every 3 months She has hypertension, currently stable and controlled on lisinopril 10 mg taken once a day and furosemide 40 mg daily she was also given a prescription for bumetanide by Dr. Reardon for intermittent leg swelling. She sees Dr. Reardon for her asthma and obstructive sleep apnea currently on CPAP,, has been taking her Symbicort regularly and is compliant with using her CPAP. She has heartburn, takes omeprazole, followed by [facility], has an appointment for an upper endoscopy and barium swallow scheduled for later this year [facility] Medical History (Updated 12/29/23 @ 02:09 by Mitzy Teague MD) Chronic osteoarthritis Vitamin D deficiency Mixed anxiety and depressive disorder Sleeping difficulty Generalized anxiety disorder with panic attacks Colon cancer screening History of respiratory failure [id number] condition Deformity of left forearm, excluding fingers Hearing loss Hypovitaminosis D Insomnia GERD (gastroesophageal reflux disease) Mild asthma Essential hypertension Surgical History Hx of colonoscopy History of tubal ligation Family History Father Kidney failure, acute Asthma Mother Heart disease Cancer Sister Kidney disease Brother Kidney failure, acute Son Bipolar 1 disorder Mental health disorder Family/Other FH: mental illness Social History Household Members: Children Housing: House Do you presently have visiting nurse or other home services: No Alcohol intake: never Patient Tobacco Use Status: Never used Tobacco e-Cigarette/Vaping Use: Never Used Second Hand Smoke Exposure: Yes service: No Current occupational status: disabled Cognitive needs: Yes Hearing needs: No Vision needs: Yes Female Reproductive History Menstrual Other: Currently goes to [facility] for her routine Pap and pelvic exam, last done a year ago per patient which showed normal findings Questionnaire Thrive Questionnaire Date Thrive assessed: 09/11/23 AUDIT C Alcohol Use Questionnaire (AUDIT-C) 1. How often do you have a drink containing alcohol?: Never Total Score: 0 ANUSHKA-7 AMB Questionnaire ANUSHKA-7 Date ANUSHKA - 7 assessed: 07/18/23 Source: Developed by Drs. Breezy Haas, Radha Ernandez, Bobby Kroenke a nd colleagues, with an educational ernestina from [employer]. Review of Systems Const Denies fever(s), Denies malaise and Denies night sweats Eyes Denies change in vision ENT Denies nasal congestion and Denies post nasal drip Card Denies chest pain, Denies dyspnea and Reports dyspnea on exertion Resp Denies cough, Denies hemoptysis, Denies excessive phlegm production, Denies dyspnea and Reports dyspnea on exertion GI Denies abdominal pain and Denies heartburn Reports no additional complaints Musc Denies myalgias, Denies arthralgias and Denies joint swelling Skin/Breast Denies breast pain, Denies breast mass and Denies rash Neuro Reports no additional complaints Psych Reports as per HPI Endo Reports no additional complaints Roosevelt/Lymph Reports no additional complaints Aller/Immun Reports no additional complaints Physical exam (Primary Care) Vital Signs: Last Vital Signs Pulse 93 12/22/23 12:14 BP 122/70 12/22/23 12:14 Pulse Ox 95 12/22/23 12:14 Oxygen Delivery Method Room Air 12/22/23 12:14 BMI result Body Mass Index 41.2 Tobacco/Smoking Status: Tobacco use Status Tobacco use date assessed 12/22/23 12/22/23 12:19 Patient Tobacco Use Status Never used Tobacco 12/22/23 12:19 e-Cigarette/Vaping Use Never Used 12/22/23 12:19 Thrive Assessment: Date of Thrive Assessment Date Thrive assessed 09/11/23 12/22/23 12:19 Const General: comfortable, no acute distress and Physically active Nutritional Appearance: obese Orientation/consciousness: patient oriented x3 HENMT Head: Yes normocephalic Face and sinus: Yes face symmetric Mouth: Normal oral and palatal mucosa present, tongue normal, oropharynx normal and moist mucous membranes Eyes General: appearance normal, both eyes and all related structures Neck Neck: Yes full ROM, Yes no lymphadenopathy and Yes supple Chest Breast/axilla palpation: normal palpation of the breasts Resp Effort & Inspection: normal respiratory effort Auscultation: clear to auscultation bilaterally and no wheezes Cardio Rate: regular rate Rhythm: regular rhythm Heart sounds: S1 normal heart sound present and S2 normal heart sound present Peripheral pulses: dorsalis pedis present GI Inspection: Yes Abdominal panniculus present and Yes obesity Palpation (GI): Soft to palpation, nontender, no guarding and no masses Auscultation: normal bowel sounds General: Yes no CVA tenderness Back/Spine/Pelvis Back: no CVA tenderness and No back tenderness Skin General skin exam: no rashes or lesions noted Neuro General: patient oriented x3, gait normal, moves all extremities and no focal motor deficits Extrem General: No edema Psych Appearance: grossly normal and well kempt Mental Status: mental status grossly normal Speech and movement: Normal speech and movement present Affect: Anxious affect present Attitude: cooperative Thought process: Normal thought process present Thought content: Normal thought content present Assessment and Plan Assessment & Plan (1) Essential hypertension: Code(s): I10 - Essential (primary) hypertension Plan: Blood pressure at goal of less than 130/80. Continue with current medication. Reinforced importance of following a low sodium diet, getting regular exercise, and lowering stress levels. (2) Mild asthma: Code(s): J45.909 - Unspecified asthma, uncomplicated Qualifiers: Asthma persistence: intermittent Asthma complication type: uncomplicated Qualified Code(s): J45.20 - Mild intermittent asthma, uncomplicated Plan: Currently on Symbicort and has albuterol for episodes of bronchospasm and wheezing (3) GERD (gastroesophageal reflux disease): Code(s): K21.9 - Gastro-esophageal reflux disease without esophagitis Qualifiers: Esophagitis presence: esophagitis presence not specified Qualified Code(s): K21.9 - Gastro-esophageal reflux disease without esophagitis Plan: Continue omeprazole 20 mg daily (4) Mixed anxiety and depressive disorder: Code(s): F41.8 - Other specified anxiety disorders Plan: Currently on hydroxyzine HCL 10 mg at bedtime as needed for anxiety attacks (5) Vitamin D deficiency: Code(s): E55.9 - Vitamin D deficiency, unspecified Plan: Continue cholecalciferol 50 mcg daily (6) Chronic osteoarthritis: Comment: Sees Dr. Kline receives cortisone injection in her shoulder and knees 3 months Code(s): M19.90 - Unspecified osteoarthritis, unspecified site Plan: Takes acetaminophen a 1000 mg every 6 hours as needed for joint pain and baclofen 10 mg at bedtime, followed by Dr. Kline (7) Annual visit for general adult medical examination with abnormal findings: Code(s): Z00.01 - Encounter for general adult medical examination with abnormal findings Plan: Will check appropriate labs. Recommended dental visit every 6 months and regular eye exams, at least every 2 years. Take adequate calcium in diet and vitamin-D 3 at 2000 IU per cap once a day, in addition to weight-bearing exercises to help maintain good muscle tone and weight control. Instructed to do self-breast exam, and continue with t yearly mammogram,. Has an appointment with [facility] for her routine Pap and pelvic exam, and had a negative Cologuard test done a year ago. Has had COVID vaccines in the past does not want to get booster, up-to-date with her yearly flu shot and Tdap as well as pneumococcal vaccine (8) TALIB (obstructive sleep apnea): Code(s): G47.33 - Obstructive sleep apnea (adult) (pediatric) Plan: Currently on CPAP Orders: Orders Basic Metabolic Panel Fasting 12/22/23 E55.9 - Vitamin D deficiency, unspecified, I10 - Essential (primary) hypertension, J45.909 - Unspecified asthma, uncomplicated, K21.9 - Gastro-esophageal reflux disease without esophagitis, M19.90 - Unspecified osteoarthritis, unspecified site, Z00.01 - Encounter for general adult medical examination with abnormal findings, Z68.38 - Body mass index [BMI] 38.0-38.9, adult Lipid Panel 12/22/23 E55.9 - Vitamin D deficiency, unspecified, I10 - Essential (primary) hypertension, J45.909 - Unspecified asthma, uncomplicated, K21.9 - Gastro-esophageal reflux disease without esophagitis, M19.90 - Unspecified osteoarthritis, unspecified site, Z00.01 - Encounter for general adult medical examination with abnormal findings, Z68.38 - Body mass index [BMI] 38.0-38.9, adult Alanine Aminotransferase 12/22/23 E55.9 - Vitamin D deficiency, unspecified, I10 - Essential (primary) hypertension, J45.909 - Unspecified asthma, uncomplicated, K21.9 - Gastro-esophageal reflux disease without esophagitis, M19.90 - Unspecified osteoarthritis, unspecified site, Z00.01 - Encounter for general adult medical examination with abnormal findings, Z68.38 - Body mass index [BMI] 38.0-38.9, adult Aspartate Amino Transferase 12/22/23 E55.9 - Vitamin D deficiency, unspecified, I10 - Essential (primary) hypertension, J45.909 - Unspecified asthma, uncomplicated, K21.9 - Gastro-esophageal reflux disease without esophagitis, M19.90 - Unspecified osteoarthritis, unspecified site, Z00.01 - Encounter for general adult medical examination with abnormal findings, Z68.38 - Body mass index [BMI] 38.0-38.9, adult Vitamin D 25-OH Total 12/22/23 E55.9 - Vitamin D deficiency, unspecified, I10 - Essential (primary) hypertension, J45.909 - Unspecified asthma, uncomplicated, K21.9 - Gastro-esophageal reflux disease without esophagitis, M19.90 - Unspecified osteoarthritis, unspecified site, Z00.01 - Encounter for general adult medical examination with abnormal findings, Z68.38 - Body mass index [BMI] 38.0-38.9, adult Complete Blood Count Auto Diff 12/22/23 E55.9 - Vitamin D deficiency, unspecified, I10 - Essential (primary) hypertension, J45.909 - Unspecified asthma, uncomplicated, K21.9 - Gastro-esophageal reflux disease without eso phagitis, M19.90 - Unspecified osteoarthritis, unspecified site, Z00.01 - Encounter for general adult medical examination with abnormal findings, Z68.38 - Body mass index [BMI] 38.0-38.9, adult Coding Level of Care Code Est Pt Prev Care 40-64y(64847) Diagnoses Essential hypertension I10 Mild intermittent asthma without complication J45.20 Asthma persistence: intermittent Asthma complication type: uncomplicated Gastroesophageal reflux disease, unspecified whether esophagitis present K21.9 Esophagitis presence: esophagitis presence not specified Mixed anxiety and depressive disorder F41.8 Vitamin D deficiency E55.9 Chronic osteoarthritis M19.90 Annual visit for general adult medical examination with abnormal findings Z00.01 TALIB (obstructive sleep apnea) G47.33
[2023-12-22 12:14] VITALS: BP 122/70; PULSE 93; O2SAT 95; BMI 41.2
== END 2023-12-22 13:34 | disposition home or self-care (01) ==
LOC: HO.HMGC 12:09
PROVIDERS: PCP Internal Medicine; Visit Provider Internal Medicine
DX: Z00.00 Encounter for general adult medical examination without abnormal findings (principal); I10 Essential (primary) hypertension; J45.20 Mild intermittent asthma, uncomplicated; K21.9 Gastro-esophageal reflux disease without esophagitis; F41.8 Other specified anxiety disorders; E55.9 Vitamin D deficiency, unspecified; M19.90 Unspecified osteoarthritis, unspecified site; G47.33 Obstructive sleep apnea (adult) (pediatric)
CPT/HCPCS: 99396

== ENCOUNTER 2024-01-02 10:18 | Day surgery (SDC) | payer OTHER, SELFPAY ==
--- NOTE | 2024-01-01 12:55 | HO.ANESPROP2 ---
Documented by User: Kamryn Martinez NP 01/01/24 12:55 HPI - Anesthesia Eval Consult details Narrative: 63yo F for Upper Endoscopy PMFSH Active Problems Active Problems: All Active Problems Chronic osteoarthritis (Acute) Obesity (Acute) Vitamin D deficiency (Acute) Mixed anxiety and depressive disorder (Acute) TALIB (obstructive sleep apnea) (Acute) BMI 38.0-38.9,adult (Acute) Illiterate (Acute) Hearing loss (Acute) GERD (gastroesophageal reflux disease) (Acute) Mild asthma (Acute) Essential hypertension (Acute) Past Medical History Medical History Chronic osteoarthritis Vitamin D deficiency Mixed anxiety and depressive disorder Sleeping difficulty Generalized anxiety disorder with panic attacks Colon cancer screening History of respiratory failure [id number] condition Deformity of left forearm, excluding fingers Hearing loss Hypovitaminosis D Insomnia GERD (gastroesophageal reflux disease) Mild asthma Essential hypertension Family History Family History Father Kidney failure, acute Asthma Mother Heart disease Cancer Sister Kidney disease Brother Kidney failure, acute Son Bipolar 1 disorder Mental health disorder Family/Other FH: mental illness Surgical History Surgical History Hx of colonoscopy History of tubal ligation Social History Social History Household Members: Children Housing: House Do you presently have visiting nurse or other home services: No Alcohol intake: never Patient Tobacco Use Status: Never used Tobacco e-Cigarette/Vaping Use: Never Used Second Hand Smoke Exposure: Yes Use of substances other than those prescribed or required for medical reasons: No Are you DNR?: No Advance Directives: No Advance Directives Information Provided: Yes service: No Current occupational status: disabled Cognitive needs: Yes Hearing needs: No Vision needs: Yes Meds Allergies Allergy/AdvReac Type Severity Reaction Status Date / Time No Known Allergies Allergy Mild NKA Verified 12/22/23 12:15 Home Medications ?Medication ?Instructions ?Recorded ?Confirmed ?Last Taken ?Type diclofenac sodium 1 % topical gel 4 g topical 01/17/22 09/11/23 Unknown History furosemide 40 mg tablet 40 mg PO DAILY 12/02/23 01/02/24 Unknown History mirtazapine 15 mg tablet 15 mg PO BEDTIME 12/02/23 01/02/24 Unknown History Assessment and Plan Assessment Anesthesia Assessment: Chart Reviewed Documented by User: Valerie Lindsey MD 01/02/24 11:23 [facility] Past Medical History Medical History Chronic osteoarthritis Vitamin D deficiency Mixed anxiety and depressive disorder Sleeping difficulty Generalized anxiety disorder with panic attacks Colon cancer screening History of respiratory failure [id number] condition Deformity of left forearm, excluding fingers Hearing loss Hypovitaminosis D Insomnia GERD (gastroesophageal reflux disease) Mild asthma Essential hypertension Family History Family History Father Kidney failure, acute Asthma Mother Heart disease Cancer Sister Kidney disease Brother Kidney failure, acute Son Bipolar 1 disorder Mental health disorder Family/Other FH: mental illness Surgical History Surgical History Hx of colonoscopy History of tubal ligation History of Problems with Anesthesia: No Social History Social History Household Members: Children Housing: House Do you presently have visiting nurse or other home services: No Alcohol intake: never Patient Tobacco Use Status: Never used Tobacco e-Cigarette/Vaping Use: Never Used Second Hand Smoke Exposure: Yes Use of substances other than those prescribed or required for medical reasons: No Are you DNR?: No Advance Directives: No Advance Directives Information Provided: Yes service: No Current occupational status: disabled Cognitive needs: Yes Hearing needs: No Vision needs: Yes Meds Allergies Allergy/AdvReac Type Severity Reaction Status Date / Time No Known Allergies Allergy Mild NKA Verified 12/22/23 12:15 Home Medications ?Medication ?Instructions ?Recorded ?Confirmed ?Last Taken ?Type diclofenac sodium 1 % topical gel 4 g topical 01/17/22 09/11/23 Unknown History furosemide 40 mg tablet 40 mg PO DAILY 12/02/23 01/02/24 Unknown History mirtazapine 15 mg tablet 15 mg PO BEDTIME 12/02/23 01/02/24 Unknown History Exam Airway Mallampati Class: III TM Dist: >3cm Neck ROM: Full Loose/Missing/Broken Teeth: No Heart: RRR Lungs: CTA Assessment and Plan Assessment Anesthesia Assessment: Anesthesia Plan Discussed Final Anesthetic Review History of Problems with Anesthesia: No NPO: Yes ASA Class: III Final Preanesthetic Review: Meds/Allgs Chart Reviewed, Consent Obtained/Reviewed and Anes Risks/Benef Reviewed Patient Risk: Intermediate Procedure Risk: Intermediate Anesthetic Plan Anesthetic Plan: MAC: Disposition: Standard PACU
[2024-01-02 10:38] VITALS: BMI 39.3
--- NOTE | 2024-01-02 10:42 | MHC.SHP ---
Pre-Procedural Eval Section A - 24 Hr Update-Section A only Date of Service: 01/02/24 Section B - Complete if H&P > 30 days Chief Complaint: GERD Relevant Family History (Specify if Yes): No Relevant Social History: None Present Medications: see Short Stay Collaborative assessment Medical History: Significant History (Vitamin D deficiency Rash and nonspecific skin eruption Mixed anxiety and depressive disorder Sleeping difficulty Generalized anxiety disorder with panic attacks Colon cancer screening History of respiratory failure [id number] condition Deformity of left forearm, excluding fingers Hearing loss ) History of Previous Operations: Relevant previous surgery/procedure and date(s) (Hx of colonoscopy History of tubal ligation) Allergies: Allergies Allergy/AdvReac Type Severity Reaction Status Date / Time No Known Allergies Allergy Mild NKA Verified 12/22/23 12:15 Review of Systems Sugical H&P ROS: Negative: Constitution, Cardiovascular, Respiratory and Gastrointestinal Exam Surgical H&P Exam: Normal: Heart, Normal: Lungs, Normal: Extremities and Normal: Abdomen Plan Diagnosis/Plan: Unchanged I have reviewed the history and physical and performed a pertinent physical examination on my patient. No changes have occurred unless specified. Time Spent With Patient Time: Total time managing care of this patient today ____ minutes.
[2024-01-02 10:58] VITALS: BP 138/65; PULSE 73; RESP 18; TEMP 36.3; O2SAT 95
[2024-01-02] MEDS: Lactated Ringers 1,000 ML 100 ML IVCONT (10:59)
--- NOTE | 2024-01-02 11:45 | W.PM.OPN ---
Operative Note Operative Note Date of Service: 01/02/24 Narrative: FLEXIBLE TRANSORAL UPPER GASTROINTESTINAL ENDOSCOPY WITH BIOPSIES Pre-op diagnosis: GERD, Post-op diagnosis: GERD, hiatal hernia, Gastritis, gastric polyps Endoscopist:? Chiara Clinton MD Anesthesia:?MAC UPPER ENDOSCOPY Consent: Indications for the procedure and potential complications of bleeding, perforation, reaction to medications and missed diagnosis were discussed with the patient and informed consent was obtained. Instrument: Olympus GIF H 190 mid size upper endoscope Monitoring: Vital signs and clinical assessment, continuous EKG monitoring, Pulse oximetry, Carbon Dioxide monitoring and blood pressure monitoring were done throughout the procedure. Procedure: The patient was placed in the left lateral decubitis position and pre-procedure medications were administered and a bite block was placed. The endoscope was inserted into the mouth and advanced under direct vision to the third part of duodenum. A careful inspection was made as the upper endoscope was withdrawn including a retroflexed examination of the proximal stomach; Findings and interventions are described below. Findings: Larynx: Normal Esophagus: GE junction at 33 cms, small hiatal hernia 33 to 35 cms. No esophagitis or Lorenzana's Stomach: A few 3-5 mm benign appearing polyps in the gastric body - biopsied Minimal gastric antral erythema - biopsies were obtained from the antrum. Grade 2 flap valve on retroflexed examination of the cardia. Duodenum: Normal bulb and descending duodenum Intervention: Biopsies as noted above Impression and Post Procedure Diagnosis: Endoscopy Findings: ESOPHAGUS: Small hiatal hernia without esophagitis or Lorenzana's STOMACH: Minimal antral gastritis, benign-appearing gastric polyps Plan: Pt has a FU appointment on 02/11/24 with Leida Abdullahi NP. Above findings were reviewed with the patient and relevant handouts were given and the discharge area.
[2024-01-02 11:47] VITALS: BP 93/40; PULSE 69; RESP 18; TEMP 36.4; O2SAT 98
[2024-01-02 12:02] VITALS: BP 116/67; PULSE 64; RESP 18; TEMP 36.5; O2SAT 96
== END 2024-01-02 12:57 | disposition home or self-care (01) ==
PROVIDERS: Visit Provider Internal Medicine Gastroenterology
PROC: 0DJ08ZZ Inspection of Upper Intestinal Tract, Via Natural or Artificial Opening Endoscopic (ICD-10-PCS; CPT 43235; principal; 2024-01-02 12:00)
DX: K21.9 Gastro-esophageal reflux disease without esophagitis (principal); K29.50 Unspecified chronic gastritis without bleeding; K31.7 Polyp of stomach and duodenum; K44.9 Diaphragmatic hernia without obstruction or gangrene; R63.5 Abnormal weight gain; Z68.41 Body mass index [BMI] 40.0-44.9, adult; I10 Essential (primary) hypertension; J98.9 Respiratory disorder, unspecified; J45.909 Unspecified asthma, uncomplicated; E55.9 Vitamin D deficiency, unspecified; F41.8 Other specified anxiety disorders; G47.00 Insomnia, unspecified; Z79.899 Other long term (current) drug therapy; Z98.51 Tubal ligation status
CPT/HCPCS: 43239; 88305; 88342; J2704

== ENCOUNTER → 2024-01-02 10:18 | Outpatient (BNV) | payer OTHER, SELFPAY | PROVIDERS: Visit Provider Internal Medicine Gastroenterology | DX: K21.9 Gastro-esophageal reflux disease without esophagitis (principal); K31.7 Polyp of stomach and duodenum; K29.70 Gastritis, unspecified, without bleeding | CPT/HCPCS: 43239 ==

== ENCOUNTER 2024-01-21 16:16 | Outpatient (REF) | payer OTHER, SELFPAY ==
--- NOTE | ~2024-01-21 | XR_ITS ---
EXAMINATION: XR CHEST CLINICAL INFORMATION: Possible ossification. COMPARISON: Chest radiograph 10/04/2020 plus many other radiographs including a 2-view chest from 05/05/2018. TECHNIQUE: 2 views of the chest were obtained. FINDINGS: Heart size is normal. Some chronic diffuse reticular disease is seen, similar to the 05/05/2018 study but improved when compared to 10/04/2020. No evidence of CHF. No consolidations or pleural effusions are seen. No suspicious lung masses are seen. Degenerative changes are seen in both shoulders as well as with mild scoliosis. XR/XR chest 2V IMPRESSION: No acute intrathoracic disease. Chronic interstitial lung disease. Electronically signed by: Brenton Gunn MD 02/03/2024 09:18 AM EDT
== END 2024-01-21 16:17 | disposition home or self-care (01) ==
LOC: HO.XRAY 16:16
PROVIDERS: Visit Provider Internal Medicine Rheumatology
DX: J84.9 Interstitial pulmonary disease, unspecified (principal)
CPT/HCPCS: 71046

== ENCOUNTER 2024-02-06 14:46 | Outpatient (AMB) | payer OTHER, SELFPAY ==
[2024-02-06 14:47] VITALS: BP 126/82; PULSE 84; O2SAT 96; BMI 38.5
--- NOTE | 2024-02-06 14:47 | A.OFFVIS_ITS ---
Vital Signs 02/06/24 14:47 Height 5 ft 1 in Weight 203 lb 14.841 oz BMI 38.5 BP 126/82 Blood Pressure Location Rt brachial Position Sitting Pulse 84 Pulse Source Doppler Pulse Oximetry (%) 96 Oxygen Delivery Method Room Air Intake Visit Reasons: dyspnea Allergies No Known Allergies Allergy (Mild, Verified 12/22/23 12:15) NKA HPI HPI dyspnea: Details: 63-year-old lady, nonsmoker, with underlying history of asthma and COVID 19 requiring prolonged hospitalization in the August 2020, discharged on supplemental oxygen 3 L continuous flow.? She no longer uses supplemental oxygen.? She has been using CPAP with good control of her underlying obstructive sleep apnea. Patient also has been using Symbicort, albuterol MDI, and nebs with reasonable control of her asthma symptoms. Her lower extremity edema is controlled on current Bumex At 1 mg daily. She did complete her 2D echo that showed underlying diastolic dysfunction. Today she has complain of acute bronchitic exacerbation symptomatic with cough productive of greenish sputum, but no significant wheezing. [facility] Medical History Chronic osteoarthritis Vitamin D deficiency Mixed anxiety and depressive disorder Sleeping difficulty Generalized anxiety disorder with panic attacks Colon cancer screening History of respiratory failure [id number] condition Deformity of left forearm, excluding fingers Hearing loss Hypovitaminosis D Insomnia GERD (gastroesophageal reflux disease) Mild asthma Essential hypertension Surgical History Hx of colonoscopy History of tubal ligation Family History Father Kidney failure, acute Asthma Mother Heart disease Cancer Sister Kidney disease Brother Kidney failure, acute Son Bipolar 1 disorder Mental health disorder Family/Other FH: mental illness Social History Household Members: Children Housing: House Do you presently have visiting nurse or other home services: No Alcohol intake: never Patient Tobacco Use Status: Never used Tobacco e-Cigarette/Vaping Use: Never Used Second Hand Smoke Exposure: Yes service: No Current occupational status: disabled Cognitive needs: Yes Hearing needs: No Vision needs: Yes Review of Systems Const Denies daytime sleepiness, Denies excessive sweating, Denies fatigue, Denies fever(s), Denies lethargy, Denies malaise, Denies night sweats, Denies snoring and Denies weight loss Eyes Denies blurry vision and Denies itchy eyes ENT Denies nasal congestion, Denies post nasal drip, Denies sinus pain, Denies sinus pressure and Denies other ( Thrush) Card Denies chest pain, Denies pedal edema, Denies dyspnea, Reports dyspnea on exertion, Denies orthopnea and Denies paroxysmal nocturnal dyspnea Resp Reports cough, Denies hemoptysis, Reports excessive phlegm production, Denies dyspnea, Reports dyspnea on exertion, Denies snoring and Denies wheezing GI Denies abdominal pain and Denies heartburn Musc Denies myalgias, Denies arthralgias and Denies joint swelling Skin/Breast Denies rash Neuro Denies memory loss and Denies seizure-like activity Psych Denies abnormal sleep pattern, Denies anxiety and Denies memory loss Endo Denies excessive sweating, Denies fatigue and Denies heat intolerance Roosevelt/Lymph Denies easy bruising Aller/Immun Denies itchy eyes, Denies seasonal rhinorrhea and Denies wheezing Physical Exam Vital Signs: Last Vital Signs Pulse 84 02/06/24 14:47 BP 126/82 02/06/24 14:47 Pulse Ox 96 02/06/24 14:47 Oxygen Delivery Method Room Air 02/06/24 14:47 BMI result Body Mass Index 38.5 Const General: no acute distress and alert Nutritional Appearance: obese Orientation/consciousness: Other orientation findings ( oriented) HEENT Head: Yes atraumatic Eyes General: appearance normal, both eyes and all related structures Sclerae: sclerae normal EOM: EOMs intact bilaterally Neck Neck: Yes supple Lymphatic: no lymphadenopathy noted Resp Effort & Inspection: normal respiratory effort and no use of accessory muscles Auscultation: clear to auscultation bilaterally Cardio Rate: regular rate Rhythm: regular rhythm Heart sounds: no gallops, no murmurs and no rubs Skin General skin exam: other ( warm) Extrem General: No clubbing, No cyanosis and No edema Assessment & Plan Assessment & Plan (1) Asthma with exacerbation: Code(s): J45.901 - Unspecified asthma with (acute) exacerbation Category: Medical Qualifiers: Asthma persistence: persistent Asthma severity: mild Qualified Code(s): J45.31 - Mild persistent asthma with (acute) exacerbation Plan: Worsening control on Symbicort and albuterol MDI/nebs. Also with an acute exacerbation. Will switch Symbicort to BrezTri and treat acute bronchitic exacerbation with levofloxacin. (2) Orthopnea: Code(s): R06.01 - Orthopnea Category: Medical Plan: Well controlled current diuretic regimen. Continue Bumex 1 mg daily. Medications: New juvhvowsww-vailqkbj-kksqrsvnyr 160-9-4.8 mcg/actuation (Breztri Aerosphere) 2 inhalations inhalation BID 10.7 grams 6RF levofloxacin 750 mg PO DAILY 7 tabs 0RF Discontinued budesonide-formoterol 160-4.5 mcg/actuation (Symbicort) Discontinued Reason: Doctor's Order 2 puffs inhalation BID 30 days 1 ea 6RF Coding Level of Care Code Est Pt Level 4 (70478) Diagnoses Asthma with exacerbation J45.31 Asthma persistence: persistent Asthma severity: mild Orthopnea R06.01
== END 2024-02-06 15:02 | disposition home or self-care (01) ==
PROVIDERS: PCP Internal Medicine; Visit Provider Internal Medicine Pulmonary Disease
DX: J45.31 Mild persistent asthma with (acute) exacerbation (principal); R06.01 Orthopnea
CPT/HCPCS: 99214

== ENCOUNTER → 2024-02-06 14:46 | Outpatient (BNVA) | payer OTHER, SELFPAY | PROVIDERS: PCP Internal Medicine; Visit Provider Internal Medicine Pulmonary Disease | DX: J45.31 Mild persistent asthma with (acute) exacerbation (principal); G47.33 Obstructive sleep apnea (adult) (pediatric); R06.01 Orthopnea; Z99.89 Dependence on other enabling machines and devices | CPT/HCPCS: 99212 ==

== ENCOUNTER 2024-02-11 09:48 | Outpatient (REF) | payer OTHER, SELFPAY ==
--- NOTE | ~2024-02-11 | FL_ITS ---
EXAMINATION: XR FLUOROSCOPY UPPER GI WITH AIR CLINICAL INFORMATION: Reflux COMPARISON: None TECHNIQUE: Fluoroscopic air contrast upper GI examination was performed utilizing standard techniques with thin and thick barium and effervescent granules. Numerous spot images were obtained. FINDINGS: Dual and single contrast images of the esophagus demonstrate normal caliber, contour, and mucosal pattern. No evidence of stricture, mass, or ulcerations identified. Esophageal peristalsis was normal. A small type I hiatal hernia is present. Mild gastroesophageal reflux is seen in the distal esophagus. Dual contrast and single contrast images of the stomach demonstrated a normal contour. The gastric rugal folds have a thickened appearance, suggestive of gastritis. No masses or ulcerations are seen. Contrast freely passed into the gastric antrum and duodenal bulb without delay. Single and air-contrast images of the duodenal bulb demonstrate no abnormality. The duodenal sweep has a normal appearance, course, and mucosal fold appearance. The imaged proximal jejunum has a normal fold pattern and caliber. There is jejunalization of the ileum noted. There is rapid transit of the barium column, with the right colon opacified within 10 minutes of the examination. FLUOROSCOPY TIME: 4 minutes 20 seconds Number of Spot Images: 11 Number of Cine: 14 DOSE AREA PRODUCT: 4270 uGy-m2 (microgray-meter squared) FL/FL barium swallow IMPRESSION: 1. Small type I hiatal hernia. 2. Mild gastroesophageal reflux. 3. Thickened appearance of the gastric rugal folds, suggestive of gastritis. 4. Jejunalization of the ileum is present. This is suggestive of malabsorption disorder, namely celiac disease. 5. Rapid transit of the barium column with, with the right colon opacified in less than 10 minutes. This procedure was performed by John Randhawa PA-C, and supervised by Dr. Roque Electronically signed by: Wm Roque MD 02/13/2024 04:22 PM EDT
== END 2024-02-11 09:49 | disposition home or self-care (01) ==
LOC: HO.XRAY 09:48
PROVIDERS: Visit Provider Nurse Practitioner
DX: K21.9 Gastro-esophageal reflux disease without esophagitis (principal)
CPT/HCPCS: 74220

== ENCOUNTER → 2024-02-11 09:51 | Outpatient (BNV) | payer OTHER, SELFPAY | PROVIDERS: Visit Provider Radiology Diagnostic Radiology | DX: K21.9 Gastro-esophageal reflux disease without esophagitis (principal) | CPT/HCPCS: 74246 ==

== ENCOUNTER 2024-04-20 14:39 | Outpatient (REF) | payer OTHER, SELFPAY ==
[2024-04-22 10:25] LABS: HPV 16,18/45 See PAP report
== END 2024-04-20 14:40 | disposition home or self-care (01) ==
LOC: HO.LNP 14:39
PROVIDERS: Visit Provider Advanced Practice Midwife
DX: Z01.419 Encounter for gynecological examination (general) (routine) without abnormal findings (principal); R87.610 Atypical squamous cells of undetermined significance on cytologic smear of cervix (ASC-US)
CPT/HCPCS: 87624; 88175; 99396

== ENCOUNTER 2024-04-20 14:39 | Outpatient (AMB) | payer OTHER, SELFPAY ==
[2024-04-20 14:48] VITALS: BP 132/68; BMI 40.7
--- NOTE | 2024-04-20 14:48 | MHC.OFFVIS ---
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 She is doing well with no concerns. Currently not sexually active. Denies any vaginal dryness or irritation. STI testing offered; she declined. Attempting to eat a healthy diet with calcium and vitamin D and stays active with exercise. Last pap smear; 2018. Last mammogram; 2022. Colonoscopy is UTD. Denies any family history of ovarian or colon cancer. Family history of breast cancer. [facility] Medical History Chronic osteoarthritis Vitamin D deficiency Mixed anxiety and depressive disorder Sleeping difficulty Generalized anxiety disorder with panic attacks Colon cancer screening History of respiratory failure [id number] condition Deformity of left forearm, excluding fingers Hearing loss Hypovitaminosis D Insomnia GERD (gastroesophageal reflux disease) Mild asthma Essential hypertension Surgical History Hx of colonoscopy History of tubal ligation Family History Father Kidney failure, acute Asthma Mother Heart disease Cancer Sister Kidney disease Brother Kidney failure, acute Son Bipolar 1 disorder Mental health disorder Family/Other FH: mental illness Social History Household Members: Children Housing: House Do you presently have visiting nurse or other home services: No Alcohol intake: never Patient Tobacco Use Status: Never used Tobacco e-Cigarette/Vaping Use: Never Used Second Hand Smoke Exposure: Yes Patient : No service: No Current occupational status: disabled Cognitive needs: Yes Hearing needs: No Vision needs: Yes Female Reproductive History Menstrual control method: none Age of menopause: 31 Total pregnancies: 5 Full term: 5 Number of Living Children: 5 History of abnormal pap smear: No History of STI: No Date of Mammogram: 04/02/23 History of abnormal mammogram: No Review of Systems Const All systems reviewed & are unremarkable except as noted in HPI and below Reports as per HPI Eyes Reports no additional complaints ENT Reports no additional complaints Card Reports no additional complaints Resp Reports no additional complaints GI Reports as per HPI and Reports no additional complaints Reports as per HPI Musc Reports no additional complaints Skin/Breast Reports as per HPI Neuro Reports no additional complaints Psych Reports no additional complaints Endo Reports no additional complaints Roosevelt/Lymph Reports no additional complaints Aller/Immun Reports no additional complaints Physical Exam Vital Signs: Last Vital Signs BP 132/68 04/20/24 14:48 BMI result Body Mass Index 40.7 Const General: cooperative, healthy appearing, no acute distress, well developed and alert Orientation/consciousness: patient oriented x3 HEENT Head: Yes normal to inspection Eyes General: appearance normal, both eyes and all related structures Neck Neck: Yes normal visual inspection Thyroid: Thyroid normal Chest Chest palpation & inspection: normal inspection of the chest and other (no puckering, dimpling, peau de orange, retraction, discharge, masses) Breast/axilla inspection: normal inspection of the breasts Breast/axilla palpation: normal palpation of the breasts Resp Effort & Inspection: normal respiratory effort GI Inspection: Yes normal to inspection and Yes obesity Palpation (GI): Soft to palpation Rectal Exam - Female: deferred General: Yes bladder normal to palpation External Female Exam: normal external appearance and normal appearance of the urethra Speculum Exam - Vagina: normal appearance of the vagina, normal palpation, normal vaginal discharge and vagina atrophic Speculum Exam - Cervix: normal appearance of the cervix and normal palpation Bimanual exam- vagina & uterus: normal bimanual exam, normal palpation, uterine size normal, bladder normal to palpation, normal palpation and non-tender Bimanual Exam- Adnexa, other: no masses Skin General skin exam: no rashes or lesions noted Rashes: no rashes Neuro General: patient oriented x3 Cognition (Neuro): normal cognition Extrem General: Yes normal to inspection Psych Attitude: cooperative Thought process: Normal thought process present Assessment & Plan Assessment & Plan (1) Encounter for well woman exam with routine gynecological exam: Code(s): Z01.419 - Encounter for gynecological examination (general) (routine) without abnormal findings Category: Medical Plan Discussed: Current recommendations for pap smears per ASCCP guidelines. Pap obtained. Breast awareness, periodic self breast exams and yearly mammogram. Maintain a healthy lifestyle, well balanced diet including Calcium 1,200 mg and Vitamin D 600 IU daily, and routine exercise. Use of condoms for STI prevention if indicated. Contact the office with any postmenopausal bleeding. Patient verbalizes understanding and agrees to the plan of care. She was given opportunity to ask questions and all questions were answered to the best of my ability. RTO in 1 year for annual provider relations manager exam. This note is constructed using voice recognition software. While every effort has been made to ensure accuracy, alignment specialist errors may have been included. Orders: Orders MM tomosynthesis screening BI Today Z12.31 - Encounter for screening mammogram for malignant neoplasm of breast Medications: Discontinued acetaminophen Discontinued Reason: Insurance Denied 1,000 mg (2 x 500 mg) PO Q6H 30 days PRN 240 tabs 0RF fever or pain Coding Level of Care Code Est Pt Prev Care 40-64y(57201) Diagnoses Encounter for well woman exam with routine gynecological exam Z01.419
== END 2024-04-20 16:03 | disposition home or self-care (01) ==
PROVIDERS: Visit Provider Advanced Practice Midwife
DX: Z01.419 Encounter for gynecological examination (general) (routine) without abnormal findings (principal)
CPT/HCPCS: 99396

== ENCOUNTER → 2024-05-20 16:27 | Outpatient (AMB) | payer OTHER, SELFPAY ==
[2024-05-20 16:31] VITALS: BP 159/94; PULSE 73; BMI 39.8
--- NOTE | 2024-05-20 16:31 | A.OFFVIS_ITS ---
Vital Signs 05/20/24 16:31 Height 5 ft 1 in Weight 210 lb 12.191 oz BMI 39.8 BP 159/94 H Blood Pressure Location Lt brachial Position Sitting Pulse 73 Intake Visit Reasons: s/p EGD Intake Note: Patient in office today in follow up s/p EGD. CC: She c/o acid reflux, heartburn, and lately LLQ abdominal pain. Denies other GI symptoms. Neurology Manager Required: No Accompanied by: Grand Child Allergies No Known Allergies Allergy (Mild, Verified 05/20/24 16:33) NKA HPI HPI s/p EGD: Details: Assessment & Plan (1) GERD (gastroesophageal reflux disease): Code(s): K21.9 - Gastro-esophageal reflux disease without esophagitis Category: Medical Qualifiers: Esophagitis presence: esophagitis presence not specified Qualified Code(s): K21.9 - Gastro-esophageal reflux disease without esophagitis (2) Osteoporosis screening: Code(s): Z13.820 - Encounter for screening for osteoporosis Category: Medical Plan Mongolian #dtr translates per pt request It appears she is here for a new complaint of GERD. She is currently on omeprazole 20mg qd from her PCP. No abd pain, no N/V, no CIC. Will get DEXA to address any possible osteoporosis concerns although this is low if pat takes in enough ca+. Also barium swallow, EGD, HP stool. Renewing o2o 20mg qd. Given the fact that this is a very low dose in fact even available [id number] I think that generally long-term use in her case is reasonable to offset any possibility of esophageal cancer. ROV after visits. Orders: Orders FL barium swallow 12/02/23 K21.9 - Gastro-esophageal reflux disease without esophagitis EGD with Berg - GI Use Only 12/02/23 K21.9 - Gastro-esophageal reflux disease without esophagitis H pylori Ag Stool 12/02/23 K21.9 - Gastro-esophageal reflux disease without esophagitis XR DEXA appendicular skeleton 12/02/23 Z13.820 - Encounter for screening for osteoporosis Medications: Refilled omeprazole 20 mg PO DAILY 30 caps 6RF K21.9 - Gastro-esophageal reflux disease without esophagitis LABS: NOT OBTAINED DEXA SCAN NOT OBTAINED BARIUM SWALLOW 02/13/24 FINDINGS: Dual and single contrast images of the esophagus demonstrate normal caliber, contour, and mucosal pattern. No evidence of stricture, mass, or ulcerations identified. Esophageal peristalsis was normal. A small type I hiatal hernia is present. Mild gastroesophageal reflux is seen in the distal esophagus. Dual contrast and single contrast images of the stomach demonstrated a normal contour. The gastric rugal folds have a thickened appearance, suggestive of gastritis. No masses or ulcerations are seen. Contrast freely passed into the gastric antrum and duodenal bulb without delay. Single and air-contrast images of the duodenal bulb demonstrate no abnormality. The duodenal sweep has a normal appearance, course, and mucosal fold appearance. The imaged proximal jejunum has a normal fold pattern and caliber. There is jejunalization of the ileum noted. There is rapid transit of the barium column, with the right colon opacified within 10 minutes of the examination. FLUOROSCOPY TIME: 4 minutes 20 seconds Number of Spot Images: 11 Number of Cine: 14 DOSE AREA PRODUCT: 4270 uGy-m2 (microgray-meter squared) FL/FL barium swallow IMPRESSION: 1. Small type I hiatal hernia. 2. Mild gastroesophageal reflux. 3. Thickened appearance of the gastric rugal folds, suggestive of gastritis. 4. Jejunalization of the ileum is present. This is suggestive of malabsorption disorder, namely celiac disease. 5. Rapid transit of the barium column with, with the right colon opacified in less than 10 minutes. EGD 01/02/24 Findings: Larynx: Normal Esophagus: GE junction at 33 cms, small hiatal hernia 33 to 35 cms. No esophagitis or Lorenzana's Stomach: A few 3-5 mm benign appearing polyps in the gastric body - biopsied Minimal gastric antral erythema - biopsies were obtained from the antrum. Grade 2 flap valve on retroflexed examination of the cardia. Duodenum: Normal bulb and descending duodenum Intervention: Biopsies as noted above Impression and Post Procedure Diagnosis: Endoscopy Findings: ESOPHAGUS: Small hiatal hernia without esophagitis or Lorenzana's STOMACH: Minimal antral gastritis, benign-appearing gastric polyps Plan: Pt has a FU appointment on 02/11/24 with Leida Abdullahi NP. BIOPSY Received: 01/02/24 ADDENDUM REPORT Addendum Addendum #1 Immunostains for H. pylori on A and B are negative. Control stains appropriately. Electronically Signed By: Basilia Hernandez 01/07/24 0904 Diagnosis A. Gastric antrum, biopsy: Gastric antral mucosa with focal minimal chronic inactive inflammation; negative for intestinal metaplasia and dysplasia. B. Gastric polyp, biopsy: Fundic gland polyp with focal minimal chronic inactive inflammation; negative for intestinal metaplasia and dysplasia. Comment: (A and B): Immunostains for H. pylori pending; addendum to follow. Clinical History Pre-Op Dx: GERD Post-Op Dx: GERD, gastritis, hiatal hernia, gastritis polyps TODAY'S VISIT BELGIAN #DECLINES She tolerated the procedure well. SHE SAYS THAT her GERD is well controlled as long as she has the omeprazole 20 mg a day. She also says she ran out of refills because it took longer for me to see her back after her appointment so will get this going for her. Overall there was nothing concerning found on either the barium swallow or the EGD. 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, excluding fingers Hearing loss Hypovitaminosis D Insomnia GERD (gastroesophageal reflux disease) Mild asthma Essential hypertension Surgical History (Updated 05/20/24 @ 16:37 by ZAIRA Crocker) History of esophagogastroduodenoscopy (EGD) Hx of colonoscopy History of tubal ligation Family History Father Kidney failure, acute Asthma Mother Heart disease Cancer Sister Kidney disease Brother Kidney failure, acute Son Bipolar 1 disorder Mental health disorder Family/Other FH: mental illness Maternal Aunt Breast cancer Social History Household Members: Children Housing: House Do you presently have visiting nurse or other home services: No Alcohol intake: never Patient Tobacco Use Status: Never used Tobacco e-Cigarette/Vaping Use: Never Used Second Hand Smoke Exposure: Yes service: No Current occupational status: disabled Cognitive needs: Yes Hearing needs: No Vision needs: Yes Review of Systems Const Denies fatigue, Denies fever(s), Denies night sweats, Denies poor appetite, Reports weight gain and Denies weight loss ENT Reports Normal hearing present, Denies dental pain, Denies dysphagia, Denies hearing loss, Denies mouth pain, Denies odynophagia, Denies throat swelling, Denies tongue swelling and Reports other (Dentition adequate) Card Reports no additional complaints Resp Reports no additional complaints GI Details: Denies abdominal pain, Denies melena, Denies bloating, Denies hematochezia, Denies constipation, Denies GI cramping, Denies dysphagia, Denies excessive flatus, Denies early satiety, Reports heartburn, Denies diarrhea, Denies nausea, Denies odynophagia, Denies vomiting and Denies hematemesis Skin/Breast Denies pruritus, Denies lesions, Denies rash and Denies jaundice Neuro Reports Normal hearing present and Denies Abnormal speech present Endo Denies fatigue Aller/Immun Denies throat swelling and Denies tongue swelling Physical Exam Vital Signs: Last Vital Signs Pulse 73 05/20/24 16:31 BP 159/94 H 05/20/24 16:31 BMI result Body Mass Index 39.8 Const General: cooperative, no acute distress, well developed and well groomed Nutritional Appearance: well nourished and obese morbidly obese Orientation/consciousness: oriented to person, oriented to place and oriented to time Limitations: No language barrier HEENT Head: Yes normocephalic and Yes atraumatic Eyes General: appearance normal, both eyes and all related structures Pupils: Equal, round and reactive pupils present Neck Neck: Yes normal visual inspection and Yes no lymphadenopathy Thyroid: Thyroid normal Resp Effort & Inspection: normal respiratory effort and able to speak in complete sentences Auscultation: clear to auscultation bilaterally Cardio Rate: regular rate Rhythm: regular rhythm Heart sounds: Normal, physiologic split S2 sound present Peripheral pulses: radial pulses present and posterior tibial pulses present GI Inspection: No distended, Yes Abdominal panniculus present and Yes obesity Palpation (GI): Soft to palpation, nontender, no guarding, not rigid and No hepatosplenomegaly present Percussion: Yes normal to percussion Auscultation: normal bowel sounds Rectal Exam - Female: deferred Skin General skin exam: no rashes or lesions noted, turgor normal, skin not dry, no jaundice, No spider nevi and no striae Rashes: no rashes Nails: normal Neuro General: oriented to person, oriented to place and oriented to time Cranial nerves: Yes Equal, round and reactive pupils present and Yes Normal hearing present Speech: No Abnormal speech present Extrem General: Yes normal to inspection, No clubbing, No cyanosis and No edema Psych Appearance: grossly normal and well kempt Mental Status: mental status grossly normal Speech and movement: Normal speech and movement present Affect: normal affect Attitude: cooperative Thought process: Normal thought process present and not confabulating Thought content: Normal thought content present Insight: Fair insight present (Psych) and Limited insight present (Psych) Judgement: Fair judgement present (Psych) and Limited judgement present (Psych) Results Reviewed Results Reviewed: BARIUM SWALLOW 02/13/24 FINDINGS: Dual and single contrast images of the esophagus demonstrate normal caliber, contour, and mucosal pattern. No evidence of stricture, mass, or ulcerations identified. Esophageal peristalsis was normal. A small type I hiatal hernia is present. Mild gastroesophageal reflux is seen in the distal esophagus. Dual contrast and single contrast images of the stomach demonstrated a normal contour. The gastric rugal folds have a thickened appearance, suggestive of gastritis. No masses or ulcerations are seen. Contrast freely passed into the gastric antrum and duodenal bulb without delay. Single and air-contrast images of the duodenal bulb demonstrate no abnormality. The duodenal sweep has a normal appearance, course, and mucosal fold appearance. The imaged proximal jejunum has a normal fold pattern and caliber. There is jejunalization of the ileum noted. There is rapid transit of the barium column, with the right colon opacified within 10 minutes of the examination. FLUOROSCOPY TIME: 4 minutes 20 seconds Number of Spot Images: 11 Number of Cine: 14 DOSE AREA PRODUCT: 4270 uGy-m2 (microgray-meter squared) FL/FL barium swallow IMPRESSION: 1. Small type I hiatal hernia. 2. Mild gastroesophageal reflux. 3. Thickened appearance of the gastric rugal folds, suggestive of gastritis. 4. Jejunalization of the ileum is present. This is suggestive of malabsorption disorder, namely celiac disease. 5. Rapid transit of the barium column with, with the right colon opacified in less than 10 minutes. EGD 01/02/24 Findings: Larynx: Normal Esophagus: GE junction at 33 cms, small hiatal hernia 33 to 35 cms. No esophagitis or Lorenzana's Stomach: A few 3-5 mm benign appearing polyps in the gastric body - biopsied Minimal gastric antral erythema - biopsies were obtained from the antrum. Grade 2 flap valve on retroflexed examination of the cardia. Duodenum: Normal bulb and descending duodenum Intervention: Biopsies as noted above Impression and Post Procedure Diagnosis: Endoscopy Findings: ESOPHAGUS: Small hiatal hernia without esophagitis or Lorenzana's STOMACH: Minimal antral gastritis, benign-appearing gastric polyps Plan: Pt has a FU appointment on 02/11/24 with Leida Abdullahi NP. BIOPSY Received: 01/02/24 ADDENDUM REPORT Addendum Addendum #1 Immunostains for H. pylori on A and B are negative. Control stains appropriately. Electronically Signed By: Basilia Hernandez 01/07/24 0904 Diagnosis A. Gastric antrum, biopsy: Gastric antral mucosa with focal minimal chronic inactive inflammation; negative for intestinal metaplasia and dysplasia. B. Gastric polyp, biopsy: Fundic gland polyp with focal minimal chronic inactive inflammation; negative for intestinal metaplasia and dysplasia. Comment: (A and B): Immunostains for H. pylori pending; addendum to follow. Clinical History Pre-Op Dx: GERD Post-Op Dx: GERD, gastritis, hiatal hernia, gastritis polyps Assessment & Plan Assessment & Plan (1) GERD (gastroesophageal reflux disease): Code(s): K21.9 - Gastro-esophageal reflux disease without esophagitis Category: Medical Qualifiers: Esophagitis presence: esophagitis presence not specified Qualified Code(s): K21.9 - Gastro-esophageal reflux disease without esophagitis (2) Illiterate: Comment: Pt cannot read or write Code(s): Z55.0 - Illiteracy and low-level literacy Category: Social Hx (3) Obesity: Code(s): E66.9 - Obesity, unspecified Category: Medical Plan BELGIAN #DECLINES She tolerated the procedure well. SHE SAYS THAT her GERD is well controlled as long as she has the omeprazole 20 mg a day. She also says she ran out of refills because it took longer for me to see her back after her appointment so will get this going for her. Overall there was nothing concerning found on either the barium swallow or the EGD. Overall she was counseled that weight loss and avoiding offending foods would go a long way to controlling her GERD. Return office visit in 6 months Medications: Refilled omeprazole 20 mg PO DAILY 30 caps 6RF K21.9 - Gastro-esophageal reflux disease without esophagitis Coding Level of Care Code Est Pt Level 3 (99264) Diagnoses Gastroesophageal reflux disease, unspecified whether esophagitis present K21.9 Esophagitis presence: esophagitis presence not specified Illiterate Z55.0 Obesity E66.9
== END ==
PROVIDERS: PCP Internal Medicine; Visit Provider Nurse Practitioner
DX: K21.9 Gastro-esophageal reflux disease without esophagitis (principal); Z55.0 Illiteracy and low-level literacy; E66.9 Obesity, unspecified
CPT/HCPCS: 99213

== ENCOUNTER → 2024-05-20 16:27 | Outpatient (BNVA) | payer OTHER, SELFPAY | PROVIDERS: PCP Internal Medicine; Visit Provider Nurse Practitioner | DX: K21.9 Gastro-esophageal reflux disease without esophagitis (principal); E66.9 Obesity, unspecified; Z68.39 Body mass index [BMI] 39.0-39.9, adult; Z55.0 Illiteracy and low-level literacy | CPT/HCPCS: 99212 ==

== ENCOUNTER 2024-08-04 15:03 | Outpatient (AMB) | payer OTHER, SELFPAY ==
[2024-08-04 15:07] VITALS: BP 118/77; PULSE 92; O2SAT 94; BMI 40.2
--- NOTE | 2024-08-04 15:07 | MHC.OFFVIS ---
Vital Signs 08/04/24 15:07 Height 5 ft 1 in Weight 213 lb BMI 40.2 BP 118/77 Blood Pressure Location Rt brachial Position Sitting Pulse 92 Pulse Source Doppler Pulse Oximetry (%) 94 Oxygen Delivery Method Room Air Intake Visit Reasons: dyspnea Allergies No Known Allergies Allergy (Mild, Verified 08/04/24 15:12) NKA HPI HPI dyspnea: Details: 63-year-old lady, nonsmoker, with underlying history of asthma and COVID 19 requiring prolonged hospitalization in the August 2020, discharged on supplemental oxygen 3 L continuous flow.? She no longer uses supplemental oxygen.? She has been using CPAP with good control of her underlying obstructive sleep apnea. After the last office visit patient was not able to receive Breztri and has been relying on albuterol MDI with suboptimal control of his symptoms. She is also ran out of her bumetanide. Though, she denies acute exacerbations. [facility] Medical History (Updated 05/20/24 @ 16:46 by MIKEY Mckay) Encounter for well woman exam with routine gynecological exam Atypical squamous cells of undetermined significance (ASC-US) on cervical Pap smear Chronic osteoarthritis Vitamin D deficiency Mixed anxiety and depressive disorder Sleeping difficulty Generalized anxiety disorder with panic attacks Colon cancer screening History of respiratory failure [id number] condition Deformity of left forearm, excluding fingers Hearing loss Hypovitaminosis D Insomnia GERD (gastroesophageal reflux disease) Mild asthma Essential hypertension Surgical History (Updated 05/20/24 @ 16:37 by ZAIRA Crocker) History of esophagogastroduodenoscopy (EGD) Hx of colonoscopy History of tubal ligation Family History Father Kidney failure, acute Asthma Mother Heart disease Cancer Sister Kidney disease Brother Kidney failure, acute Son Bipolar 1 disorder Mental health disorder Family/Other FH: mental illness Maternal Aunt Breast cancer Social History Household Members: Children Housing: House Do you presently have visiting nurse or other home services: No Alcohol intake: never Patient Tobacco Use Status: Never used Tobacco e-Cigarette/Vaping Use: Never Used Second Hand Smoke Exposure: Yes service: No Current occupational status: disabled Cognitive needs: Yes Hearing needs: No Vision needs: Yes Review of Systems Const Denies daytime sleepiness, Denies excessive sweating, Denies fatigue, Denies fever(s), Denies lethargy, Denies malaise, Denies night sweats, Denies snoring and Denies weight loss Eyes Denies blurry vision and Denies itchy eyes ENT Denies nasal congestion, Denies post nasal drip, Denies sinus pain, Denies sinus pressure and Denies other ( Thrush) Card Denies chest pain, Reports pedal edema, Denies dyspnea, Reports dyspnea on exertion, Denies orthopnea and Denies paroxysmal nocturnal dyspnea Resp Denies cough, Denies hemoptysis, Denies excessive phlegm production, Denies dyspnea, Reports dyspnea on exertion, Denies snoring and Denies wheezing GI Denies abdominal pain and Denies heartburn Musc Denies myalgias, Denies arthralgias and Denies joint swelling Skin/Breast Denies rash Neuro Denies memory loss and Denies seizure-like activity Psych Denies abnormal sleep pattern, Denies anxiety and Denies memory loss Endo Denies excessive sweating, Denies fatigue and Denies heat intolerance Roosevelt/Lymph Denies easy bruising Aller/Immun Denies itchy eyes, Denies seasonal rhinorrhea and Denies wheezing Physical Exam Vital Signs: Last Vital Signs Pulse 92 08/04/24 15:07 BP 118/77 08/04/24 15:07 Pulse Ox 94 08/04/24 15:07 Oxygen Delivery Method Room Air 08/04/24 15:07 BMI result Body Mass Index 40.2 Const General: no acute distress and alert Nutritional Appearance: obese Orientation/consciousness: Other orientation findings ( oriented) HEENT Head: Yes atraumatic Eyes General: appearance normal, both eyes and all related structures Sclerae: sclerae normal EOM: EOMs intact bilaterally Neck Neck: Yes supple Lymphatic: no lymphadenopathy noted Resp Effort & Inspection: normal respiratory effort and no use of accessory muscles Auscultation: clear to auscultation bilaterally Cardio Rate: regular rate Rhythm: regular rhythm Heart sounds: no gallops, no murmurs and no rubs Skin General skin exam: other ( warm) Extrem General: No clubbing, No cyanosis and Yes edema (1+ bilateral) Assessment & Plan Assessment & Plan (1) TALIB (obstructive sleep apnea): Code(s): G47.33 - Obstructive sleep apnea (adult) (pediatric) Category: Medical Plan: Well controlled on CPAP therapy. Continue CPAP therapy. (2) Asthma: Code(s): J45.909 - Unspecified asthma, uncomplicated Category: Medical Plan: Suboptimal control as patient was not able to receive her inhaled corticosteroid. Start Trelegy continue albuterol MDI. (3) Dyspnea on exertion: Code(s): R06.00 - Dyspnea, unspecified Category: Medical Plan: Worsening after patient ran out of her bumetanide. Restart bumetanide at 1 mg daily. Medications: New ysvddublirs-vuzvgyvdr-urbsbmts 200-62.5-25 mcg (Trelegy Ellipta) 1 inh inhalation DAILY 1 ea 6RF Coding Level of Care Code Est Pt Level 4 (41319) Complex EM visit Add On G2211 Diagnoses TALIB (obstructive sleep apnea) G47.33 Asthma J45.909 Dyspnea on exertion R06.00
--- OUTSIDE RECORDS SUMMARY | 2024-08-04 18:12 | XMS_ITS | Clinical Summary ---
Author Organization [facility] Address [address] [place] [address] Care Team Providers Care Cafe Operator Name Role Phone Community, Pcp Primary Care Provider Unavailabl e Allergies No known active allergies Medications Medication Sig Dispensed Refills Start Date End Date Status ALBUTEROL SULFATE (PROVENTIL HFA) 108 (90 BASE) MCG/ACT AERS Inhale 2 Puffs into the lungs every 4 hours as needed. 0 Active omeprazole (PRILOSEC) 40 MG capsule Take 40 mg by mouth daily. 0 Active atenolol (TENORMIN) 25 MG tablet Take 25 mg by mouth daily. 0 Active trazodone (DESYREL) 100 MG tablet Take 100 mg by mouth at bedtime. 0 Active fluoxetine (PROZAC) 40 MG capsule Take 40 mg by mouth daily. 0 Active Telmisartan (MICARDIS OR) Take by mouth. Patient not sure of dosage 0 Active polyethylene glycol (COLYTE WITH FLAVOR PACKS) 240 GM solutionIndications: GERD (gastroesophageal reflux disease),Dysphagia,R ectal bleeding,Incontinenc e Take by mouth. Drink 8 oz every 15 mins over 2 sittings as directed. Finish the entire jug. 4000 mL 0 02/02/2010 Active polyethylene glycol (MIRALAX) powderIndications:GE RD (gastroesophageal reflux disease),Dysphagia,R ectal bleeding,Incontinenc e Take 17 g by mouth 3 times daily. For 3 days, start 4 days before the colonoscopy 153 g 0 02/02/2010 Active bisacodyl (DULCOLAX) 5 MG EC tabletIndications:GE RD (gastroesophageal reflux disease),Dysphagia,R ectal bleeding,Incontinenc e Take 2 Tabs by mouth at bedtime. The night before the colonoscopy 2 Tab 0 02/02/2010 Active CPAP Historical (HISTORICAL CPAP) Inhale into the lungs. 0 Active Active Problems Problem Noted Date HTN (hypertension) 02/02/2010 Depression 02/02/2010 Obesity 02/02/2010 Asthma 02/02/2010 Iron defic anemia NEC 02/02/2010 Fibromyalgia 02/02/2010 Family History Medical History Relation Name Comments Cancer of the Breast Aunt Diabetes Brother 1 Diabetes Brother 2 [place] Father renal failure Cancer, Other Mother Diabetes Sister Relation Name Status Comments Aunt Alive Brother 1 Alive Brother 2 Alive Father Mother Sister Alive Social History Tobacco Use Types Packs/Day Years Used Date Smoking Tobacco: Never Smokeless Tobacco: Never Alcohol Use Standard Drinks/Week Comments Yes 0 (1 standard drink = 0.6 oz pur e alcohol) socially Sex Assigned at Date Recorded Not on file Last Filed Vital Signs Vital Sign Reading Time Taken Comments Blood Pressure 140/90 09/23/2017 3:04 PM EDT Pulse 80 09/23/2017 3:04 PM EDT Temperature 36.8 ??C (98.3 ??F) 02/26/2010 2:14 PM ED T Respiratory Rate 14 09/23/2017 3:04 PM EDT Oxygen Saturation 92% 02/26/2010 3:50 PM EDT Inhaled Oxygen Concentration - - Weight 97.3 kg (214 lb 6.4 oz) 09/23/2017 3:04 P M EDT Height 156.2 cm (5' 1.5 ) 09/23/2017 3:04 PM EDT Body Mass Index 39.85 09/23/2017 3:04 PM EDT Plan of Treatment Health Maintenance Due Date Last Done Comments Covid-19 Vaccine (#1) 06/20/1962 HEPATITIS C SCREENING 12/19/1979 DTAP/TDAP/TD (1 - Tdap) 1980 PNEUMOCOCCAL VACCINE FOR HIG H RISK PATIENTS (#1) 1980 CHOLESTEROL SCREENING 1981 BASELINE HEALTH EXAM 40-64 2001 MAMMOGRAM 2001 SHINGLES VACCINE (1 of 2) 12/19/2011 COLON CANCER SCREENING 02/12/2015 02/12/2010 CERVICAL CANCER SCREENING 09/23/2020 09/23/2017 INFLUENZA (#1) 2024 BMI CHECK/ADVISE 06/02/2024 09/23/2017, 09/23/2017 DEPRESSION SCREENING/FOLLOWUP 06/02/2024 02/02/2010 SOCIAL NEEDS SCREENING 06/02/2024 Care Teams Cafe Operator Relationship Specialty Start Date End Date Community, Pcp PCP - General Internal Medicine 09/23/17
--- OUTSIDE RECORDS SUMMARY | 2024-08-04 18:12 | XMS_ITS | Encounter Summary ---
Author Organization [facility] Address [address] [place] [address] Care Team Providers Care Forest Economics Professor Name Role Phone Community, Pcp Primary Care Provider Unavailabl e Encounter Details Date Type Department Care Team Description 09/25/2017 Release of Information Medical Records [address] [place] [id number] Abstract, Provider Social History Tobacco Use Types Packs/Day Years Used Date Smoking Tobacco: Never Smokeless Tobacco: Never Alcohol Use Standard Drinks/Week Comments Yes 0 (1 standard drink = 0.6 oz pur e alcohol) socially Sex Assigned at Date Recorded Not on file documented as of this encounter Plan of Treatment Not on file documented as of this encounter Visit Diagnoses Not on filedocumented in this encounter Care Teams Forest Economics Professor Relationship Specialty Start Date End Date Community, Pcp PCP - General Internal Medicine 09/23/17 documented as of this encounter
--- OUTSIDE RECORDS SUMMARY | 2024-08-04 18:12 | XMS_ITS | Clinical Summary ---
Author Organization [employer] [facility] Address [address] [place] [address] Care Team Providers Care Personal Lines Agent Name Role Phone Unavailable Primary Care Provider Unavailabl e Social History Tobacco Use Types Packs/Day Years Used Date Smoking Tobacco: Never Assessed Comments Unknown Sex and Gender Information Value Date Recorded Sex Assigned at Not on file Legal Sex Female 1:02 AM EST Gender Identity Not on file Sexual Orientation Not on file Plan of Treatment Health Maintenance Due Date Last Done Comments Breast Cancer Screening 1960 DTaP,Tdap,and Td Vaccines (1 - Tdap) 1980 Pneumococcal Vaccine: 50+ Ye ars (1 of 2 - PCV) 1980 Pneumococcal Vaccine: Pediat rics (0 to 5 Years) and At-Risk Patients (6 to 64 Years) (1 of 2 - PCV) 1980 Zoster Vaccines (1 of 2) 12/19/2011 Cervical Cancer Screening: P ap Smear 09/23/2020 09/23/2017 RSV Immunization Patients 60 + Years Old (1 - Risk 60-74 years 1-dose series) 2021 Cholesterol Screening (Lipid Panel) 05/05/2022 Colorectal Cancer Screening: Colonoscopy 05/05/2022 Depression Screening 05/05/2022 HIV Screening 05/05/2022 Hepatitis C Screening 05/05/2022 Social Influencers of Health Screening 05/05/2022 Hypertension/CHF/CAD Annual BMP Blood Test 05/18/2022 COVID-19 Vaccine (2023-2 5 season) 2024 Influenza Vaccine (#1) 2024 HIB Vaccines Aged Out No longer eligi ble based on patient's age to complete this topic HPV Vaccines Aged Out No longer eligi ble based on patient's age to complete this topic Hepatitis A Vaccines Aged Out No long er eligible based on patient's age to complete this topic Hepatitis B Vaccines Aged Out No long er eligible based on patient's age to complete this topic IPV Vaccines Aged Out No longer eligi ble based on patient's age to complete this topic MMR Vaccines Aged Out No longer eligi ble based on patient's age to complete this topic Meningococcal ACWY Vaccine Aged Out N o longer eligible based on patient's age to complete this topic Meningococcal B Vacine Aged Out No lo nger eligible based on patient's age to complete this topic RSV Immunization Patients Un john 20 months Aged Out No longer eligible b ased on patient's age to complete this topic Varicella Vaccines Aged Out No longer eligible based on patient's age to complete this topic Procedures Procedure Name Priority Date/Time Associated Diagnosis Comments PAP SMEAR Routine 09/23/2017 from Last 3 Months or Most Recently Relevant to Health Maintenance Results * Pap smear (09/23/2017) 09/23/2017 Narrative HISTORICAL TESTING LAB RESULTING AGENCY - 10/01/2017 7:36 AM EDT [id number] THINPREP PAP, IMAGED: NEGATIVE FOR SQUAMOUS INTRAEPITHELIAL LESION AND MALIGNANCY ??. RESULT OF APTIMA HIGH RISK HPV ASSAY: ? NEGATIVE ?? (SEROTYPES 16,18,31,33,35,39,45,51,52,56,58,59,66,68) CARLOS ALLEN(ASCP) (CASE ELECTRONICALLY SIGNED 09 30 2017) ADEQUACY: SATISFACTORY. ENDOCERVICAL/TRANSFORMATION ZONE COMPONENT PRESENT. SOURCE: THINPREP PAP HPV ANY DX: ??REFLEX 16 AND 18, CERVICAL, IMAGED: CLINICAL INFORMATION: HPV ANY DIAGNOSIS. Z12.4, Z01.419 us Reagan Muhammad MD LAB CYTOLOGY ORDERABLES Final R esult HISTORICAL TESTING LAB RESULTING AGENCY from Last 3 Months or Most Recently Relevant to Health Maintenance
== END 2024-08-04 15:24 | disposition home or self-care (01) ==
PROVIDERS: PCP Internal Medicine; Visit Provider Internal Medicine Pulmonary Disease
DX: G47.33 Obstructive sleep apnea (adult) (pediatric) (principal); J45.909 Unspecified asthma, uncomplicated; R06.00 Dyspnea, unspecified
CPT/HCPCS: 99214; G2211

== ENCOUNTER → 2024-08-04 15:03 | Outpatient (BNVA) | payer OTHER, SELFPAY | PROVIDERS: PCP Internal Medicine; Visit Provider Internal Medicine Pulmonary Disease | DX: G47.33 Obstructive sleep apnea (adult) (pediatric) (principal); J45.909 Unspecified asthma, uncomplicated; R06.00 Dyspnea, unspecified; Z99.89 Dependence on other enabling machines and devices | CPT/HCPCS: 99212 ==

== ENCOUNTER 2024-08-25 12:58 | Outpatient (AMB) | payer OTHER, SELFPAY ==
--- NOTE | 2024-08-25 13:09 | MHC.OFFWIV ---
Intake Vital Signs 08/25/24 13:10 Weight 219 lb BP 128/80 Blood Pressure Location Rt brachial Position Sitting Pulse 88 Pulse Source Pulse Oximeter Pulse Oximetry (%) 99 Oxygen Delivery Method Room Air Intake Visit Reasons: EP Bilat leg pain, hard to walk Intake Note: Patient here for right leg pain, difficulty walking and started about 3 weeks ago now. Patient Tobacco Use Status: Never used Tobacco Allergies No Known Allergies Allergy (Mild, Verified 08/25/24 13:18) NKA Do you need a note to return to daycare/school/sports/work: No HPI HPI Comments History of Present Illness Details Patient is a 63yo F who presents to office with R sided foot pain x 3 weeks R plantar aspect of foot No hx of pain similar. No known trauma She said worse with ambulation Pain level is 10/10 at worst Throbbing sharp pain She has tried tylenol No radiation superiorly Feels like R ankle is swollen No CP, SOB No other complaints Denies wearing heels; states wears slippers and sandals PFSH Medical History (Updated 08/25/24 @ 13:38 by Cathie Santiago PA-C) Encounter for well woman exam with routine gynecological exam Atypical squamous cells of undetermined significance (ASC-US) on cervical Pap smear Chronic osteoarthritis Vitamin D deficiency Mixed anxiety and depressive disorder Sleeping difficulty Generalized anxiety disorder with panic attacks Colon cancer screening History of respiratory failure 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, excluding fingers Hearing loss Hypovitaminosis D Insomnia GERD (gastroesophageal reflux disease) Mild asthma Essential hypertension Surgical History (Updated 05/20/24 @ 16:37 by ZAIRA Crocker) History of esophagogastroduodenoscopy (EGD) Hx of colonoscopy History of tubal ligation Family History Father Kidney failure, acute Asthma Mother Heart disease Cancer Sister Kidney disease Brother Kidney failure, acute Son Bipolar 1 disorder Mental health disorder Family/Other FH: mental illness Maternal Aunt Breast cancer Social History Household Members: Children Housing: House Do you presently have visiting nurse or other home services: No Alcohol intake: never Patient Tobacco Use Status: Never used Tobacco e-Cigarette/Vaping Use: Never Used Second Hand Smoke Exposure: Yes service: No Current occupational status: disabled Cognitive needs: Yes Hearing needs: No Vision needs: Yes Review of Systems Const Denies chills and Denies fever(s) Card Denies chest pain and Denies dyspnea Resp Denies dyspnea Musc Denies numbness, Denies tingling and Reports other (pain plantar aspect R foot) Skin/Breast Denies erythema, Denies rash, Reports skin pain, Reports skin swelling and Denies sores Neuro Denies numbness and Denies tingling Physical Exam Vital Signs: Last Vital Signs Pulse 88 08/25/24 13:10 BP 128/80 08/25/24 13:10 Pulse Ox 99 08/25/24 13:10 Oxygen Delivery Method Room Air 08/25/24 13:10 General: Non-toxic, NAD. Speaking full sentences. Skin: Warm dry throughout + edema plantar aspect R foot. No achilles edema or erythema. No FB noted between toes or on plantar aspect Eye: EOMI Respiratory: No respiratory distress. No dyspnea Cardiac: DP pulse intact RLE MSK: No ttp R ankle at medial or lateral malleoli or achilles. No ttp metatarsal bones R foot or digits on R foot. + ttp R calcaneus and plantar foot. + full flexion/extension digits R foot. Neurology: Alert. No aphasia or facial droop. Gait with limp due to pain Psych: Good mood and affect Assessment & Plan Assessment & Plan (1) Plantar fasciitis: Code(s): M72.2 - Plantar fascial fibromatosis Plan: Patient seen and evaluated. Xray R foot: No fx but + calcifications seen to plantar aspect with associated horn to calcaneus Given JHON wrap Most likely needs podiatry follow up; sent message to patient's PCP Ibuprofen to pharmacy Patient gave verbal understanding and had no additional questions or concerns at time of discharge All questions answered Orders: Orders XR foot RT min 3V Today M72.2 - Plantar fascial fibromatosis Medications: New ibuprofen 600 mg PO Q8H PRN 14 tabs 0RF pain Coding Level of Care Code Est Pt Level 3 (20082) Diagnoses Plantar fasciitis M72.2
[2024-08-25 13:10] VITALS: BP 128/80; PULSE 88; O2SAT 99
--- OUTSIDE RECORDS SUMMARY | 2024-08-25 15:22 | XMS_ITS | Clinical Summary ---
Author Organization [employer] [facility] Address [address] [place] [address] Care Team Providers Care Banquet Waiter/Waitress Name Role Phone Unavailable Primary Care Provider [...] RESULTING AGENCY - 10/01/2017 7:36 AM EDT [id number] THINPREP PAP, IMAGED: NEGATIVE FOR SQUAMOUS INTRAEPITHELIAL [...]
--- OUTSIDE RECORDS SUMMARY | 2024-08-25 15:22 | XMS_ITS | Clinical Summary ---
Author Organization [facility] Address [address] [place] [address] Care Team Providers Care Side Hemmer Name Role Phone Community, Pcp Primary Care [...] Aunt Diabetes Brother 1 Diabetes Brother 2 MD Father renal failure Cancer, Other Mother Diabetes [...] 02/02/2010 SOCIAL NEEDS SCREENING 06/02/2024 Care Teams Side Hemmer Relationship Specialty Start Date End Date Community, Pcp PCP - General Internal Medicine 09/23/17
--- OUTSIDE RECORDS SUMMARY | 2024-08-25 15:22 | XMS_ITS | Encounter Summary ---
Author Organization [facility] Address [address] [place] [address] Care Team Providers Care Rent Collector Name Role Phone Braydon Archer MD Primary Care Provide r Unavailable Community, Pcp Primary Care Provider Unavailabl e Encounter Details Date Type Department Care Team Description 02/08/2010 Release of Information Medical Records [address] [place] [id number] Abstract, Provider Social History Tobacco Use Types Packs/Day Years Used Date Smoking Tobacco: Never Assessed Sex Assigned at Date Recorded Not on file documented as of this encounter Plan of Treatment Not on file documented as of this encounter Visit Diagnoses Not on filedocumented in this encounter Care Teams Rent Collector Relationship Specialty Start Date End Date Braydon Archer MD PCP - General 08/22/0909/01 Community, Pcp PCP - General Internal Medicine 09/23/17 documented as of this encounter
== END 2024-08-25 14:16 | disposition home or self-care (01) ==
PROVIDERS: PCP Internal Medicine; Visit Provider Physician Assistant
DX: M72.2 Plantar fascial fibromatosis (principal)

== ENCOUNTER 2024-08-25 12:58 | Outpatient (REF) | payer OTHER, SELFPAY ==
--- NOTE | ~2024-08-25 | XR_ITS ---
EXAMINATION: XR FOOT 3 OR MORE VIEWS RIGHT HISTORY: M72.2 - Plantar fascial fibromatosis COMPARISON: There are no prior studies available for comparison. FINDINGS: Three views of the right foot are submitted. Osseous mineralization is normal. There is no fracture or dislocation. The joint spaces are preserved. There is a small plantar calcaneal spur. The soft tissues are unremarkable. XR/XR foot RT min 3V IMPRESSION: Small plantar calcaneal spur. Electronically signed by: Breezy Arceo MD 08/25/2024 03:03 PM EDT
== END 2024-08-25 12:59 | disposition home or self-care (01) ==
LOC: HO.HMGCX 12:58
PROVIDERS: PCP Internal Medicine; Visit Provider Physician Assistant
DX: M72.2 Plantar fascial fibromatosis (principal)
CPT/HCPCS: 73630; 99212

== ENCOUNTER → 2024-08-25 13:47 | Outpatient (BNV) | payer OTHER, SELFPAY | PROVIDERS: PCP Internal Medicine; Visit Provider Radiology Diagnostic Radiology | DX: M77.31 Calcaneal spur, right foot (principal) | CPT/HCPCS: 73630 ==

== ENCOUNTER → 2024-09-02 16:00 | Outpatient (BNV) | payer OTHER, SELFPAY | PROVIDERS: PCP Internal Medicine; Visit Provider Internal Medicine | DX: Z12.31 Encounter for screening mammogram for malignant neoplasm of breast (principal) | CPT/HCPCS: 77063; 77067 ==

== ENCOUNTER 2024-09-02 16:13 | Outpatient (REF) | payer OTHER, SELFPAY ==
--- OUTSIDE RECORDS SUMMARY | 2024-09-02 17:08 | XMS_ITS | Clinical Summary ---
Author Organization [facility] Address [address] [place] [address] Care Team Providers Care Acls Specialist Name Role Phone Community, Pcp Primary Care [...] Aunt Diabetes Brother 1 Diabetes Brother 2 [place] Father renal failure Cancer, Other Mother Diabetes [...] 02/12/2015 02/12/2010 CERVICAL CANCER SCREENING 09/23/2020 09/23/2017 BMI CHECK/ADVISE 06/02/2024 09/23/2017, 09/23/2017 DEPRESSION SCREENING/FOLLOWUP 06/02/2024 02/02/2010 SOCIAL NEEDS SCREENING 06/02/2024 INFLUENZA (Season Ended) 2025 Care Teams Acls Specialist Relationship Specialty Start Date End Date Community, Pcp PCP - General Internal Medicine 09/23/17
--- OUTSIDE RECORDS SUMMARY | 2024-09-02 17:08 | XMS_ITS | Encounter Summary ---
Author Organization [facility] Address [address] [place] [address] Care Team Providers Care Community Representative Name Role Phone Community, Pcp Primary Care Provider Unavailabl e Encounter Details Date Type Department Care Team Description 09/25/2017 Release of Information Medical Records [address] [place] [id number] Abstract, Provider Social History Tobacco Use Types [...] on filedocumented in this encounter Care Teams Community Representative Relationship Specialty Start Date End Date Community, Pcp PCP - General Internal Medicine 09/23/17 documented as of this encounter
--- OUTSIDE RECORDS SUMMARY | 2024-09-02 17:08 | XMS_ITS | Clinical Summary ---
Author Organization [employer] [facility] Address [address] [place] [address] Care Team Providers Care Esl Instructional Assistant Name Role Phone Unavailable Primary Care Provider [...] P ap Smear 09/23/2020 09/23/2017 RSV Immunization Adult Patie nts (1 - Risk 60-74 years 1-dose series) [...] RESULTING AGENCY - 10/01/2017 7:36 AM EDT [id number] THINPREP PAP, IMAGED: NEGATIVE FOR SQUAMOUS INTRAEPITHELIAL [...]
== END 2024-09-02 16:14 | disposition home or self-care (01) ==
LOC: HO.MAMMO 16:13
PROVIDERS: PCP Internal Medicine; Visit Provider Advanced Practice Midwife
DX: Z12.31 Encounter for screening mammogram for malignant neoplasm of breast (principal)
CPT/HCPCS: 77063; 77067

== ENCOUNTER 2024-11-03 15:36 | Outpatient (REF) | payer OTHER, SELFPAY ==
[2024-11-04 10:49] LABS: Influenza A PCR NEGATIVE (Negative); Influenza B PCR NEGATIVE (Negative); Resp Syncy Virus RNA Qual PCR NEGATIVE (Negative); SARS COV2 PCR INHOUSE NEGATIVE (Negative)
== END 2024-11-03 15:37 | disposition home or self-care (01) ==
LOC: HO.LAB 15:36
PROVIDERS: Physician Assistant Medical; PCP Internal Medicine
DX: J98.8 Other specified respiratory disorders (principal); R09.89 Other specified symptoms and signs involving the circulatory and respiratory systems; R06.02 Shortness of breath; R51.9 Headache, unspecified
CPT/HCPCS: 0241U; 94640; 99212

== ENCOUNTER 2024-11-03 15:36 | Outpatient (AMB) | payer OTHER, SELFPAY ==
--- NOTE | 2024-11-03 15:37 | AM.OFFWIN_ITS ---
Intake Vital Signs 11/03/24 15:44 Height 5 ft 1 in Weight 236 lb BMI 44.6 BP 126/84 Blood Pressure Location Lt brachial Position Sitting Respiration 28 H Pulse 73 Pulse Source Pulse Oximeter Temp 97.8 F Temp Source Oral Pulse Oximetry (%) 96 Oxygen Delivery Method Room Air Intake Visit Reasons: EP sob, headache, feels like arms are swollen Intake Note: Pt has SOB, complaining of headache,swollen body and body pain. She has been like this since friday10/31/24. Patient Tobacco Use Status: Never used Tobacco Allergies No Known Allergies Allergy (Mild, Verified 11/03/24 15:43) NKA HPI HPI Comments History of Present Illness Details History of Present Illness - The patient is a 63-year-old female pr esenting with respiratory symptoms and shortness of breath. - Symptom onset was on Friday, with wors ened body aches and congestion. She has body aches and feels swollen all over. - There is a denial of fever and cough, but noted ear discomfort and severe headache remain significant. - Shortness of breath occurs with talkin g and walking, with prior use of asthma devices reported. - The patient denied gastrointestinal sy mptoms and has no green nasal discharge; symptoms of ear pain and headache persist. - The patient?s son, hospitalized with C OVID-19, poses a potential exposure risk; patient has not been tested for COVID-19. - Immunizations for COVID-19 and influen za were not received this year. - Motrin provided minimal pain relief. - She denies fever, chills, CP, cough, a bd pain, n/v/d, travel, or smoking. Physical Exam General: Cooperative, appears uncomfortable, no acute distress, well developed, crying Orientation: Patient oriented x3 Head: NC/AT, normal to inspection Ears: Hearing grossly normal bilaterally, TM's normal. Nose: Normal external nose present, moist mucosa Face and sinus: Normal facial exam. No TTP of the frontal and maxillary noted. Neck: Normal visual inspection and Yes full ROM. No lymphadenopathy noted. Respiratory: Reports shortness of breath, normal respiratory effort, able to speak in complete sentences. Clear to auscultation bilaterally Cardiovascular: Regular rate and rhythm. Normal S1 and S2 GI: Normal to inspection. Soft to palpation and nontender Skin: No rashes or lesions noted Patient was informed and verbally consented to the use of an ambient scribe for clinic note documentation during this visit. [facility] Medical History (Updated 08/25/24 @ 13:38 by Cathie Santiago PA-C) Encounter for well woman exam with routine gynecological exam Atypical squamous cells of undetermined significance (ASC-US) on cervical Pap smear Chronic osteoarthritis Vitamin D deficiency Mixed anxiety and depressive disorder Sleeping difficulty Generalized anxiety disorder with panic attacks Colon cancer screening History of respiratory failure [id number] condition Deformity of left forearm, excluding fingers Hearing loss Hypovitaminosis D Insomnia GERD (gastroesophageal reflux disease) Mild asthma Essential hypertension Surgical History (Updated 05/20/24 @ 16:37 by ZAIRA Crocker) History of esophagogastroduodenoscopy (EGD) Hx of colonoscopy History of tubal ligation Family History Father Kidney failure, acute Asthma Mother Heart disease Cancer Sister Kidney disease Brother Kidney failure, acute Son Bipolar 1 disorder Mental health disorder Family/Other FH: mental illness Maternal Aunt Breast cancer Social History Household Members: Children Housing: House Do you presently have visiting nurse or other home services: No Alcohol intake: never Patient Tobacco Use Status: Never used Tobacco e-Cigarette/Vaping Use: Never Used Second Hand Smoke Exposure: Yes service: No Current occupational status: disabled Cognitive needs: Yes Hearing needs: No Vision needs: Yes Review of Systems Const All systems reviewed & are unremarkable except as noted in HPI and below Physical Exam Vital Signs: Last Vital Signs Temp 97.8 F 11/03/24 15:44 Pulse 73 11/03/24 15:44 Resp 28 H 11/03/24 15:44 BP 126/84 11/03/24 15:44 Pulse Ox 96 11/03/24 15:44 Oxygen Delivery Method Room Air 11/03/24 15:44 BMI result Body Mass Index 44.6 Office Procedures Nebulizer Treatment Nebulizer Treatment 10463-[id number]/MDI RX initial, or Nebulizer Subsequent Treatment Office Meds ipratropium 0.5 mg-albuterol 3 mg (2.5 mg base)/3 mL nebulization cuate Performing Provider: Marissa Gambino PA-C Performing Location: [facility] Administered by: Marissa Gambino PA-C on 11/03/24 16:29 Dose Route Admin Location Dispensed Lot Number Expiration Date NDC Courseware Developer 3 mL inhalation 3 mL [id number] 07/30/25 10276-639-16 [employer] Assessment & Plan Assessment & Plan (1) Congestion of upper airway: Code(s): J98.8 - Other specified respiratory disorders Plan Most likely covid vs URI vs flu vs viral syndrome vs asthma exacerbation Plan - Administer albuterol nebulizer treatment for acute respiratory symptoms and asthma flare to improve airway flow. - Perform COVID-19 testing given potential exposure risk from family contact. - Diet as tolerated. - Tylenol or Motrin as needed. - continue with inhalers and nebulizer at home. - will call with the results. - Refill allergy medications as efficacy was previously experienced by the patient. - Recommend rest and increased fluid intake for symptom management and recovery facilitation. Orders: Orders SARS-CoV2/FLU/RSV Today R09.89 - Other specified symptoms and signs involving the circulatory and respiratory systems AMB Nebulizer Treatment Today J98.8 - Other specified respiratory disorders Medications: New ipratropium-albuterol 0.5 mg-3 mg(2.5 mg base)/3 mL 3 mL inhalation ONCE 3 mL 0RF congestion J98.8 - Other specified respiratory disorders Coding Level of Care Code Est Pt Level 4 (55709) Diagnoses Congestion of upper airway J98.8 CPT Codes Nebulizer Treatment - Nebulizer Treatment, initial or subsequent: 69021- Nebulizer/MDI RX initial, or Nebulizer Subsequent Treatment ([id number])
--- OUTSIDE RECORDS SUMMARY | 2024-11-03 15:43 | XMS_ITS | Clinical Summary ---
Author Organization [address] [place] [address] Address [address] [place] [address] Phone Care Team Providers Care Bucket Hooker Name Role Phone Unavailable Primary Care Provider Unavailabl e Social History Tobacco Use Types Packs/Day Years Used Date Smoking Tobacco: Never Assessed Comments Unknown Sex and Gender Information Value Date Recorded Sex Assigned at Not on file Legal Sex Female 1:02 AM EST Gender Identity Not on file Sexual Orientation Not on file Plan of Treatment Upcoming Encounters Date Type Department Care Team ([facility] [address] Contact Info) Description 01/11/2025 3:00 PM EDT Office Visit Orthopedic Surgery [place] [address] [id number] Derrick Wood, DPM [address] [address] Health Maintenance Due Date Last Done Comments [...] - Risk 60-74 years 1-dose series) 2021 COVID-19 Vaccine ( - 2023-2 5 season) 2024 Cholesterol Screening (Lipid Panel) 10/04/2024 Colorectal Cancer Screening: Colonoscopy 10/04/2024 Depression Screening 10/04/2024 HIV Screening 10/04/2024 Hepatitis C Screening 10/04/2024 Hypertension/CHF/CAD Annual BMP Blood Test 10/04/2024 Social Influencers of Health Screening 10/04/2024 Influenza Vaccine (Season Ended) 2025 HIB Vaccines Aged Out No longer eligi [...] age to complete this topic Meningococcal B Vaccine Aged Out No l onger eligible based on patient's age to complete [...] RESULTING AGENCY - 10/01/2017 7:36 AM EDT [id number] THINPREP PAP, IMAGED: NEGATIVE FOR SQUAMOUS INTRAEPITHELIAL [...] or Most Recently Relevant to Health Maintenance Insurance [place]ICA[place] - [place]
[2024-11-03 15:44] VITALS: BP 126/84; PULSE 73; RESP 28; TEMP 36.6; O2SAT 96; BMI 44.6
== END 2024-11-03 16:35 | disposition home or self-care (01) ==
PROVIDERS: PCP Internal Medicine; Visit Provider Physician Assistant Medical
DX: J98.8 Other specified respiratory disorders (principal)

== ENCOUNTER 2025-02-07 12:59 | Outpatient (AMB) | payer OTHER, SELFPAY ==
[2025-02-07 13:10] VITALS: BP 132/80; PULSE 99; TEMP 36.7; O2SAT 94; BMI 41.2
--- NOTE | 2025-02-07 13:10 | MHC.OFFWIV ---
Intake Vital Signs 02/07/25 13:10 Height 5 ft 1 in Weight 218 lb BMI 41.2 BP 132/80 Blood Pressure Location Lt brachial Position Sitting Pulse 99 Pulse Source Pulse Oximeter Temp 98.0 F Temp Source Oral Pulse Oximetry (%) 94 Oxygen Delivery Method Room Air Intake Visit Reasons: EP-lt abd pain, sob Intake Note: pt presents with left lower abdominal pain and dizziness Patient Tobacco Use Status: Never used Tobacco Allergies No Known Allergies Allergy (Mild, Verified 02/07/25 13:14) NKA Do you need a note to return to daycare/school/sports/work: No HPI HPI Comments History of Present Illness Details 64 y/o Female patient who presents to the walk in clinic with c/o Abdominal Pain associated with Constipation. Reports Left Sided Lower abdominal Tenderness for few days. Reports has not had any Bowel movement for 2 days now. Denies Nausea or vomiting. Denies fevers or chills. [facility] Medical History (Updated 02/07/25 @ 13:45 by Giana White NP) Abdominal pain Encounter for well woman exam with routine gynecological exam Atypical squamous cells of undetermined significance (ASC-US) on cervical Pap smear Chronic osteoarthritis Vitamin D deficiency Mixed anxiety and depressive disorder Sleeping difficulty Generalized anxiety disorder with panic attacks Colon cancer screening History of respiratory failure Pynh-[id number]-85 condition Deformity of left forearm, excluding fingers Hearing loss Hypovitaminosis D Insomnia GERD (gastroesophageal reflux disease) Mild asthma Essential hypertension Surgical History (Updated 05/20/24 @ 16:37 by ZAIRA Crocker) History of esophagogastroduodenoscopy (EGD) Hx of colonoscopy History of tubal ligation Family History Father Kidney failure, acute Asthma Mother Heart disease Cancer Sister Kidney disease Brother Kidney failure, acute Son Bipolar 1 disorder Mental health disorder Family/Other FH: mental illness Maternal Aunt Breast cancer Social History Household Members: Children Housing: House Do you presently have visiting nurse or other home services: No Alcohol intake: never Patient Tobacco Use Status: Never used Tobacco e-Cigarette/Vaping Use: Never Used Second Hand Smoke Exposure: Yes service: No Current occupational status: disabled Cognitive needs: Yes Hearing needs: No Vision needs: Yes Review of Systems Const All systems reviewed & are unremarkable except as noted in HPI and below Physical Exam Vital Signs: Last Vital Signs Temp 98.0 F 02/07/25 13:10 Pulse 99 02/07/25 13:10 BP 132/80 02/07/25 13:10 Pulse Ox 94 02/07/25 13:10 Oxygen Delivery Method Room Air 02/07/25 13:10 BMI result Body Mass Index 41.2 Const General: no acute distress Nutritional Appearance: obese Orientation/consciousness: patient oriented x3 GI Inspection: Yes Abdominal panniculus present and Yes obesity Palpation (GI): Soft to palpation, not firm, Tenderness to palpation present (GI) in the epigastrum, in the LLQ and suprapubicly, no guarding, not rigid and No hepatosplenomegaly present Auscultation: normal bowel sounds Neuro General: patient oriented x3, gait normal and moves all extremities Psych Speech and movement: Normal speech and movement present Assessment & Plan Assessment & Plan (1) Abdominal pain: Code(s): R10.9 - Unspecified abdominal pain Qualifiers: Abdominal location: generalized Qualified Code(s): R10.84 - Generalized abdominal pain Plan: Ordered KUB Ordered Senokot Advised to increase Fiber in her diet Orders: Orders XR KUB Today R10.9 - Unspecified abdominal pain Medications: New sennosides (Senokot Extra Strength) 17.2 mg PO DAILY 30 tabs 0RF R10.9 - Unspecified abdominal pain Changed From ibuprofen 600 mg PO Q8H PRN 14 tabs 0RF pain R10.9 - Unspecified abdominal pain To ibuprofen 600 mg PO Q8H 20 tabs 0RF pain R10.9 - Unspecified abdominal pain Coding Level of Care Code Est Pt Level 4 (41804) Diagnoses Generalized abdominal pain R10.84 Abdominal location: generalized Time Spent (min) 20
--- OUTSIDE RECORDS SUMMARY | 2025-02-07 15:07 | XMS_ITS | Clinical Summary ---
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 Name Role Phone Unavailable Primary Care Provider Unavailabl e Medications Hospital, Clinic, or Other Facility Administered Medication Ordered Dose Route Frequency Start Date End Date Status lidocaine (PF) (XYLOCAINE-MPF) 1 % injection 0.5 mLIndications:Tendin itis of right ankle,Tendinitis of left ankle .5 mL inj Once PRN Procedure 01/11/2025 01/11/2025 Ended lidocaine (PF) (XYLOCAINE-MPF) 1 % injection 0.5 mLIndications:Tendin itis of right ankle,Tendinitis of left ankle .5 mL inj Once PRN Procedure 01/11/2025 01/11/2025 Ended triamcinolone acetonide (KENALOG-40) 40 mg/mL injection 20 mgIndications:Tendin itis of right ankle,Tendinitis of left ankle 20 mg IAtc Once PRN Procedure 01/11/2025 01/11/2025 Ended triamcinolone acetonide (KENALOG-40) 40 mg/mL injection 20 mgIndications:Tendin itis of right ankle,Tendinitis of left ankle 20 mg IAtc Once PRN Procedure 01/11/2025 01/11/2025 Ended Encounters Date Type Department Care Team Description 01/11/2025 3:00 PM EDT Office Visit Orthopedic Surgery - [facility] [address] [phone] Derrick Wood, DPAung Tendinitis of right ankle (Primary Dx); Plantar fascial fibromatosis; Tendinitis of left ankle from Last 3 Months Social History Tobacco Use Types Packs/Day Years Used Date Smoking Tobacco: Never Assessed Comments Unknown Sex and Gender Information Value Date Recorded Sex Assigned at Not on file Legal Sex Female 1:02 AM EST Gender Identity Not on file Sexual Orientation Not on file Plan of Treatment Upcoming Encounters Date Type Department Care Team ([facility] st Contact Info) Description 02/28/2025 2:30 PM EDT Office Visit Orthopedic Surgery - [facility] [address] [phone] Derrick Wood, DPM [address] [phone] Health Maintenance Due Date Last Done Comments Breast Cancer Screening 1960 Zoster Vaccines (1 of 2) 12/19/2011 Pneumococcal Vaccine: 50+ Years (2 of 2 - PCV) 02/14/2018 02/14/2017 Cervical Cancer Screening: Pap Smear 09/23/2020 09/23/2017 RSV Immunization Adult Patients (1 - Risk 60-74 years 1-dose series) 2021 Depression Screening 06/02/2024 Colorectal Cancer Screening: Colonoscopy 10/04/2024 HIV Screening 10/04/2024 Hypertension/CHF/CAD Annual BMP Blood Test 10/04/2024 Social Influencers of Health Screening 10/04/2024 COVID-19 Vaccine ( - season) 2025 Influenza Vaccine (#1) 2025 , 04/10/2021, 02/14/2017, Additional history exists Cholesterol Screening (Lipid Panel) 06/07/2026 06/07/2021 DTaP,Tdap,and Td Vaccines (2 - Td or Tdap) 04/16/2027 04/16/2017 Hepatitis C Screening Completed 06/07/2021 HIB Vaccines Aged Out No longer eligi [...] to complete this topic RSV Immunization Patients Under 20 months Aged Out No longer eligible based on patient's age to complete this topic Varicella Vaccines Aged Out No longer eligible based on patient's age to complete this topic Procedures Procedure Name Priority Date/Time Associated Diagnosis Comments INJECTION TENDON OR LIGAMENT Routine 01/11/2025 3:00 PM EDT Tendinitis of right ankle Tendinitis of left ankle INJECTION TENDON OR LIGAMENT Routine 01/11/2025 3:00 PM EDT Tendinitis of right ankle Tendinitis of left ankle PAP SMEAR Routine 09/23/2017 from Last 3 Months or Most Recently Relevant to Health Maintenance Results * Injection tendon or ligament (01/11/2025 3:00 PM EDT) Derrick De Leon DPM - 01/11/2025 3:00 PM EDT Derrick Wood DPM 01/11/2025 5:20 PM Injection tendon or ligament Indications: pain Details: 25 G needle Medications: 0.5 mL lidocaine (PF) 1 %; 20 mg triamcinolone acetonide 40 mg/mL Informed Consent: Site: Foot ligament tendon Derrick Wood DPM IN CLINIC/BEDSIDE ORDERAB LES Final Result * Injection tendon or ligament (01/11/2025 3:00 PM EDT) Derrick De Leon DPM - 01/11/2025 3:00 PM EDT Derrick Wood DPM 01/11/2025 5:20 PM Injection tendon or ligament Indications: pain Details: 25 G needle Medications: 0.5 mL lidocaine (PF) 1 %; 20 mg triamcinolone acetonide 40 mg/mL Informed Consent: Site: Foot ligament tendon Derrick Wood DPM IN CLINIC/BEDSIDE ORDERAB LES Final Result * Pap smear (09/23/2017) 09/23/2017 Narrative HISTORICAL TESTING LAB RESULTING AGENCY - 10/01/2017 7:36 AM EDT [id number] THINPREP PAP, IMAGED: NEGATIVE FOR SQUAMOUS INTRAEPITHELIAL LESION AND MALIGNANCY . 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 ENDOCERVICAL/TRANSFORMATION ZONE COMPONENT PRESENT. SOURCE: THINPREP PAP HPV ANY DX: REFLEX 16 AND 18, CERVICAL, IMAGED: CLINICAL INFORMATION: HPV ANY DIAGNOSIS. Z12.4, Z01.419 us Reagan Muhammad MD LAB CYTOLOGY ORDERABLES Final R esult HISTORICAL TESTING LAB RESULTING AGENCY from Last 3 Months or Most Recently Relevant to Health Maintenance Insurance MEDICAID - [place]
== END 2025-02-07 13:34 | disposition home or self-care (01) ==
PROVIDERS: PCP Internal Medicine; Visit Provider Nurse Practitioner Family
DX: R10.84 Generalized abdominal pain (principal)

== ENCOUNTER 2025-02-07 12:59 | Outpatient (REF) | payer OTHER, SELFPAY ==
--- NOTE | ~2025-02-07 | XR_ITS ---
EXAMINATION: XR ABDOMEN 1 VIEW (KUB) HISTORY: R10.9 - Unspecified abdominal pain COMPARISON: There are no prior studies available for comparison. FINDINGS: Two supine views of the abdomen are submitted. The bowel gas pattern is unremarkable, without evidence of mechanical obstruction. There is a moderate amount of stool throughout the colon. There are phleboliths in the left hemipelvis. There are no abnormal soft tissue masses. There is degenerative disc disease and levoscoliosis of the spine. XR/XR KUB IMPRESSION: Moderate amount of stool throughout the colon. Electronically signed by: Breezy Arceo MD 02/07/2025 01:48 PM EDT
== END 2025-02-07 13:00 | disposition home or self-care (01) ==
LOC: HO.HMGCX 12:59
PROVIDERS: PCP Internal Medicine; Visit Provider Nurse Practitioner Family
DX: R10.84 Generalized abdominal pain (principal)
CPT/HCPCS: 74018; 99212

== ENCOUNTER → 2025-02-07 13:35 | Outpatient (BNV) | payer OTHER, SELFPAY | PROVIDERS: PCP Internal Medicine; Visit Provider Radiology Diagnostic Radiology | DX: R10.9 Unspecified abdominal pain (principal) | CPT/HCPCS: 74018 ==

== ENCOUNTER 2025-02-22 15:12 | Outpatient (AMB) | payer OTHER, SELFPAY ==
[2025-02-22 15:15] VITALS: BP 192/103; PULSE 86; BMI 41.2
--- NOTE | 2025-02-22 15:15 | MHC.OFFVIS ---
Vital Signs 02/22/25 15:15 Height 5 ft 1 in Weight 218 lb 4.122 oz BMI 41.2 BP 192/103 H Blood Pressure Location Lt brachial Position Sitting Pulse 86 Intake Visit Reasons: 6mth Intake Note: Patient in office today in follow up of abd pain and GERD. CC: Patient c/o diarrhea with some episodes of fecal incontinence. Department Head College Or University Required: No Accompanied by: Grand Child Allergies No Known Allergies Allergy (Mild, Verified 02/22/25 15:29) NKA HPI HPI 6mth: Details: Assessment & Plan (1) GERD (gastroesophageal reflux disease): Code(s): K21.9 - Gastro-esophageal reflux disease without esophagitis Category: Medical Qualifiers: Esophagitis presence: esophagitis presence not specified Qualified Code(s): K21.9 - Gastro-esophageal reflux disease without esophagitis (2) Illiterate: Comment: Pt cannot read or write Code(s): Z55.0 - Illiteracy and low-level literacy Category: Social Hx (3) Obesity: Code(s): E66.9 - Obesity, unspecified Category: Medical Plan TANZANIAN #DECLINES She tolerated the procedure well. SHE SAYS THAT her GERD is well controlled as long as she has the omeprazole 20 mg a day. She also says she ran out of refills because it took longer for me to see her back after her appointment so will get this going for her. Overall there was nothing concerning found on either the barium swallow or the EGD. Overall she was counseled that weight loss and avoiding offending foods would go a long way to controlling her GERD. Return office visit in 6 months Medications: Refilled omeprazole 20 mg PO DAILY 30 caps 6RF K21.9 - Gastro-esophageal reflux disease without esophagitis XR ABD FINDINGS: Two supine views of the abdomen are submitted. The bowel gas pattern is unremarkable, without evidence of mechanical obstruction. There is a moderate amount of stool throughout the colon. There are phleboliths in the left hemipelvis. There are no abnormal soft tissue masses. There is degenerative disc disease and levoscoliosis of the spine. XR/XR KUB IMPRESSION: Moderate amount of stool throughout the colon. 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, excluding fingers Hearing loss Hypovitaminosis D Insomnia GERD (gastroesophageal reflux disease) Mild asthma Essential hypertension Surgical History History of esophagogastroduodenoscopy (EGD) Hx of colonoscopy History of tubal ligation Family History Father Kidney failure, acute Asthma Mother Heart disease Cancer Sister Kidney disease Brother Kidney failure, acute Son Bipolar 1 disorder Mental health disorder Family/Other FH: mental illness Maternal Aunt Breast cancer Social History Household Members: Children Housing: House Do you presently have visiting nurse or other home services: No Alcohol intake: never Patient Tobacco Use Status: Never used Tobacco e-Cigarette/Vaping Use: Never Used Second Hand Smoke Exposure: Yes service: No Current occupational status: disabled Cognitive needs: Yes Hearing needs: No Vision needs: Yes Review of Systems Const Denies fatigue, Denies fever(s), Denies night sweats, Denies poor appetite and Denies weight loss ENT Reports Normal hearing present, Denies dental pain, Denies dysphagia, Denies hearing loss, Denies mouth pain, Denies odynophagia, Denies throat swelling, Denies tongue swelling and Reports other (Dentition adequate) Card Reports chest pain, Reports syncope and Reports dyspnea Resp Reports dyspnea GI Details: Reports abdominal pain, Denies melena, Denies bloating, Denies hematochezia, Denies constipation, Denies GI cramping, Denies dysphagia, Denies excessive flatus, Denies early satiety, Reports heartburn, Reports diarrhea, Denies nausea, Denies odynophagia, Denies vomiting and Denies hematemesis Musc Reports arthralgias (RT SHOULDER) Skin/Breast Denies pruritus, Denies lesions, Denies rash and Denies jaundice Neuro Reports Normal hearing present, Denies Abnormal speech present and Reports syncope Endo Denies fatigue Aller/Immun Denies throat swelling and Denies tongue swelling Physical Exam Vital Signs: Last Vital Signs Pulse 86 02/22/25 15:15 BP 192/103 H 02/22/25 15:15 BMI result Body Mass Index 41.2 Const General: cooperative, no acute distress, well developed and well groomed Nutritional Appearance: well nourished and obese morbidly obese Orientation/consciousness: oriented to person, oriented to place and oriented to time Limitations: No language barrier HEENT Head: Yes normocephalic and Yes atraumatic Eyes General: appearance normal, both eyes and all related structures Pupils: Equal, round and reactive pupils present Neck Neck: Yes normal visual inspection and Yes no lymphadenopathy Thyroid: Thyroid normal Resp Effort & Inspection: normal respiratory effort and able to speak in complete sentences Auscultation: clear to auscultation bilaterally Cardio Rate: regular rate Rhythm: regular rhythm Heart sounds: Normal, physiologic split S2 sound present Peripheral pulses: radial pulses present and posterior tibial pulses present GI Inspection: No distended, Yes Abdominal panniculus present and Yes obesity Palpation (GI): Soft to palpation, Tenderness to palpation present (GI) in the RLQ, periumbilically and with rebound tenderness, no guarding, not rigid and No hepatosplenomegaly present Percussion: Yes normal to percussion Auscultation: normal bowel sounds Rectal Exam - Female: deferred Skin General skin exam: no rashes or lesions noted, turgor normal, skin not dry, no jaundice, No spider nevi and no striae Rashes: no rashes Nails: normal Neuro General: oriented to person, oriented to place and oriented to time Cranial nerves: Yes Equal, round and reactive pupils present and Yes Normal hearing present Speech: No Abnormal speech present Extrem General: Yes normal to inspection, No clubbing, No cyanosis and Yes edema Psych Appearance: grossly normal and well kempt Mental Status: mental status grossly normal Speech and movement: Normal speech and movement present Affect: normal affect Attitude: cooperative Thought process: Normal thought process present and not confabulating Thought content: Normal thought content present Insight: Good insight present (Psych) Judgement: Good judgement present (Psych) Assessment & Plan Assessment & Plan (1) GERD (gastroesophageal reflux disease): Code(s): K21.9 - Gastro-esophageal reflux disease without esophagitis Category: Medical Qualifiers: Esophagitis presence: esophagitis presence not specified Qualified Code(s): K21.9 - Gastro-esophageal reflux disease without esophagitis (2) Illiterate: Comment: Pt cannot read or write Code(s): Z55.0 - Illiteracy and low-level literacy Category: Social Hx (3) RLQ abdominal pain: Code(s): R10.31 - Right lower quadrant pain Category: Medical (4) Diarrhea: Code(s): R19.7 - Diarrhea, unspecified Category: Medical (5) RLQ abdominal pain: Code(s): R10.31 - Right lower quadrant pain Category: Medical (6) Diarrhea: Code(s): R19.7 - Diarrhea, unspecified Category: Medical (7) Shortness of breath: Code(s): R06.02 - Shortness of breath Category: Medical (8) Lower extremity edema: Code(s): R60.0 - Localized edema Category: Medical (9) Shortness of breath: Code(s): R06.02 - Shortness of breath Category: Medical Plan Her current GI regimen consists of omeprazole 40 mg a day. - The patient is a 64 year old female presenting for GERD follow-up but also is endorsing an acute onset of shortness of breath and right lower quadrant abdominal pain. - Shortness of breath has progressively worsened occurs with minimal exertion, and has recently increased in intensity without immediate relief from bumetanide or her inhaler adjustments. Presentation includes additional edema in the legs and history of lung water retention. - Abdominal pain exhibited as severe, non-relieving on touch, frequency, or position adjustments, presents with diarrhea since last Friday indicating a sudden onset, having previously normal bowel habits. She presented to her primary care provider but was late for the appointment and instead had to present to the walk-in clinic. They did an x-ray and told her nothing was wrong and that she should go home and take Tylenol. She can not identify any medication changes, suspicious foods eaten, sick contacts etc. prior to the onset of her illness - Episodes of vasovagal reactions tied to bowel movements reported. I am not sure if this sudden onset of all these symptoms are separate issues or if they are all tied together in some manner. I am concerned that she could have a food-borne GI infection such as C diff, or even appendicitis causing the acute onset of her symptoms. Because of this I will get a GI panel, CBC and a Chem panel and order a CAT scan of the abdomen and pelvis. With regards to her shortness of breath and her cardiac symptoms I will get a chest x-ray to try to exclude a pneumonia, along with a proBNP and a troponin. I do not think an EKG would be helpful at this time since I do not have a prior for comparison. She sees a head of sales promotion that is not associated with our system so I would not be able to see what his notes produce. She says she has an appointment with the head of sales promotion towards the end of March and when with her primary care provider at the beginning of March. Return office visit in 4 weeks Orders: Orders GI Panel Today R19.7 - Diarrhea, unspecified Complete Blood Count Auto Diff Today R10.31 - Right lower quadrant pain, R19.7 - Diarrhea, unspecified XR chest 2V Today R06.02 - Shortness of breath NT Pro B Type Natriuretic Pept Today R06.02 - Shortness of breath, R60.0 - Localized edema Troponin-I High Sensitivity Today R06.02 - Shortness of breath, R60.0 - Localized edema CT abdomen pelvis w IV con Today R10.31 - Right lower quadrant pain Comprehensive Met. Panel Today R10.31 - Right lower quadrant pain, R19.7 - Diarrhea, unspecified Medications: Refilled omeprazole 20 mg PO DAILY 90 caps 2RF K21.9 - Gastro-esophageal reflux disease without esophagitis Coding Level of Care Code Est Pt Level 4 (66699) Diagnoses Gastroesophageal reflux disease, unspecified whether esophagitis present K21.9 Esophagitis presence: esophagitis presence not specified Illiterate Z55.0 RLQ abdominal pain R10.31 Diarrhea R19.7 Shortness of breath R06.02 Lower extremity edema R60.0 Time Spent (min) 38
--- OUTSIDE RECORDS SUMMARY | 2025-02-22 18:10 | XMS_ITS | Clinical Summary ---
Author Organization [address] [place] [address] Address [address] [place] [address] Phone Care Team Providers Care Senior Application Security Consultant Name Role Phone Unavailable Primary Care Provider Unavailabl e Encounters Date Type Department Care Team Description 01/11/2025 3:00 PM EDT Office Visit Orthopedic [facility] [address] [phone] Derrick Wood DPM Tendinitis of right ankle (Primary Dx); Plantar [...] Upcoming Encounters Date Type Department Care Team ([facility] st Contact Info) Description 02/28/2025 2:30 PM EDT Office Visit [facility] [address] [phone] Derrick Wood DPM [address] [phone] Health Maintenance Due Date Last Done Comments [...] - season) 2025 Influenza Vaccine (#1) 2025 3, 04/10/2021, 02/14/2017, Additional history exists Cholesterol Screening [...] RESULTING AGENCY - 10/01/2017 7:36 AM EDT [id number] THINPREP PAP, IMAGED: NEGATIVE FOR SQUAMOUS INTRAEPITHELIAL [...] to Health Maintenance Insurance MEDICAID - [place] [facility]
== END 2025-02-22 15:58 | disposition home or self-care (01) ==
LOC: HO.HGI 15:13
PROVIDERS: PCP Internal Medicine; Visit Provider Nurse Practitioner
DX: K21.9 Gastro-esophageal reflux disease without esophagitis (principal); Z55.0 Illiteracy and low-level literacy; R10.31 Right lower quadrant pain; R19.7 Diarrhea, unspecified; R06.02 Shortness of breath; R60.0 Localized edema
CPT/HCPCS: 99214

== ENCOUNTER 2025-02-22 15:12 | Outpatient (REF) | payer OTHER, SELFPAY ==
--- NOTE | ~2025-02-22 | XR_ITS ---
EXAMINATION: XR CHEST CLINICAL INFORMATION: R06.02 - Shortness of breath COMPARISON: January 21, 2024 TECHNIQUE: 2 views of the chest were obtained. FINDINGS: The heart size is within normal limits. There are diffuse reticular-nodular opacities throughout the lung maya bilaterally, slightly increased from the prior. There is no pleural effusion. No other abnormalities are seen. XR/XR chest 2V IMPRESSION: Diffuse reticulonodular opacities appear slightly increased when compared to the prior examination. This could be related to progression of disease, but other etiologies such as interstitial edema or atypical/viral pneumonia should be considered. Electronically signed by: Easton Flor MD 02/22/2025 05:15 PM EDT RP
== END 2025-02-22 15:13 | disposition home or self-care (01) ==
LOC: HO.XRAY 15:12
PROVIDERS: PCP Internal Medicine; Visit Provider Nurse Practitioner
DX: K21.9 Gastro-esophageal reflux disease without esophagitis (principal); R10.31 Right lower quadrant pain; R19.7 Diarrhea, unspecified; R06.02 Shortness of breath; R60.0 Localized edema; E66.9 Obesity, unspecified; Z55.0 Illiteracy and low-level literacy; Z68.41 Body mass index [BMI] 40.0-44.9, adult
CPT/HCPCS: 71046; 99212

== ENCOUNTER → 2025-02-22 16:05 | Outpatient (BNV) | payer OTHER, SELFPAY | PROVIDERS: PCP Internal Medicine; Visit Provider Radiology Diagnostic Radiology | DX: R91.8 Other nonspecific abnormal finding of lung field (principal) | CPT/HCPCS: 71046 ==

== ENCOUNTER 2025-03-08 13:03 | Outpatient (REF) | payer OTHER, SELFPAY ==
[2025-03-08 16:49] LABS: Alanine Aminotransferase 84 U/L (0-31); Anion Gap 10 (12-20); Aspartate Amino Transferase 94 U/L (5-31); Blood Urea Nitrogen 14 mg/dL (9-16); Calcium 9.7 mg/dL (8.4-10.2); Carbon Dioxide 30 mmol/L (22-29); Chloride 106 mmol/L (96-108); Cholesterol 228 mg/dL (<200); Estimated Glomerular Filt Rate > 60; HDL Cholesterol 66 mg/dL (>40); Potassium 4.0 mmol/L (3.3-5.1); Sodium 142 mmol/L (135-145); Triglycerides 81 mg/dL (<150)
== END 2025-03-08 13:04 | disposition home or self-care (01) ==
LOC: CF 13:03
PROVIDERS: PCP Internal Medicine; Visit Provider Internal Medicine
DX: Z00.01 Encounter for general adult medical examination with abnormal findings (principal); E55.9 Vitamin D deficiency, unspecified; F41.9 Anxiety disorder, unspecified; F32.A Depression, unspecified; I10 Essential (primary) hypertension; J45.20 Mild intermittent asthma, uncomplicated; K21.9 Gastro-esophageal reflux disease without esophagitis; K44.9 Diaphragmatic hernia without obstruction or gangrene; F41.8 Other specified anxiety disorders; E66.9 Obesity, unspecified; M19.90 Unspecified osteoarthritis, unspecified site; M72.2 Plantar fascial fibromatosis; G47.33 Obstructive sleep apnea (adult) (pediatric); Z23 Encounter for immunization; Z79.899 Other long term (current) drug therapy
CPT/HCPCS: 36415; 80048; 80061; 82306; 84450; 84460; 90471; 90656; 96127; 99396

== ENCOUNTER 2025-03-08 13:03 | Outpatient (AMB) | payer OTHER, SELFPAY ==
--- NOTE | 2025-03-08 13:12 | MHC.PC.OV ---
Vital Signs 03/08/25 13:21 Height 5 ft 1 in Weight 215 lb BMI 40.6 BP 122/82 Blood Pressure Location Rt brachial Position Sitting Respiration 16 Pulse 86 Pulse Source Pulse Oximeter Temp 98.0 F Temp Source Oral Pulse Oximetry (%) 98 Oxygen Delivery Method Room Air Intake Visit Reasons: Annual PE Intake Note: Pt is here today for her PE: last mammogram 09/02/24, papsmear 04/22/24, cologuard 07/16/22 Allergies No Known Allergies Allergy (Mild, Verified 03/08/25 13:18) NKA Medication List - Last Reconciled 03/08/25 by Mitzy Teague MD albuterol sulfate 1.25 mg (3 mL) inhalation Q4-6H PRN bumetanide 1 mg PO DAILY buspirone 15 mg PO BID calcipotriene 0.005% appl topical cholecalciferol (vitamin D3) 50 mcg PO DAILY clobetasol 0.05% 1 appl topical BID 10 days diclofenac sodium 1% 4 grams topical fluticasone furoate-vilanterol 200-25 mcg/dose (Breo Ellipta) 1 inh inhalation DAILY fluticasone propionate 50 mcg/actuation 1 spray intranasal Q12H hydroxyzine HCl 10 mg PO BEDTIME PRN ibuprofen 600 mg PO Q8H lisinopril 10 mg PO DAILY mirtazapine 30 mg PO BEDTIME nebulizers (AeroEclipse II Nebulizer) As directed omeprazole 20 mg PO DAILY prazosin 1 mg PO BEDTIME sennosides (Senokot Extra Strength) 17.2 mg PO DAILY umeclidinium 62.5 mcg/actuation (Incruse Ellipta) 1 inh inhalation DAILY Ventolin HFA 90 mcg/actuation (albuterol sulfate) 2 puffs inhalation Q4-6H PRN 30 days NS Tobacco use date assessed: 03/08/25 Dental Screening Dental Screen Date: 03/08/25 Did you have a dental visit in the last 12 months?: No Did you have a dental problem in the last 6 months where you did not have access to dental care?: No Was dental information given to patient?: Patient declined HPI Annual PE HPI Details 64-year-old lady with history anxiety and depression currently followed by [facility], has hypertension, osteoarthritis, mild intermittent asthma, gastroesophageal reflux disease, hearing loss here today for her physical exam. She is up-to-date with her breast cancer screening, and obstructive sleep apnea last mammogram done 09/02/2024 with benign findings Last cervical cancer screening was done 04/22/2024 , goes to [facility] for her routine Pap and pelvic exam. Had an upper endoscopy done by Dr. Clinton in 2023 which showed presence of GERD and hiatal hernia and had a negative Cologuard 07/16/22. [facility] Medical History (Updated 03/08/25 @ 13:31 by Mitzy Teague MD) Atypical squamous cells of undetermined significance (ASC-US) on cervical Pap smear Chronic osteoarthritis Vitamin D deficiency Mixed anxiety and depressive disorder Sleeping difficulty Colon cancer screening [id number] condition Deformity of left forearm, excluding fingers Hearing loss Hypovitaminosis D Insomnia GERD (gastroesophageal reflux disease) Mild asthma Essential hypertension Surgical History History of esophagogastroduodenoscopy (EGD) Hx of colonoscopy History of tubal ligation Family History Father Kidney failure, acute Asthma Mother Heart disease Cancer Sister Kidney disease Brother Kidney failure, acute Son Bipolar 1 disorder Mental health disorder Family/Other FH: mental illness Maternal Aunt Breast cancer Social History Household Members: Children Housing: House Do you presently have visiting nurse or other home services: No Alcohol intake: never Patient Tobacco Use Status: Never used Tobacco e-Cigarette/Vaping Use: Never Used Second Hand Smoke Exposure: Yes service: No Current occupational status: disabled Cognitive needs: Yes Hearing needs: No Vision needs: Yes Questionnaire PHQ-9 Over the last 2 weeks, how often have you been bothered by any of the following problems? 1. Little interest or pleasure in doing things: not at all 2. Feeling down, depressed, or hopeless: several days 3. Trouble falling or staying asleep, or sleeping too much: several days 4. Feeling tired or having little energy: more than half the days 5. Poor appetite or overeating: not at all 6. Feeling bad about yourself - or that you are a failure or have let yourself or your family down: several days 7. Trouble concentrating on things, such as reading the newspaper or watching television: more than half the days 8. Moving or speaking so slowly that other people could have noticed. Or the opposite - being so fidgety or restless that you have been moving around a lot more than usual: not at all 9. Thoughts that you would be better off or of hurting yourself in some way: not at all Total score: 7 Depression Screening Interpretation: Positive (Sees [facility] her Psychiatry) Depression Screening Follow-up: Existing condition, In treatment and Community Mental Health Worker F/U (Still awaiting appointment for a therapist) Depression Screening Done: Yes 08995 - PHQ-9 Billing: Yes Source: Developed by Drs. Breezy Haas, Radha Ernandez, Bobby Miller and colleagues, with an educational ernestina from [employer]. Thrive Questionnaire Date Thrive assessed: 03/08/25 I am a: Parent/Caregiver What is your living situation today?: I have a steady place to live Within the past 12 months, did the food you bought not last and you didn't have the money to get more?: Never true Within the past 12 months, did you worry whether your food would run out before you got money to buy more?: Never true Do you have trouble paying for medicines?: No Do you have trouble getting transportation to medical appointments?: No Do you have trouble paying your heating and electricity bill?: No Do you have trouble taking care of your child, family member or friend?: No Do you have trouble with day-to-day activities such as bathing, preparing meals, shopping, managing finances, etc.?: Yes Are you currently unemployed and looking for a job?: No Are you interested in more education?: No Please select the resources that you would like help with: None Currently or been in a relationship where the following occur: No concerns reported THRIVE Score: 0 AUDIT C Alcohol Use Questionnaire (AUDIT-C) 1. How often do you have a drink containing alcohol?: Never Total Score: 0 Score Reviewed/Action Taken: Yes ANUSHKA-7 AMB Questionnaire ANUSHKA-7 Date ANUSHKA - 7 assessed: 03/08/25 Feeling nervous, anxious, or on edge: 0 = Not at all Not being able to stop or control worryin = Not at all Worrying too much about different things: 0 = Not at all Trouble relaxin = Not at all Being so restless that it is hard to sit still: 1 = Several days Becoming easily annoyed or irritable: 0 = Not at all Feeling afraid as if something awful might happen: 1 = Several days Total ANUSHKA-7 score (0-4 normal; 5-9 mild; 10-14 moderate; 15-21 severe): 2 Source: Developed by Drs. Breezy Haas, Radha Ernandez, Bobby Miller and colleagues, with an educational ernestina from [employer]. NAUSHKA-7 Assessment Billing ANUSHKA-7 Assessment Tool: ANUSHKA-7 Assessment 27009 Review of Systems Const Denies fatigue, Denies fever(s), Denies night sweats, Denies poor appetite and Denies weight loss Eyes Details: Overdue for her eye exam ENT Reports Normal hearing present, Denies dental pain, Denies dysphagia, Denies hearing loss, Denies mouth pain, Denies throat swelling, Denies tongue swelling and Reports other (Dentition adequate) Card Reports chest pain, Reports syncope and Reports dyspnea Resp Reports dyspnea GI Details: Reports as per HPI, Denies melena, Denies bloating, Denies hematochezia, Denies constipation, Denies GI cramping, Denies dysphagia, Denies excessive flatus, Denies early satiety, Reports heartburn, Denies nausea and Denies vomiting Reports no additional complaints Musc Reports stiffness Skin/Breast Denies pruritus, Denies lesions, Denies rash and Denies jaundice Neuro Reports Normal hearing present, Denies Abnormal speech present and Reports syncope Endo Denies fatigue Roosevelt/Lymph Reports no additional complaints Aller/Immun Denies throat swelling and Denies tongue swelling Physical exam (Primary Care) Vital Signs: Last Vital Signs Temp 98.0 F 03/08/25 13:21 Pulse 86 03/08/25 13:21 Resp 16 03/08/25 13:21 BP 122/82 03/08/25 13:21 Pulse Ox 98 03/08/25 13:21 Oxygen Delivery Method Room Air 03/08/25 13:21 BMI result Body Mass Index 40.6 Tobacco/Smoking Status: Tobacco use Status Tobacco use date assessed 03/08/25 03/08/25 13:26 Patient Tobacco Use Status Never used Tobacco 03/08/25 13:19 e-Cigarette/Vaping Use Never Used 03/08/25 13:19 PHQ-9: PHQ-9 Score PHQ-9: Total score 7 03/08/25 13:50 Depression Screening Interpretation: Positive (Sees [facility] her Psychiatry) Depression Screening Follow-up: Existing condition, In treatment and Community Mental Health Worker F/U (Still awaiting appointment for a therapist) Thrive Assessment: Date of Thrive Assessment Date Thrive assessed 03/08/25 03/08/25 13:26 Currently or been in a relationship where the following occur: No concerns reported Neuro Cranial nerves: Yes Normal hearing present Speech: No Abnormal speech present Office Procedures Flu Questionnaire Does the patient have a severe egg allergy?: No Does the patient have severe life threatening allergies?: No Does the patient have a fever or illness today?: No Has the patient ever had Guillain-[place] Syndrome?: No Has the patient ever had any past reaction to a flu shot?: No Immunizations Fluarix [id number] (PF) 45 mcg (15 mcg x 3)/0.5 mL IM syringe Performing Provider: Mitzy Teague MD Performing Location: [facility] Administered by: Rachel Crawford CMA on 03/08/25 13:54 Dose Route Admin Location Dispensed Lot Number Expiration Date [facility] Towboat Engineer 0.5 mL IM Right Deltoid 0.5 mL [id number] 11/29/25 [id number] [employer] VIS Given Date VIS Provided VIS Publication Date 03/08/25 Single Vaccine 24 Eligibility Eligibility Date Funding Source Not [facility] Eligible 03/08/25 Private Coding Diagnoses Essential hypertension I10 Mixed anxiety and depressive disorder F41.8 Obesity E66.9 Gastroesophageal reflux disease, unspecified whether esophagitis present K21.9 Esophagitis presence: esophagitis presence not specified Chronic osteoarthritis M19.90 Plantar fasciitis M72.2 Mild intermittent asthma without complication J45.20 Asthma complication type: uncomplicated Asthma persistence: intermittent TALIB (obstructive sleep apnea) G47.33 Annual visit for general adult medical examination with abnormal findings Z00.01 Additional Codes ANUSHKA-7 Assessment Billing - ANUSHKA-7 Assessment Tool: ANUSHKA-7 Assessment [id number] ([id number]) PHQ-9 - 00467 - PHQ-9 Billing: Yes ([id number]) Assessment & Plan Assessment & Plan (1) Essential hypertension: Code(s): I10 - Essential (primary) hypertension Category: Medical (2) Mixed anxiety and depressive disorder: Code(s): F41.8 - Other specified anxiety disorders Category: Medical (3) Obesity: Code(s): E66.9 - Obesity, unspecified Category: Medical (4) GERD (gastroesophageal reflux disease): Code(s): K21.9 - Gastro-esophageal reflux disease without esophagitis Category: Medical Qualifiers: Esophagitis presence: esophagitis presence not specified Qualified Code(s): K21.9 - Gastro-esophageal reflux disease without esophagitis (5) Chronic osteoarthritis: Comment: Sees Dr. Kline receives cortisone injection in her shoulder and knees 3 months Code(s): M19.90 - Unspecified osteoarthritis, unspecified site Category: Medical (6) Plantar fasciitis: Code(s): M72.2 - Plantar fascial fibromatosis Category: Medical (7) Mild asthma: Code(s): J45.909 - Unspecified asthma, uncomplicated Category: Medical Qualifiers: Asthma complication type: uncomplicated Asthma persistence: intermittent Qualified Code(s): J45.20 - Mild intermittent asthma, uncomplicated (8) TALIB (obstructive sleep apnea): Code(s): G47.33 - Obstructive sleep apnea (adult) (pediatric) Category: Medical (9) Annual visit for general adult medical examination with abnormal findings: Code(s): Z00.01 - Encounter for general adult medical examination with abnormal findings Orders: Orders Influenza [id number] Immunization Today Z23 - Encounter for immunization
[2025-03-08 13:21] VITALS: BP 122/82; PULSE 86; RESP 16; TEMP 36.7; O2SAT 98; BMI 40.6
--- OUTSIDE RECORDS SUMMARY | 2025-03-08 15:59 | XMS_ITS | Clinical Summary ---
Author Organization [address] [place] [address] Address [address] [place] [address] Phone Care Team Providers Care Architectural Associate Name Role Phone Physician, No Pcp Primary Care Provider Unavaila ble Allergies No known active allergies Medications busPIRone (BUSPAR) 10 mg tablet Take 2 tablets (20 mg total) by mouth 2 (two) times a day. 5 Active bumetanide (BUMEX) 1 mg tablet Take 1 tablet (1 mg total) by mouth 1 (one) time each day. 5 Active cholecalciferol (VITAMIN D-3) 50 mcg (2,000 unit) capsule Take 1 capsule (2,000 Units total) by mouth 1 (one) time each day. 5 Active fluticasone propionate (FLONASE) 50 mcg/actuation nasal spray SPRAY 1 SPRAY INTRANASALLY EVERY 12 HOURS ADMINISTER INTO EACH NOSTRIL Active Breo Ellipta 200-25 mcg/dose inhaler Inhale 1 puff by mouth 1 (one) time each day. 5 Active hydrOXYzine HCL (ATARAX) 10 mg tablet TAKE 1 TABLET BY MOUTH TWICE A DAY NEEDED FOR ANXIETY /INSOMNIA 5 Active ibuprofen (ADVIL,MOTRIN) 600 mg tablet Take 1 tablet (600 mg total) by mouth every 8 (eight) hours if needed. for pain 5 Active lisinopriL (PRINIVIL,ZESTR IL) 10 mg tablet Take 1 tablet (10 mg total) by mouth 1 (one) time each day. Active methylPREDNISol one (MEDROL DOSPAK) 4 mg tablet TAKE 6 TABLETS ON DAY 1 DIRECTED ON PACKAGE AND DECREASE BY 1 TAB EACH DAY FOR A TOTAL OF 6 DAYS 5 Active mirtazapine (REMERON) 15 mg tablet Take 1 tablet (15 mg total) by mouth. at bedtime 5 Active omeprazole (PriLOSEC) [address] capsule Take 1 capsule (40 mg total) by mouth. 1 Active Encounters Date Type Department Care Team Description 02/28/2025 2:30 PM EDT Office Visit Orthopedic Surgery [facility] [address] [phone] Derrick Wood DPM Tendinitis of right ankle (Primary Dx); Plantar fascial fibromatosis; Tendinitis of left ankle 01/11/2025 3:00 PM EDT Office Visit Orthopedic [facility] [address] [phone] Derrick Wood DPM Tendinitis of right ankle [...] Upcoming Encounters Date Type Department Care Team (Late st Contact Info) Description 03/29/2025 3:00 PM EDT Evaluation [facility] [place] 175 [facility] [address] [place] [phone] Daniela Sandhu, PT 05/02/2025 3:15 PM EST Office Visit Orthopedic Surgery [facility] [address] [phone] Derrick Wood DPM [address] [phone] Health Maintenance Due Date Last Done Comments Breast Cancer Screening 1960 Colorectal Cancer Screening: Colonoscopy 1960 Zoster Vaccines (1 of 2) 12/19/2011 Pneumococcal Vaccine: 50+ Years (2 of 2 - PCV) 02/14/2018 02/14/2017 Cervical Cancer Screening: Pap Smear 09/23/2020 09/23/2017 RSV Immunization Adult Patients (1 - Risk 60-74 years 1-dose series) 2021 Depression Screening 06/02/2024 HIV Screening 10/04/2024 Hypertension/CHF/CAD Annual BMP Blood Test 10/04/2024 Social Influencers of Health Screening 10/04/2024 COVID-19 Vaccine (1 - season) 2025 Influenza Vaccine (#1) 2025 [...] RESULTING AGENCY - 10/01/2017 7:36 AM EDT [id number] THINPREP PAP, IMAGED: NEGATIVE FOR SQUAMOUS INTRAEPITHELIAL [...] Most Recently Relevant to Health Maintenance Insurance [address] [address] PLAN Care Teams Architectural Associate Relationship Specialty Start Date End Date Physician, No Pcp PCP - General 03/01/25
== END 2025-03-08 13:53 | disposition home or self-care (01) ==
LOC: HO.HMCC 13:04
PROVIDERS: PCP Internal Medicine; Visit Provider Internal Medicine
DX: Z23 Encounter for immunization (principal)

== ENCOUNTER 2025-03-22 08:48 | Outpatient (REF) | payer OTHER, SELFPAY ==
--- NOTE | ~2025-03-22 | CT_ITS ---
EXAMINATION: CT ABDOMEN AND PELVIS WITH CONTRAST CLINICAL INFORMATION: R10.31 - Right lower quadrant pain COMPARISON: None available. TECHNIQUE: Multidetector volumetric images were obtained from the superior aspect of the liver through the pubic symphysis following administration 85 mL of Omnipaque 350 intravenous contrast. Sagittal and coronal reformatted images were obtained on the technologist's workstation. Oral contrast: [address] examination was performed using dose optimization techniques as appropriate, variously including the following: *Automated exposure control *Adjustment of mA and/or kV according to patient size (this includes techniques or standardized protocols for targeted exams where dose is matched to indication/reason for exam; i.e. extremities or head) *Use of iterative reconstruction technique FINDINGS: LUNG BASES: Reticular and groundglass densities are seen in the lung bases. LIVER, GALLBLADDER, AND BILIARY TREE: Mild degenerative changes are present throughout the liver. The gallbladder is unremarkable with no evidence of radiopaque gallstones, gallbladder wall thickening, or obvious pericholecystic inflammatory changes. PANCREAS: Unremarkable. SPLEEN: Unremarkable. ADRENAL GLANDS: Unremarkable. KIDNEYS AND URETERS: The kidneys are normal in size, shape, and attenuation. No hydronephrosis, hydroureter, or calculi seen. No perinephric stranding. BLADDER: Unremarkable. GASTROINTESTINAL TRACT: The small and large bowel are unremarkable. The appendix is unremarkable. ABDOMINAL WALL: No significant hernia is appreciated. LYMPH NODES: Normal. VASCULAR: Mild multifocal atherosclerotic calcifications are present. PELVIC VISCERA: Uterus and ovaries are unremarkable. OSSEOUS STRUCTURES: There is an age-indeterminate mild compression fracture involving superior endplate of T12 and inferior endplate of L1. There is severe disc space narrowing at L2-3 with endplate osteophytes. There is mild grade 1 anterolisthesis at L4-5. There is severe facet osteoarthritis at L4-5 and L5-S1. There is moderate degenerative change in the right hip joint and severe degenerative changes in the left hip joint with degenerative cystic changes, marginal osteophytes, and sclerosis. CT/CT abdomen pelvis w IV con IMPRESSION: No acute abnormalities. Age-indeterminate mild compression fracture of superior T1 and inferior L1. Degenerative disc disease and facet osteophytes. Moderate right and severe left hip degenerative changes. Hepatic steatosis. Fleischner guidelines were followed. Electronically signed by: Easton Flor MD 03/22/2025 11:18 AM EDT RP
[2025-03-22] MEDS: iohexoL 350 MG/ML 100 ML INFUS..BTL IV (11:02)
[2025-03-22] MEDS: Barium Sulfate Oral (Vanilla) 450 ML ORAL.SUSP 900 ML PO (11:03)
== END 2025-03-22 08:49 | disposition home or self-care (01) ==
LOC: HO.CT 08:48
PROVIDERS: PCP Internal Medicine; Visit Provider Nurse Practitioner
DX: R10.31 Right lower quadrant pain (principal)
CPT/HCPCS: 74177; Q9967

== ENCOUNTER → 2025-03-22 08:55 | Outpatient (BNV) | payer OTHER, SELFPAY | PROVIDERS: PCP Internal Medicine; Visit Provider Radiology Diagnostic Radiology | DX: K76.0 Fatty (change of) liver, not elsewhere classified (principal); M16.12 Unilateral primary osteoarthritis, left hip; M25.70 Osteophyte, unspecified joint | CPT/HCPCS: 74177 ==

== ENCOUNTER 2025-04-12 14:18 | Outpatient (REF) | payer OTHER, SELFPAY ==
[2025-04-12 14:31] LABS: MANUAL DIFF FLAG NO
[2025-04-12 15:49] LABS: Hematocrit 40.9 % (37.0-47.0); Hemoglobin 13.2 g/dl (12.0-16.0); Imm Gran Abs Auto 0.03 X10*3/uL (0.00-0.03); Imm Gran Pct Auto 0.5 % (0.0-0.4); Lymphocytes Absolute Auto 2.3 X10*3/uL (1.2-4.9); Mean Corpuscular HGB Conc 32.3 g/dl (31.0-35.0); Mean Corpuscular Hemoglobin 29.1 pg (27.0-33.0); Mean Corpuscular Volume 90.3 fL (80.0-98.0); NRBC Abs Auto 0.000 X10*3/uL (0.0-0.012); NRBC Pct Auto 0.0 /100WBC (0.0-0.2); Platelet Count 277 X10*3/uL (160-400); Red Blood Count 4.53 X10*6/uL (4.20-5.50); White Blood Count 6.0 X10*3/uL (4.8-10.8)
--- OUTSIDE RECORDS SUMMARY | 2025-04-12 15:58 | XMS_ITS | Clinical Summary ---
Author Organization [address] [place] [address] Address [address] [place] [address] Phone Care Team Providers Care Sander And Polisher Name Role Phone Physician, No Pcp Primary [...] 2:30 PM EDT Office Visit Orthopedic Surgery [place] [address] [phone] Derrick Wood DPM Tendinitis of right ankle (Primary Dx); Plantar fascial fibromatosis; Tendinitis of left ankle 01/11/2025 3:00 PM EDT Office Visit [facility] [address] [phone] Derrick Wood DPM Tendinitis of right ankle [...] Care Team (Late st Contact Info) Description 04/26/2025 4:30 PM EST Evaluation [facility] [place] 175 [facility] [address] [place] [phone] Daniela Sandhu, PT 05/02/2025 3:15 PM EST Office Visit Orthopedic Surgery [facility] [address] [phone] Derrick Wood DPM [address] [phone] Health Maintenance Due Date Last Done Comments Breast Cancer Screening 1960 Colorectal Cancer Screening: Colonoscopy 1961 RSV Immunization Adult Patients (1 - Risk 50-74 years 1-dose series) 12/19/2011 Zoster Vaccines (1 of 2) 12/19/2011 Pneumococcal Vaccine: 50+ Years (2 of 2 - PCV) 02/14/2018 02/14/2017 Cervical Cancer Screening: Pap Smear 09/23/2020 09/23/2017 Depression Screening 06/02/2024 HIV Screening 10/04/2024 Hypertension/CHF/CAD [...] RESULTING AGENCY - 10/01/2017 7:36 AM EDT [id number] THINPREP PAP, IMAGED: NEGATIVE FOR SQUAMOUS INTRAEPITHELIAL [...] Most Recently Relevant to Health Maintenance [place] [address] [place] [address] PLAN Care Teams Sander And Polisher Relationship Specialty Start Date End Date Physician, No Pcp PCP - General 03/01/25
[2025-04-12 16:13] LABS: Alanine Aminotransferase 46 U/L (0-31); Albumin Level 4.3 g/dL (3.5-5.0); Alkaline Phosphatase 71 U/L (39-117); Anion Gap 10 (12-20); Aspartate Amino Transferase 60 U/L (5-31); Blood Urea Nitrogen 10 mg/dL (9-16); Calcium 10.0 mg/dL (8.4-10.2); Carbon Dioxide 29 mmol/L (22-29); Chloride 106 mmol/L (96-108); Estimated Glomerular Filt Rate > 60; Potassium 3.8 mmol/L (3.3-5.1); Sodium 141 mmol/L (135-145); Total Protein 7.4 g/dL (6.5-8.0)
[2025-04-12 16:40] LABS: NT Pro B Type Natriuretic Pept 132.6 pg/mL (<300)
[2025-04-12 16:41] LABS: Troponin-I High Sensitivity < 2.7 ng/L (<3.5-17.0)
== END 2025-04-12 14:19 | disposition home or self-care (01) ==
LOC: HO.LAB 14:18
PROVIDERS: PCP Internal Medicine; Visit Provider Nurse Practitioner
DX: R10.31 Right lower quadrant pain (principal); R06.02 Shortness of breath; R60.0 Localized edema; R19.7 Diarrhea, unspecified
CPT/HCPCS: 36415; 80053; 83880; 84484; 85025